=== PATIENT | female | born 1955 | race Caucasian/White ===

== ENCOUNTER → 2016-06-12 | Outpatient (CLI) | payer OTHER ==
[~2016-06-12] MED LIST: B-COTAB18 PO; BUSP-8 PO; DIVA125C PO; DIVA1TAB86 PO; DIVA250T PO; DIVA500T5 PO; DTR5 PO; EFF50; FOLI1TAB7 PO; LISI-725 PO; POTA10TA PO; THIA100T11 PO; TOLT2TAB9 PO; VENL150T33 PO; VENL75CA73 PO; [UNRECOGNIZED DRUG - CODE] PO
[2016-06-12 17:04] LABS: URINE APPEARANCE CLEAR (CLEAR); URINE BILIRUBIN NEG (NEG); URINE COLOR YELLOW; URINE EPITHELIAL CELL AUTO 20-30 /lpf (0-5); URINE NITRITE NEG (NEG); URINE PH 5.5 (4.5-7.5); URINE SPECIFIC GRAVITY 1.015 (1.000-1.030); UROBILINOGEN NEG (NEG)
[2016-06-12 17:12] LABS: MANUAL MICROSCOPIC REQUIRED? NO; REVIEW REQ? NO
--- NOTE | 2016-07-26 11:53 | CODING QUERY NO DIAGNOSIS ---
TREATMENT RENDERED WITHOUT A DIAGNOSIS To promote full compliance with coding requirements relating to patient care, physician participation is requested in all cases of dispensary clerk uncertainty. Please assist us with providing a diagnosis/symptom for the test(s) below: A diagnosis/symptom was not documented on your Order. A valid diagnosis/symptom is required to bill all insurances. Please remember that we are unable to code a diagnosis of rule out, probable, possible, questionable, or suspected. Tests that require a diagnosis: * UA CLEAN CATCH W/ MICROSCOPIC DIAGNOSIS: * URINE CULTURE CLEAN CATCH DIAGNOSIS: Provider Signature: Date: Thank you Lola Renner [employer] Information Management Once completed, please kindly fax back to [phone] For questions please call [phone]
== END | disposition home or self-care (01) ==
LOC: C.LABBC 14:11
PROVIDERS: ATTEND Family Medicine
DX: R35.0 Frequency of micturition (principal); N39.0 Urinary tract infection, site not specified

== ENCOUNTER → 2016-08-26 | Outpatient (CLI) | payer OTHER ==
[~2016-08-26] MED LIST changes: +EFF50 PO; +EFF75 PO; +Enteral Nutrition Formula PO; +MRLP17X PO; +NUTRMIS PO
--- NOTE | 2016-08-26 14:10 | DIAGNOSTIC IMAGING REPORT ---
HEAD CT NONCONTRAST CT DOSE: 720.95 mGycm HISTORY: Follow-up cerebral hemorrhage. TECHNIQUE: Multiaxial CT images of the head were performed without the use of intravenous contrast. Automated exposure control was utilized for this study. Comparison: Head CT 05/28/2016. Findings: The paranasal sinuses and mastoid air cells are clear. Continued decrease in size within the left external capsule fluid collection suggestive of a resolving hematoma. This currently measures 2.3 x 0.9 cm, previously measuring 3.6 x 1.7 cm. This demonstrates a hyperdense rim, unchanged. Old scattered infarcts seen within the cerebellum and left cerebral hemisphere. No acute infarcts identified. Atrophy and microvascular ischemic changes are again noted. No calvarial fractures. Impression: Continued decrease in size of the left external capsule fluid collection likely representing a resolving hematoma. No acute hemorrhage identified. Electronically signed by: Sudhir Menjivar M.D. 08/26/2016 2:09 PM Dictated Date/Time: 08/26/2016 2:04 PM
== END | disposition home or self-care (01) ==
LOC: C.CTS 13:34
PROVIDERS: ATTEND Psychiatry & Neurology Neurology
DX: I61.9 Nontraumatic intracerebral hemorrhage, unspecified (principal)

== ENCOUNTER → 2016-08-31 | Outpatient (CLI) | payer OTHER ==
[2016-08-31 11:24] LABS: URINE APPEARANCE CLEAR (CLEAR); URINE BILIRUBIN NEG (NEG); URINE COLOR YELLOW; URINE EPITHELIAL CELL AUTO >30 /lpf (0-5); URINE NITRITE NEG (NEG); URINE PH 5.5 (4.5-7.5); URINE SPECIFIC GRAVITY 1.024 (1.000-1.030); UROBILINOGEN NEG (NEG)
[2016-08-31 11:27] LABS: MANUAL MICROSCOPIC REQUIRED? NO; REVIEW REQ? YES
== END | disposition home or self-care (01) ==
LOC: C.LABBC 08:32
PROVIDERS: ATTEND Physician Assistant
DX: N39.0 Urinary tract infection, site not specified (principal)

== ENCOUNTER → 2016-09-16 | Outpatient (CLI) | payer OTHER ==
[2016-09-16 17:47] LABS: BLOOD UREA NITROGEN 32 mg/dl (7-18); CREATININE 0.82 mg/dl (0.60-1.20)
== END | disposition home or self-care (01) ==
LOC: C.LABBC 14:25
PROVIDERS: ATTEND Psychiatry & Neurology Neurology
DX: I61.9 Nontraumatic intracerebral hemorrhage, unspecified (principal); I69.319 Unspecified symptoms and signs involving cognitive functions following cerebral infarction

== ENCOUNTER → 2016-09-20 | Outpatient (CLI) | payer OTHER ==
[~2016-09-20] MED LIST changes: +GADAVIST IV PRN
--- NOTE | 2016-09-20 14:05 | DIAGNOSTIC IMAGING REPORT ---
MRI OF THE BRAIN WITHOUT AND WITH IV CONTRAST CLINICAL HISTORY: BRAIN COMBO COMPARISON STUDY: No previous studies for comparison. TECHNIQUE: Utilizing a 1.5 Rashmi magnet and dedicated coil, multiplanar, multiecho imaging of the brain was performed pre and postcontrast administration. IV administration of 8.5 mL of Gadavist contrast was uneventful. FINDINGS: Diffusion-weighted images show no acute ischemic process. There is a subtle increase in signal involving the linear collection of the left external capsule. This probably represents a resolving small hematoma. Signal characteristics indicate old infarcts of the left occipital as well as left superior parietal lobe. Diffusion-weighted images show no acute ischemic process. Mild compensatory prominence of the ventricular system. Findings of moderate cerebellar as well as cerebral atrophy are present pontine medullary region is unremarkable. Cerebellar several old cerebellar infarcts of the cerebellum. IMPRESSION: 1. Age-related atrophy. 2. Multifocal infarcts all which are considered old. 3. Resolving left external capsule hemorrhage which has been described previously. 4. Mild compensatory prominence of the ventricular system Electronically signed by: William Colmenares M.D. 09/20/2016 2:03 PM Dictated Date/Time: 09/20/2016 1:57 PM
== END | disposition home or self-care (01) ==
LOC: C.MRIBC 12:35
PROVIDERS: ATTEND Psychiatry & Neurology Neurology
DX: G81.91 Hemiplegia, unspecified affecting right dominant side (principal); I61.9 Nontraumatic intracerebral hemorrhage, unspecified; I69.319 Unspecified symptoms and signs involving cognitive functions following cerebral infarction; R26.9 Unspecified abnormalities of gait and mobility; R29.818 Other symptoms and signs involving the nervous system; R47.01 Aphasia; Z79.899 Other long term (current) drug therapy

== ENCOUNTER → 2016-09-20 | Outpatient (CLI) | payer OTHER ==
[~2016-09-20] MED LIST changes: -GADAVIST IV PRN
[2016-09-20 17:11] LABS: ALKALINE PHOSPHATASE 91 U/L (45-117); ALT/SGPT 22 U/L (12-78); AST/SGOT 15 U/L (15-37)
== END | disposition home or self-care (01) ==
LOC: C.LABBC 12:56
PROVIDERS: ATTEND Psychiatry & Neurology Psychiatry
DX: Z79.899 Other long term (current) drug therapy (principal)

== ENCOUNTER → 2016-10-14 | Outpatient (CLI) | payer OTHER ==
[2016-10-14 17:23] LABS: URINE APPEARANCE CLEAR (CLEAR); URINE BILIRUBIN NEG (NEG); URINE COLOR DK YELLOW; URINE NITRITE NEG (NEG); URINE SPECIFIC GRAVITY 1.027 (1.000-1.030); UROBILINOGEN NEG (NEG)
[2016-10-14 17:32] LABS: MANUAL MICROSCOPIC REQUIRED? NO; REVIEW REQ? NO
== END | disposition home or self-care (01) ==
LOC: C.LABBC 15:09
PROVIDERS: ATTEND Family Medicine
DX: N39.0 Urinary tract infection, site not specified (principal)

== ENCOUNTER 2016-10-15 12:34 | Inpatient (IN) | payer OTHER ==
[~2016-10-15] VITALS: Ht 157.5 cm; Wt 53.6 kg
[2016-10-15] VITALS (56 sets, daily range): BP systolic 51–141; BP diastolic 31–106; PULSE 86–106; TEMP 36.3–36.5; O2SAT 85–100; Ht 157.5 cm; Wt 53.6 kg
[~2016-10-15 12:34] MED LIST changes: -B-COTAB18 PO; -BUSP-8 PO; -DIVA125C PO; -DIVA1TAB86 PO; -DTR5 PO; -EFF50; -EFF50 PO; -EFF75 PO; -Enteral Nutrition Formula PO; -FOLI1TAB7 PO; -LISI-725 PO; -MRLP17X PO; -NUTRMIS PO; -POTA10TA PO; +SODIUM CHLORIDE 0.9% 500ML 500 ML IV STA; -THIA100T11 PO; -TOLT2TAB9 PO; -[UNRECOGNIZED DRUG - CODE] PO
[2016-10-15] MEDS ORDERED: B-COTAB18 PO (12:52)
[2016-10-15] MEDS ORDERED: LISI-725 PO (12:52)
[2016-10-15] MEDS ORDERED: FOLI1TAB7 PO (12:52)
[2016-10-15] MEDS ORDERED: POTA10TA PO (12:52)
[2016-10-15] MEDS ORDERED: TOLT2TAB9 PO (12:52)
--- NOTE | 2016-10-15 13:06 | DIAGNOSTIC IMAGING REPORT ---
CHEST ONE VIEW PORTABLE HISTORY: Altered mental status. COMPARISON: Chest 05/03/2016. FINDINGS: The lungs are clear. Cardiac silhouette is normal in size. No pleural effusions. No pneumothorax. IMPRESSION: No acute process. Electronically signed by: Sudhir Menjivar M.D. 10/15/2016 1:05 PM Dictated Date/Time: 10/15/2016 1:03 PM
[2016-10-15 13:22] LABS: BASO % 0.1 %; BASO ABS # 0.02 K/uL (0-0.2); COMPLETE YES; EOS % 0.2 %; HEMATOCRIT 30.5 % (37-47); IG% 0.4 %; LYMPH % 26.2 %; LYMPH ABS # 3.61 K/uL (1.2-3.4); MEAN CELL VOLUME 94.4 fL (80-100); MEAN CORPUSCULAR HEMOGLOBIN 32.5 pg (25-34); MEAN CORPUSCULAR HGB CONC 34.4 g/dl (32-36); MEAN PLATELET VOLUME 10.6 fL (7.4-10.4); MONO % 9.3 %; NEUT % 63.8 %; PLATELET COUNT 260 K/uL (130-400); RED BLOOD COUNT 3.23 M/uL (4.2-5.4); WHITE BLOOD COUNT 13.76 K/uL (4.8-10.8)
[2016-10-15 13:32] LABS: MANUAL MICROSCOPIC REQUIRED? NO; REVIEW REQ? NO; URINE APPEARANCE CLEAR (CLEAR); URINE BILIRUBIN NEG (NEG); URINE COLOR DK YELLOW; URINE EPITHELIAL CELL AUTO >30 /lpf (0-5); URINE NITRITE NEG (NEG); URINE PH 6.5 (4.5-7.5); URINE SPECIFIC GRAVITY 1.027 (1.000-1.030); UROBILINOGEN NEG (NEG); ZZURINE CULT IF INDIC CATH NO
[2016-10-15] MEDS ORDERED: SODIUM CHLORIDE 0.9% 1000ML 1,000 ML IV STA (13:36)
[2016-10-15 13:44] LABS: BUN/CREATININE RATIO 45.1 (10-20); CALCIUM 9.2 mg/dl (8.5-10.1); CREATININE 0.94 mg/dl (0.60-1.20); POTASSIUM 4.9 mmol/L (3.5-5.1)
--- NOTE | 2016-10-15 13:44 | EMERGENCY ROOM VISIT NOTE ---
History Report prepared by Zheng: Suraj Berry Under the Supervision of: Dr. Kobe Horvath M.D. First contact with patient: 12:34 Chief Complaint: ALTERED MENTAL STATUS Stated Complaint: ALTERED MENTAL STATUS Nursing Triage Summary: Patient arries via BLS from home. Per EMS report the patient had a previous stroke around September. The reports the patient being more lethargic and more confused than normal. believes it could be UTI, he had dropped off a urine specimen at the PCP office yesterday but results haven't been final yet. Patient A&O to person and sometimes place. History of Present Illness The patient is a 61 year old female who presents to the Emergency Room with complaints of constant weakness beginning five days ago. The patient's family notes that she has not been herself and she seems to be confused. They notes that she has a history of UTI's and confusion is an associated symptoms. The patient complains of a decreased appetite and diarrhea. She denies nausea, vomiting, couch, fever, or chills. The patient's family reports that the patient has a history of hypotension, noting that she is currently undergoing changes in her medications. Source of History: patient, family Onset: 5 days ago Position: other (global) Quality: other (weakness) Timing: constant Associated Symptoms: + diarrhea, No chills, No cough, No fevers, No nausea, No vomiting Note: Associated symptoms decreased appetite. Review of Systems See HPI for pertinent positives & negatives. A total of 10 systems reviewed and were otherwise negative. Past Medical & Surgical Medical Problems: (1) Bipolar disease, chronic (2) Head trauma (3) Hypotension Family History No pertinent family history Social History Smoking Status: Unknown if Ever Smoked Marital Status: Housing Status: lives with family Current/Historical Medications Scheduled B-Complex Vitamins (Vitamin B Complex), 1 TAB PO DAILY Folic Acid (Folvite), 1 MG PO DAILY Lisinopril (Zestril), 10 MG PO DAILY Potassium Chloride (K-Tabs), 20 MEQ PO BID Tolterodine Tartrate (Tolterodine Tartrate), 2 MG PO BID Allergies Coded Allergies: POLLEN (Verified Allergy, Intermediate, PAST HX SEASONAL ALLERGIES/ASTHMA , 10/15/16) Physical Exam Vital Signs Date Time Temp Pulse Resp B/P Pulse Ox O2 Delivery O2 Flow Rate FiO2 10/15/16 16:24 96 15 68/45 95 Room Air 69/53 10/15/16 15:44 97 19 70/47 10/15/16 14:53 94 18 69/51 10/15/16 13:50 102 20 71/55 100 Room Air 10/15/16 12:57 118 78/59 10/15/16 12:49 97 Room Air 10/15/16 12:49 97 Room Air 10/15/16 12:43 36.8 114 16 136/58 97 Room Air Physical Exam GENERAL: Patient is a ill, cachectic, pale-appearing female HEAD: Normocephalic atraumatic EYES: Ocular movements intact pupils equal and react to light OROPHARYNX mucous membranes are moist no exudates present no erythema or edema present NECK: Supple no nuchal rigidity CHEST: Good equal expansion LUNGS: Clear and equal to auscultation CARDIAC: 4/6 systolic murmur ABDOMEN: Soft nontender no guarding BACK: No CVA tenderness EXTREMITIES: No pain upon palpation normal muscle strength in all groups no clubbing cyanosis or edema NEURO: Patient is following commands is answering questions appropriately. Alert and oriented x3 Cranial Nerves 2-12 grossly intact Medical Decision & Procedures ER Provider Diagnostic Interpretation: Radiology results as stated below per my review and radiologist interpretation: HEAD CT NONCONTRAST CT DOSE: 537.48 mGy.cm HISTORY: Altered mental status. TECHNIQUE: Multiaxial CT images of the head were performed without the use of intravenous contrast. Automated exposure control was utilized for this study. Comparison: Head CT 08/26/2016. Findings: Old nasal bone and left zygomatic arch fractures. No fluid levels within the paranasal sinuses. The mastoid air cells are clear. No acute fractures within the calvarium. Continued decrease in size within the left external capsule fluid collection with surrounding thin rim of increased density. This currently measures 1.5 x 0.8 cm, previous measuring 2.3 x 0.9 cm. Multiple scattered infarcts are again noted. There is no mass, midline shift, acute infarct, or acute hemorrhage identified. Impression: Continued decrease in size in the small left external capsule fluid collection likely representing a resolving hematoma. No acute hemorrhage or acute infarct identified. Electronically signed by: Sudhir Menjivar M.D. 10/15/2016 2:24 PM Dictated Date/Time: 10/15/2016 2:19 PM CHEST ONE VIEW PORTABLE HISTORY: Altered mental status. COMPARISON: Chest 05/03/2016. FINDINGS: The lungs are clear. Cardiac silhouette is normal in size. No pleural effusions. No pneumothorax. IMPRESSION: No acute process. Electronically signed by: Sudhir Menjivar M.D. 10/15/2016 1:05 PM Dictated Date/Time: 10/15/2016 1:03 PM Laboratory Results 10/15/16 12:56 Red Blood Count 3.23, Mean Corpuscular Volume 94.4, Mean Corpuscular Hemoglobin 32.5, Mean Corpuscular Hemoglobin Concent 34.4, Mean Platelet Volume 10.6, Neutrophils (%) (Auto) 63.8, Lymphocytes (%) (Auto) 26.2, Monocytes (%) (Auto) 9.3, Eosinophils (%) (Auto) 0.2, Basophils (%) (Auto) 0.1, Neutrophils # (Auto) 8.76, Lymphocytes # (Auto) 3.61, Monocytes # (Auto) 1.28, Eosinophils # (Auto) 0.03, Basophils # (Auto) 0.02 10/15/16 12:56 Test 10/15/16 12:54 10/15/16 12:56 10/15/16 13:12 10/15/16 16:49 Bedside Glucose 135 mg/dl (70-90) White Blood Count 13.76 K/uL (4.8-10.8) Red Blood Count 3.23 M/uL (4.2-5.4) Hemoglobin 10.5 g/dL (12.0-16.0) Hematocrit 30.5 % (37-47) Mean Corpuscular Volume 94.4 fL (80-100) Mean Corpuscular Hemoglobin 32.5 pg (25-34) Mean Corpuscular Hemoglobin Concent 34.4 g/dl (32-36) Platelet Count 260 K/uL (130-400) Mean Platelet Volume 10.6 fL (7.4-10.4) Neutrophils (%) (Auto) 63.8 % Lymphocytes (%) (Auto) 26.2 % Monocytes (%) (Auto) 9.3 % Eosinophils (%) (Auto) 0.2 % Basophils (%) (Auto) 0.1 % Neutrophils # (Auto) 8.76 K/uL (1.4-6.5) Lymphocytes # (Auto) 3.61 K/uL (1.2-3.4) Monocytes # (Auto) 1.28 K/uL (0.11-0.59) Eosinophils # (Auto) 0.03 K/uL (0-0.5) Basophils # (Auto) 0.02 K/uL (0-0.2) RDW Standard Deviation 50.5 fL (36.4-46.3) RDW Coefficient of Variation 14.7 % (11.5-14.5) Immature Granulocyte % (Auto) 0.4 % Immature Granulocyte # (Auto) 0.06 K/uL (0.00-0.02) Anion Gap 7.0 mmol/L (3-11) Est Creatinine Clear Calc Drug Dose 52.9 ml/min Estimated GFR () 74.8 Estimated GFR (Non- 64.6 BUN/Creatinine Ratio 45.1 (10-20) Calcium Level 9.2 mg/dl (8.5-10.1) Phosphorus Level 3.6 mg/dl (2.5-4.9) Magnesium Level 2.1 mg/dl (1.8-2.4) Total Bilirubin 0.3 mg/dl (0.2-1) Direct Bilirubin 0.1 mg/dl (0-0.2) Aspartate Amino Transf (AST/SGOT) 22 U/L (15-37) Alanine Aminotransferase (ALT/SGPT) 19 U/L (12-78) Alkaline Phosphatase 57 U/L (45-117) Total Creatine Kinase 24 U/L (26-192) Creatine Kinase MB 1.6 ng/ml (0.5-3.6) Creatine Kinase MB Ratio 6.7 (0-3.0) Troponin I 0.136 ng/ml (0-0.045) Total Protein 6.4 gm/dl (6.4-8.2) Albumin 2.9 gm/dl (3.4-5.0) Thyroid Stimulating Hormone (TSH) 4.840 uIu/ml (0.300-4.500) Urine Color DK YELLOW Urine Appearance CLEAR (CLEAR) Urine pH 6.5 (4.5-7.5) Urine Specific [place] 1.027 (1.000-1.030) Urine Protein NEG (NEG) Urine Glucose (UA) NEG (NEG) Urine Ketones TRACE (NEG) Urine Occult Blood NEG (NEG) Urine Nitrite NEG (NEG) Urine Bilirubin NEG (NEG) Urine Urobilinogen NEG (NEG) Urine Leukocyte Esterase SMALL (NEG) Urine WBC (Auto) 1-5 /hpf (0-5) Urine RBC (Auto) 0-4 /hpf (0-4) Urine Hyaline Casts (Auto) 1-5 /lpf (0-5) Urine Epithelial Cells (Auto) >30 /lpf (0-5) Urine Bacteria (Auto) NEG (NEG) Labs reviewed by ED physician. Medications Administered Medications (Trade) Dose Ordered Sig/Froylan Route Start Time Stop Time Status Last Admin Dose Admin Sodium Chloride 500 ml @ 999 mls/hr Q31M STAT IV 10/15/16 12:34 10/15/16 13:04 DC 10/15/16 13:18 999 MLS/HR Sodium Chloride 1,000 ml @ 999 mls/hr Q1H1M STAT IV 10/15/16 13:36 10/15/16 14:36 DC 10/15/16 13:48 999 MLS/HR Daptomycin/Sodium Chloride (Cubicin IV/Nss 50ml) 57.2 ml @ 100 mls/hr NOW STAT IV 10/15/16 14:01 10/15/16 14:35 DC 10/15/16 14:34 100 MLS/HR Piperacillin Sod/ Tazobactam Sod (Zosyn Iv) 4.5 gm NOW STAT IV 10/15/16 14:01 10/15/16 14:03 DC 10/15/16 14:29 4.5 GM ECG Indication: altered mental status Rate (beats per minute): 115 Rhythm: sinus tachycardia Findings: no acute ischemic change, no ectopy ED Course 1234: Ordered Sodium Chloride 500 ml @ 999 mls/hr IV 1332: Past medical records reviewed. The patient was evaluated in room C02. A complete history and physical examination was performed. 1336: Ordered Sodium Chloride 1000 ml @ 999 mls/hr IV. 1401: Ordered Zosyn Iv 4.5 gm IV, Daptomycin 360 mg/Sodium Chloride 57.2 ml @ 100 mls/hr IV 1405: I reevaluated the patient and she is doing better. I updated the patient of her exam findings and test result. 1446: Upon reexamination the patient is resting easy. I discussed results and treatment plan with the family. They verbalized agreement and understanding. I spoke with Dr. Oh from the [facility]. The patient will be evaluated for further management. Medical Decision Differential diagnosis: Etiologies such as metabolic, infection, hypo/hyperglycemia, electrolyte abnormalities, cardiac sources, intracerebral event, toxicologic, neurologic, as well as others were entertained. This is a 61-year-old female who presents emergency department with altered mental status. The patient is extremely hypertensive upon arrival to the emergency department therefore she was given normal saline bolus. There was concern that the patient may have a urinary tract infection she does have an elevation in her white blood count cell count. She was pancultured up and started on antibiotics. I did discuss the case with the hospitalist service who agreed to admit the patient. Patient family were in agreement with the treatment plan. Consults Time Called: 1439 Consulting Physician: BARBARA Chowdary Returned Call: [phone] I discussed the patients case with BARBARA Hernandez. He is going to evaluate the patient for further treatment. Impression Primary Impression: Altered mental status Additional Impression: Hypotension Scribe Attestation The scribe's documentation has been prepared under my direction and personally reviewed by me in its entirety. I confirm that the note above accurately reflects all work, treatment, procedures, and medical decision making performed by me. Departure Information Dispostion Being Evaluated By Hospitalist Referrals Shad Lyons D.O.Int.Med. (PCP) Problem Qualifiers Primary Impression: Altered mental status Altered mental status type: disorientation Qualified Codes: R41.0 - Disorientation, unspecified Additional Impression: Hypotension Hypotension type: unspecified hypotension type Qualified Codes: I95.9 - Hypotension, unspecified
[2016-10-15 13:57] LABS: CKMB/CK RATIO 6.7 (0-3.0); THYROID STIMULATING HORMONE 4.84 uIu/ml (0.300-4.500)
[2016-10-15] MEDS ORDERED: DAPTOmycin IV 360 MG in SODIUM CHLORIDE 0.9% 50ML 50 ML IV STA (14:01)
[2016-10-15] MEDS ORDERED: PIPERACILLIN/TAZOBACTAM 4.5 GM/100ML D5W IV STA (14:01)
--- NOTE | 2016-10-15 14:26 | DIAGNOSTIC IMAGING REPORT ---
HEAD CT NONCONTRAST CT DOSE: 537.48 mGy.cm HISTORY: Altered mental status. TECHNIQUE: Multiaxial CT images of the head were performed without the use of intravenous contrast. Automated exposure control was utilized for this study. Comparison: Head CT 08/26/2016. Findings: Old nasal bone and left zygomatic arch fractures. No fluid levels within the paranasal sinuses. The mastoid air cells are clear. No acute fractures within the calvarium. Continued decrease in size within the left external capsule fluid collection with surrounding thin rim of increased density. This currently measures 1.5 x 0.8 cm, previous measuring 2.3 x 0.9 cm. Multiple scattered infarcts are again noted. There is no mass, midline shift, acute infarct, or acute hemorrhage identified. Impression: Continued decrease in size in the small left external capsule fluid collection likely representing a resolving hematoma. No acute hemorrhage or acute infarct identified. Electronically signed by: Sudhir Menjivar M.D. 10/15/2016 2:24 PM Dictated Date/Time: 10/15/2016 2:19 PM
--- NOTE | 2016-10-15 16:47 | History and Physical ---
History & Physical Date & Time of Service: October 15, 2016 at 16:32 Chief Complaint: Altered Mental Status Primary Care Physician: Shad Lyons D.O.Int.Med. History of Present Illness Source: patient, family Pt is 61 yr old woman with a PMH significant for CVA/Right hemiparesis, HTN admitted for eval of gen. weakness. 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 Not eating and drinking. Also ? loose stools. No abd pain. Pt denies dysuria, hematuria. UA sent as OP as per PCP to rule out UTI. In ER found to be hypotensive and started on IV fluids with some improvement in BP. 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 No ETOH or tobacco use Smoking Status: Unknown if Ever Smoked Marital Status: Immunizations History of Influenza Vaccine: No History of Tetanus Vaccine?: Yes History of Pneumococcal: No History of Hepatitis B Vaccine: No Multi-Drug Resistant Organisms History of MDRO: No Allergies Coded Allergies: POLLEN (Verified Allergy, Intermediate, PAST HX SEASONAL ALLERGIES/ASTHMA , 10/15/16) Home Medications Scheduled B-Complex Vitamins (Vitamin B Complex), 1 TAB PO DAILY Folic Acid (Folvite), 1 MG PO DAILY Lisinopril (Zestril), 10 MG PO DAILY Potassium Chloride (K-Tabs), 20 MEQ PO BID Tolterodine Tartrate (Tolterodine Tartrate), 2 MG PO BID Review of Systems Constitutional: + fatigue, + weakness Eyes: No diplopia, No discharge, No eye pain, No problem reported, No redness, No worsening of vision ENT: No dental problems, No hearing loss, No nasal symptoms, No problem reported, No sore throat, No tinnitus, No trouble swallowing, No unusual epistaxis Respiratory: No cough, No dyspnea at rest, No dyspnea on exertion, No hemoptysis, No problem reported, No shortness of breath, No sputum, No wheezing Cardiovascular: No PND, No chest pain, No claudication, No edema, No orthopnea , No palpitations, No problem reported Abdomen: + diarrhea Musculoskeletal: No calf pain, No joint pain, No muscle pain, No problem reported, No swelling Genitourinary - Female: No dysmenorrhea, No dysuria, No hematuria, No menorrhagia, No metrorrhagia, No , No problem reported, No rash, No urinary frequency, No urinary incontinence, No urinary retention, No urinary urgency, No vaginal bleeding, No vaginal discharge, No vaginal itching, No vulvodynia Neurologic: + weakness (right hemiparesis) Psychiatric: + depression symptoms Integumentary: No bleeding, No color change, No itch, No new/changing skin lesions, No problem reported, No rash Physical Exam Vital Signs Date Time Temp Pulse Resp B/P Pulse Ox O2 Delivery O2 Flow Rate FiO2 10/15/16 16:24 96 15 68/45 95 Room Air 69/53 10/15/16 15:44 97 19 70/47 10/15/16 14:53 94 18 69/51 10/15/16 13:50 102 20 71/55 100 Room Air 10/15/16 12:57 118 78/59 10/15/16 12:49 97 Room Air 10/15/16 12:49 97 Room Air 10/15/16 12:43 36.8 114 16 136/58 97 Room Air General Appearance: + mild distress Head: normocephalic, atraumatic Eyes: normal inspection, PERRL, EOMI ENT: normal ENT inspection Neck: supple Respiratory/Chest: chest non-tender, normal breath sounds Cardiovascular: regular rate, rhythm, no edema, + systolic murmur Abdomen/GI: normal bowel sounds, non tender, soft, no organomegaly Back: normal inspection Neurologic/Psych: supervisor sanding II-XII nml as tested, alert, oriented x 3, + motor weakness (right hemiparesis) Skin: + pallor Diagnostics Laboratory Results Results Past 24 Hours Test 10/15/16 12:54 10/15/16 12:56 10/15/16 13:12 Range/Units Bedside Glucose 135 70-90 mg/dl White Blood Count 13.76 4.8-10.8 K/uL Red Blood Count 3.23 4.2-5.4 M/uL Hemoglobin 10.5 12.0-16.0 g/dL Hematocrit 30.5 37-47 % Mean Corpuscular Volume 94.4 80-100 fL Mean Corpuscular Hemoglobin 32.5 25-34 pg Mean Corpuscular Hemoglobin Concent 34.4 32-36 g/dl Platelet Count 260 130-400 K/uL Mean Platelet Volume 10.6 7.4-10.4 fL Neutrophils (%) (Auto) 63.8 % Lymphocytes (%) (Auto) 26.2 % Monocytes (%) (Auto) 9.3 % Eosinophils (%) (Auto) 0.2 % Basophils (%) (Auto) 0.1 % Neutrophils # (Auto) 8.76 1.4-6.5 K/uL Lymphocytes # (Auto) 3.61 1.2-3.4 K/uL Monocytes # (Auto) 1.28 0.11-0.59 K/uL Eosinophils # (Auto) 0.03 0-0.5 K/uL Basophils # (Auto) 0.02 0-0.2 K/uL RDW Standard Deviation 50.5 36.4-46.3 fL RDW Coefficient of Variation 14.7 11.5-14.5 % Immature Granulocyte % (Auto) 0.4 % Immature Granulocyte # (Auto) 0.06 0.00-0.02 K/uL Sodium Level 139 136-145 mmol/L Potassium Level 4.9 3.5-5.1 mmol/L Chloride Level 105 98-107 mmol/L Carbon Dioxide Level 27 21-32 mmol/L Anion Gap 7.0 3-11 mmol/L Blood Urea Nitrogen 42 7-18 mg/dl Creatinine 0.94 0.60-1.20 mg/dl Est Creatinine Clear Calc Drug Dose 52.9 ml/min Estimated GFR () 74.8 Estimated GFR (Non- 64.6 BUN/Creatinine Ratio 45.1 10-20 Random Glucose 127 70-99 mg/dl Calcium Level 9.2 8.5-10.1 mg/dl Total Bilirubin 0.3 0.2-1 mg/dl Direct Bilirubin 0.1 0-0.2 mg/dl Aspartate Amino Transf (AST/SGOT) 22 15-37 U/L Alanine Aminotransferase (ALT/SGPT) 19 12-78 U/L Alkaline Phosphatase 57 45-117 U/L Total Creatine Kinase 24 26-192 U/L Creatine Kinase MB 1.6 0.5-3.6 ng/ml Creatine Kinase MB Ratio 6.7 0-3.0 Troponin I 0.136 0-0.045 ng/ml Total Protein 6.4 6.4-8.2 gm/dl Albumin 2.9 3.4-5.0 gm/dl Thyroid Stimulating Hormone (TSH) 4.840 0.300-4.500 uIu/ml Urine Color DK YELLOW Urine Appearance CLEAR CLEAR Urine pH 6.5 4.5-7.5 Urine Specific [place] 1.027 1.000-1.030 Urine Protein NEG NEG Urine Glucose (UA) NEG NEG Urine Ketones TRACE NEG Urine Occult Blood NEG NEG Urine Nitrite NEG NEG Urine Bilirubin NEG NEG Urine Urobilinogen NEG NEG Urine Leukocyte Esterase SMALL NEG Urine WBC (Auto) 1-5 0-5 /hpf Urine RBC (Auto) 0-4 0-4 /hpf Urine Hyaline Casts (Auto) 1-5 0-5 /lpf Urine Epithelial Cells (Auto) >30 0-5 /lpf Urine Bacteria (Auto) NEG NEG Microbiology Results 10/15/16 Blood Culture, Received Pending 10/15/16 Blood Culture, Received Pending CXR normal EKG Sinus tachycardia Non specific STT changes. Impression Assessment and Plan Hypotension Hx of HTN Hx of CVA with right hemparesis Hx of Swallowing dysfunction Admit to ICU Consult Tacker Off IVFs, IV NSS Add pressors to keep MAP greater than 60 mm Hg Gu cultures Broad spectrum IV antibiotics. Trend troponins Recheck EKG in am and if repeat troponin is high or if CP Check echo to assess systolic murmur. Hold BP meds. PT/OT eval. CM consult reg. disposition Level of Care Critical Care Resuscitation Status FULL RESUSCITATION VTE Prophylaxis VTE Risk Assessment Done? Y/N: Yes Risk Level: High Given or contraindicated: SCD's Note Total Time: Critical Care 30 - 74 minutes
[2016-10-15] MEDS ORDERED: ACETAMINOPHEN 325 MG TAB PO PRN (17:00)
[2016-10-15] MEDS ORDERED: ZOLPIDEM TARTRATE 5 MG TAB PO PRN (17:00)
[2016-10-15 17:44] LABS: MAGNESIUM 2.1 mg/dl (1.8-2.4); PHOSPHORUS 3.6 mg/dl (2.5-4.9)
[2016-10-15] MEDS: PHENYLEPHRINE HCL INJ 20 MG in DEXTROSE 5% 500ML 500 ML IV PRN ×2 (17:48→22:28)
[2016-10-15] MEDS ORDERED: PIPERACILL/TAZOBAC CONSULT ACTIVE PRN (18:30)
[2016-10-15] MEDS ORDERED: SODIUM CHLORIDE 0.9% 1000ML 1,000 ML IV ONE ×2 (18:30→20:45)
[2016-10-15] MEDS: SODIUM CHLORIDE 0.9% 1000ML 1,000 ML IV SCH (18:36)
[2016-10-15] MEDS ORDERED: SODIUM CHLORIDE 0.9% 500ML 500 ML IV SCH (20:00)
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
[2016-10-15] MEDS ORDERED: DIVA1TAB86 PO ×2 (21:00)
[2016-10-15] MEDS ORDERED: BUSP-8 PO (21:00)
[2016-10-15] MEDS ORDERED: EFF50 (21:01)
[2016-10-15] MEDS: HYDROCORTISONE IV 100 MG in SYRINGE 0 ML IV SCH (22:17)
[2016-10-15] MEDS: PIPERACILL/TAZOBAC IV 3.375 GM in DEXTROSE 5% 100ML 100 ML IV SCH (22:17)
[2016-10-15] MEDS: DIVALPROEX SODIUM 500 MG DELAY RELEASE TAB PO SCH (22:18)
[2016-10-15] MEDS: VENLAFAXINE HCL 50 MG TAB PO SCH (22:19)
[2016-10-15] MEDS: ALBUMIN HUMAN 25% 12.5 GM/50 ML VIAL IV SCH (22:24)
[2016-10-15 22:34] LABS: INR 1.3 (0.9-1.1); PARTIAL THROMBOPLASTIN RATIO 1.2; PROTHROMBIN TIME (PATIENT) 13.6 SECONDS (9.0-12.0)
[2016-10-16] VITALS (90 sets, daily range): BP systolic 67–152; BP diastolic 44–79; PULSE 67–131; TEMP 36.3–37.3; O2SAT 90–100
[2016-10-16] MEDS: PHENYLEPHRINE HCL INJ 80 MG in DEXTROSE 5% 500ML 500 ML IV PRN ×2 (00:21→23:13)
[2016-10-16] MEDS ORDERED: ALBUMIN HUMAN 25% 12.5 GM/50 ML VIAL IV ONE (00:30)
[2016-10-16] MEDS: ALBUMIN HUMAN 25% 12.5 GM/50 ML VIAL IV SCH (00:37)
[2016-10-16] MEDS: PIPERACILL/TAZOBAC IV 3.375 GM in DEXTROSE 5% 100ML 100 ML IV SCH (04:00)
[2016-10-16] MEDS: HYDROCORTISONE IV 100 MG in SYRINGE 0 ML IV SCH (05:56)
[2016-10-16 07:30] LABS: BUN/CREATININE RATIO 37.5 (10-20); CALCIUM 7.4 mg/dl (8.5-10.1); CREATININE 0.63 mg/dl (0.60-1.20); MAGNESIUM 1.4 mg/dl (1.8-2.4); POTASSIUM 3.7 mmol/L (3.5-5.1)
[2016-10-16 07:40] LABS: PHOSPHORUS 2.7 mg/dl (2.5-4.9)
[2016-10-16 07:45] LABS: MEAN CELL VOLUME 94.2 fL (80-100); MEAN CORPUSCULAR HEMOGLOBIN 32.5 pg (25-34); MEAN CORPUSCULAR HGB CONC 34.4 g/dl (32-36); MEAN PLATELET VOLUME 10.3 fL (7.4-10.4); PLATELET COUNT 177 K/uL (130-400); RED BLOOD COUNT 1.91 M/uL (4.2-5.4)
[2016-10-16 07:46] LABS: BASO % 0.2 %; BASO ABS # 0.02 K/uL (0-0.2); COMPLETE YES; IG% 0.4 %; LYMPH % 11.8 %; LYMPH ABS # 1.43 K/uL (1.2-3.4); MONO % 5.5 %; NEUT % 82.1 %
[2016-10-16] MEDS: VENLAFAXINE HCL 50 MG TAB PO SCH ×2 (07:47→20:15)
[2016-10-16] MEDS: DIVALPROEX SODIUM 250 MG DELAY REL TAB PO SCH (07:49)
[2016-10-16] MEDS: ENOXAPARIN 40 MG/0.4 ML SYR SQ SCH (07:51)
[2016-10-16] MEDS: SODIUM CHLORIDE 0.9% 1000ML 1,000 ML IV SCH (07:56)
[2016-10-16] MEDS ORDERED: MAGNESIUM SULFATE 1GM / D5W 1 GM BAG IV STA (08:05)
[2016-10-16 08:44] LABS: FIBRINOGEN* 245 mg/dl (184-400); INR 1.2 (0.9-1.1); PARTIAL THROMBOPLASTIN RATIO 1.2; PROTHROMBIN TIME (PATIENT) 13.1 SECONDS (9.0-12.0)
[2016-10-16] MEDS: MAGNESIUM SULFATE 1GM / D5W 1 GM in PREMIXED IN D5W 100 ML IV SCH ×2 (08:46→10:03)
--- NOTE | 2016-10-16 08:46 | DIAGNOSTIC IMAGING REPORT ---
KUB CLINICAL HISTORY: IVC filter COMPARISON STUDY: CT of the abdomen November 20, 2005. FINDINGS: The bowel gas pattern is normal. [address] The apex of the more superior filter is at the inferior L1 level while the apex of the inferior filter as at the mid L2 level. These are probably similar position to exam of November 20, 2005. IMPRESSION: 1. [address] No significant change in position since CT of November 20, 2005. 2. No evidence of bowel obstruction. Electronically signed by: Erick Castillo M.D. 10/16/2016 8:44 AM Dictated Date/Time: 10/16/2016 8:41 AM
[2016-10-16 08:57] LABS: FERRITIN 430.7 ng/ml (8.0-388.0)
[2016-10-16] MEDS ORDERED: PANTOprazole SOD 40 MG TAB PO SCH (09:00)
[2016-10-16] MEDS ORDERED: VANCOMYCIN INJ 1,000 MG in SODIUM CHLORIDE 0.9% 250ML 250 ML IV SCH (09:00)
[2016-10-16] MEDS ORDERED: CALCIUM GLUCONATE 10% 1,000 MG in SODIUM CHLORIDE 0.9% 50ML 50 ML IV ONE (09:45)
[2016-10-16] MEDS: SODIUM CHLOR 0.45% + 20MEQ KCL 1,000 ML IV SCH (10:04)
--- NOTE | 2016-10-16 10:46 | Critical Care Progress Note ---
Critical Care Progress Note Date of Service October 16, 2016. ICU Day ICU Day Number: [address] Flower Subjective No issues overnight Patient remained on phenylephrine infusion Today remains somewhat confused stable since admission Objective General Appearance: mild distress, thin Head: normocephalic, atraumatic Eyes: PERRLA, EOMI ENT: normal nasal exam, normal mouth exam, normal throat exam Neck: normal range of motion, no tenderness, no stridor Respiratory: breath sounds normal, clear to auscultation Cardiovasular: systolic murmur (4/6 early systolic murmur, loudest at the apex. . No radiation to the carotids.) Abdomen: non tender, normal bowel sounds Back: normal inspection, no CVA tenderness Lower Extremities: no edema Edema: RUE, LUE Neuro: alert, other (oriented to person only) Psychiatric: other (hyper alert) Current SOFA Score SOFA Score Response (Comments) Value PaO2/FiO2 (mmHg) < 400 1 SaO2 / FIO2 221 - 301 1 [place] Coma Score 15 0 Level of Hypotension MAP less than 70 1 Total 3 Assessment & Plan (1) Bipolar disease, chronic (2) Hemorrhagic cerebrovascular accident (CVA) (3) Altered mental status (4) Hypotension (5) Head trauma (6) Elevated troponin (7) Hypocalcemia (8) Hypomagnesemia 61-year-old female with undifferentiated hypotension. Have considered to most likely causes of sepsis versus cardiogenic shock. Etiology at this time is still unclear, still in the stages of fluid resuscitation. Patient remained stable on a phenylephrine infusion. We'll continue to monitor today and anticipate for obtaining central venous access. Our plan for her is as follows: NEUROLOGICAL - GCS: 15 - ICU positive; unchanged from admission Bipolar disorder - Continue Effexor, BuSpar, Depakote Serum Depakote level with a.m. labs CARDIAC Undifferentiated Hypotension - BP: 80/50s overnight - Varying map between 60-65 ; below goal of 65 or greater - Phenylephrine infusion - Total fluid intake 4.5 L since admission - Septic etiology unlikely; there is no clear source of infection; Pro calcitonin is negative - Echocardiogram reviewed at bedside; hyperdynamic myocardium, suggestive of intravascular depletion; final report pending Elevated troponin and non-specific EKG changes - EKG reviewed; non-specific ST and T wave changes; no obvious wall motion abnormality on echocardiogram; changes are likely rate related - Troponin peaked at 0.237; discontinue troponin monitoring - Given evaluation for shock, felt it was prudent to do a stat echocardiogram to determine if there was a regional wall motion abnormality - Echocardiogram does suggest marked volume depletion RESPIRATORY - Stable No evidence of respiratory distress , and patient is saturating 96% on room air - Stable, continue to monitor GASTROINTESTINAL - Diet: AHA diet View of continued vasopressor need, w will change diet orders at this time to nothing by mouth - GI Prophylaxis: Protonix 40 mg PO Protein calorie malnutrition - High risk for vitamin deficiencies - B12, folate, vitamin D levels with morning labs - Once patient is able to eat, will consult nutrition for ambulatory recommendations RENAL//ENDOCRINE - Fluid Balance Hemoglobin of balance + 4.1 L; total urine output 450 mL Likely retaining fluid intravascularly due to significant depletion on arrival; will need to continue monitoring for urine output to picker / packer - Hypmagnesemia: 1.4; replete with 2 g mag sulfate - Hypocalcemia: Replete with 1 g calcium gluconate, may adjunct adjunctively help with blood pressure - Cr: 0.63 Likely has protein calorie malnutrition, accounting for low baseline creatinine and possible masking for an JUANITO BUN/creatinine ratio greater than 20, suggesting intravascular depletion - IV Fluids: Change fluids to 1/2 NSS + mEq KCl - Blood sugar stable - Hydrocortisone 100 mg every 8 hours, for empiric coverage of adrenal insufficiency HEME/ID - Tmax: Afebrile WBC 12; lactate increased to 4.0 yesterday evening but came down to 1.7 this morning; Pro calcitonin has remained negative 2 normal No focal source of infection, though history suggests possible urinary source given correlation of symptoms to previous urinary tract infections; UA not grossly abnormal, but will send for culture - Blood and urine cultures pending - Evidence points overall against ongoing infection; at this time we will discontinue all antibiotics and await the culture results; Severe anemia - Hb/Hct 6.2/18; hemoglobin is down significantly from 10 on arrival Baseline hemoglobin 12, as of 05/2017 There is likely significant delusional effect secondary to aggressive fluid resuscitation yesterday - Type and cross for 2 units packed red blood cells; transfuse 2 units; consent obtained from - B12 and folate to be ordered with morning labs - Iron studies pending - DIC panel pending - DVT Prophylaxis: Lovenox 40 mg daily CODE STATUS - Full Code DISPOSITION - OT/PT: Ordered - ICU for continuous blood pressure monitoring, and possible need for central access Resident Physician Supervision Note: Dr. Garcia was resident physician during care of patient. I separately evaluated patient and did history and exam. I discussed the case with the resident and generally agree with the findings and plan. Patient hasn't 2 negative pro calcitonin's, I do not believe the etiology of the hypotension is secondary to sepsis. Patient has a fairly profound drop in her hemoglobin certainly think a large aspect of this is due to dilution. Given that the patient is still hypotensive despite vasoactive medications will proceed with a blood transfusion of 2 units. After the first unit patient had significant improvement in her blood pressure and decreasing vasoactive medication requirements. Labs are still pending regarding thrombolysis, DIC neither which I think are clinically likely, I am concerned for bone marrow suppression, however the peripheral smear is not community health program representative of a myelodysplastic process. I have personally spent 45 minutes of critical care time in the direct management of this patient. This is a life/limb threatening event. This includes time spent evaluating patient, direct bedside care, chart review, placing orders, interpretation of diagnostic studies, discussion with consultants, patient, and family members, as well as other required patient management activities. This time is exclusive of all separately billable procedures, and teaching time and separate from and in addition to any other critical care service time. Documented By: Williams Flower DO Consults & Procedures Consultants: - Procedures: Final echocardiogram report is pending Data Medications: Current Inpatient Medications Medications (Trade) Dose Ordered Sig/Froylan Route Start Time Stop Time Status Last Admin Dose Admin Acetaminophen (Tylenol Tab) 650 mg Q4H PRN PO 10/15/16 17:00 11/14/16 16:59 Zolpidem Tartrate (Ambien Tab) 5 mg HSZ PRN PO 10/15/16 17:00 11/14/16 16:59 Pantoprazole Sodium (Protonix Tab) 40 mg QAM PO 10/16/16 09:00 11/15/16 08:59 10/16/16 07:47 40 MG Buspirone HCl (Buspar Tab) 10 mg BID PO 10/15/16 21:00 11/14/16 20:59 10/16/16 07:50 10 MG Divalproex Sodium (Depakote Delay Rel Tab) 750 mg QAM PO 10/16/16 09:00 11/15/16 08:59 5/10/17 07:49 750 MG Divalproex Sodium (Depakote Delay Rel Tab) 1,000 mg HS PO 10/15/16 21:00 11/14/16 20:59 10/15/16 22:18 1,000 MG Venlafaxine HCl (effeXOR TAB) 75 mg BID PO 10/15/16 21:00 11/14/16 20:59 10/16/16 07:47 75 MG Enoxaparin Sodium 40 mg 40 mg QAM SQ 10/16/16 09:00 11/15/16 08:59 10/16/16 07:51 40 MG Hydrocortisone Sodium Succinate 100 mg/Syringe 2 ml @ 4 mls/min Q8H IV 10/15/16 22:00 11/14/16 21:59 10/16/16 05:56 4 MLS/MIN Phenylephrine HCl 80 mg/Dextrose 508 ml @ 0 mls/hr Q0M PRN IV 10/15/16 23:15 11/14/16 23:14 10/16/16 00:21 56.3 MLS/HR Magnesium Sulfate 1 gm/Prmx 100 ml @ 100 mls/hr 0830,0930 IV 10/16/16 08:30 10/16/16 12:00 10/16/16 10:03 100 MLS/HR Potassium Chloride/Sodium Chloride (1/2 Nss + 20meq KCl 1000ml) 1,000 ml @ 100 mls/hr Q10H IV 10/16/16 10:00 11/15/16 09:29 10/16/16 10:04 100 MLS/HR I & O: 24-Hour Column 10/16/16 08:00 Intake Total 4620 ml Output Total 450 ml Balance 4170 ml Vital Signs: Date Time Temp Pulse Resp B/P Pulse Ox O2 Delivery O2 Flow Rate FiO2 10/16/16 09:15 94 85/56 96 10/16/16 09:00 93 82/58 97 10/16/16 08:45 97 95 10/16/16 08:40 96 77/49 95 10/16/16 08:30 99 77/52 95 10/16/16 08:20 99 80/54 95 10/16/16 08:15 104 95 10/16/16 08:10 105 68/51 94 10/16/16 08:00 36.5 101 20 81/56 97 Room Air 10/16/16 07:51 105 72/52 98 10/16/16 07:50 101 77/52 94 10/16/16 07:45 101 96 10/16/16 07:40 97 91/61 95 10/16/16 07:35 95 Room Air 10/16/16 07:31 104 105/65 90 10/16/16 07:30 97 98 10/16/16 07:20 102 88/61 98 10/16/16 07:15 102 98 10/16/16 07:10 101 97/61 98 10/16/16 07:00 107 92/59 92 10/16/16 05:41 101 93/67 96 10/16/16 05:35 92 127/75 100 10/16/16 05:21 85 128/77 97 10/16/16 05:11 83 128/60 97 10/16/16 05:00 105 75/58 96 10/16/16 04:50 103 94/63 94 10/16/16 04:40 106 83/62 95 10/16/16 04:30 107 93/62 95 10/16/16 04:20 104 81/58 94 10/16/16 04:10 109 89/66 93 10/16/16 04:01 109 106/51 93 10/16/16 04:00 Room Air 10/16/16 03:50 37.3 108 18 98/64 93 Room Air 10/16/16 03:40 131 119/75 95 10/16/16 03:30 102 124/69 96 10/16/16 03:20 103 104/75 93 10/16/16 03:10 106 120/74 96 10/16/16 03:00 97 134/75 95 10/16/16 02:50 95 137/72 97 10/16/16 02:40 90 124/76 96 10/16/16 02:30 89 128/74 95 10/16/16 02:21 97 129/70 94 10/16/16 02:10 90 136/71 95 10/16/16 02:01 89 125/62 96 10/16/16 01:50 88 145/76 93 10/16/16 01:45 85 95 10/16/16 01:40 88 124/79 94 10/16/16 01:30 86 132/76 94 10/16/16 01:20 80 132/77 94 10/16/16 01:15 82 93 10/16/16 01:10 80 152/76 93 10/16/16 01:01 70 133/72 93 10/16/16 01:00 67 94 10/16/16 00:40 107 80/46 96 10/16/16 00:30 112 75/55 93 10/16/16 00:21 106 78/50 93 10/16/16 00:11 36.3 81 129/69 94 10/16/16 00:00 102 20 92/71 94 Room Air 10/15/16 23:59 94 Room Air 10/15/16 23:51 104 88/66 98 10/15/16 23:45 99 91 10/15/16 23:40 97 119/67 93 10/15/16 23:37 106 101/60 89 10/15/16 23:21 89 141/105 94 10/15/16 23:10 93 126/79 10/15/16 23:08 102 117/79 10/15/16 22:40 89 104/58 91 10/15/16 22:39 101 92/58 94 10/15/16 22:37 96 62/45 95 10/15/16 22:29 93 132/54 91 10/15/16 22:16 103 84/55 95 10/15/16 22:01 99 20 55/36 92 Room Air 10/15/16 21:56 98 97/82 98 10/15/16 21:50 100 110/88 94 10/15/16 21:45 95 91/63 93 10/15/16 21:45 95 91/63 93 10/15/16 21:41 94 64/49 90 10/15/16 21:41 94 64/49 90 10/15/16 21:39 95 98/57 93 10/15/16 21:39 95 98/57 93 10/15/16 21:36 96 56/33 98 10/15/16 21:36 96 56/33 98 10/15/16 21:30 98 88/58 100 10/15/16 21:30 98 88/58 100 10/15/16 21:26 96 63/ 97 10/15/16 21:24 99 119/93 96 10/15/16 21:11 94 82/59 97 10/15/16 21:06 93 51/31 98 10/15/16 21:01 91 75/58 97 10/15/16 21:00 94 98 10/15/16 20:56 92 75/60 97 10/15/16 20:52 92 68/51 97 10/15/16 20:45 96 91 10/15/16 20:41 86 87/51 96 10/15/16 20:35 93 75/56 94 10/15/16 20:32 90 83/55 95 10/15/16 20:30 95 92 10/15/16 20:15 93 97 10/15/16 20:11 90 73/56 90 10/15/16 20:07 92 71/51 98 10/15/16 20:00 36.3 89 18 70/53 96 Room Air 10/15/16 20:00 94 Room Air 10/15/16 19:56 91 61/41 99 10/15/16 19:50 97 77/56 92 10/15/16 19:49 92 72/48 87 10/15/16 19:43 97 125/106 98 10/15/16 19:37 97 74/61 10/15/16 19:30 96 77/59 100 10/15/16 19:26 91 75/56 92 10/15/16 19:21 94 71/51 98 10/15/16 19:16 94 69/49 94 10/15/16 19:15 90 85 10/15/16 19:11 94 75/58 98 10/15/16 19:01 90 111/52 97 10/15/16 19:00 94 94 10/15/16 18:35 79/65 10/15/16 18:30 81/51 100 Room Air 10/15/16 18:25 79/50 10/15/16 18:20 36.5 87 16 79/57 99 Room Air 10/15/16 18:15 36.5 97 16 68/51 99 Room Air 10/15/16 18:15 36.5 97 16 68/51 100 Room Air 10/15/16 18:03 93 19 79/58 100 10/15/16 17:49 98 20 72/50 96 Room Air 10/15/16 17:12 99 18 72/50 10/15/16 16:24 96 15 68/45 95 Room Air 69/53 10/15/16 15:44 97 19 70/47 10/15/16 14:53 94 18 69/51 10/15/16 13:50 102 20 71/55 100 Room Air 10/15/16 12:57 118 78/59 10/15/16 12:49 97 Room Air 10/15/16 12:49 97 Room Air 10/15/16 12:43 36.8 114 16 136/58 97 Room Air Laboratory Results: Last 24 Hours Test 10/15/16 12:54 10/15/16 12:56 10/15/16 13:12 10/15/16 19:17 Bedside Glucose 135 mg/dl White Blood Count 13.76 K/uL Red Blood Count 3.23 M/uL Hemoglobin 10.5 g/dL Hematocrit 30.5 % Mean Corpuscular Volume 94.4 fL Mean Corpuscular Hemoglobin 32.5 pg Mean Corpuscular Hemoglobin Concent 34.4 g/dl Platelet Count 260 K/uL Mean Platelet Volume 10.6 fL Neutrophils (%) (Auto) 63.8 % Lymphocytes (%) (Auto) 26.2 % Monocytes (%) (Auto) 9.3 % Eosinophils (%) (Auto) 0.2 % Basophils (%) (Auto) 0.1 % Neutrophils # (Auto) 8.76 K/uL Lymphocytes # (Auto) 3.61 K/uL Monocytes # (Auto) 1.28 K/uL Eosinophils # (Auto) 0.03 K/uL Basophils # (Auto) 0.02 K/uL RDW Standard Deviation 50.5 fL RDW Coefficient of Variation 14.7 % Immature Granulocyte % (Auto) 0.4 % Immature Granulocyte # (Auto) 0.06 K/uL Sodium Level 139 mmol/L Potassium Level 4.9 mmol/L Chloride Level 105 mmol/L Carbon Dioxide Level 27 mmol/L Anion Gap 7.0 mmol/L Blood Urea Nitrogen 42 mg/dl Creatinine 0.94 mg/dl Est Creatinine Clear Calc Drug Dose 52.9 ml/min Estimated GFR () 74.8 Estimated GFR (Non- 64.6 BUN/Creatinine Ratio 45.1 Random Glucose 127 mg/dl Calcium Level 9.2 mg/dl Phosphorus Level 3.6 mg/dl Magnesium Level 2.1 mg/dl Total Bilirubin 0.3 mg/dl Direct Bilirubin 0.1 mg/dl Aspartate Amino Transf (AST/SGOT) 22 U/L Alanine Aminotransferase (ALT/SGPT) 19 U/L Alkaline Phosphatase 57 U/L Total Creatine Kinase 24 U/L Creatine Kinase MB 1.6 ng/ml Creatine Kinase MB Ratio 6.7 Troponin I 0.136 ng/ml Total Protein 6.4 gm/dl Albumin 2.9 gm/dl Thyroid Stimulating Hormone (TSH) 4.840 uIu/ml Urine Color DK YELLOW Urine Appearance CLEAR Urine pH 6.5 Urine Specific [place] 1.027 Urine Protein NEG Urine Glucose (UA) NEG Urine Ketones TRACE Urine Occult Blood NEG Urine Nitrite NEG Urine Bilirubin NEG Urine Urobilinogen NEG Urine Leukocyte Esterase SMALL Urine WBC (Auto) 1-5 /hpf Urine RBC (Auto) 0-4 /hpf Urine Hyaline Casts (Auto) 1-5 /lpf Urine Epithelial Cells (Auto) >30 /lpf Urine Bacteria (Auto) NEG Lactic Acid Level 1.6 mmol/L Procalcitonin < 0.05 ng/ml Free Thyroxine 0.83 ng/dl Free Triiodothyronine 1.82 pg/ml Random Cortisol 10.35 mcg/dl Test 10/15/16 22:00 10/15/16 23:30 10/16/16 00:56 10/16/16 06:55 Prothrombin Time 13.6 SECONDS Prothromb Time International Ratio 1.3 Activated Partial Thromboplast Time 32.2 SECONDS Partial Thromboplastin Ratio 1.2 Lactic Acid Level 4.0 mmol/L 1.7 mmol/L Troponin I 0.237 ng/ml 0.231 ng/ml White Blood Count 12.10 K/uL Red Blood Count 1.91 M/uL Hemoglobin 6.2 g/dL Hematocrit 18.0 % Mean Corpuscular Volume 94.2 fL Mean Corpuscular Hemoglobin 32.5 pg Mean Corpuscular Hemoglobin Concent 34.4 g/dl Platelet Count 177 K/uL Mean Platelet Volume 10.3 fL Neutrophils (%) (Auto) 82.1 % Lymphocytes (%) (Auto) 11.8 % Monocytes (%) (Auto) 5.5 % Eosinophils (%) (Auto) 0.0 % Basophils (%) (Auto) 0.2 % Neutrophils # (Auto) 9.93 K/uL Lymphocytes # (Auto) 1.43 K/uL Monocytes # (Auto) 0.67 K/uL Eosinophils # (Auto) 0.00 K/uL Basophils # (Auto) 0.02 K/uL RDW Standard Deviation 50.0 fL RDW Coefficient of Variation 14.6 % Immature Granulocyte % (Auto) 0.4 % Immature Granulocyte # (Auto) 0.05 K/uL Nucleated RBC Absolute Count (auto) 0.02 K/uL Nucleated Red Blood Cells % 0.2 % Red Blood Cell Morphology Unremarkable Peripheral Blood Smear Path Consult Absolute Reticulocyte Count 0.07 10^6/uL Percent Reticulocyte Count 3.9 % Sodium Level 140 mmol/L Potassium Level 3.7 mmol/L Chloride Level 110 mmol/L Carbon Dioxide Level 22 mmol/L Anion Gap 8.0 mmol/L Blood Urea Nitrogen 24 mg/dl Creatinine 0.63 mg/dl Est Creatinine Clear Calc Drug Dose 72.3 ml/min Estimated GFR () 110.6 Estimated GFR (Non- 95.5 BUN/Creatinine Ratio 37.5 Random Glucose 153 mg/dl Calcium Level 7.4 mg/dl Phosphorus Level 2.7 mg/dl Magnesium Level 1.4 mg/dl Procalcitonin < 0.05 ng/ml Test 10/16/16 08:09 10/16/16 08:12 Prothrombin Time 13.1 SECONDS Prothromb Time International Ratio 1.2 Activated Partial Thromboplast Time 31.7 SECONDS Partial Thromboplastin Ratio 1.2 Fibrinogen 245 mg/dl Fibrin Degradation Products <10 mcg/ml D-Dimer < 190 ug/L FEU Iron Level 36 mcg/dl Total Iron Binding Capacity 212 mcg/dl Transferrin 169 mg/dl Transferrin % Saturation 15 % Ferritin 430.7 ng/ml Problem Qualifiers (1) Altered mental status: Altered mental status type: disorientation Qualified Codes: R41.0 - Disorientation, unspecified (2) Hypotension: Hypotension type: unspecified hypotension type Qualified Codes: I95.9 - Hypotension, unspecified
--- NOTE | 2016-10-16 11:50 | Clinical Documentation Query ---
CLINICAL DOCUMENTATION QUERY Dr. SALINAS, In your clinical opinion is this patient being managed for: ( ) Hypovolemic shock ( ) Septic shock ( ) Other explanation of clinical findings (Please Explain) ( ) Unable to determine (Please Define) ( ) Need to Discuss ( ) Not Agree The medical record reflects the following clinical findings, treatment, and risk factors. Clinical Indicators: 61 yo female presenting with hypotension, altered mental status and decreased appetite. HR 118, BP 78/59, WBC 13.76, BUN 42, lactic acid as high as 4 Treatment:blood and urine cx, ICU, IV Phenylephrine, ECHO, fluid boluses 5L then continuous fluids, IV zosyn, IV daptomycin, serial CBC's and PRP's Risk Factors: age, poor oral intake/reported diarrhea, Please clarify and document your clinical opinion in the progress notes and discharge summary. Terms such as "probable", "suspected", "likely", "questionable", "possible", or "still to be ruled out" are acceptable. IF IN AGREEMENT, YOU MUST DOCUMENT ABOVE DIAGNOSTIC STATEMENT IN DAILY PROGRESS NOTES AND DISCHARGE SUMMARY. This document is not part of the patient's record. Thank You, Suze Wall, DAVID [phone]
--- NOTE | 2016-10-16 14:57 | Hospitalist Progress Note ---
Hospitalist Progress Note Date of Service October 16, 2016. Subjective Pt evaluation today including: conversation w/ patient, physical exam, chart review Voiding: walters catheter in place BP still low although improved following pRBC transfusion. Medications Medications (Trade) Dose Ordered Sig/Froylan Route Start Time Stop Time Status Last Admin Dose Admin Sodium Chloride 1,000 ml @ 100 mls/hr Q10H IV 10/15/16 16:49 10/16/16 09:26 DC 10/16/16 07:56 100 MLS/HR Phenylephrine HCl 20 mg/Dextrose 502 ml @ 0 mls/hr Q0M PRN IV 10/15/16 17:10 10/15/16 23:06 DC 10/15/16 22:28 225 MLS/HR Piperacillin Sod/ Tazobactam Sod 3.375 gm/Dextrose 115 ml @ 28.75 mls/ hr Q8H IV 10/15/16 20:00 10/16/16 09:26 DC 10/16/16 04:00 28.75 MLS/HR Sodium Chloride 1,000 ml @ 999 mls/hr Q1H1M ONCE IV 10/15/16 18:30 10/15/16 19:30 DC 10/15/16 18:40 999 MLS/HR Sodium Chloride (Nss 500ml) 500 ml @ 999 mls/hr Q31M IV 10/15/16 20:00 10/15/16 20:30 DC 10/15/16 20:26 999 MLS/HR Albumin Human 12.5 gm 12.5 gm TODAY@2045,2115 IV 10/15/16 20:45 10/15/16 21:16 DC 10/16/16 00:37 12.5 GM Sodium Chloride (Nss 1000ml) 1,000 ml @ 999 mls/hr Q1H1M ONCE IV 10/15/16 20:45 10/15/16 21:45 DC 10/15/16 22:15 999 MLS/HR Pantoprazole Sodium (Protonix Tab) 40 mg QAM PO 10/16/16 09:00 11/15/16 08:59 10/16/16 07:47 40 MG Buspirone HCl (Buspar Tab) 10 mg BID PO 10/15/16 21:00 11/14/16 20:59 10/16/16 07:50 10 MG Divalproex Sodium (Depakote Delay Rel Tab) 750 mg QAM PO 10/16/16 09:00 11/15/16 08:59 10/16/16 07:49 750 MG Divalproex Sodium (Depakote Delay Rel Tab) 1,000 mg HS PO 10/15/16 21:00 11/14/16 20:59 10/15/16 22:18 1,000 MG Venlafaxine HCl (effeXOR TAB) 75 mg BID PO 10/15/16 21:00 11/14/16 20:59 10/16/16 07:47 75 MG Enoxaparin Sodium 40 mg 40 mg QAM SQ 10/16/16 09:00 11/15/16 08:59 10/16/16 07:51 40 MG Hydrocortisone Sodium Succinate 100 mg/Syringe 2 ml @ 4 mls/min Q8H IV 10/15/16 22:00 10/16/16 13:59 DC 10/16/16 05:56 4 MLS/MIN Phenylephrine HCl 80 mg/Dextrose 508 ml @ 0 mls/hr Q0M PRN IV 10/15/16 23:15 11/14/16 23:14 10/16/16 00:21 56.3 MLS/HR Magnesium Sulfate 1 gm/Prmx 100 ml @ 100 mls/hr 0830,0930 IV 10/16/16 08:30 10/16/16 12:00 DC 10/16/16 10:03 100 MLS/HR Calcium Gluconate 1000 mg/Sodium Chloride 60 ml @ 240 mls/hr NOW ONCE IV 10/16/16 09:45 10/16/16 09:59 DC 10/16/16 10:04 240 MLS/HR Potassium Chloride/Sodium Chloride (1/2 Nss + 20meq KCl 1000ml) 1,000 ml @ 100 mls/hr Q10H IV 10/16/16 10:00 11/15/16 09:29 10/16/16 10:04 100 MLS/HR Objective Vital Signs Date Time Temp Pulse Resp B/P Pulse Ox O2 Delivery O2 Flow Rate FiO2 10/16/16 14:00 37.0 90 20 99/66 98 Room Air 10/16/16 13:31 37.0 84 18 101/68 98 10/16/16 11:45 37.0 91 22 111/63 96 Room Air 10/16/16 11:30 96 Room Air 10/16/16 11:30 36.9 92 21 88/72 96 Room Air 10/16/16 11:15 37.0 98 22 92/63 95 Room Air 10/16/16 10:57 36.9 98 16 67/49 96 10/16/16 09:15 94 85/56 96 10/16/16 09:00 93 82/58 97 10/16/16 08:45 97 95 10/16/16 08:40 96 77/49 95 10/16/16 08:30 99 77/52 95 10/16/16 08:20 99 80/54 95 10/16/16 08:15 104 95 10/16/16 08:10 105 68/51 94 10/16/16 08:00 36.5 101 20 81/56 97 Room Air 10/16/16 07:51 105 72/52 98 10/16/16 07:50 101 77/52 94 10/16/16 07:45 101 96 10/16/16 07:40 97 91/61 95 10/16/16 07:35 95 Room Air 10/16/16 07:31 104 105/65 90 10/16/16 07:30 97 98 10/16/16 07:20 102 88/61 98 10/16/16 07:15 102 98 10/16/16 07:10 101 97/61 98 10/16/16 07:00 107 92/59 92 10/16/16 05:41 101 93/67 96 10/16/16 05:35 92 127/75 100 10/16/16 05:21 85 128/77 97 10/16/16 05:11 83 128/60 97 10/16/16 05:00 105 75/58 96 10/16/16 04:50 103 94/63 94 10/16/16 04:40 106 83/62 95 10/16/16 04:30 107 93/62 95 10/16/16 04:20 104 81/58 94 10/16/16 04:10 109 89/66 93 10/16/16 04:01 109 106/51 93 10/16/16 04:00 Room Air 10/16/16 03:50 37.3 108 18 98/64 93 Room Air 10/16/16 03:40 131 119/75 95 10/16/16 03:30 102 124/69 96 10/16/16 03:20 103 104/75 93 10/16/16 03:10 106 120/74 96 10/16/16 03:00 97 134/75 95 10/16/16 02:50 95 137/72 97 10/16/16 02:40 90 124/76 96 10/16/16 02:30 89 128/74 95 10/16/16 02:21 97 129/70 94 10/16/16 02:10 90 136/71 95 10/16/16 02:01 89 125/62 96 10/16/16 01:50 88 145/76 93 10/16/16 01:45 85 95 10/16/16 01:40 88 124/79 94 10/16/16 01:30 86 132/76 94 10/16/16 01:20 80 132/77 94 10/16/16 01:15 82 93 10/16/16 01:10 80 152/76 93 10/16/16 01:01 70 133/72 93 10/16/16 01:00 67 94 10/16/16 00:40 107 80/46 96 10/16/16 00:30 112 75/55 93 10/16/16 00:21 106 78/50 93 10/16/16 00:11 36.3 81 129/69 94 10/16/16 00:00 102 20 92/71 94 Room Air 10/15/16 23:59 94 Room Air 10/15/16 23:51 104 88/66 98 10/15/16 23:45 99 91 10/15/16 23:40 97 119/67 93 10/15/16 23:37 106 101/60 89 10/15/16 23:21 89 141/105 94 10/15/16 23:10 93 126/79 10/15/16 23:08 102 117/79 10/15/16 22:40 89 104/58 91 10/15/16 22:39 101 92/58 94 10/15/16 22:37 96 62/45 95 10/15/16 22:29 93 132/54 91 10/15/16 22:16 103 84/55 95 10/15/16 22:01 99 20 55/36 92 Room Air 10/15/16 21:56 98 97/82 98 10/15/16 21:50 100 110/88 94 10/15/16 21:45 95 91/63 93 10/15/16 21:45 95 91/63 93 10/15/16 21:41 94 64/49 90 10/15/16 21:41 94 64/49 90 10/15/16 21:39 95 98/57 93 10/15/16 21:39 95 98/57 93 10/15/16 21:36 96 56/33 98 10/15/16 21:36 96 56/33 98 10/15/16 21:30 98 88/58 100 10/15/16 21:30 98 88/58 100 10/15/16 21:26 96 63/ 97 10/15/16 21:24 99 119/93 96 10/15/16 21:11 94 82/59 97 10/15/16 21:06 93 51/31 98 10/15/16 21:01 91 75/58 97 10/15/16 21:00 94 98 10/15/16 20:56 92 75/60 97 10/15/16 20:52 92 68/51 97 10/15/16 20:45 96 91 10/15/16 20:41 86 87/51 96 10/15/16 20:35 93 75/56 94 10/15/16 20:32 90 83/55 95 10/15/16 20:30 95 92 10/15/16 20:15 93 97 10/15/16 20:11 90 73/56 90 10/15/16 20:07 92 71/51 98 10/15/16 20:00 36.3 89 18 70/53 96 Room Air 10/15/16 20:00 94 Room Air 10/15/16 19:56 91 61/41 99 10/15/16 19:50 97 77/56 92 10/15/16 19:49 92 72/48 87 10/15/16 19:43 97 125/106 98 10/15/16 19:37 97 74/61 10/15/16 19:30 96 77/59 100 10/15/16 19:26 91 75/56 92 10/15/16 19:21 94 71/51 98 10/15/16 19:16 94 69/49 94 10/15/16 19:15 90 85 10/15/16 19:11 94 75/58 98 10/15/16 19:01 90 111/52 97 10/15/16 19:00 94 94 10/15/16 18:35 79/65 10/15/16 18:30 81/51 100 Room Air 10/15/16 18:25 79/50 10/15/16 18:20 36.5 87 16 79/57 99 Room Air 10/15/16 18:15 36.5 97 16 68/51 99 Room Air 10/15/16 18:15 36.5 97 16 68/51 100 Room Air 10/15/16 18:03 93 19 79/58 100 10/15/16 17:49 98 20 72/50 96 Room Air 10/15/16 17:12 99 18 72/50 10/15/16 16:24 96 15 68/45 95 Room Air 69/53 10/15/16 15:44 97 19 70/47 10/15/16 14:53 94 18 69/51 Physical Exam General Appearance: + mild distress, + cachetic, + thin Eyes: PERRL ENT: normal ENT inspection Neck: supple, no adenopathy Respiratory/Chest: chest non-tender, lungs clear Cardiovascular: regular rate, rhythm, no edema, no JVD, + systolic murmur Abdomen: normal bowel sounds, non tender Extremities: no pedal edema, no calf tenderness 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, + motor weakness Skin: + pallor Laboratory Results Last 24 Hours Test 10/15/16 19:17 10/15/16 22:00 10/15/16 23:30 10/16/16 00:56 Lactic Acid Level 1.6 mmol/L 4.0 mmol/L Procalcitonin < 0.05 ng/ml Free Thyroxine 0.83 ng/dl Free Triiodothyronine 1.82 pg/ml Random Cortisol 10.35 mcg/dl Prothrombin Time 13.6 SECONDS Prothromb Time International Ratio 1.3 Activated Partial Thromboplast Time 32.2 SECONDS Partial Thromboplastin Ratio 1.2 Troponin I 0.237 ng/ml Test 10/16/16 06:55 10/16/16 08:12 White Blood Count 12.10 K/uL Red Blood Count 1.91 M/uL Hemoglobin 6.2 g/dL Hematocrit 18.0 % Mean Corpuscular Volume 94.2 fL Mean Corpuscular Hemoglobin 32.5 pg Mean Corpuscular Hemoglobin Concent 34.4 g/dl Platelet Count 177 K/uL Mean Platelet Volume 10.3 fL Neutrophils (%) (Auto) 82.1 % Lymphocytes (%) (Auto) 11.8 % Monocytes (%) (Auto) 5.5 % Eosinophils (%) (Auto) 0.0 % Basophils (%) (Auto) 0.2 % Neutrophils # (Auto) 9.93 K/uL Lymphocytes # (Auto) 1.43 K/uL Monocytes # (Auto) 0.67 K/uL Eosinophils # (Auto) 0.00 K/uL Basophils # (Auto) 0.02 K/uL RDW Standard Deviation 50.0 fL RDW Coefficient of Variation 14.6 % Immature Granulocyte % (Auto) 0.4 % Immature Granulocyte # (Auto) 0.05 K/uL Nucleated RBC Absolute Count (auto) 0.02 K/uL Nucleated Red Blood Cells % 0.2 % Red Blood Cell Morphology Unremarkable Peripheral Blood Smear Path Consult Absolute Reticulocyte Count 0.07 10^6/uL Percent Reticulocyte Count 3.9 % Sodium Level 140 mmol/L Potassium Level 3.7 mmol/L Chloride Level 110 mmol/L Carbon Dioxide Level 22 mmol/L Anion Gap 8.0 mmol/L Blood Urea Nitrogen 24 mg/dl Creatinine 0.63 mg/dl Est Creatinine Clear Calc Drug Dose 72.3 ml/min Estimated GFR () 110.6 Estimated GFR (Non- 95.5 BUN/Creatinine Ratio 37.5 Random Glucose 153 mg/dl Lactic Acid Level 1.7 mmol/L Calcium Level 7.4 mg/dl Phosphorus Level 2.7 mg/dl Magnesium Level 1.4 mg/dl Troponin I 0.231 ng/ml Procalcitonin < 0.05 ng/ml Prothrombin Time 13.1 SECONDS Prothromb Time International Ratio 1.2 Activated Partial Thromboplast Time 31.7 SECONDS Partial Thromboplastin Ratio 1.2 Fibrinogen 245 mg/dl Fibrin Degradation Products <10 mcg/ml D-Dimer < 190 ug/L FEU Iron Level 36 mcg/dl Total Iron Binding Capacity 212 mcg/dl Transferrin 169 mg/dl Transferrin % Saturation 15 % Ferritin 430.7 ng/ml Assessment and Plan Hypotension Hx of HTN Hx of CVA with right hemparesis Hx of Swallowing dysfunction Hypomagnesemia Hypokalemia. Hypocalcemia Anemia Continue with ICU care. Appreciate Vault Attendant input. Continue with pressor support to keep MAP greater than 60 mm Hg Continue with IVFs. Recheck H/H post 2 unit prbc transfusion. Correct electrolyte abnormalities. Check formal Echo report. Stress dose steroids. Rule out adrenal insufficiency. Abn. TFTs. Will benefit from thyroid replacement therapy and Endocrine input.
[2016-10-16] MEDS: DIVALPROEX SODIUM 500 MG DELAY RELEASE TAB PO SCH (20:17)
[2016-10-17] VITALS (50 sets, daily range): BP systolic 81–128; BP diastolic 53–79; PULSE 72–96; TEMP 36.3–37; O2SAT 92–100
[2016-10-17] MEDS: SODIUM CHLOR 0.45% + 20MEQ KCL 1,000 ML IV SCH (02:02)
[2016-10-17 06:47] LABS: BASO % 0.2 %; BASO ABS # 0.02 K/uL (0-0.2); COMPLETE YES; EOS % 0.1 %; IG% 0.5 %; LYMPH % 28.7 %; LYMPH ABS # 2.65 K/uL (1.2-3.4); MEAN CELL VOLUME 88.8 fL (80-100); MEAN CORPUSCULAR HEMOGLOBIN 30.8 pg (25-34); MEAN CORPUSCULAR HGB CONC 34.7 g/dl (32-36); MEAN PLATELET VOLUME 10.6 fL (7.4-10.4); NEUT % 61.5 %; PLATELET COUNT 127 K/uL (130-400); RED BLOOD COUNT 3.38 M/uL (4.2-5.4); WHITE BLOOD COUNT 9.24 K/uL (4.8-10.8)
[2016-10-17 06:57] LABS: ALKALINE PHOSPHATASE 39 U/L (45-117); ALT/SGPT 16 U/L (12-78); AST/SGOT 15 U/L (15-37); BLOOD UREA NITROGEN 15 mg/dl (7-18); BUN/CREATININE RATIO 21.1 (10-20); CARBON DIOXIDE 25 mmol/L (21-32); CHLORIDE 109 mmol/L (98-107); CREATININE 0.73 mg/dl (0.60-1.20); GLUCOSE 80 mg/dl (70-99); PHOSPHORUS 2.4 mg/dl (2.5-4.9); POTASSIUM 3.6 mmol/L (3.5-5.1); SODIUM 143 mmol/L (136-145)
[2016-10-17 07:02] LABS: CALCIUM 8.2 mg/dl (8.5-10.1)
--- NOTE | 2016-10-17 07:29 | Critical Care Progress Note ---
Critical Care Progress Note Date of Service October 17, 2016. ICU Day ICU Day Number: [address] Flower Subjective Mild headache requesting aspirin, and thirsty, otherwise feels good Objective General Appearance: mild distress, thin Head: normocephalic, atraumatic Eyes: PERRLA, EOMI ENT: normal nasal exam, normal mouth exam, normal throat exam Neck: normal range of motion, no tenderness, no stridor Respiratory: breath sounds normal, clear to auscultation Cardiovasular: systolic murmur (4/6 early systolic murmur, loudest at the apex. . No radiation to the carotids.) Abdomen: non tender, normal bowel sounds Back: normal inspection, no CVA tenderness Lower Extremities: no edema Edema: RUE, LUE Neuro: alert, other (oriented to person only) Psychiatric: normal affect Current SOFA Score SOFA Score Response (Comments) Value PaO2/FiO2 (mmHg) < 400 1 SaO2 / FIO2 221 - 301 1 [place] Coma Score 15 0 Level of Hypotension No Hypotension 0 Total 2 Previous SOFA Scores 3 Assessment & Plan NEUROLOGICAL - GCS: 15 Bipolar disorder - Continue Effexor, BuSpar, Depakote Serum Depakote level with a.m. labs CARDIAC Undifferentiated Hypotension - improved after blood administration. Will add midodrine. Last recorded visit at [facility] recorded BP ranging for 90-100 systolic. reports BP runs low. No lactic acidosis will keep map >60. Elevated troponin and non-specific EKG changes - EKG reviewed; non-specific ST and T wave changes; no obvious wall motion abnormality on echocardiogram; changes are likely rate related - Troponin peaked at 0.237; discontinue troponin monitoring - Given evaluation for shock, felt it was prudent to do a stat echocardiogram to determine if there was a regional wall motion abnormality - Echocardiogram does suggest marked volume depletion --formal report pending RESPIRATORY - Stable No evidence of respiratory distress , and patient is saturating 96% on room air - Stable, continue to monitor GASTROINTESTINAL - Diet: AHA diet - GI Prophylaxis: Protonix 40 mg PO d/c'ed not on home med list Protein calorie malnutrition - High risk for vitamin deficiencies - B12, folate, vitamin D levels with morning labs - Once patient is able to eat, will consult nutrition for ambulatory recommendations RENAL//ENDOCRINE - IV Fluids: Change fluids to 1/2 NSS + mEq KCl d/c'ed able to take PO - Blood sugar stable - Hydrocortisone 100 mg every 8 hours, for empiric coverage of adrenal insufficiency ---discontinued, added midodrine HEME/ID - Tmax: Afebrile WBC 12; lactate increased to 4.0 yesterday evening but came down to 1.7 this morning; Pro calcitonin has remained negative 2 normal No focal source of infection, though history suggests possible urinary source given correlation of symptoms to previous urinary tract infections; UA not grossly abnormal, but will send for culture - Blood and urine cultures pending - Evidence points overall against ongoing infection; at this time we will discontinue all antibiotics and await the culture results; ----remains afebrile Severe anemia - Hb/Hct 6.2/18; hemoglobin is down significantly from 10 on arrival Baseline hemoglobin 12, as of 05/2017 There is likely significant delusional effect secondary to aggressive fluid resuscitation yesterday - Type and cross for 2 units packed red blood cells; transfuse 2 units; consent obtained from - DVT Prophylaxis: Lovenox 40 mg daily - New thrombocytopenia - too early for HIT, continue current treatment and trend - HIT score 3 CODE STATUS - Full Code DISPOSITION - OT/PT: Ordered Stable for transfer down from ICU care. Consults & Procedures Consultants: - Procedures: Final echocardiogram report is pending Data Medications: Current Inpatient Medications Medications (Trade) Dose Ordered Sig/Froylan Route Start Time Stop Time Status Last Admin Dose Admin Acetaminophen (Tylenol Tab) 650 mg Q4H PRN PO 10/15/16 17:00 11/14/16 16:59 Zolpidem Tartrate (Ambien Tab) 5 mg HSZ PRN PO 10/15/16 17:00 11/14/16 16:59 Pantoprazole Sodium (Protonix Tab) 40 mg QAM PO 10/16/16 09:00 11/15/16 08:59 10/16/16 07:47 40 MG Buspirone HCl (Buspar Tab) 10 mg BID PO 10/15/16 21:00 11/14/16 20:59 10/16/16 20:18 10 MG Divalproex Sodium (Depakote Delay Rel Tab) 750 mg QAM PO 10/16/16 09:00 11/15/16 08:59 10/16/16 07:49 750 MG Divalproex Sodium (Depakote Delay Rel Tab) 1,000 mg HS PO 10/15/16 21:00 11/14/16 20:59 10/16/16 20:17 1,000 MG Venlafaxine HCl (effeXOR TAB) 75 mg BID PO 10/15/16 21:00 11/14/16 20:59 10/16/16 20:15 75 MG Enoxaparin Sodium 40 mg 40 mg QAM SQ 10/16/16 09:00 11/15/16 08:59 10/16/16 07:51 40 MG Phenylephrine HCl 80 mg/Dextrose 508 ml @ 0 mls/hr Q0M PRN IV 10/15/16 23:15 11/14/16 23:14 10/16/16 23:13 4.2 MLS/HR Potassium Chloride/Sodium Chloride (1/2 Nss + 20meq KCl 1000ml) 1,000 ml @ 100 mls/hr Q10H IV 10/16/16 10:00 11/15/16 09:29 10/17/16 02:02 100 MLS/HR Midodrine (Proamatine Tab) 5 mg TID@0800,1200,1600 PO 10/17/16 06:51 11/16/16 06:50 UNV I & O: 24-Hour Column 10/17/16 08:00 Intake Total 3510 ml Output Total 2050 ml Balance 1460 ml Vital Signs: Date Time Temp Pulse Resp B/P Pulse Ox O2 Delivery O2 Flow Rate FiO2 10/17/16 06:00 84 21 99/69 94 10/17/16 05:45 83 19 111/79 95 10/17/16 05:36 82 17 109/73 95 10/17/16 05:15 79 18 112/66 95 10/17/16 05:01 74 15 122/69 96 10/17/16 04:45 76 15 120/72 95 10/17/16 04:30 78 14 105/71 95 10/17/16 04:15 77 16 105/68 95 10/17/16 04:00 Room Air 10/17/16 04:00 76 14 115/68 96 10/17/16 03:45 36.4 77 15 112/66 96 10/17/16 03:30 77 14 101/63 95 10/17/16 03:15 72 15 106/63 94 10/17/16 03:00 78 16 98/61 95 10/17/16 02:45 78 14 88/59 95 10/17/16 02:30 77 14 112/66 95 10/17/16 02:15 78 17 107/69 95 10/17/16 02:00 78 16 102/62 95 10/17/16 01:45 83 19 108/65 93 10/17/16 01:30 84 15 128/72 95 10/17/16 01:15 77 16 105/62 95 10/17/16 01:00 80 13 101/58 96 10/17/16 00:45 77 13 109/66 94 10/17/16 00:30 36.3 75 15 117/63 94 10/17/16 00:25 78 16 94 10/17/16 00:15 78 16 87/58 95 10/17/16 00:00 78 17 81/56 95 10/16/16 23:59 Room Air 10/16/16 23:45 77 14 85/53 96 10/16/16 23:30 76 16 104/62 94 10/16/16 23:15 79 15 98/61 95 10/16/16 23:00 82 17 77/48 97 10/16/16 22:45 82 15 73/48 97 10/16/16 22:30 84 16 69/44 98 10/16/16 22:15 81 16 79/61 96 10/16/16 22:10 79 18 97 10/16/16 22:00 86 17 76/51 97 10/16/16 21:45 90 20 80/51 97 10/16/16 21:31 90 20 79/48 97 10/16/16 21:15 92 20 91/63 95 10/16/16 21:00 89 22 84/53 93 10/16/16 20:57 93 23 87/56 93 10/16/16 20:30 128 22 105/69 98 10/16/16 20:15 95 19 99/64 98 10/16/16 20:00 Room Air 10/16/16 20:00 36.3 85 20 92/56 98 Room Air 10/16/16 20:00 85 20 92/56 98 10/16/16 19:45 85 21 90/57 97 10/16/16 19:31 86 20 83/57 97 10/16/16 19:15 88 20 97/58 98 10/16/16 19:00 87 21 90/62 97 10/16/16 18:00 88 20 92/58 97 10/16/16 16:45 90 21 82/58 98 10/16/16 16:30 90 23 91/63 97 10/16/16 16:15 90 23 108/66 97 10/16/16 16:00 36.3 91 22 96/64 97 Room Air 10/16/16 16:00 98 Room Air 10/16/16 15:00 36.3 91 23 95/68 98 10/16/16 14:00 37.0 90 20 99/66 98 Room Air 10/16/16 13:31 37.0 84 18 101/68 98 10/16/16 11:45 37.0 91 22 111/63 96 Room Air 10/16/16 11:30 96 Room Air 10/16/16 11:30 36.9 92 21 88/72 96 Room Air 10/16/16 11:15 37.0 98 22 92/63 95 Room Air 10/16/16 10:57 36.9 98 16 67/49 96 10/16/16 09:15 94 85/56 96 10/16/16 09:00 93 82/58 97 10/16/16 08:45 97 95 10/16/16 08:40 96 77/49 95 10/16/16 08:30 99 77/52 95 10/16/16 08:20 99 80/54 95 10/16/16 08:15 104 95 10/16/16 08:10 105 68/51 94 10/16/16 08:00 36.5 101 20 81/56 97 Room Air 10/16/16 07:51 105 72/52 98 10/16/16 07:50 101 77/52 94 10/16/16 07:45 101 96 10/16/16 07:40 97 91/61 95 10/16/16 07:35 95 Room Air 10/16/16 07:31 104 105/65 90 10/16/16 07:30 97 98 10/16/16 07:20 102 88/61 98 Laboratory Results: Last 24 Hours Test 10/16/16 08:12 10/17/16 05:33 Prothrombin Time 13.1 SECONDS Prothromb Time International Ratio 1.2 Activated Partial Thromboplast Time 31.7 SECONDS Partial Thromboplastin Ratio 1.2 Fibrinogen 245 mg/dl Fibrin Degradation Products <10 mcg/ml D-Dimer < 190 ug/L FEU Iron Level 36 mcg/dl Total Iron Binding Capacity 212 mcg/dl Transferrin 169 mg/dl Transferrin % Saturation 15 % Ferritin 430.7 ng/ml White Blood Count 9.24 K/uL Red Blood Count 3.38 M/uL Hemoglobin 10.4 g/dL Hematocrit 30.0 % Mean Corpuscular Volume 88.8 fL Mean Corpuscular Hemoglobin 30.8 pg Mean Corpuscular Hemoglobin Concent 34.7 g/dl Platelet Count 127 K/uL Mean Platelet Volume 10.6 fL Neutrophils (%) (Auto) 61.5 % Lymphocytes (%) (Auto) 28.7 % Monocytes (%) (Auto) 9.0 % Eosinophils (%) (Auto) 0.1 % Basophils (%) (Auto) 0.2 % Neutrophils # (Auto) 5.68 K/uL Lymphocytes # (Auto) 2.65 K/uL Monocytes # (Auto) 0.83 K/uL Eosinophils # (Auto) 0.01 K/uL Basophils # (Auto) 0.02 K/uL RDW Standard Deviation 55.2 fL RDW Coefficient of Variation 17.0 % Immature Granulocyte % (Auto) 0.5 % Immature Granulocyte # (Auto) 0.05 K/uL Sodium Level 143 mmol/L Potassium Level 3.6 mmol/L Chloride Level 109 mmol/L Carbon Dioxide Level 25 mmol/L Anion Gap 9.0 mmol/L Blood Urea Nitrogen 15 mg/dl Creatinine 0.73 mg/dl Est Creatinine Clear Calc Drug Dose 62.4 ml/min Estimated GFR () 101.6 Estimated GFR (Non- 87.7 BUN/Creatinine Ratio 21.1 Random Glucose 80 mg/dl Calcium Level 8.2 mg/dl Ionized Calcium 1.23 mmol/l Phosphorus Level 2.4 mg/dl Magnesium Level 2.0 mg/dl Total Bilirubin 0.2 mg/dl Direct Bilirubin < 0.1 mg/dl Aspartate Amino Transf (AST/SGOT) 15 U/L Alanine Aminotransferase (ALT/SGPT) 16 U/L Alkaline Phosphatase 39 U/L Total Protein 5.2 gm/dl Albumin 2.5 gm/dl Valproic Acid (Depakene) Level 99 mcg/ml
[2016-10-17] MEDS: MIDODRINE 2.5 MG TAB PO SCH ×3 (07:54→16:00)
[2016-10-17] MEDS: DIVALPROEX SODIUM 250 MG DELAY REL TAB PO SCH (07:56)
[2016-10-17] MEDS: VENLAFAXINE HCL 50 MG TAB PO SCH ×2 (07:57→19:27)
[2016-10-17] MEDS ORDERED: MIDODRINE 2.5 MG TAB PO SCH (08:00)
[2016-10-17] MEDS: ENOXAPARIN 40 MG/0.4 ML SYR SQ SCH (08:10)
[2016-10-17] MEDS ORDERED: POT PHOSPHATE MONOBASIC W/ SOD TAB PO ONE (08:15)
--- NOTE | 2016-10-17 09:15 | ECHOCARDIOGRAM REPORT ---
*NOTICE TO RECEIVING [employer] AG[employer]Y This information is strictly Confidential and protected under [place] law. [place] law prohibits you from making any further disclosure of this information unless further disclosure is expressly permitted by the written consent of the person to whom it pertains or is authorized by law. A general authorization for the release of medical or other information is not sufficient for this purpose. Hospital accepts no responsibility if the information is made available to any other person, INCLUDING THE PATIENT. Interpretation Summary * Name: STARR RING Study Date: 10/15/2016 08:22 PM BP: 79/65 mmHg * Patient Location: [facility] HR: 94 * : 1955 (M/d/yyyy) Gender: Female Height: 62 in * Age: 61 yrs Ethnicity: [place] Weight: 110 lb * Ordering Physician: Ursula Kaye * Referring Physician: Shad Lyons D.O.Int.Med. * Performed By: Sharifa Oliver RCS * * Reason For Study: HYPOTENSION / ELEVATED TROPONIN * BSA: 1.5 m2 * -- Conclusions -- * 1. Normal LV size. Borderline concentric LVH. Asymmetric basal septal hypertrophy (1.4 cm). * 2. Hyperdynamic LV function. LVEF >70%. No regional wall motion abnormalities. * 3. Normal RV size and function. * 4. 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 * 5. Mild to moderate eccentric mitral regurgitation. * 6. Moderate pulmonary hypertension. Est PASP 50-55 mmHg. Est RA 8 mmHg. * 7. No prior studies for comparisono. Procedure Details * A complete two-dimensional transthoracic echocardiogram was performed (2D, M-mode, Doppler and color flow Doppler). Left Ventricle * The left ventricle is grossly normal size. * There is borderline concentric left ventricular hypertrophy. * Ejection Fraction = >70 %. * No regional wall motion abnormalities noted. Right Ventricle * The right ventricle is grossly normal size. * The right ventricular systolic function is normal as assessed by tricuspid annular plane systolic excursion (TAPSE) (normal >1.5 cm). Atria * The left atrial size is normal. * Right atrial size is normal. * No ASD detected; PFO is not assessed. Mitral Valve * The mitral valve is grossly normal. * There is systolic anterior motion of the mitral valve. * There is mild to moderate mitral regurgitation. * The mitral regurgitant jet is eccentrically directed. Tricuspid Valve * The tricuspid valve is not well visualized, but is grossly normal. * There is trace tricuspid regurgitation. * Right ventricular systolic pressure is elevated at 50-60mmHg. Aortic Valve * The aortic valve opens well. * The aortic valve is trileaflet. * No hemodynamically significant valvular aortic stenosis. * There is no significant aortic regurgitation. Pulmonic Valve * The pulmonary valve is inadequately visualized, but the Doppler data is adequate for interpretation. * There is no pulmonic valvular stenosis. * There is no significant pulmonary regurgitation. Great Vessels * The aortic root and proximal ascending aorta are normal sized. * No Doppler or imaging evidence of an aortic coarctation. Pericardium/Pleural * There is no pericardial effusion. Great Vessels * IVC < 2.1, <50% change with respiration. Estimated RA 8 mmHg. MMode 2D Measurements and Calculations IVSd 1.1 cm IVSs 1.5 cm LVIDd 3.1 cm LVIDs 1.6 cm LVPWd 0.98 cm LVPWs 1.4 cm IVS/LVPW 1.1 FS 50.0 % EDV(Teich) 38.5 ml ESV(Teich) 6.7 ml EF(Teich) 82.6 % EDV(cubed) 30.3 ml ESV(cubed) 3.8 ml EF(cubed) 87.5 % % IVS thick 34.8 % % LVPW thick 42.8 % LV mass(C)d 91.9 grams LV mass(C)dI 62.0 grams/m\S\2 LV mass(C)s 70.0 grams LV mass(C)sI 47.2 grams/m\S\2 SV(Teich) 31.7 ml SI(Teich) 21.4 ml/m\S\2 SV(cubed) 26.5 ml SI(cubed) 17.9 ml/m\S\2 Ao root diam 3.4 cm Ao root area 9.0 cm\S\2 ACS 1.7 cm LA dimension 3.4 cm LA/Ao 1.0 LVOT diam 1.6 cm LVOT area 2.0 cm\S\2 Doppler Measurements and Calculations MV E max bill 107.3 cm/sec MV A max bill 65.7 cm/sec MV E/A 1.6 MV P1/2t max bill 184.9 cm/sec MV P1/2t 43.7 msec MVA(P1/2t) 5.0 cm\S\2 MV dec slope 1239.4 cm/sec\S\2 MV dec time 0.13 sec Ao V2 max 406.4 cm/sec Ao max PG 66.1 mmHg Ao V2 mean 299.2 cm/sec Ao mean PG 39.6 mmHg Ao V2 VTI 83.1 cm MR max bill 609.6 cm/sec MR max PG 148.8 mmHg SV(Ao) 745.0 ml SI(Ao) 502.5 ml/m\S\2 PA V2 max 95.0 cm/sec PA max PG 3.6 mmHg TR max bill 335.7 cm/sec
[2016-10-17] MEDS: THIAMINE HCL 100 MG TAB PO SCH (12:11)
[2016-10-17] MEDS: CEROVITE ADV FORMULA TAB PO SCH (12:15)
--- NOTE | 2016-10-17 14:38 | Hospitalist Progress Note ---
Hospitalist Progress Note Date of Service October 17, 2016. Subjective Pt evaluation today including: conversation w/ patient, physical exam, chart review Weaned off pressors and BP stable. No CP or SOB. Tolerating oral diet. Medications Medications (Trade) Dose Ordered Sig/Froylan Route Start Time Stop Time Status Last Admin Dose Admin Pantoprazole Sodium (Protonix Tab) 40 mg QAM PO 10/16/16 09:00 11/15/16 08:59 10/16/16 07:47 40 MG Divalproex Sodium (Depakote Delay Rel Tab) 750 mg QAM PO 10/16/16 09:00 11/15/16 08:59 10/16/16 07:49 750 MG Enoxaparin Sodium 40 mg 40 mg QAM SQ 10/16/16 09:00 11/15/16 08:59 10/16/16 07:51 40 MG Magnesium Sulfate 1 gm/Prmx 100 ml @ 100 mls/hr 0830,0930 IV 10/16/16 08:30 10/16/16 12:00 DC 10/16/16 10:03 100 MLS/HR Calcium Gluconate 1000 mg/Sodium Chloride 60 ml @ 240 mls/hr NOW ONCE IV 10/16/16 09:45 10/16/16 09:59 DC 10/16/16 10:04 240 MLS/HR Potassium Chloride/Sodium Chloride (1/2 Nss + 20meq KCl 1000ml) 1,000 ml @ 100 mls/hr Q10H IV 10/16/16 10:00 11/15/16 09:29 10/17/16 02:02 100 MLS/HR Objective Vital Signs Date Time Temp Pulse Resp B/P Pulse Ox O2 Delivery O2 Flow Rate FiO2 10/17/16 06:00 84 21 99/69 94 10/17/16 05:45 83 19 111/79 95 10/17/16 05:36 82 17 109/73 95 10/17/16 05:15 79 18 112/66 95 10/17/16 05:01 74 15 122/69 96 10/17/16 04:45 76 15 120/72 95 10/17/16 04:30 78 14 105/71 95 10/17/16 04:15 77 16 105/68 95 10/17/16 04:00 Room Air 10/17/16 04:00 76 14 115/68 96 10/17/16 03:45 36.4 77 15 112/66 96 10/17/16 03:30 77 14 101/63 95 10/17/16 03:15 72 15 106/63 94 10/17/16 03:00 78 16 98/61 95 10/17/16 02:45 78 14 88/59 95 10/17/16 02:30 77 14 112/66 95 10/17/16 02:15 78 17 107/69 95 10/17/16 02:00 78 16 102/62 95 10/17/16 01:45 83 19 108/65 93 10/17/16 01:30 84 15 128/72 95 10/17/16 01:15 77 16 105/62 95 10/17/16 01:00 80 13 101/58 96 10/17/16 00:45 77 13 109/66 94 10/17/16 00:30 36.3 75 15 117/63 94 10/17/16 00:25 78 16 94 10/17/16 00:15 78 16 87/58 95 10/17/16 00:00 78 17 81/56 95 10/16/16 23:59 Room Air 10/16/16 23:45 77 14 85/53 96 10/16/16 23:30 76 16 104/62 94 10/16/16 23:15 79 15 98/61 95 10/16/16 23:00 82 17 77/48 97 10/16/16 22:45 82 15 73/48 97 10/16/16 22:30 84 16 69/44 98 10/16/16 22:15 81 16 79/61 96 10/16/16 22:10 79 18 97 10/16/16 22:00 86 17 76/51 97 10/16/16 21:45 90 20 80/51 97 10/16/16 21:31 90 20 79/48 97 10/16/16 21:15 92 20 91/63 95 10/16/16 21:00 89 22 84/53 93 10/16/16 20:57 93 23 87/56 93 10/16/16 20:30 128 22 105/69 98 10/16/16 20:15 95 19 99/64 98 10/16/16 20:00 Room Air 10/16/16 20:00 36.3 85 20 92/56 98 Room Air 10/16/16 20:00 85 20 92/56 98 10/16/16 19:45 85 21 90/57 97 10/16/16 19:31 86 20 83/57 97 10/16/16 19:15 88 20 97/58 98 10/16/16 19:00 87 21 90/62 97 10/16/16 18:00 88 20 92/58 97 10/16/16 16:45 90 21 82/58 98 10/16/16 16:30 90 23 91/63 97 10/16/16 16:15 90 23 108/66 97 10/16/16 16:00 36.3 91 22 96/64 97 Room Air 10/16/16 16:00 98 Room Air 10/16/16 15:00 36.3 91 23 95/68 98 10/16/16 14:00 37.0 90 20 99/66 98 Room Air 10/16/16 13:31 37.0 84 18 101/68 98 10/16/16 11:45 37.0 91 22 111/63 96 Room Air 10/16/16 11:30 96 Room Air 10/16/16 11:30 36.9 92 21 88/72 96 Room Air 10/16/16 11:15 37.0 98 22 92/63 95 Room Air 10/16/16 10:57 36.9 98 16 67/49 96 10/16/16 09:15 94 85/56 96 10/16/16 09:00 93 82/58 97 10/16/16 08:45 97 95 10/16/16 08:40 96 77/49 95 10/16/16 08:30 99 77/52 95 10/16/16 08:20 99 80/54 95 10/16/16 08:15 104 95 10/16/16 08:10 105 68/51 94 10/16/16 08:00 36.5 101 20 81/56 97 Room Air 10/16/16 07:51 105 72/52 98 10/16/16 07:50 101 77/52 94 10/16/16 07:45 101 96 10/16/16 07:40 97 91/61 95 10/16/16 07:35 95 Room Air 10/16/16 07:31 104 105/65 90 10/16/16 07:30 97 98 10/16/16 07:20 102 88/61 98 10/16/16 07:15 102 98 Physical Exam General Appearance: + cachetic, + thin Eyes: normal inspection ENT: normal ENT inspection Neck: supple, no adenopathy Respiratory/Chest: chest non-tender, normal breath sounds Cardiovascular: regular rate, rhythm, no gallop, + systolic murmur Abdomen: normal bowel sounds, non tender, no organomegaly 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, alert, oriented x 3 Laboratory Results Last 24 Hours Test 10/16/16 08:12 10/17/16 05:33 Prothrombin Time 13.1 SECONDS Prothromb Time International Ratio 1.2 Activated Partial Thromboplast Time 31.7 SECONDS Partial Thromboplastin Ratio 1.2 Fibrinogen 245 mg/dl Fibrin Degradation Products <10 mcg/ml D-Dimer < 190 ug/L FEU Iron Level 36 mcg/dl Total Iron Binding Capacity 212 mcg/dl Transferrin 169 mg/dl Transferrin % Saturation 15 % Ferritin 430.7 ng/ml White Blood Count 9.24 K/uL Red Blood Count 3.38 M/uL Hemoglobin 10.4 g/dL Hematocrit 30.0 % Mean Corpuscular Volume 88.8 fL Mean Corpuscular Hemoglobin 30.8 pg Mean Corpuscular Hemoglobin Concent 34.7 g/dl Platelet Count 127 K/uL Mean Platelet Volume 10.6 fL Neutrophils (%) (Auto) 61.5 % Lymphocytes (%) (Auto) 28.7 % Monocytes (%) (Auto) 9.0 % Eosinophils (%) (Auto) 0.1 % Basophils (%) (Auto) 0.2 % Neutrophils # (Auto) 5.68 K/uL Lymphocytes # (Auto) 2.65 K/uL Monocytes # (Auto) 0.83 K/uL Eosinophils # (Auto) 0.01 K/uL Basophils # (Auto) 0.02 K/uL RDW Standard Deviation 55.2 fL RDW Coefficient of Variation 17.0 % Immature Granulocyte % (Auto) 0.5 % Immature Granulocyte # (Auto) 0.05 K/uL Sodium Level 143 mmol/L Potassium Level 3.6 mmol/L Chloride Level 109 mmol/L Carbon Dioxide Level 25 mmol/L Anion Gap 9.0 mmol/L Blood Urea Nitrogen 15 mg/dl Creatinine 0.73 mg/dl Est Creatinine Clear Calc Drug Dose 62.4 ml/min Estimated GFR () 101.6 Estimated GFR (Non- 87.7 BUN/Creatinine Ratio 21.1 Random Glucose 80 mg/dl Calcium Level 8.2 mg/dl Ionized Calcium 1.23 mmol/l Phosphorus Level 2.4 mg/dl Magnesium Level 2.0 mg/dl Total Bilirubin 0.2 mg/dl Direct Bilirubin < 0.1 mg/dl Aspartate Amino Transf (AST/SGOT) 15 U/L Alanine Aminotransferase (ALT/SGPT) 16 U/L Alkaline Phosphatase 39 U/L Total Protein 5.2 gm/dl Albumin 2.5 gm/dl Valproic Acid (Depakene) Level 99 mcg/ml Diagnostic Results Interpretation Summary * Name: STARR RING Study Date: 10/15/2016 08:22 PM BP: 79/65 mmHg * Patient Location: [facility] HR: 94 * : 1955 (M/d/yyyy) Gender: Female Height: 62 in * Age: 61 yrs Ethnicity: [place] Weight: 110 lb * Ordering Physician: Ursula Kaye * Referring Physician: Shad Lyons D.O.Int.Med. * Performed By: Sharifa Oliver RCS * * Reason For Study: HYPOTENSION / ELEVATED TROPONIN * BSA: 1.5 m2 * -- Conclusions -- * 1. Normal LV size. Borderline concentric LVH. Asymmetric basal septal hypertrophy (1.4 cm). * 2. Hyperdynamic LV function. LVEF >70%. No regional wall motion abnormalities. * 3. Normal RV size and function. * 4. 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 * 5. Mild to moderate eccentric mitral regurgitation. * 6. Moderate pulmonary hypertension. Est PASP 50-55 mmHg. Est RA 8 mmHg. * 7. No prior studies for comparisono. Procedure Details Assessment and Plan Hypotension Hx of HTN Hx of CVA with right hemparesis Hx of Swallowing dysfunction Hypomagnesemia Hypokalemia. Hypocalcemia Anemia improved hemodynamics. OK to tx to tele. Stop IVFs. Improved renal indices Improved H/H post 2 unit prbc transfusion. Correct electrolyte abnormalities. Has low phosphorus. Echo suggestive of HOCM. Consult Cardiology reg. abn echo. Stress dose steroids dced and pt started on midodrine.
[2016-10-17] MEDS: BOOST VANILLA PUDDING CUP PO SCH (17:30)
[2016-10-17] MEDS: DIVALPROEX SODIUM 500 MG DELAY RELEASE TAB PO SCH (19:27)
[2016-10-18] VITALS: BP 105/54; PULSE 77; TEMP 36.8; O2SAT 95
[2016-10-18 05:00] VITALS: BP 95/56; PULSE 80; TEMP 36.9; O2SAT 91
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
[2016-10-18 06:48] LABS: BASO % 0.3 %; BASO ABS # 0.02 K/uL (0-0.2); COMPLETE YES; EOS % 0.8 %; HEMATOCRIT 30.2 % (37-47); IG% 0.2 %; LYMPH % 32.4 %; LYMPH ABS # 2.01 K/uL (1.2-3.4); MEAN CELL VOLUME 89.3 fL (80-100); MEAN CORPUSCULAR HEMOGLOBIN 29.3 pg (25-34); MEAN CORPUSCULAR HGB CONC 32.8 g/dl (32-36); MONO % 9.8 %; NEUT % 56.5 %; PLATELET COUNT 123 K/uL (130-400); RED BLOOD COUNT 3.38 M/uL (4.2-5.4); WHITE BLOOD COUNT 6.21 K/uL (4.8-10.8)
[2016-10-18 07:31] LABS: ALT/SGPT 14 U/L (12-78); AST/SGOT 11 U/L (15-37); BLOOD UREA NITROGEN 14 mg/dl (7-18); BUN/CREATININE RATIO 22.2 (10-20); CALCIUM 8.3 mg/dl (8.5-10.1); CARBON DIOXIDE 30 mmol/L (21-32); CHLORIDE 107 mmol/L (98-107); CREATININE 0.63 mg/dl (0.60-1.20); GLUCOSE 72 mg/dl (70-99); MAGNESIUM 1.8 mg/dl (1.8-2.4); POTASSIUM 3.3 mmol/L (3.5-5.1); SODIUM 142 mmol/L (136-145)
[2016-10-18 07:33] LABS: ALKALINE PHOSPHATASE 43 U/L (45-117)
[2016-10-18 07:39] VITALS: BP 143/76; PULSE 72; TEMP 36.8; O2SAT 95
[2016-10-18] MEDS: BOOST VANILLA PUDDING CUP PO SCH ×3 (08:28→17:04)
[2016-10-18] MEDS: MIDODRINE 2.5 MG TAB PO SCH ×3 (08:29→17:04)
[2016-10-18] MEDS: VENLAFAXINE HCL 50 MG TAB PO SCH ×2 (08:30→21:12)
[2016-10-18] MEDS: THIAMINE HCL 100 MG TAB PO SCH (08:30)
[2016-10-18] MEDS: DIVALPROEX SODIUM 250 MG DELAY REL TAB PO SCH (08:30)
[2016-10-18] MEDS: CEROVITE ADV FORMULA TAB PO SCH (08:30)
[2016-10-18] MEDS: ENOXAPARIN 40 MG/0.4 ML SYR SQ SCH (08:31)
--- NOTE | 2016-10-18 08:40 | Hospitalist Progress Note ---
Hospitalist Progress Note Date of Service October 18, 2016. Subjective Pt evaluation today including: conversation w/ patient, chart review, lab review Medications Medications (Trade) Dose Ordered Sig/Froylan Route Start Time Stop Time Status Last Admin Dose Admin Folic Acid (Folvite Tab) 1 mg QAM PO 10/17/16 09:00 11/16/16 08:59 10/18/16 08:29 1 MG Thiamine HCl (Vitamin B-1 Tab) 100 mg QAM PO 10/17/16 09:00 11/16/16 08:59 10/18/16 08:30 100 MG Multivitamins/ Minerals (Multivitamin W/ Minerals Tab) 1 tab QAM PO 10/17/16 09:00 11/16/16 08:59 10/18/16 08:30 1 TAB Enteral Nutritional Formula (Boost Pudding) 1 cup TIDM PO 10/17/16 16:30 11/16/16 16:29 10/18/16 08:28 1 CUP Objective Vital Signs Date Time Temp Pulse Resp B/P Pulse Ox O2 Delivery O2 Flow Rate FiO2 10/18/16 07:39 36.8 72 16 143/76 95 10/18/16 05:00 36.9 80 18 95/56 91 Room Air 10/18/16 04:00 Room Air 10/18/16 00:00 Room Air 10/18/16 00:00 36.8 77 16 105/54 95 Room Air 10/17/16 20:44 36.3 81 16 98 10/17/16 20:30 37.0 78 16 110/66 99 10/17/16 20:00 Room Air 10/17/16 19:37 36.3 81 16 99/66 98 Room Air 10/17/16 16:04 36.5 80 16 119/78 100 Room Air 10/17/16 16:00 Room Air 10/17/16 12:30 36.9 93 24 93/64 92 Room Air 10/17/16 12:10 93 Room Air 10/17/16 12:00 90 21 110/69 96 10/17/16 11:30 95 15 102/70 98 10/17/16 11:00 87 24 103/67 98 10/17/16 10:52 88 29 89/64 98 10/17/16 10:43 90 23 97/66 98 10/17/16 10:32 90 22 96/62 98 5/11/17 10:31 93 23 86/71 96 10/17/16 10:30 96 22 96 10/17/16 10:00 92 21 97/62 96 10/17/16 09:30 85 24 115/60 97 Room Air 10/17/16 09:00 90 19 110/64 97 Physical Exam General Appearance: WD/WN, + thin Eyes: normal inspection ENT: normal ENT inspection Neck: supple, no adenopathy Respiratory/Chest: chest non-tender, lungs clear Cardiovascular: regular rate, rhythm, no edema, + systolic murmur Abdomen: normal bowel sounds, non tender, soft Extremities: normal inspection, no pedal edema 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, no motor/sensory deficits, oriented x 3 Skin: normal color Laboratory Results Last 24 Hours Test 10/17/16 21:00 10/18/16 06:40 Stool Occult Blood POSITIVE White Blood Count 6.21 K/uL Red Blood Count 3.38 M/uL Hemoglobin 9.9 g/dL Hematocrit 30.2 % Mean Corpuscular Volume 89.3 fL Mean Corpuscular Hemoglobin 29.3 pg Mean Corpuscular Hemoglobin Concent 32.8 g/dl Platelet Count 123 K/uL Mean Platelet Volume 10.0 fL Neutrophils (%) (Auto) 56.5 % Lymphocytes (%) (Auto) 32.4 % Monocytes (%) (Auto) 9.8 % Eosinophils (%) (Auto) 0.8 % Basophils (%) (Auto) 0.3 % Neutrophils # (Auto) 3.51 K/uL Lymphocytes # (Auto) 2.01 K/uL Monocytes # (Auto) 0.61 K/uL Eosinophils # (Auto) 0.05 K/uL Basophils # (Auto) 0.02 K/uL RDW Standard Deviation 54.3 fL RDW Coefficient of Variation 16.6 % Immature Granulocyte % (Auto) 0.2 % Immature Granulocyte # (Auto) 0.01 K/uL Sodium Level 142 mmol/L Potassium Level 3.3 mmol/L Chloride Level 107 mmol/L Carbon Dioxide Level 30 mmol/L Anion Gap 5.0 mmol/L Blood Urea Nitrogen 14 mg/dl Creatinine 0.63 mg/dl Est Creatinine Clear Calc Drug Dose 72.3 ml/min Estimated GFR () 110.6 Estimated GFR (Non- 95.5 BUN/Creatinine Ratio 22.2 Random Glucose 72 mg/dl Calcium Level 8.3 mg/dl Magnesium Level 1.8 mg/dl Total Bilirubin 0.3 mg/dl Direct Bilirubin < 0.1 mg/dl Aspartate Amino Transf (AST/SGOT) 11 U/L Alanine Aminotransferase (ALT/SGPT) 14 U/L Alkaline Phosphatase 43 U/L Total Protein 4.9 gm/dl Albumin 2.3 gm/dl Assessment and Plan Hypotension Hx of HTN Hx of CVA with right hemparesis Hx of Swallowing dysfunction Hypomagnesemia Hypokalemia. Hypocalcemia Anemia Encourage POs. Occupational Safety Specialist consult Stop IVFs. Improved renal indices Improved H/H post 2 unit prbc transfusion. Correct electrolyte abnormalities.Replete potassium Echo suggestive of HOCM.Appreciate Cards input. Consult Cardiology reg. abn echo. Stress dose steroids dced and pt started on midodrine.
[2016-10-18 15:11] VITALS: BP 100/69; PULSE 58; TEMP 36.4; O2SAT 97
[2016-10-18] MEDS ORDERED: POTASSIUM CHLORIDE 10 MEQ TABCR PO STA (16:28)
[2016-10-18 19:29] VITALS: BP 104/69; PULSE 92; TEMP 36.6; O2SAT 96
[2016-10-18] MEDS: DIVALPROEX SODIUM 500 MG DELAY RELEASE TAB PO SCH (19:38)
[2016-10-18] MEDS: PANTOprazole SOD 40 MG TAB PO SCH (19:43)
[2016-10-18 23:31] VITALS: BP 120/80; PULSE 79; TEMP 36.4; O2SAT 98
[2016-10-19 04:32] VITALS: BP 123/84; PULSE 78; TEMP 36.6; O2SAT 97
[2016-10-19 06:12] LABS: BASO % 0.5 %; BASO ABS # 0.03 K/uL (0-0.2); COMPLETE YES; EOS % 0.8 %; HEMATOCRIT 31.1 % (37-47); IG% 0.2 %; LYMPH % 37.3 %; MEAN CELL VOLUME 88.6 fL (80-100); MEAN CORPUSCULAR HEMOGLOBIN 29.3 pg (25-34); MEAN CORPUSCULAR HGB CONC 33.1 g/dl (32-36); MEAN PLATELET VOLUME 9.8 fL (7.4-10.4); MONO % 8.3 %; NEUT % 52.9 %; PLATELET COUNT 134 K/uL (130-400); RED BLOOD COUNT 3.51 M/uL (4.2-5.4); WHITE BLOOD COUNT 6.17 K/uL (4.8-10.8)
[2016-10-19 06:52] LABS: ALKALINE PHOSPHATASE 48 U/L (45-117); ALT/SGPT 16 U/L (12-78); AST/SGOT 13 U/L (15-37); BLOOD UREA NITROGEN 18 mg/dl (7-18); BUN/CREATININE RATIO 29.9 (10-20); CALCIUM 8.4 mg/dl (8.5-10.1); CARBON DIOXIDE 31 mmol/L (21-32); CHLORIDE 105 mmol/L (98-107); CREATININE 0.61 mg/dl (0.60-1.20); GLUCOSE 71 mg/dl (70-99); POTASSIUM 3.9 mmol/L (3.5-5.1); SODIUM 140 mmol/L (136-145)
[2016-10-19 07:38] VITALS: BP 118/78; PULSE 62; TEMP 36.4; O2SAT 93
[2016-10-19] MEDS: BOOST VANILLA PUDDING CUP PO SCH ×3 (08:00→16:20)
[2016-10-19] MEDS: VENLAFAXINE HCL 50 MG TAB PO SCH ×2 (08:51→20:45)
[2016-10-19] MEDS: DIVALPROEX SODIUM 250 MG DELAY REL TAB PO SCH (08:52)
[2016-10-19] MEDS: MIDODRINE 2.5 MG TAB PO SCH ×3 (08:53→16:19)
[2016-10-19] MEDS: CEROVITE ADV FORMULA TAB PO SCH (08:54)
[2016-10-19] MEDS: THIAMINE HCL 100 MG TAB PO SCH (08:54)
[2016-10-19] MEDS: PANTOprazole SOD 40 MG TAB PO SCH (08:55)
[2016-10-19] MEDS: ENOXAPARIN 40 MG/0.4 ML SYR SQ SCH (08:56)
[2016-10-19 11:34] VITALS: BP 129/85; PULSE 79; TEMP 36.5; O2SAT 97
[2016-10-19] MEDS: LANSOPRAZOLE SOLUTAB 15 MG PO SCH ×2 (13:54→20:43)
--- NOTE | 2016-10-19 15:12 | Progress Note ---
Progress Note Date of Service October 19, 2016. Progress Note Full Consult Dictated -presenting with hypotension-1 week of weakness. Now responded with IVF and blood. Hb Stable No signs of acute GI bleed Recs -EGD/Colonoscopy Friday -Patient is ? if will be willing to undergo prep, Will Decide by tomorrow -EGD +/- Colon on Friday
[2016-10-19 15:16] VITALS: BP 114/82; PULSE 81; TEMP 36.5; O2SAT 96
--- NOTE | 2016-10-19 15:40 | Hospitalist Progress Note ---
Hospitalist Progress Note Date of Service October 19, 2016. Subjective Pt evaluation today including: conversation w/ patient, conversation w/ family , physical exam, chart review Tolerating oral diet. Medications Medications (Trade) Dose Ordered Sig/Froylan Route Start Time Stop Time Status Last Admin Dose Admin Potassium Chloride (Klor-Con M10) 20 meq NOW STAT PO 10/18/16 16:28 10/18/16 16:48 DC 10/18/16 17:08 20 MEQ Pantoprazole Sodium (Protonix Tab) 40 mg BID PO 10/18/16 21:00 10/19/16 13:16 DC 10/18/16 19:43 40 MG Lansoprazole (Prevacid Solutab) 15 mg BID PO 10/19/16 14:00 11/18/16 13:59 10/19/16 13:54 15 MG Objective Vital Signs Date Time Temp Pulse Resp B/P Pulse Ox O2 Delivery O2 Flow Rate FiO2 10/19/16 15:16 36.5 81 20 114/82 96 10/19/16 11:34 36.5 79 20 129/85 97 10/19/16 08:00 Room Air 10/19/16 07:38 36.4 62 20 118/78 93 10/19/16 04:32 36.6 78 18 123/84 97 Room Air 10/19/16 04:00 Room Air 10/19/16 00:00 Room Air 10/18/16 23:31 36.4 79 20 120/80 98 Room Air 10/18/16 20:00 Room Air 10/18/16 19:29 36.6 92 20 104/69 96 Room Air 10/18/16 16:00 Room Air Physical Exam General Appearance: WD/WN Eyes: normal inspection ENT: normal ENT inspection Neck: supple Respiratory/Chest: chest non-tender, lungs clear Cardiovascular: regular rate, rhythm, no edema, + systolic murmur Abdomen: normal bowel sounds, non tender, soft Extremities: normal range of motion, normal inspection 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, 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 x 3, + pertinent finding (right hemiparesis) Laboratory Results Last 24 Hours Test 10/18/16 16:10 10/19/16 06:02 10/19/16 07:28 Bedside Glucose 91 mg/dl 76 mg/dl White Blood Count 6.17 K/uL Red Blood Count 3.51 M/uL Hemoglobin 10.3 g/dL Hematocrit 31.1 % Mean Corpuscular Volume 88.6 fL Mean Corpuscular Hemoglobin 29.3 pg Mean Corpuscular Hemoglobin Concent 33.1 g/dl Platelet Count 134 K/uL Mean Platelet Volume 9.8 fL Neutrophils (%) (Auto) 52.9 % Lymphocytes (%) (Auto) 37.3 % Monocytes (%) (Auto) 8.3 % Eosinophils (%) (Auto) 0.8 % Basophils (%) (Auto) 0.5 % Neutrophils # (Auto) 3.27 K/uL Lymphocytes # (Auto) 2.30 K/uL Monocytes # (Auto) 0.51 K/uL Eosinophils # (Auto) 0.05 K/uL Basophils # (Auto) 0.03 K/uL RDW Standard Deviation 51.6 fL RDW Coefficient of Variation 16.1 % Immature Granulocyte % (Auto) 0.2 % Immature Granulocyte # (Auto) 0.01 K/uL Sodium Level 140 mmol/L Potassium Level 3.9 mmol/L Chloride Level 105 mmol/L Carbon Dioxide Level 31 mmol/L Anion Gap 4.0 mmol/L Blood Urea Nitrogen 18 mg/dl Creatinine 0.61 mg/dl Est Creatinine Clear Calc Drug Dose 74.7 ml/min Estimated GFR () 111.8 Estimated GFR (Non- 96.5 BUN/Creatinine Ratio 29.9 Random Glucose 71 mg/dl Calcium Level 8.4 mg/dl Magnesium Level 2.0 mg/dl Total Bilirubin 0.2 mg/dl Direct Bilirubin < 0.1 mg/dl Aspartate Amino Transf (AST/SGOT) 13 U/L Alanine Aminotransferase (ALT/SGPT) 16 U/L Alkaline Phosphatase 48 U/L Total Protein 5.0 gm/dl Albumin 2.3 gm/dl Assessment and Plan Hypotension Hx of HTN Hx of CVA with right hemparesis Hx of Swallowing dysfunction Hypomagnesemia Hypokalemia. Hypocalcemia Anemia Encourage POs. 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 Improved renal indices Improved H/H post 2 unit prbc transfusion. Correct electrolyte abnormalities.Replete potassium Echo suggestive of HOCM.Appreciate Cards input. Stress dose steroids dced and pt started on midodrine. DC to rehab when bed available.
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
[2016-10-19 19:49] VITALS: BP 117/74; PULSE 75; TEMP 36.3; O2SAT 94
[2016-10-19] MEDS: DIVALPROEX SODIUM SPRINKLE 125 MG CAP PO SCH (20:43)
[2016-10-20] VITALS (8 sets, daily range): BP systolic 78–161; BP diastolic 34–89; PULSE 58–82; TEMP 36.3–37; O2SAT 91–98
[2016-10-20 06:29] LABS: BASO % 0.4 %; BASO ABS # 0.02 K/uL (0-0.2); COMPLETE YES; EOS % 1.3 %; HEMATOCRIT 28.3 % (37-47); IG% 0.4 %; LYMPH % 37.6 %; LYMPH ABS # 2.02 K/uL (1.2-3.4); MEAN CELL VOLUME 90.1 fL (80-100); MEAN CORPUSCULAR HEMOGLOBIN 31.2 pg (25-34); MEAN CORPUSCULAR HGB CONC 34.6 g/dl (32-36); MEAN PLATELET VOLUME 10.2 fL (7.4-10.4); MONO % 9.1 %; NEUT % 51.2 %; PLATELET COUNT 143 K/uL (130-400); RED BLOOD COUNT 3.14 M/uL (4.2-5.4); WHITE BLOOD COUNT 5.37 K/uL (4.8-10.8)
[2016-10-20 07:03] LABS: BUN/CREATININE RATIO 27.6 (10-20); CALCIUM 8.5 mg/dl (8.5-10.1); CREATININE 0.77 mg/dl (0.60-1.20); MAGNESIUM 1.9 mg/dl (1.8-2.4); POTASSIUM 3.9 mmol/L (3.5-5.1)
[2016-10-20] MEDS: THIAMINE HCL 100 MG TAB PO SCH (08:04)
[2016-10-20] MEDS: CEROVITE ADV FORMULA TAB PO SCH (08:04)
[2016-10-20] MEDS: LANSOPRAZOLE SOLUTAB 15 MG PO SCH ×2 (08:05→21:31)
[2016-10-20] MEDS: BOOST VANILLA PUDDING CUP PO SCH ×3 (08:07→16:28)
[2016-10-20] MEDS: MIDODRINE 2.5 MG TAB PO SCH ×3 (08:07→16:29)
[2016-10-20] MEDS: DIVALPROEX SODIUM SPRINKLE 125 MG CAP PO SCH ×2 (08:07→21:35)
[2016-10-20] MEDS: VENLAFAXINE HCL 50 MG TAB PO SCH ×2 (08:08→21:33)
[2016-10-20] MEDS: ENOXAPARIN 40 MG/0.4 ML SYR SQ SCH (08:10)
--- NOTE | 2016-10-20 11:28 | Gastroenterology Progress Note ---
Progress Note Date of Service: October 20, 2016 Subjective Pt evaluation today including: conversation w/ patient, conversation w/ family No signs of bleeding, patient feels improved Willing to undergo EGD not Colonoscopy at this time Medications Current Inpatient Medications Medications (Trade) Dose Ordered Sig/Froylan Route Start Time Stop Time Status Last Admin Dose Admin Acetaminophen (Tylenol Tab) 650 mg Q4H PRN PO 10/15/16 17:00 11/14/16 16:59 Zolpidem Tartrate (Ambien Tab) 5 mg HSZ PRN PO 10/15/16 17:00 11/14/16 16:59 Buspirone HCl (Buspar Tab) 10 mg BID PO 10/15/16 21:00 11/14/16 20:59 10/20/16 08:04 10 MG Venlafaxine HCl (effeXOR TAB) 75 mg BID PO 10/15/16 21:00 11/14/16 20:59 10/20/16 08:08 75 MG Enoxaparin Sodium (Lovenox Inj) 40 mg QAM SQ 10/16/16 09:00 11/15/16 08:59 10/20/16 08:10 40 MG Midodrine (Proamatine Tab) 5 mg TID@0800,1200,1600 PO 10/17/16 06:51 11/16/16 06:50 10/20/16 08:07 5 MG Folic Acid (Folvite Tab) 1 mg QAM PO 10/17/16 09:00 11/16/16 08:59 10/20/16 08:05 1 MG Thiamine HCl (Vitamin B-1 Tab) 100 mg QAM PO 10/17/16 09:00 11/16/16 08:59 10/20/16 08:04 100 MG Multivitamins/ Minerals (Multivitamin W/ Minerals Tab) 1 tab QAM PO 10/17/16 09:00 11/16/16 08:59 10/20/16 08:04 1 TAB Enteral Nutritional Formula (Boost Pudding) 1 cup TIDM PO 10/17/16 16:30 11/16/16 16:29 10/20/16 08:07 1 CUP Divalproex Sodium (Depakote Sprinkle Cap) 750 mg QAM PO 10/20/16 09:00 11/19/16 08:59 10/20/16 08:07 750 MG Divalproex Sodium (Depakote Sprinkle Cap) 1,000 mg HS PO 10/19/16 21:00 11/18/16 20:59 10/19/16 20:43 1,000 MG Lansoprazole (Prevacid Solutab) 15 mg BID PO 10/19/16 14:00 11/18/16 13:59 10/20/16 08:05 15 MG Objective Vital Signs Date Time Temp Pulse Resp B/P Pulse Ox O2 Delivery O2 Flow Rate FiO2 10/20/16 08:58 Room Air 10/20/16 08:00 Room Air 10/20/16 07:42 36.3 58 16 161/89 91 10/20/16 04:00 36.7 74 18 114/76 98 Room Air 10/20/16 04:00 Room Air 10/20/16 00:03 36.7 66 16 118/77 95 Room Air 10/20/16 00:00 Room Air 10/19/16 20:00 Room Air 10/19/16 19:49 36.3 75 18 117/74 94 Room Air 10/19/16 16:00 Room Air 10/19/16 15:16 36.5 81 20 114/82 96 10/19/16 12:00 Room Air 10/19/16 11:34 36.5 79 20 129/85 97 Physical Exam General Appearance: WD/WN Neck: supple Respiratory/Chest: chest non-tender Cardiovascular: regular rate, rhythm Abdomen: normal bowel sounds Extremities: normal range of motion Laboratory Results Last 24 Hours Test 10/20/16 06:12 White Blood Count 5.37 K/uL Red Blood Count 3.14 M/uL Hemoglobin 9.8 g/dL Hematocrit 28.3 % Mean Corpuscular Volume 90.1 fL Mean Corpuscular Hemoglobin 31.2 pg Mean Corpuscular Hemoglobin Concent 34.6 g/dl Platelet Count 143 K/uL Mean Platelet Volume 10.2 fL Neutrophils (%) (Auto) 51.2 % Lymphocytes (%) (Auto) 37.6 % Monocytes (%) (Auto) 9.1 % Eosinophils (%) (Auto) 1.3 % Basophils (%) (Auto) 0.4 % Neutrophils # (Auto) 2.75 K/uL Lymphocytes # (Auto) 2.02 K/uL Monocytes # (Auto) 0.49 K/uL Eosinophils # (Auto) 0.07 K/uL Basophils # (Auto) 0.02 K/uL RDW Standard Deviation 52.7 fL RDW Coefficient of Variation 16.3 % Immature Granulocyte % (Auto) 0.4 % Immature Granulocyte # (Auto) 0.02 K/uL Sodium Level 139 mmol/L Potassium Level 3.9 mmol/L Chloride Level 103 mmol/L Carbon Dioxide Level 31 mmol/L Anion Gap 5.0 mmol/L Blood Urea Nitrogen 21 mg/dl Creatinine 0.77 mg/dl Est Creatinine Clear Calc Drug Dose 59.1 ml/min Estimated GFR () 95.2 Estimated GFR (Non- 82.2 BUN/Creatinine Ratio 27.6 Random Glucose 79 mg/dl Calcium Level 8.5 mg/dl Magnesium Level 1.9 mg/dl Assessment and Plan This is a 61-year-old female who is chronically ill, who had 1 week of poor p.o. intake, in general gradual decline who presented to the ER with hypotension and weakness who has not responded to a course of antibiotics and fluid resuscitation in the setting of an anemia and possible black stools. -no signs of bleeding now -Rec for EGD and colonoscopy, but patient does not want to prep -NPO after MN EGD on Friday
--- NOTE | 2016-10-20 12:14 | Hospitalist Progress Note ---
Hospitalist Progress Note Date of Service October 20, 2016. Subjective Pt evaluation today including: conversation w/ patient, chart review Doing well. No complaints Medications Medications (Trade) Dose Ordered Sig/Froylan Route Start Time Stop Time Status Last Admin Dose Admin Divalproex Sodium (Depakote Sprinkle Cap) 1,000 mg HS PO 10/19/16 21:00 11/18/16 20:59 10/19/16 20:43 1,000 MG Lansoprazole (Prevacid Solutab) 15 mg BID PO 10/19/16 14:00 11/18/16 13:59 10/19/16 20:43 15 MG Objective Vital Signs Date Time Temp Pulse Resp B/P Pulse Ox O2 Delivery O2 Flow Rate FiO2 10/20/16 07:42 36.3 58 16 161/89 91 10/20/16 04:00 36.7 74 18 114/76 98 Room Air 10/20/16 04:00 Room Air 10/20/16 00:03 36.7 66 16 118/77 95 Room Air 10/20/16 00:00 Room Air 10/19/16 20:00 Room Air 10/19/16 19:49 36.3 75 18 117/74 94 Room Air 10/19/16 16:00 Room Air 10/19/16 15:16 36.5 81 20 114/82 96 10/19/16 12:00 Room Air 10/19/16 11:34 36.5 79 20 129/85 97 10/19/16 08:00 Room Air Physical Exam General Appearance: WD/WN Eyes: normal inspection ENT: normal ENT inspection Neck: supple, no adenopathy Respiratory/Chest: chest non-tender, lungs clear Cardiovascular: regular rate, rhythm, no edema, no murmur Abdomen: normal bowel sounds, non tender, soft 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: alert, oriented x 3, + pertinent finding (left hemparesis) Skin: + pallor Laboratory Results Last 24 Hours Test 10/20/16 06:12 White Blood Count 5.37 K/uL Red Blood Count 3.14 M/uL Hemoglobin 9.8 g/dL Hematocrit 28.3 % Mean Corpuscular Volume 90.1 fL Mean Corpuscular Hemoglobin 31.2 pg Mean Corpuscular Hemoglobin Concent 34.6 g/dl Platelet Count 143 K/uL Mean Platelet Volume 10.2 fL Neutrophils (%) (Auto) 51.2 % Lymphocytes (%) (Auto) 37.6 % Monocytes (%) (Auto) 9.1 % Eosinophils (%) (Auto) 1.3 % Basophils (%) (Auto) 0.4 % Neutrophils # (Auto) 2.75 K/uL Lymphocytes # (Auto) 2.02 K/uL Monocytes # (Auto) 0.49 K/uL Eosinophils # (Auto) 0.07 K/uL Basophils # (Auto) 0.02 K/uL RDW Standard Deviation 52.7 fL RDW Coefficient of Variation 16.3 % Immature Granulocyte % (Auto) 0.4 % Immature Granulocyte # (Auto) 0.02 K/uL Sodium Level 139 mmol/L Potassium Level 3.9 mmol/L Chloride Level 103 mmol/L Carbon Dioxide Level 31 mmol/L Anion Gap 5.0 mmol/L Blood Urea Nitrogen 21 mg/dl Creatinine 0.77 mg/dl Est Creatinine Clear Calc Drug Dose 59.1 ml/min Estimated GFR () 95.2 Estimated GFR (Non- 82.2 BUN/Creatinine Ratio 27.6 Random Glucose 79 mg/dl Calcium Level 8.5 mg/dl Magnesium Level 1.9 mg/dl Assessment and Plan Hypotension Hx of HTN Hx of CVA with right hemparesis Hx of Swallowing dysfunction Hypomagnesemia Hypokalemia. Hypocalcemia Anemia with heme + stools Encourage POs. Veterinary Anatomist consult Stop IVFs. Improved renal indices Improved H/H post 2 unit prbc transfusion. Correct electrolyte abnormalities.Replete potassium Echo suggestive of HOCM.Appreciate Cards input. Stress dose steroids dced and pt started on midodrine. Hgb stable. Will start on PPI. Appreciate GI input. EGD plus or minus colonoscopy tomorrow PT/OT DC to rehab when bed available.Called [facility] and left message for call back.
[2016-10-21] VITALS (7 sets, daily range): BP systolic 116–157; BP diastolic 65–88; PULSE 70–86; TEMP 36.7–36.9; O2SAT 95–97
[2016-10-21 07:21] LABS: CREATININE 0.76 mg/dl (0.60-1.20)
[2016-10-21] MEDS: BOOST VANILLA PUDDING CUP PO SCH ×3 (08:00→17:33)
[2016-10-21] MEDS: MIDODRINE 2.5 MG TAB PO SCH ×3 (08:37→16:20)
[2016-10-21] MEDS: VENLAFAXINE HCL 50 MG TAB PO SCH ×2 (08:38→20:00)
[2016-10-21] MEDS: CEROVITE ADV FORMULA TAB PO SCH (08:38)
[2016-10-21] MEDS: THIAMINE HCL 100 MG TAB PO SCH (08:39)
[2016-10-21] MEDS: ENOXAPARIN 40 MG/0.4 ML SYR SQ SCH ×2 (08:44→10:08)
[2016-10-21] MEDS: LANSOPRAZOLE SOLUTAB 15 MG PO SCH ×2 (08:48→19:59)
[2016-10-21] MEDS: DIVALPROEX SODIUM SPRINKLE 125 MG CAP PO SCH ×2 (08:48→19:59)
--- NOTE | 2016-10-21 10:48 | Progress Note ---
Subjective Date of Service: October 21, 2016. Subjective Pt evaluation today including: conversation w/ patient, conversation w/ family (), physical exam, lab review, review of inpatient medication list Pain: admits to mild stomach pain PO Intake: adequate Voiding: no voiding problems scheduled for EGD today, cancelled because she required a bite of pudding for morning medications, will perform tomorrow vitals and labs stable, specifically Hb spoke with , he really wants [facility] reviewed CM notes, was denied rehab but approved for SNF Dr. Kaye reports that he called [facility] for peer to peer, awaiting call back per , after hemorrhagic stroke in March 2016 she went to [facility] and did remarkably well unfortunately she then went to [facility] and functional status declined with less therapy discharged home and functional status has declined even further, she is more depressed now Problem List Medical Problems: (1) Altered mental status Status: Acute (2) Orthostatic hypotension Status: Acute (3) UTI (urinary tract infection) Status: Acute (4) Weakness Status: Acute Review of Systems Constitutional: + fatigue, + weakness Abdomen: + pain (upper abdomen, had a BM yesterday and this AM) Neurologic: + problem reported (difficulty swallowing from prior stroke), + weakness (right sided from prior stroke) Psychiatric: + depression symptoms All Other Systems: Reviewed and Negative Medications Current Inpatient Medications Medications (Trade) Dose Ordered Sig/Froylan Route Start Time Stop Time Status Last Admin Dose Admin Acetaminophen (Tylenol Tab) 650 mg Q4H PRN PO 10/15/16 17:00 11/14/16 16:59 Zolpidem Tartrate (Ambien Tab) 5 mg HSZ PRN PO 10/15/16 17:00 11/14/16 16:59 Buspirone HCl (Buspar Tab) 10 mg BID PO 10/15/16 21:00 11/14/16 20:59 10/21/16 08:37 10 MG Venlafaxine HCl (effeXOR TAB) 75 mg BID PO 10/15/16 21:00 11/14/16 20:59 10/21/16 08:38 75 MG Enoxaparin Sodium (Lovenox Inj) 40 mg QAM SQ 10/16/16 09:00 11/15/16 08:59 10/21/16 10:08 40 MG Midodrine (Proamatine Tab) 5 mg TID@0800,1200,1600 PO 10/17/16 06:51 11/16/16 06:50 10/21/16 08:37 5 MG Folic Acid (Folvite Tab) 1 mg QAM PO 10/17/16 09:00 11/16/16 08:59 10/21/16 08:39 1 MG Thiamine HCl (Vitamin B-1 Tab) 100 mg QAM PO 10/17/16 09:00 11/16/16 08:59 10/21/16 08:39 100 MG Multivitamins/ Minerals (Multivitamin W/ Minerals Tab) 1 tab QAM PO 10/17/16 09:00 11/16/16 08:59 10/21/16 08:38 1 TAB Enteral Nutritional Formula (Boost Pudding) 1 cup TIDM PO 10/17/16 16:30 11/16/16 16:29 10/20/16 16:28 1 CUP Divalproex Sodium (Depakote Sprinkle Cap) 750 mg QAM PO 10/20/16 09:00 11/19/16 08:59 10/21/16 08:48 750 MG Divalproex Sodium (Depakote Sprinkle Cap) 1,000 mg HS PO 10/19/16 21:00 11/18/16 20:59 10/20/16 21:35 1,000 MG Lansoprazole (Prevacid Solutab) 15 mg BID PO 10/19/16 14:00 11/18/16 13:59 10/21/16 08:48 15 MG Objective Vital Signs Date Time Temp Pulse Resp B/P Pulse Ox O2 Delivery O2 Flow Rate FiO2 10/21/16 07:50 36.7 70 16 129/83 97 Room Air 10/21/16 07:49 Room Air 10/21/16 05:21 Room Air 10/21/16 04:08 36.7 76 18 138/88 96 Room Air 10/21/16 04:00 Room Air 10/21/16 00:00 Room Air 10/20/16 23:52 36.7 77 18 127/88 96 Room Air 10/20/16 20:00 Room Air 10/20/16 19:12 37.0 77 20 147/81 94 Room Air 10/20/16 16:00 Room Air 10/20/16 15:29 37.0 79 18 114/61 94 10/20/16 12:39 36.4 82 16 126/85 95 10/20/16 12:00 Room Air Physical Exam General Appearance: WD/WN, no apparent distress Eyes: normal inspection, EOMI ENT: normal ENT inspection, hearing grossly normal, pharynx normal Neck: supple, no adenopathy, no JVD, trachea midline Respiratory/Chest: chest non-tender, lungs clear, normal breath sounds, no respiratory distress, no accessory muscle use Cardiovascular: regular rate, rhythm, no edema, no gallop, no JVD, no murmur Abdomen: normal bowel sounds, non tender, soft, no organomegaly Extremities: non-tender, normal inspection, no pedal edema, no calf tenderness , normal capillary refill, pelvis stable 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: forensics team director II-XII nml as tested, alert, oriented x 3, + motor weakness (right sided), + depressed affect Skin: normal color, warm/dry, no rash Laboratory Results Last 24 Hours Test 10/21/16 05:59 10/21/16 07:43 Creatinine 0.76 mg/dl Est Creatinine Clear Calc Drug Dose 59.9 ml/min Estimated GFR () 96.8 Estimated GFR (Non- 83.5 Bedside Glucose 73 mg/dl Assessment and Plan 61 yo female with h/o hemorrhagic stroke in March 2016, residual right sided weakness, swallowing dysfunction and ambulatory dysfunction presented with weakness and hypotension and new finding of profound anemia with Hb of 6.2, transfused two units on admission and BP, weakness improved - Anemia, likely from slow GI bleed: Hb has been stable for days, BP stable since transfused 2 units at time of admission plan for EGD tomorrow, cancelled today due to eating some pudding with morning meds GI bleed suggested by heme positive stools no history of jens bleeding or melena - Hypotension: due to anemia, resolved with transfusion - Hypokalemia and hypocalcemia: resolved, continue to monitor - H/o hemorrhagic stroke 03/2016 with weakness, ambulatory and swallowing dysfunction awaiting call back from [employer] for peer to peer for rehab approval patient would greatly benefit from rehab - h/o seizures: no seizure activity, continue Depakote - h/o HTN: continue to hold Lisinopril, BP stable - DVT prophylaxis: SCD only, stop Lovenox with possible GI bleed
--- NOTE | 2016-10-21 13:22 | Progress Note ---
Progress Note Date of Service October 21, 2016. (Cheli Noble ., JAVAN) Progress Note Pt was seen and evaluated this AM. EGD was postponed because of pudding w/ pills. She denies any new symptoms - no fever, chills, chest pain, SOB, abdominal pain, black/bloody stools. Exam benign - no acute distress, lung sounds CTA without accessory muscle use, S1&S2 normal with normal rate, abdomen was soft, nondistended and nontender. Ms. Perez is 61-year-old chronically ill female with 1-2weeks of poor p.o. intake who presented in the ED w/ hypotension and weakness who has not responded to a course of antibiotics and fluid resuscitation in the setting of an anemia and possible black stools. Advised EGD/Colon for evaluation of anemia but pt is not willing to take a colonoscopy prep. This was again discussed and offered with the patient today. Possible PEG tube was discussed as PO intake has gradually declined since stroke and there has been a gradual weight loss due to limited intake - not currently interested in PEG placement. Strict NPO for EGD on 10/22/16 Hold all morning meds as she is unable to take them without pudding No signs of bleeding now Rec for EGD and colonoscopy, but patient does not want to prep (Cheli Noble ., JAVAN) Attg addendum: I interviewed and examined pt. Pt with dysphagia, weight loss, scheduled for EGD today - cancelled because pt ate pudding this am. Will plan for EGD tomrrow. Briefly d.w ot and possibiliyt of PEG -- pt does not want this at this time. (Noble Thompson M.D.)
--- NOTE | 2016-10-21 15:14 | Progress Note ---
Post ICU Progress Note Date & Time October 21, 2016 at 15:10 Vital Signs Vital Signs Past 12 Hours Date Time Temp Pulse Resp B/P Pulse Ox O2 Delivery O2 Flow Rate FiO2 10/21/16 11:32 36.9 86 18 116/79 95 Room Air 10/21/16 11:23 36.7 70 16 97 10/21/16 07:50 36.7 70 16 129/83 97 Room Air 10/21/16 07:49 Room Air 10/21/16 05:21 Room Air 10/21/16 04:08 36.7 76 18 138/88 96 Room Air 10/21/16 04:00 Room Air Notes Mental Status: alert / awake, participated in evaluation Nausea / Vomiting: adequately controlled Pain: adequately controlled Airway Patency, RR, SpO2: stable & adequate BP & HR: stable & adequate This is a 61 yo female that was admitted to the ICU for hypotension. She had a hx of hemorrhagic CVA in March of 2016. CT shows slowly improving hematoma with no acute changes. Patient was managed with peripheral IVs and was quickly transitioned off of pressors after receiving 2 units of PRBCs. Today she is seen at bedside in room 403. She is slow to answer questions but answers appropriately. A family friend at bedside corroborates her history and her RN supports her ROS. She has no acute complaints. No chest pain or tightness. no headache, no n/v/d. Reviewed progress notes, labs, and inpatient medication list Continue current management Critical care medicine will sign off at this time. Please refer to Dr. Flower' s addendum for further recommendations. Please feel free to reconsult as needed. Thank you for including us in the care of this patient Consults & Procedures Consultants: Gastroenterology - Dr. Vanegas Cardiology - Dr. Wall
[2016-10-22] VITALS: BP 149/88; PULSE 79; TEMP 36.6; O2SAT 96
[2016-10-22 07:32] VITALS: BP 144/88; PULSE 66; TEMP 36.5; O2SAT 96
[2016-10-22] MEDS: MIDODRINE 2.5 MG TAB PO SCH ×3 (08:00→17:08)
[2016-10-22] MEDS: BOOST VANILLA PUDDING CUP PO SCH ×3 (08:00→17:09)
--- NOTE | 2016-10-22 09:30 | History & Physical Bridge Note ---
H&P Re-Evaluation Bridge Note: I have examined the patient, reviewed the History & Physical and in the interval since the performance of the History & Physical I have noted the following changes of clinical significance: No changes noted
[2016-10-22] MEDS ORDERED: LIDOCAINE HCL 2% 2 ML VIAL (20MG/ML) ONE (09:43)
[2016-10-22] MEDS ORDERED: PROPOFOL IV EMULSION 10 MG/ML 20 ML VIAL IV ONE (09:43)
--- NOTE | 2016-10-22 10:04 | GI REPORT ---
Procedure Date: 10/22/2016 9:34 AM Procedure: Upper GI endoscopy Indications: Iron deficiency anemia, Nausea, Weight loss Medicines: Monitored Anesthesia Care Complications: No immediate complications. Estimated blood loss: None. Estimated Blood Loss: Estimated blood loss: none. Procedure: Pre-Anesthesia Assessment: - Prior to the procedure, a History and Physical was performed, and patient medications, allergies and sensitivities were reviewed. The patient's tolerance of previous anesthesia was reviewed. - ASA Grade Assessment: III - A patient with severe systemic disease. After obtaining informed consent, the endoscope was passed under direct vision. Throughout the procedure, the patient's blood pressure, pulse, and oxygen saturations were monitored continuously. The scope was introduced through the mouth, and advanced to the third part of the duodenum. Small bowel enteroscopy was deemed necessary. The upper GI endoscopy was accomplished with ease. The patient tolerated the procedure well. Findings: The upper third of the esophagus, middle third of the esophagus and lower third of the esophagus were normal. The Z-line was regular and was found 35 cm from the incisors. A small hiatus hernia was present. The entire examined stomach was normal. Biopsies were taken with a cold forceps for Helicobacter pylori testing. Patchy moderately erythematous mucosa without active bleeding and with no stigmata of bleeding was found in the duodenal bulb. The 2nd part of the duodenum and 3rd part of the duodenum were normal. Biopsies for histology were taken with a cold forceps (including bulb) for evaluation of celiac disease. Verification of patient identification for the specimens was done by the physician and nurse using the patient's name, date and medical record number. Impression: - Normal upper third of esophagus, middle third of esophagus and lower third of esophagus. - Z-line regular, 35 cm from the incisors. - Small hiatus hernia. - Normal stomach. Biopsied. - Erythematous duodenopathy. - Normal 2nd part of the duodenum and 3rd part of the duodenum. Biopsied. Recommendation: - [facility] care. Paulo Kumar M.D. Paulo Kumar MD 10/22/2016 10:03:54 AM This report has been signed electronically. Note Initiated On: 10/22/2016 9:34 AM I attest to the content of the Intraoperative Record and orders documented therein, exceptions below
--- NOTE | 2016-10-22 10:32 | Anesthesiology Progress Note ---
Anesthesia Post Op Note Date & Time October 22, 2016 at 10:32 Vital Signs Pain Intensity: 0 Vital Signs Past 12 Hours Date Time Temp Pulse Resp B/P Pulse Ox O2 Delivery O2 Flow Rate FiO2 10/22/16 10:21 73 20 121/73 97 Room Air 10/22/16 10:05 72 20 113/63 100 Room Air 10/22/16 09:23 36.7 82 20 138/87 97 Room Air 10/22/16 07:32 36.5 66 16 144/88 96 Room Air 10/22/16 00:00 Room Air 10/22/16 00:00 36.6 79 16 149/88 96 Notes Mental Status: alert / awake / arousable, participated in evaluation Pt Amnestic to Procedure: Yes Nausea / Vomiting: adequately controlled Pain: adequately controlled Airway Patency, RR, SpO2: stable & adequate BP & HR: stable & adequate Hydration State: stable & adequate Anesthetic Complications: no major complications apparent
[2016-10-22] MEDS: LANSOPRAZOLE SOLUTAB 15 MG PO SCH ×2 (10:52→20:56)
[2016-10-22] MEDS: DIVALPROEX SODIUM SPRINKLE 125 MG CAP PO SCH ×2 (10:53→20:58)
[2016-10-22] MEDS: VENLAFAXINE HCL 50 MG TAB PO SCH ×2 (10:53→20:57)
[2016-10-22] MEDS: CEROVITE ADV FORMULA TAB PO SCH (10:57)
[2016-10-22] MEDS: THIAMINE HCL 100 MG TAB PO SCH (11:13)
[2016-10-22 11:38] LABS: HEMATOCRIT 34.9 % (37-47)
--- NOTE | 2016-10-22 11:49 | Progress Note ---
Subjective Date of Service: October 22, 2016. Subjective Pt evaluation today including: conversation w/ patient ( and son), conversation w/ family, physical exam, lab review, review of studies, conversation w/ trial consultant, review of inpatient medication list Pain: denies pain PO Intake: adequate Voiding: no voiding problems patient feeling well today, had EGD this AM EGD - small hiatal hernia, normal esophagus, stomach and duodenum, biopsies taken to check for H pylori and celiac disease long discussion with patient and regarding d/c planning denied [facility] on peer to peer considering going home with outpatient PT or going to SNF for rehab updated CM, they will d/w patient and Problem List Medical Problems: (1) Altered mental status Status: Acute (2) Orthostatic hypotension Status: Acute (3) UTI (urinary tract infection) Status: Acute (4) Weakness Status: Acute Review of Systems Constitutional: + fatigue, + weakness Abdomen: + problem reported (RN reported a dark stool yesterday) All Other Systems: Reviewed and Negative Medications Current Inpatient Medications Medications (Trade) Dose Ordered Sig/Froylan Route Start Time Stop Time Status Last Admin Dose Admin Acetaminophen (Tylenol Tab) 650 mg Q4H PRN PO 10/15/16 17:00 11/14/16 16:59 Zolpidem Tartrate (Ambien Tab) 5 mg HSZ PRN PO 10/15/16 17:00 11/14/16 16:59 Buspirone HCl (Buspar Tab) 10 mg BID PO 10/15/16 21:00 11/14/16 20:59 10/22/16 10:56 10 MG Venlafaxine HCl (effeXOR TAB) 75 mg BID PO 10/15/16 21:00 11/14/16 20:59 10/22/16 10:53 75 MG Midodrine (Proamatine Tab) 5 mg TID@0800,1200,1600 PO 10/17/16 06:51 11/16/16 06:50 10/22/16 11:12 5 MG Folic Acid (Folvite Tab) 1 mg QAM PO 10/17/16 09:00 11/16/16 08:59 10/22/16 11:13 1 MG Thiamine HCl (Vitamin B-1 Tab) 100 mg QAM PO 10/17/16 09:00 11/16/16 08:59 10/22/16 11:13 100 MG Multivitamins/ Minerals (Multivitamin W/ Minerals Tab) 1 tab QAM PO 10/17/16 09:00 11/16/16 08:59 10/22/16 10:57 1 TAB Enteral Nutritional Formula (Boost Pudding) 1 cup TIDM PO 10/17/16 16:30 11/16/16 16:29 10/22/16 11:14 1 CUP Divalproex Sodium (Depakote Sprinkle Cap) 750 mg QAM PO 10/20/16 09:00 11/19/16 08:59 10/22/16 10:53 750 MG Divalproex Sodium (Depakote Sprinkle Cap) 1,000 mg HS PO 10/19/16 21:00 11/18/16 20:59 10/21/16 19:59 1,000 MG Lansoprazole (Prevacid Solutab) 15 mg BID PO 10/19/16 14:00 11/18/16 13:59 10/22/16 10:52 15 MG Objective Vital Signs Date Time Temp Pulse Resp B/P Pulse Ox O2 Delivery O2 Flow Rate FiO2 10/22/16 10:35 73 20 116/80 97 Room Air 10/22/16 10:21 73 20 121/73 97 Room Air 10/22/16 10:05 72 20 113/63 100 Room Air 10/22/16 09:23 36.7 82 20 138/87 97 Room Air 10/22/16 07:32 36.5 66 16 144/88 96 Room Air 10/22/16 00:00 Room Air 10/22/16 00:00 36.6 79 16 149/88 96 10/21/16 16:16 129/84 10/21/16 16:00 96 Room Air 10/21/16 15:56 36.8 76 16 157/65 96 Room Air Physical Exam General Appearance: WD/WN, no apparent distress Eyes: normal inspection, EOMI, sclerae normal Neck: supple, no adenopathy, no JVD, trachea midline Respiratory/Chest: chest non-tender, lungs clear, normal breath sounds, no respiratory distress, no accessory muscle use Cardiovascular: regular rate, rhythm, no edema, no gallop, no JVD, no murmur Abdomen: normal bowel sounds, non tender, soft, no organomegaly Extremities: non-tender, normal inspection, no pedal edema, no calf tenderness , pelvis stable 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: alert, normal mood/affect, oriented x 3, + abnormal gait, + facial droop (left sided, chronic), + motor weakness (right upper and lower extremity) Skin: normal color, warm/dry, no rash Laboratory Results Last 24 Hours Test 10/22/16 07:39 10/22/16 11:31 Bedside Glucose 77 mg/dl Hemoglobin 11.6 g/dL Hematocrit 34.9 % Assessment and Plan 61 yo female with h/o hemorrhagic stroke in March 2016, residual right sided weakness, swallowing dysfunction and ambulatory dysfunction presented with weakness and hypotension and new finding of profound anemia with Hb of 6.2, transfused two units on admission and BP, weakness improved - Anemia, likely from slow GI bleed: Hb has been stable for days, BP stable since transfused 2 units at time of admission EGD on 10/22 - normal findings, small hiatal hernia, biopsies taken of stomach and duodenum GI bleed suggested by heme positive stools no history of jens bleeding or melena Hb up to 11.6 today, no signs of bleeding GI recommends colonoscopy but patient unwilling to complete prep, should reconsider as outpatient - Hypotension: due to anemia, resolved with transfusion - Hypokalemia and hypocalcemia: resolved, continue to monitor - H/o hemorrhagic stroke 03/2016 with weakness, ambulatory and swallowing dysfunction planning on either SNF with rehab or home with outpatient PT - h/o seizures: no seizure activity, continue Depakote - h/o HTN: continue to hold Lisinopril, BP stable, can resume on D/c - DVT prophylaxis: SCD only, stop Lovenox with possible GI bleed plan: d/c tomorrow either to SNF with rehab or home with outpatient PT
[2016-10-22 15:02] VITALS: BP 92/61; PULSE 93; TEMP 36.5; O2SAT 92
[2016-10-22 23:48] VITALS: BP 121/81; PULSE 77; TEMP 36.6; O2SAT 94
[2016-10-23 07:07] VITALS: BP 123/79; PULSE 76; TEMP 36.9; O2SAT 96
[2016-10-23] MEDS: BOOST VANILLA PUDDING CUP PO SCH ×3 (08:00→16:36)
[2016-10-23] MEDS: VENLAFAXINE HCL 50 MG TAB PO SCH ×2 (08:29→20:06)
[2016-10-23] MEDS: CEROVITE ADV FORMULA TAB PO SCH (08:29)
[2016-10-23] MEDS: LANSOPRAZOLE SOLUTAB 15 MG PO SCH ×2 (08:29→20:07)
[2016-10-23] MEDS: THIAMINE HCL 100 MG TAB PO SCH (08:29)
[2016-10-23] MEDS: MIDODRINE 2.5 MG TAB PO SCH ×3 (08:30→16:36)
[2016-10-23] MEDS: DIVALPROEX SODIUM SPRINKLE 125 MG CAP PO SCH ×2 (08:30→20:07)
--- NOTE | 2016-10-23 12:52 | Progress Note ---
Subjective Date of Service: October 23, 2016. Subjective Pt evaluation today including: conversation w/ patient, conversation w/ family (), physical exam, lab review, review of inpatient medication list Pain: denies pain PO Intake: adequate Voiding: no voiding problems talked with , he is appealing rehab denial, should have answered tomorrow afternoon patient doing well, eating normally, had a BM yesterday ambulating with rolling walker and assistance in hallway with therapy no melena, no further weakness she has a hard time staying well hydrated with her nectar thick liquids Problem List Medical Problems: (1) Altered mental status Status: Acute (2) Orthostatic hypotension Status: Acute (3) UTI (urinary tract infection) Status: Acute (4) Weakness Status: Acute Review of Systems Constitutional: + fatigue, + weakness Neurologic: + balance problems, + weakness (right side) All Other Systems: Reviewed and Negative Medications Current Inpatient Medications Medications (Trade) Dose Ordered Sig/Froylan Route Start Time Stop Time Status Last Admin Dose Admin Acetaminophen (Tylenol Tab) 650 mg Q4H PRN PO 10/15/16 17:00 11/14/16 16:59 Zolpidem Tartrate (Ambien Tab) 5 mg HSZ PRN PO 10/15/16 17:00 11/14/16 16:59 Buspirone HCl (Buspar Tab) 10 mg BID PO 10/15/16 21:00 11/14/16 20:59 10/23/16 08:29 10 MG Venlafaxine HCl (effeXOR TAB) 75 mg BID PO 10/15/16 21:00 11/14/16 20:59 10/23/16 08:29 75 MG Midodrine (Proamatine Tab) 5 mg TID@0800,1200,1600 PO 10/17/16 06:51 11/16/16 06:50 10/23/16 12:12 5 MG Folic Acid (Folvite Tab) 1 mg QAM PO 10/17/16 09:00 11/16/16 08:59 10/23/16 08:30 1 MG Thiamine HCl (Vitamin B-1 Tab) 100 mg QAM PO 10/17/16 09:00 11/16/16 08:59 10/23/16 08:29 100 MG Multivitamins/ Minerals (Multivitamin W/ Minerals Tab) 1 tab QAM PO 10/17/16 09:00 11/16/16 08:59 10/23/16 08:29 1 TAB Enteral Nutritional Formula (Boost Pudding) 1 cup TIDM PO 10/17/16 16:30 11/16/16 16:29 10/23/16 12:12 1 CUP Divalproex Sodium (Depakote Sprinkle Cap) 750 mg QAM PO 10/20/16 09:00 11/19/16 08:59 10/23/16 08:30 750 MG Divalproex Sodium (Depakote Sprinkle Cap) 1,000 mg HS PO 10/19/16 21:00 11/18/16 20:59 10/22/16 20:58 1,000 MG Lansoprazole (Prevacid Solutab) 15 mg BID PO 10/19/16 14:00 11/18/16 13:59 10/23/16 08:29 15 MG Objective Vital Signs Date Time Temp Pulse Resp B/P Pulse Ox O2 Delivery O2 Flow Rate FiO2 10/23/16 09:00 Room Air 10/23/16 07:07 36.9 76 20 123/79 96 Room Air 10/23/16 00:00 Room Air 10/22/16 23:48 36.6 77 20 121/81 94 Room Air 10/22/16 20:00 Room Air 10/22/16 16:10 Room Air 10/22/16 15:02 36.5 93 18 92/61 92 Room Air Physical Exam General Appearance: WD/WN, no apparent distress Neck: supple, no adenopathy, no JVD, trachea midline Respiratory/Chest: chest non-tender, lungs clear, normal breath sounds, no respiratory distress, no accessory muscle use Cardiovascular: regular rate, rhythm, no edema, no gallop, no JVD, no murmur Abdomen: normal bowel sounds, non tender, soft, no organomegaly Extremities: normal range of motion, non-tender, normal inspection, no pedal edema, pelvis stable 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: alert, normal mood/affect, oriented x 3, + abnormal gait (needs walker, right sided weakness), + facial droop (left), + motor weakness (generalized) Skin: normal color, warm/dry, no rash Lymphatic: no adenopathy Assessment and Plan 61 yo female with h/o hemorrhagic stroke in March 2016, residual right sided weakness, swallowing dysfunction and ambulatory dysfunction presented with weakness and hypotension and new finding of profound anemia with Hb of 6.2, transfused two units on admission and BP, weakness improved - Anemia, likely from slow GI bleed: Hb has been stable for days, BP stable since transfused 2 units at time of admission EGD on 10/22 - normal findings, small hiatal hernia, biopsies taken of stomach and duodenum GI bleed suggested by heme positive stools no history of jens bleeding or melena Hb up to 11.6 yesterday, no signs of bleeding GI recommends colonoscopy but patient unwilling and likely unable to complete prep given swallowing dysfunction, should reconsider as outpatient if possible discussed this with in detail - Hypotension: due to anemia, resolved with transfusion - Hypokalemia and hypocalcemia: resolved - H/o hemorrhagic stroke 03/2016 with weakness, ambulatory and swallowing dysfunction denied acute rehab as well as peer to peer appealing the decision, should have answer tomorrow on rehab which is what would be best for patient - h/o seizures: no seizure activity, continue Depakote - h/o HTN: continue to hold Lisinopril, BP stable, could really consider discontinuing since she was only on 10mg - DVT prophylaxis: SCD only, stop Lovenox with possible GI bleed plan: here today, await decision on appeal for rehab tomorrow
[2016-10-23 16:00] VITALS: BP 138/87; PULSE 66; TEMP 36.2; O2SAT 96
[2016-10-24 06:56] LABS: CREATININE 0.67 mg/dl (0.60-1.20)
[2016-10-24 07:43] VITALS: BP 143/83; PULSE 72; TEMP 36.5; O2SAT 96
[2016-10-24] MEDS: MIDODRINE 2.5 MG TAB PO SCH ×3 (07:59→15:56)
[2016-10-24] MEDS: VENLAFAXINE HCL 50 MG TAB PO SCH ×2 (07:59→20:15)
[2016-10-24] MEDS: THIAMINE HCL 100 MG TAB PO SCH (07:59)
[2016-10-24] MEDS: DIVALPROEX SODIUM SPRINKLE 125 MG CAP PO SCH ×2 (08:00→20:15)
[2016-10-24] MEDS: BOOST VANILLA PUDDING CUP PO SCH ×3 (08:00→15:56)
[2016-10-24] MEDS: LANSOPRAZOLE SOLUTAB 15 MG PO SCH ×2 (08:00→20:15)
[2016-10-24] MEDS: CEROVITE ADV FORMULA TAB PO SCH (08:00)
--- NOTE | 2016-10-24 08:24 | Discharge Instructions ---
Discharge Instructions Date of Service October 24, 2016. Admission Reason for Admission: Hypotension, acute on chronic anemia Discharge Discharge Diagnosis / Problem: Acute on chronic anemia, heme positive stools, hypotension, prior CVA Discharge Goals Goal(s): Improve function, Increase independence, Diagnostic testing (consider colonoscopy outpatient) Activity Recommendations Activity Limitations: resume your previous activity Exercise/Sports Limitations: as tolerated Shower/Bathe: no limitations . Instructions / Follow-Up Instructions / Follow-Up Medications: no new medications added LISINOPRIL: stopped during admission, you were only taking small dose at 10mg daily, your blood pressure has been stable off this medication Acute anemia: your iron, Vitamin B12 and folate levels were all normal, thus no deficiencies. EGD (scope) was normal, no ulcers or active bleeding. Biopsies for H pylori and celiac disease were negative. Transfused 2 units and Hb up to 11.6, stable per GI, you should consider a colonoscopy in the near future if you can tolerate prep prior hemorrhagic stroke: you continue to have deficits with balance, walking, swallowing. Would benefit from rehab. Please continue outpatient therapy until you can get into facility for rehab services. FOLLOW UP - Dr. Lyons, call for appointment in the next 5-7 days - [facility] gastroenterology, please call to set up colonoscopy in the next several weeks if you can tolerate prep, highly recommended to completely work up the anemia, need to rule out a source of bleeding in the colon [phone] Current Hospital Diet Patient's current hospital diet: AHA Diet (Heart Healthy) Discharge Diet Recommended Diet: AHA Diet (Heart Healthy) Liquid Consistency: Aldine Thick Procedures Procedures Performed: EGD with BX - normal findings, biopsies normal Pending Studies Studies pending at discharge: no Medical Emergencies . Who to Call and When: Medical Emergencies: If at any time you feel your situation is an emergency, please call 911 immediately. . Non-Emergent Contact Non-Emergency issues call your: Primary Care Provider Call Non-Emergent contact if: you have any medication questions . . "Provider Documentation" section prepared by Chandan Glass. . VTE Core Measure Inpt VTE Proph given/why not?: SCD's [place] Drug Monitoring Program Search Results: no issues identified
--- NOTE | 2016-10-24 08:29 | Progress Note ---
Subjective Date of Service: October 24, 2016. Subjective Pt evaluation today including: conversation w/ patient, conversation w/ family (), physical exam, review of inpatient medication list Pain: no pain PO Intake: adequate Voiding: no voiding problems plan for appeal for rehab this afternoon discussed that if approved, does not mean she will leave if [facility] cannot take today back up is [facility], referral placed but again would not likely be ready today may take home with 24 hour care while waiting for placement discharge plans made in case she goes overall she is feeling well, back to baseline strength and balance prior to drop in hemoglobin appreciate PT note, ambulated 45 feet twice, needs continue therapy to improve strength and balance, less than one year out from stroke Problem List Medical Problems: (1) Altered mental status Status: Acute (2) Orthostatic hypotension Status: Acute (3) UTI (urinary tract infection) Status: Acute (4) Weakness Status: Acute Review of Systems Neurologic: + balance problems, + problem reported (swallowing difficulty), + weakness All Other Systems: Reviewed and Negative Medications Current Inpatient Medications Medications (Trade) Dose Ordered Sig/Froylan Route Start Time Stop Time Status Last Admin Dose Admin Acetaminophen (Tylenol Tab) 650 mg Q4H PRN PO 10/15/16 17:00 11/14/16 16:59 Zolpidem Tartrate (Ambien Tab) 5 mg HSZ PRN PO 10/15/16 17:00 11/14/16 16:59 Buspirone HCl (Buspar Tab) 10 mg BID PO 10/15/16 21:00 11/14/16 20:59 10/24/16 08:00 10 MG Venlafaxine HCl (effeXOR TAB) 75 mg BID PO 10/15/16 21:00 11/14/16 20:59 10/24/16 07:59 75 MG Midodrine (Proamatine Tab) 5 mg TID@0800,1200,1600 PO 10/17/16 06:51 11/16/16 06:50 10/24/16 07:59 5 MG Folic Acid (Folvite Tab) 1 mg QAM PO 10/17/16 09:00 11/16/16 08:59 10/24/16 08:01 1 MG Thiamine HCl (Vitamin B-1 Tab) 100 mg QAM PO 10/17/16 09:00 11/16/16 08:59 10/24/16 07:59 100 MG Multivitamins/ Minerals (Multivitamin W/ Minerals Tab) 1 tab QAM PO 10/17/16 09:00 11/16/16 08:59 10/24/16 08:00 1 TAB Enteral Nutritional Formula (Boost Pudding) 1 cup TIDM PO 10/17/16 16:30 11/16/16 16:29 10/23/16 16:36 1 CUP Divalproex Sodium (Depakote Sprinkle Cap) 750 mg QAM PO 10/20/16 09:00 11/19/16 08:59 10/24/16 08:00 750 MG Divalproex Sodium (Depakote Sprinkle Cap) 1,000 mg HS PO 10/19/16 21:00 11/18/16 20:59 10/23/16 20:07 1,000 MG Lansoprazole (Prevacid Solutab) 15 mg BID PO 10/19/16 14:00 11/18/16 13:59 10/24/16 08:00 15 MG Objective Vital Signs Date Time Temp Pulse Resp B/P Pulse Ox O2 Delivery O2 Flow Rate FiO2 10/24/16 07:43 36.5 72 16 143/83 96 Room Air 10/24/16 01:00 Room Air 10/23/16 16:00 Room Air 10/23/16 16:00 36.2 66 16 138/87 96 Room Air 10/23/16 09:00 Room Air Physical Exam General Appearance: WD/WN, no apparent distress Respiratory/Chest: chest non-tender, lungs clear, normal breath sounds, no respiratory distress, no accessory muscle use Cardiovascular: regular rate, rhythm, no edema, no gallop, no JVD, no murmur Abdomen: normal bowel sounds, non tender, soft, no organomegaly Extremities: normal range of motion, non-tender, normal inspection, no pedal edema, no calf tenderness, pelvis stable 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: alert, normal mood/affect, oriented x 3, + abnormal gait, + facial droop (mild left sided, improves with talking), + motor weakness (generalized, more pronounced on right side) Skin: normal color, warm/dry, no rash Laboratory Results Last 24 Hours Test 10/23/16 16:41 10/23/16 19:57 10/24/16 05:18 10/24/16 07:32 Bedside Glucose 106 mg/dl 120 mg/dl 74 mg/dl Creatinine 0.67 mg/dl Est Creatinine Clear Calc Drug Dose 68.0 ml/min Estimated GFR () 108.4 Estimated GFR (Non- 93.5 Assessment and Plan 61 yo female with h/o hemorrhagic stroke in March 2016, residual right sided weakness, swallowing dysfunction and ambulatory dysfunction presented with weakness and hypotension and new finding of profound anemia with Hb of 6.2, transfused two units on admission and BP, weakness improved - Anemia, likely from slow GI bleed: Hb has been stable for days, BP stable since transfused 2 units at time of admission EGD on 10/22 - normal findings, small hiatal hernia, biopsies taken of stomach and duodenum, negative H pylori and celiac disease GI bleed suggested by heme positive stools no history of jens bleeding or melena Hb up to 11.6 on 10/22, no signs of bleeding GI recommends colonoscopy but patient unwilling and likely unable to complete prep given swallowing dysfunction, should reconsider as outpatient if possible discussed this with in detail ferritin, b12 and folate all normal levels - Hypotension: due to anemia, resolved with transfusion - Hypokalemia and hypocalcemia: resolved - H/o hemorrhagic stroke 03/2016 with weakness, ambulatory and swallowing dysfunction denied acute rehab as well as peer to peer appealing the decision, should have answer today on rehab which is what would be best for patient - h/o seizures: no seizure activity, continue Depakote - h/o HTN: continue to hold Lisinopril, BP stable, could really consider discontinuing since she was only on 10mg - DVT prophylaxis: SCD only, stop Lovenox with possible GI bleed plan: possible d/c later today if accepted to rehab, may go home while patient waits for SNF with rehab
[2016-10-24 15:24] VITALS: BP 130/84; PULSE 79; TEMP 36.5; O2SAT 99
[2016-10-24 23:42] VITALS: BP 122/78; PULSE 66; TEMP 36.3; O2SAT 98
[2016-10-25 08:02] VITALS: BP 127/81; PULSE 72; TEMP 36.6; O2SAT 100
[2016-10-25 08:30] VITALS: O2SAT 100
[2016-10-25] MEDS: VENLAFAXINE HCL 50 MG TAB PO SCH (08:32)
[2016-10-25] MEDS: CEROVITE ADV FORMULA TAB PO SCH (08:32)
[2016-10-25] MEDS: MIDODRINE 2.5 MG TAB PO SCH ×2 (08:33→13:02)
[2016-10-25] MEDS: LANSOPRAZOLE SOLUTAB 15 MG PO SCH (08:33)
[2016-10-25] MEDS: THIAMINE HCL 100 MG TAB PO SCH (08:33)
[2016-10-25] MEDS: DIVALPROEX SODIUM SPRINKLE 125 MG CAP PO SCH (08:34)
[2016-10-25] MEDS: BOOST VANILLA PUDDING CUP PO SCH ×2 (08:53→13:02)
[2016-10-25 11:08] VITALS: BP 127/81; PULSE 72; TEMP 36.6; O2SAT 100
--- NOTE | 2016-10-25 15:30 | Discharge Summary ---
Discharge Summary Date of Service October 25, 2016. Discharge Summary Admission Date: October 15, 2016 at 16:56 Discharge Date: October 25, 2016 Discharge Disposition: Rehab Principal Diagnosis: Blood loss anemia Problems/Secondary Diagnoses: Hypotension h/o hemorrhagic stroke Hypokalemia Hypocalcemia Immunizations: Have You Had Influenza Vaccine: No History of Tetanus Vaccine?: Yes History of Pneumococcal: No History of Hepatitis B Vaccine: No Procedures: EGD - normal Consultations: Gastroenterology ICU Medication Reconciliation Continued Medications: B-Complex Vitamins (Vitamin B Complex) 1 Tab Tab 1 TAB PO DAILY Buspirone Hcl (Buspirone Hcl) 10 Mg Tab 1 TAB PO BID for 30 Days, #60 TAB 1 Refill Divalproex Sodium (Depakote Delay Rel) 125 Mg Tab 750 MG PO QAM, TAB Divalproex Sodium (Depakote Delay Rel) 125 Mg Tab 1000 MG PO HS, TAB Folic Acid (Folvite) 1 Mg Tab 1 MG PO DAILY, TAB Potassium Chloride (K-Tabs) 10 Meq Tab 20 MEQ PO BID Tolterodine Tartrate (Tolterodine Tartrate) 2 Mg Tab 2 MG PO BID Venlafaxine HCl (Venlafaxine HCl) 50 Mg Tab 75 MG BID Discontinued Medications: Lisinopril (Zestril) 20 Mg Tab 10 MG PO DAILY, TAB Discharge Exam Patient doing well, no issues, ready for discharge to rehab today. Review of Systems: Constitutional: + fatigue, + weakness, No chills, No fever, No problem reported, No sweats, No weight loss Eyes: No diplopia, No discharge, No eye pain, No problem reported, No redness, No worsening of vision ENT: No dental problems, No hearing loss, No nasal symptoms, No problem reported, No sore throat, No tinnitus, No trouble swallowing, No unusual epistaxis Respiratory: No cough, No dyspnea at rest, No dyspnea on exertion, No hemoptysis, No problem reported, No shortness of breath, No sputum, No wheezing Cardiovascular: No PND, No chest pain, No claudication, No edema, No orthopnea, No palpitations, No problem reported Abdomen: No GI bleeding, No constipation, No diarrhea, No nausea, No pain, No problem reported, No vomiting Musculoskeletal: No calf pain, No joint pain, No muscle pain, No problem reported, No swelling Genitourinary - Female: No dysuria, No urinary frequency, No urinary incontinence, No urinary urgency Neurologic: + balance problems, + weakness (right sided, chronic), No memory loss, No numbness/tingling, No paralysis, No problem reported, No vertigo Psychiatric: No anhedonism, No anxiety, No depression symptoms, No insomnia , No problem reported, No substance abuse Endocrine: No excessive thirst, No excessive urination, No fatigue, No problem reported Hematologic / Lymphatic: No abnormal bleeding/bruising, No clotting problems , No night sweats, No problem reported, No swollen lymph nodes Integumentary: No bleeding, No color change, No itch, No new/changing skin lesions, No problem reported, No rash Physical Exam: General Appearance: no apparent distress, + thin Eyes: normal inspection, EOMI, sclerae normal ENT: normal ENT inspection, hearing grossly normal, pharynx normal Neck: supple, no adenopathy, no JVD Respiratory/Chest: chest non-tender, lungs clear, normal breath sounds, no respiratory distress, no accessory muscle use Cardiovascular: regular rate, rhythm, no edema, no gallop, no JVD, no murmur , normal peripheral pulses Abdomen / GI: normal bowel sounds, non tender, soft, no organomegaly Extremities: normal inspection, no calf tenderness, normal capillary refill , no pedal edema, normal range of motion 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: patient carrier II-XII nml as tested, alert, normal mood/affect , normal reflexes, oriented x 3, + abnormal gait, + facial droop (left side, resolves with talking, smilling), + motor weakness (right sided more pronounced , chronic) Skin: normal color, warm/dry, no rash Hospital Course 61 yo female with h/o hemorrhagic stroke in March 2016, residual right sided weakness, swallowing dysfunction and ambulatory dysfunction presented with weakness and hypotension and new finding of profound anemia with Hb of 6.2, transfused two units on admission and BP, weakness improved - Anemia, likely from slow GI bleed: Hb has been stable for days, BP stable since transfused 2 units at time of admission EGD on 10/22 - normal findings, small hiatal hernia, biopsies taken of stomach and duodenum, negative H pylori and celiac disease GI bleed suggested by heme positive stools no history of jens bleeding or melena Hb up to 11.6 on 10/22, no signs of bleeding GI recommends colonoscopy but patient unwilling and likely unable to complete prep given swallowing dysfunction, should reconsider as outpatient if possible discussed this with in detail ferritin, b12 and folate all normal levels - Hypotension: due to anemia, resolved with transfusion - Hypokalemia and hypocalcemia: resolved - H/o hemorrhagic stroke 03/2016 with weakness, ambulatory and swallowing dysfunction denied acute rehab as well as peer to peer, able to reverse decision on appeal, approved for rehab d/c to [facility] today - h/o seizures: no seizure activity, continue Depakote - h/o HTN: continue to hold Lisinopril, BP stable, will discontinue on discharge , was only taking 10mg daily - DVT prophylaxis: SCD only, stop Lovenox with possible GI bleed plan: d/c to rehab Total Time Spent: Less than 30 minutes This includes examination of the patient, discharge planning, medication reconciliation, and communication with other providers. Discharge Instructions Please refer to the electronic Patient Visit Report (Discharge Instructions) for additional information. Follow-Up [facility] physician Additional Copies To Shad Lyons D.O.Int.Med.; [facility]
== END 2016-10-25 13:15 | DRG 378 ==
LOC: ENRESERVDT → ENRESERVTM → EDBD 12:34 → C.EDC 12:35 → C.MSICU 16:56 → C.2T 10-17 15:57 → C.MED 10-17 20:53 → C.4E 10-21 11:35
PROVIDERS: ADMIT Internal Medicine; ATTEND Internal Medicine
PROC: 0DB98ZX Excision of Duodenum, Via Natural or Artificial Opening Endoscopic, Diagnostic (ICD-10-PCS; principal; 2016-10-22 09:18)
PROC: 0DB68ZX Excision of Stomach, Via Natural or Artificial Opening Endoscopic, Diagnostic (ICD-10-PCS; principal; 2016-10-22 09:18)
DX: K92.2 Gastrointestinal hemorrhage, unspecified (principal); D62 Acute posthemorrhagic anemia; I69.951 Hemiplegia and hemiparesis following unspecified cerebrovascular disease affecting right dominant side; E46 Unspecified protein-calorie malnutrition; N39.0 Urinary tract infection, site not specified; I10 Essential (primary) hypertension; F31.9 Bipolar disorder, unspecified; E83.42 Hypomagnesemia; E87.6 Hypokalemia; E83.51 Hypocalcemia; Z79.899 Other long term (current) drug therapy; Z87.891 Personal history of nicotine dependence

== ENCOUNTER 2017-01-12 11:33 | Inpatient (IN) | payer OTHER ==
[~2017-01-12] VITALS: Ht 157.5 cm; Wt 46.1 kg
[~2017-01-12 11:33] MED LIST changes: +B-COTAB18 PO; +BUSP-8 PO; +DIVA1TAB86 PO; -DIVA250T PO; -DIVA500T5 PO; +EFF50; +FOLI1TAB7 PO; +POTA10TA PO; -SODIUM CHLORIDE 0.9% 500ML 500 ML IV STA; +TOLT2TAB9 PO; -VENL150T33 PO; -VENL75CA73 PO
[2017-01-12] MEDS ORDERED: DTR5 PO (12:05)
[2017-01-12] MEDS ORDERED: THIA100T11 PO (12:05)
[2017-01-12] MEDS ORDERED: SODIUM CHLORIDE 0.9% 1000ML 1,000 ML IV STA ×2 (12:24→14:40)
--- NOTE | 2017-01-12 12:30 | EMERGENCY ROOM VISIT NOTE ---
History Report prepared by Zheng: Natalia Do Under the Supervision of: Dr. Charli Gottlieb M.D. First contact with patient: 12:03 Chief Complaint: WEAKNESS Stated Complaint: WEAKNESS Nursing Triage Summary: Increasing weakness over the past several months. Patient has a hx of stroke with several hospital admissions. Patient has had two stays at [facility]. Over the past several months the patient has had increasing weakness. History of Present Illness The patient is a 61 year old female who presents to the Emergency Room with complaints of progressively worsening weakness over the past two weeks. Per the patient's , the patient has a history of a previous stroke. He states that over the past several weeks the patient has been increasingly confused, noting that the patient cannot remember her birthday. The patient's states that in November the patient was hospitalized for weakness and anemia. He states that the patient was given two units of blood, but denies ever finding the source of where she was losing blood. The patient's notes that the patient's stools are black, but notes that she is on iron. He reports that after the patient's 1 week hospital stay, she was transferred to [facility]. The patient's states that the patient stayed at [facility] for 15 days. He states that the patient came home and one week later she was supposed to be set up for outpatient physical therapy. The patient's states that after she had a reevaluation five weeks into the therapy, she was found to be doing worse. He states that the patient has continually declined for the past two weeks. The patient's denies the patient having any nursing care at home. He additionally reports that the patient does not ambulate, noting that he moves her around. The patient's denies the patient being on any anticoagulants. The patient's states that the patient has had a decrease in food and fluid intake. He denies the patient having any fever, chills, congestion, cough, nausea or vomiting. Source of History: patient, spouse/significant other () Onset: two weeks Position: other (global) Quality: other (weakness) Timing: worsening Associated Symptoms: No fevers, No chills, No cough, No nausea, No vomiting Note: Associated Symptoms: increased confusion, decrease in fluid and food intake Review of Systems See HPI for pertinent positives and negatives. A total of ten systems were reviewed and were otherwise negative. Past Medical & Surgical Medical Problems: (1) Bipolar disease, chronic (2) Elevated troponin (3) Head trauma (4) Hemorrhagic cerebrovascular accident (CVA) Family History No pertinent family history Social History Smoking Status: Former Smoker Marital Status: Housing Status: lives with family Occupation Status: disabled Current/Historical Medications Scheduled Buspirone Hcl (Buspirone Hcl), 1 TAB PO BID Divalproex Sodium (Depakote Sprinkle), 750 MG PO QAM Divalproex Sodium (Depakote Sprinkles), 1,000 MG PO HS Folic Acid (Folvite), 1 MG PO DAILY Oxybutynin Chloride (Oxybutynin Chloride), 5 MG PO TID Potassium Chloride (K-Tabs), 20 MEQ PO BID Thiamine Hcl (Vitamin B-1), 100 MG PO QAM Venlafaxine HCl (Venlafaxine HCl), 75 MG BID Allergies Coded Allergies: POLLEN (Verified Allergy, Intermediate, PAST HX SEASONAL ALLERGIES/ASTHMA , 01/12/17) Physical Exam Vital Signs Date Time Temp Pulse Resp B/P (MAP) Pulse Ox O2 Delivery O2 Flow Rate FiO2 01/12/17 15:49 174/102 01/12/17 14:14 84 15 148/110 97 Room Air 01/12/17 13:28 164/105 94 Room Air 01/12/17 11:48 89 01/12/17 11:36 36.4 98 20 158/92 97 Room Air Physical Exam GENERAL: Cachectic appearing, chronically ill appearing, fatigued, but in no acute distress. HENT: Normocephalic, atraumatic. Mucous membranes are dry. EYES: Normal conjunctiva. Sclera non-icteric. NECK: Supple. No nuchal rigidity. FROM. No JVD. RESPIRATORY: Breath sounds are diminished at both bases and right anteriorly as well, otherwise clear. CARDIAC: Regular rate, normal rhythm. Extremities warm and well perfused. Pulses equal. ABDOMEN: Soft, non-distended. No tenderness to palpation. No rebound or guarding. No masses. RECTAL: Deferred. MUSCULOSKELETAL: Chest examination reveals no tenderness. The back is symmetrical on inspection without obvious abnormality. There is no CVA tenderness to palpation. No joint edema. LOWER EXTREMITIES: Calves are equal size bilaterally and non-tender. No edema. No discoloration. NEURO: Normal sensorium. Motor exam at recent baseline over last 2 weeks with 4/ 5 BUE and 3/5 BLE SKIN: Dry, cracked, tenting. No rash or jaundice noted. Medical Decision & Procedures ER Provider Diagnostic Interpretation: Radiology results as stated below per my review and radiologist interpretation: CHEST ONE VIEW PORTABLE HISTORY: Short of breath. COMPARISON: Chest 10/15/2016. FINDINGS: The lungs are clear. Cardiac silhouette is normal in size. No pleural effusions. No pneumothorax. IMPRESSION: No acute process. Electronically signed by: Sudhir Menjivar M.D. 01/12/2017 12:49 PM Dictated Date/Time: 01/12/2017 12:[address] NON[address]AST CT DOSE: 537.48 mGy.cm HISTORY: weakness TECHNIQUE: Multiaxial CT images of the head were performed without the use of intravenous contrast. Automated exposure control was utilized for this study. A dose lowering technique was utilized adhering to the principles of ALARA. Comparison: Head CT 10/15/2016. Findings: The paranasal sinuses and mastoid air cells are clear. The calvarium and skull base are intact. There is no mass, acute hematoma, midline shift, acute infarct. White matter hypodensity is nonspecific but suggestive of microvascular ischemic change. The ventricles and sulci demonstrate mild age-related involutional changes. Multiple old bilateral cerebellar infarcts, unchanged. Multiple old left-sided cerebral infarction are also unchanged. Decrease in size in the small extra-axial fluid collection which has essentially resolved. Linear hyperdensity within the left external capsule remains unchanged for this may represent calcification given the long-term stability. Impression: 1. No acute intracranial hemorrhage or acute infarct identified. 2. Decrease in size with likely resolution of the small fluid collection/hematoma within left external capsule. Stable hyperdensity at this location which favors calcification. Electronically signed by: Sudhir Menjivar M.D. 01/12/2017 1:26 PM Dictated Date/Time: 01/12/2017 1:21 PM Laboratory Results Test 01/12/17 12:40 01/12/17 15:35 Immature Granulocyte % (Auto) 0.4 % White Blood Count 7.64 K/uL (4.8-10.8) Red Blood Count 4.49 M/uL (4.2-5.4) Hemoglobin 14.0 g/dL (12.0-16.0) Hematocrit 41.6 % (37-47) Mean Corpuscular Volume 92.7 fL (80-100) Mean Corpuscular Hemoglobin 31.2 pg (25-34) Mean Corpuscular Hemoglobin Concent 33.7 g/dl (32-36) Platelet Count 191 K/uL (130-400) Mean Platelet Volume 10.8 fL (7.4-10.4) Neutrophils (%) (Auto) 65.1 % Lymphocytes (%) (Auto) 25.5 % Monocytes (%) (Auto) 8.1 % Eosinophils (%) (Auto) 0.5 % Basophils (%) (Auto) 0.4 % Neutrophils # (Auto) 4.97 K/uL (1.4-6.5) Lymphocytes # (Auto) 1.95 K/uL (1.2-3.4) Monocytes # (Auto) 0.62 K/uL (0.11-0.59) Eosinophils # (Auto) 0.04 K/uL (0-0.5) Basophils # (Auto) 0.03 K/uL (0-0.2) Immature Granulocyte # (Auto) 0.03 K/uL (0.00-0.02) Phosphorus Level 3.2 mg/dl (2.5-4.9) Magnesium Level 1.9 mg/dl (1.8-2.4) Total Bilirubin 0.2 mg/dl (0.2-1) Direct Bilirubin < 0.1 mg/dl (0-0.2) Aspartate Amino Transf (AST/SGOT) 26 U/L (15-37) Alanine Aminotransferase (ALT/SGPT) 28 U/L (12-78) Alkaline Phosphatase 69 U/L (45-117) Troponin I < 0.015 ng/ml (0-0.045) Total Protein 7.8 gm/dl (6.4-8.2) Albumin 3.3 gm/dl (3.4-5.0) Lipase 82 U/L (73-393) Urine Renal Epithelial Cells 0-5 /lpf (0-5) Laboratory results reviewed by me Medications Administered Medications (Trade) Dose Ordered Sig/Froylan Route Start Time Stop Time Status Last Admin Dose Admin Sodium Chloride 1,000 ml @ 999 mls/hr Q1H1M STAT IV 01/12/17 12:24 01/12/17 13:24 DC 01/12/17 12:24 999 MLS/HR Sodium Chloride 1,000 ml @ 999 mls/hr Q1H1M STAT IV 01/12/17 14:40 01/12/17 15:40 DC 01/12/17 14:40 999 MLS/HR ECG Indication: weakness Rate (beats per minute): 90 Rhythm: normal sinus Findings: no acute ischemic change, other (normal axis) Comparison ECG Date: 10/16/16 Change: no significant change ED Course 1205: The patient was evaluated in room A10. A complete history and physical exam was performed. 1224: Ordered Sodium Chloride 1000 ml @ 999 mls/hr IV. 1400: I spoke to Case Management and they are going to evaluate the patient about further placement. 1440: Ordered Sodium Chloride 1000 ml @ 999 mls/hr IV. 1503: Case Management states that they evaluated the patient and they will not be able to place the patient today. They discussed with the patient about staying for further treatment and evaluation. The patient is in agreement with the treatment plan. 1533: I discussed the patients case with Dr. Arriaga [facility] [place]. He is going to evaluate the patient for further treatment. Medical Decision I reviewed the patient's past medical history, medications, and the nursing notes as described above. Differential Diagnosis include: Failure to thrive, dehydration, electoly imbalance, infection, , pulmonary, stroke. Patient is a 61-year-old woman with a complete past medical history of stroke with multiple hospital and rehabilitation admissions presents emergency Department with worsening generalized weakness over the past couple of weeks in the setting of completing outpatient rehabilitation per history of present illness. The patient arrives appearing chronically ill and fatigued however no acute distress. Afebrile with stable vital signs. Exam the patient appears significantly dry. BUN/creatinine in the 30s consistent with dehydration. Otherwise her WBC was normal limits. CXR and EKG unremarkable. Troponin negative setting of weeks of symptoms. UA dirty sample, will await cx. Considering this patient's clinical picture is concerning for failure to thrive and she has apparently exhausting her insurance resources for rehabilitation, this patient likely would benefit from long-term care and so would need admission for medical optimization and likely placement and possible. Admitted to medicine. Medication Reconcilliation Current Medication List: was personally reviewed by ok Blood Pressure Screening Patient's blood pressure: Elevated blood pressure Blood pressure disposition: Elevated BP felt to be situational, Did not require urgent referral Consults Time Called: 1503 Consulting Physician: BARBARA Brown Returned Call: [phone] I discussed the patients case with BARBARA Brown. He is going to evaluate the patient for further treatment. Impression Primary Impression: Dehydration Additional Impression: Failure to thrive Scribe Attestation The scribe's documentation has been prepared under my direction and personally reviewed by me in its entirety. I confirm that the note above accurately reflects all work, treatment, procedures, and medical decision making performed by me. Departure Information Dispostion Being Evaluated By Hospitalist Referrals Shad Lyons D.O.Int.Med. (PCP) Problem Qualifiers
--- NOTE | 2017-01-12 12:51 | DIAGNOSTIC IMAGING REPORT ---
CHEST ONE VIEW PORTABLE HISTORY: Short of breath. COMPARISON: Chest 10/15/2016. FINDINGS: The lungs are clear. Cardiac silhouette is normal in size. No pleural effusions. No pneumothorax. IMPRESSION: No acute process. Electronically signed by: Sudhir Menjivar M.D. 01/12/2017 12:49 PM Dictated Date/Time: 01/12/2017 12:49 PM
[2017-01-12 12:52] LABS: BASO % 0.4 %; BASO ABS # 0.03 K/uL (0-0.2); COMPLETE YES; EOS % 0.5 %; HEMATOCRIT 41.6 % (37-47); IG% 0.4 %; LYMPH % 25.5 %; LYMPH ABS # 1.95 K/uL (1.2-3.4); MEAN CELL VOLUME 92.7 fL (80-100); MEAN CORPUSCULAR HEMOGLOBIN 31.2 pg (25-34); MEAN CORPUSCULAR HGB CONC 33.7 g/dl (32-36); MEAN PLATELET VOLUME 10.8 fL (7.4-10.4); MONO % 8.1 %; NEUT % 65.1 %; PLATELET COUNT 191 K/uL (130-400); RED BLOOD COUNT 4.49 M/uL (4.2-5.4); WHITE BLOOD COUNT 7.64 K/uL (4.8-10.8)
[2017-01-12 13:06] LABS: ALT/SGPT 28 U/L (12-78); BLOOD UREA NITROGEN 30 mg/dl (7-18); BUN/CREATININE RATIO 35.1 (10-20); CALCIUM 9.9 mg/dl (8.5-10.1); CARBON DIOXIDE 33 mmol/L (21-32); CHLORIDE 103 mmol/L (98-107); CREATININE 0.85 mg/dl (0.60-1.20); GLUCOSE 110 mg/dl (70-99); MAGNESIUM 1.9 mg/dl (1.8-2.4); POTASSIUM 4.6 mmol/L (3.5-5.1); SODIUM 142 mmol/L (136-145)
[2017-01-12 13:10] LABS: ALKALINE PHOSPHATASE 69 U/L (45-117); AST/SGOT 26 U/L (15-37); PHOSPHORUS 3.2 mg/dl (2.5-4.9)
--- NOTE | 2017-01-12 13:27 | DIAGNOSTIC IMAGING REPORT ---
HEAD CT NONCONTRAST CT DOSE: 537.48 mGy.cm HISTORY: weakness TECHNIQUE: Multiaxial CT images of the head were performed without the use of intravenous contrast. Automated exposure control was utilized for this study. A dose lowering technique was utilized adhering to the principles of ALARA. Comparison: Head CT 10/15/2016. Findings: The paranasal sinuses and mastoid air cells are clear. The calvarium and skull base are intact. There is no mass, acute hematoma, midline shift, acute infarct. White matter hypodensity is nonspecific but suggestive of microvascular ischemic change. The ventricles and sulci demonstrate mild age-related involutional changes. Multiple old bilateral cerebellar infarcts, unchanged. Multiple old left-sided cerebral infarction are also unchanged. Decrease in size in the small extra-axial fluid collection which has essentially resolved. Linear hyperdensity within the left external capsule remains unchanged for this may represent calcification given the long-term stability. Impression: 1. No acute intracranial hemorrhage or acute infarct identified. 2. Decrease in size with likely resolution of the small fluid collection/hematoma within left external capsule. Stable hyperdensity at this location which favors calcification. Electronically signed by: Sudhir Menjivar M.D. 01/12/2017 1:26 PM Dictated Date/Time: 01/12/2017 1:21 PM
[2017-01-12 16:12] LABS: URINE APPEARANCE CLEAR (CLEAR); URINE BILIRUBIN NEG (NEG); URINE COLOR DK YELLOW; URINE EPITHELIAL CELL AUTO >30 /lpf (0-5); URINE NITRITE NEG (NEG); URINE SPECIFIC GRAVITY 1.021 (1.000-1.030); UROBILINOGEN NEG (NEG); ZZURINE CULT IF INDIC CATH NO
[2017-01-12 16:13] LABS: MANUAL MICROSCOPIC REQUIRED? NO; REVIEW REQ? YES
--- NOTE | 2017-01-12 16:39 | History and Physical ---
History & Physical Date & Time of Service: Jan 12, 2017 at 16:38 Chief Complaint: Weakness Primary Care Physician: No Doctor, Assigned History of Present Illness Source: patient, family, spouse The patient is a 61-year-old female brought to emergency department due to progressively worsening weakness over the past 2 weeks. She has had a history of a hemorrhagic left external capsule stroke, which on today's CT appears to be resolved. Her reports that the patient became increasingly confused , has had progressively worsening oral intake, although she does periodically eat ensure pudding and boost drink. After her most recent CVA that required admission from October 15 through October 25, she went to [facility] for 15 days, and was discharged to home. She then underwent outpatient physical therapy for 5 weeks, which was ultimately discontinued due to lack of improvement. The patient does not walk anymore, and her picks her up and moves around to where she needs to get to. Past Medical/Surgical History Medical Problems: (1) Bipolar disease, chronic Status: Chronic (2) Head trauma Status: Resolved (3) Hemorrhagic cerebrovascular accident (CVA) Status: Resolved Family History No pertinent family history Social History Smoking Status: Former Smoker Smokeless Tobacco Use: No Alcohol Use: heavy alcohol use in the past, as noted when I admitted her in 2006. Drug Use: none Marital Status: Housing status: lives with family Occupational Status: disabled Immunizations History of Influenza Vaccine: No History of Tetanus Vaccine?: Yes History of Pneumococcal: No History of Hepatitis B Vaccine: No Multi-Drug Resistant Organisms History of MDRO: No Allergies Coded Allergies: POLLEN (Verified Allergy, Intermediate, PAST HX SEASONAL ALLERGIES/ASTHMA , 01/12/17) Home Medications Scheduled Buspirone Hcl (Buspirone Hcl), 1 TAB PO BID Divalproex Sodium (Depakote Delay Rel), 750 MG PO QAM Divalproex Sodium (Depakote Delay Rel), 1,000 MG PO HS Folic Acid (Folvite), 1 MG PO DAILY Oxybutynin Chloride (Oxybutynin Chloride), 5 MG PO TID Potassium Chloride (K-Tabs), 20 MEQ PO BID Thiamine Hcl (Vitamin B-1), 100 MG PO QAM Venlafaxine HCl (Venlafaxine HCl), 75 MG BID Review of Systems The patient denies chest pain, palpitations, shortness of breath, cough, lower extremity swelling, vision change, hearing change, sore throat, fevers, chills, sweats, nausea, vomiting, abdominal pain, pelvic pain, blood in urine or stool, dysuria, urinary frequency or urgency, lightheadedness, dizziness, headache, rash, abnormal bruising or bleeding, focal weakness, numbness or tingling in arms, arthralgias or myalgias, back or neck pain, night sweats, or allergy symptoms. The review of systems is otherwise negative other than for that already noted above, and at least 10 systems have been reviewed. Physical Exam Vital Signs Date Time Temp Pulse Resp B/P (MAP) Pulse Ox O2 Delivery O2 Flow Rate FiO2 01/12/17 15:49 174/102 01/12/17 14:14 84 15 148/110 97 Room Air 01/12/17 13:28 164/105 94 Room Air 01/12/17 11:48 89 01/12/17 11:36 36.4 98 20 158/92 97 Room Air The patient is awake, alert and oriented 3, normocephalic and atraumatic, appears cachectic and malnourished, lying in bed and in no acute distress. HEENT--PERRL, EOMI, mucous membranes and oropharynx dry. Neck--supple, no JVD or bruits, thyroid normal, trachea midline, no adenopathy. Heart--normal S1 and S2, no extra beats, no murmurs, rubs or gallops. Lungs--clear bilaterally but diminished throughout, no respiratory distress, no accessory muscle use. Abdomen--normal bowel sounds and soft, nontender and nondistended, no hernias or masses, no organomegaly. Extremities--no cyanosis, clubbing or edema. There are good distal pulses b/l. Dermatologic--normal skin turgor, normal color, warm and dry, no abnormal lymph nodes, no rash. Neurologic--cranial nerves II through XII grossly intact. Rheumatologic--normal range of motion, nontender, muscles and joints. Psychiatric--normal affect. Diagnostics Laboratory Results Results Past 24 Hours Test 01/12/17 12:40 01/12/17 15:35 Range/Units White Blood Count 7.64 4.8-10.8 K/uL Red Blood Count 4.49 4.2-5.4 M/uL Hemoglobin 14.0 12.0-16.0 g/dL Hematocrit 41.6 37-47 % Mean Corpuscular Volume 92.7 80-100 fL Mean Corpuscular Hemoglobin 31.2 25-34 pg Mean Corpuscular Hemoglobin Concent 33.7 32-36 g/dl Platelet Count 191 130-400 K/uL Mean Platelet Volume 10.8 7.4-10.4 fL Neutrophils (%) (Auto) 65.1 % Lymphocytes (%) (Auto) 25.5 % Monocytes (%) (Auto) 8.1 % Eosinophils (%) (Auto) 0.5 % Basophils (%) (Auto) 0.4 % Neutrophils # (Auto) 4.97 1.4-6.5 K/uL Lymphocytes # (Auto) 1.95 1.2-3.4 K/uL Monocytes # (Auto) 0.62 0.11-0.59 K/uL Eosinophils # (Auto) 0.04 0-0.5 K/uL Basophils # (Auto) 0.03 0-0.2 K/uL RDW Standard Deviation 49.6 36.4-46.3 fL RDW Coefficient of Variation 14.7 11.5-14.5 % Immature Granulocyte % (Auto) 0.4 % Immature Granulocyte # (Auto) 0.03 0.00-0.02 K/uL Sodium Level 142 136-145 mmol/L Potassium Level 4.6 3.5-5.1 mmol/L Chloride Level 103 98-107 mmol/L Carbon Dioxide Level 33 21-32 mmol/L Anion Gap 6.0 3-11 mmol/L Blood Urea Nitrogen 30 7-18 mg/dl Creatinine 0.85 0.60-1.20 mg/dl Est Creatinine Clear Calc Drug Dose 49.3 ml/min Estimated GFR () 84.5 Estimated GFR (Non- 72.9 BUN/Creatinine Ratio 35.1 10-20 Random Glucose 110 70-99 mg/dl Calcium Level 9.9 8.5-10.1 mg/dl Phosphorus Level 3.2 2.5-4.9 mg/dl Magnesium Level 1.9 1.8-2.4 mg/dl Total Bilirubin 0.2 0.2-1 mg/dl Direct Bilirubin < 0.1 0-0.2 mg/dl Aspartate Amino Transf (AST/SGOT) 26 15-37 U/L Alanine Aminotransferase (ALT/SGPT) 28 12-78 U/L Alkaline Phosphatase 69 45-117 U/L Troponin I < 0.015 0-0.045 ng/ml Total Protein 7.8 6.4-8.2 gm/dl Albumin 3.3 3.4-5.0 gm/dl Lipase 82 73-393 U/L Urine Color DK YELLOW Urine Appearance CLEAR CLEAR Urine pH 7.0 4.5-7.5 Urine Specific [place] 1.021 1.000-1.030 Urine Protein NEG NEG Urine Glucose (UA) NEG NEG Urine Ketones TRACE NEG Urine Occult Blood 3+ NEG Urine Nitrite NEG NEG Urine Bilirubin NEG NEG Urine Urobilinogen NEG NEG Urine Leukocyte Esterase SMALL NEG Urine WBC (Auto) 1-5 0-5 /hpf Urine RBC (Auto) >30 0-4 /hpf Urine Hyaline Casts (Auto) 5-10 0-5 /lpf Urine Epithelial Cells (Auto) >30 0-5 /lpf Urine Bacteria (Auto) NEG NEG Urine Renal Epithelial Cells 0-5 0-5 /lpf Diagnostic Radiology Patient Name: STARR RING Unit Number: [id number] Dictated: 01/12/171248 Transcribed: 01/12/171248 Vanu Coverage Printed Date/Time: [~ rep prt dt]/[~ rep prt tm] [~ rep ct labl] - [~ rep ct ivnm] [facility] [place] [address] Dictated: 01/12/171248 Transcribed: 01/12/171248 Vanu Coverage Printed Date/Time: [~ rep prt dt]/[~ rep prt tm] [~ rep ct labl] - [~ rep ct ivnm] [~ rep ct add3]] CHEST ONE VIEW PORTABLE HISTORY: Short of breath. COMPARISON: Chest 10/15/2016. FINDINGS: The lungs are clear. Cardiac silhouette is normal in size. No pleural effusions. No pneumothorax. IMPRESSION: No acute process. Electronically signed by: Sudhir Menjivar M.D. 01/12/2017 12:49 PM Dictated Date/Time: 01/12/2017 12:49 PM The status of this report is Signed. Draft = Not yet reviewed or approved by Radiologist. Signed = Reviewed and approved by Radiologist. <AttendingPhy></AttendingPhy> <FamilyPhy>No Doctor, Assigned</FamilyPhy> < PrimaryPhy>No Doctor, Assigned</PrimaryPhy> <UnitNumber>[id number]</UnitNumber> <VisitNumber>[id number]</VisitNumber> <PatientName>STARR RING</ PatientName> <DateOfBirth>1955</DateOfBirth> <Location>[facility]</Location> < ServiceDate>01/12/17</ServiceDate> <MNE>ESINDI</MNE> <OrderingPhy>Charli Gottlieb M.D.</OrderingPhy> <OrderingPhyMNE>f rep ord dr rutherford</OrderingPhyMNE> <DictatingPhyMNE>f rep dict dr rutherford</DictatingPhyMNE> <CCListMNE>f rep ct mne</ CCListMNE> <AdmittingPhyMNE>f pt admit dr rutherford</AdmittingPhyMNE> <AttendingPhyMNE >f pt attend dr rutherford</AttendingPhyMNE> <ConsultingPhyMNE>f pt consult dr rutherford</ConsultingPhyMNE> <FamilyPhyMNE>f pt fam dr rutherford</FamilyPhyMNE> <OtherPhyMNE>f pt other dr rutherford</OtherPhyMNE> < PrimaryPhyMNE>f pt prim care dr rutherford</PrimaryPhyMNE> <ReferringPhyMNE>f pt referring dr rutherford</ReferringPhyMNE> Patient Name: STARR RING Unit Number: [id number] Dictated: 01/12/171320 Transcribed: 01/12/171320 PA Printed Date/Time: [~ rep prt dt]/[~ rep prt tm] [~ rep ct labl] - [~ rep ct ivnm] [facility] [place] [address] Dictated: 01/12/171320 Transcribed: 01/12/171320 PAJ Printed Date/Time: [~ rep prt dt]/[~ rep prt tm] [~ rep ct labl] - [~ rep ct ivnm] HEAD CT NONCONTRAST CT DOSE: 537.48 mGy.cm HISTORY: weakness TECHNIQUE: Multiaxial CT images of the head were performed without the use of intravenous contrast. Automated exposure control was utilized for this study. A dose lowering technique was utilized adhering to the principles of ALARA. Comparison: Head CT 10/15/2016. Findings: The paranasal sinuses and mastoid air cells are clear. The calvarium and skull base are intact. There is no mass, acute hematoma, midline shift, acute infarct. White matter hypodensity is nonspecific but suggestive of microvascular ischemic change. The ventricles and sulci demonstrate mild age-related involutional changes. Multiple old bilateral cerebellar infarcts, unchanged. Multiple old left-sided cerebral infarction are also unchanged. Decrease in size in the small extra-axial fluid collection which has essentially resolved. Linear hyperdensity within the left external capsule remains unchanged for this may represent calcification given the long-term stability. Impression: 1. No acute intracranial hemorrhage or acute infarct identified. 2. Decrease in size with likely resolution of the small fluid collection/hematoma within left external capsule. Stable hyperdensity at this location which favors calcification. Electronically signed by: Sudhir Menjivar M.D. 01/12/2017 1:26 PM Dictated Date/Time: 01/12/2017 1:21 PM The status of this report is Signed. Draft = Not yet reviewed or approved by Radiologist. Signed = Reviewed and approved by Radiologist. <AttendingPhy></AttendingPhy> <FamilyPhy>No Doctor, Assigned</FamilyPhy> < PrimaryPhy>No Doctor, Assigned</PrimaryPhy> <UnitNumber>[id number]</UnitNumber> <VisitNumber>[id number]</VisitNumber> <PatientName>STARR RING</ PatientName> <DateOfBirth>1955</DateOfBirth> <Location>[facility]</Location> < ServiceDate>01/12/17</ServiceDate> <MNE>ESINDI</MNE> <OrderingPhy>Charli Gottlieb M.D.</OrderingPhy> <OrderingPhyMNE>f rep ord dr rutherford</OrderingPhyMNE> <DictatingPhyMNE>f rep dict dr rutherford</DictatingPhyMNE> <CCListMNE>f rep ct esee</ CCListMNE> <AdmittingPhyMNE>f pt admit dr rutherford</AdmittingPhyMNE> <AttendingPhyMNE >f pt attend dr rutherford</AttendingPhyMNE> <ConsultingPhyMNE>f pt consult dr rutherford</ConsultingPhyMNE> <FamilyPhyMNE>f pt fam dr rutherford</FamilyPhyMNE> <OtherPhyMNE>f pt other dr rutherford</OtherPhyMNE> < PrimaryPhyMNE>f pt prim care dr rutherford</PrimaryPhyMNE> <ReferringPhyMNE>f pt referring dr rutherford</ReferringPhyMNE> EKG EKG shows normal sinus rhythm at 90 bpm, no acute ST-T changes. Impression Assessment and Plan Progressively worsening weakness/memory loss/failure to thrive/dehydration/ history of several CVAs-- The patient has a heavy alcohol use history. Review of her records shows that I admitted her in 2006 with an alcohol withdrawal seizure and noted to have alcohol use at that time. Suspect that she may have an element of Warnicke Korsakoff syndrome. Normal saline with KCl 20 mEq at 125 ML's per hour. Continue folic acid 1 mg by mouth daily, and thiamine 100 mg by mouth every morning. Vitamin B complex will be started today. Continue potassium chloride 20 mg by mouth twice a day. Seizure disorder/depression-- Continue buspirone 10mg by mouth twice a day, and venlafaxine 75 mg by mouth twice a day. Continue Depakote delayed release 750 mg by mouth every morning and 1000 mg by mouth at bedtime. Bladder spasm/incontinence--continue oxybutynin chloride 5 mg by mouth 3 times a day. Consult social work supervisor/PT/OT and neurologist Dr. Quiros whom she follows with an outpatient setting. Level of Care Med/Surg Advanced Directives Existing Advance Directive: No Existing Living Will: No Existing Power of Cnc Mechanic: No Resuscitation Status FULL RESUSCITATION VTE Prophylaxis VTE Risk Assessment Done? Y/N: Yes Risk Level: Moderate Given or contraindicated: SCD's
[2017-01-12] MEDS ORDERED: ONDANSETRON INJ 2 MG/ML 2 ML VIAL IV PRN (16:45)
[2017-01-12] MEDS ORDERED: ACETAMINOPHEN 325 MG TAB PO PRN (16:45)
[2017-01-12] MEDS ORDERED: IV FLUIDS COMPLETED PRN (16:45)
[2017-01-12] MEDS ORDERED: VITAMIN B COMPLEX TAB PO ONE (17:09)
[2017-01-12 17:45] VITALS: O2SAT 100; Ht 157.5 cm; Wt 46.1 kg
[2017-01-12 18:00] VITALS: BP 146/85; PULSE 84; TEMP 36.9; O2SAT 100
[2017-01-12] MEDS: NSS + 20MEQ KCL 1000ML 1,000 ML IV SCH (19:09)
[2017-01-12] MEDS ORDERED: DIVA125C PO (19:33)
[2017-01-12] MEDS ORDERED: [UNRECOGNIZED DRUG - CODE] PO (19:35)
[2017-01-12] MEDS: POTASSIUM CHLORIDE 20 MEQ TABCR PO SCH (20:34)
[2017-01-12] MEDS: OXYBUTYNIN CHLORIDE 5 MG TAB PO SCH (20:35)
[2017-01-12] MEDS: VENLAFAXINE HCL 50 MG TAB PO SCH (20:36)
[2017-01-12] MEDS: DIVALPROEX SODIUM SPRINKLE 125 MG CAP PO SCH (20:36)
[2017-01-12] MEDS: BOOST VANILLA PO SCH ×2 (20:40)
[2017-01-12] MEDS ORDERED: DIVALPROEX SODIUM 500 MG DELAY RELEASE TAB PO SCH (21:00)
[2017-01-12 23:48] VITALS: BP 131/84; PULSE 87; TEMP 36.4; O2SAT 100
[2017-01-13] MEDS: NSS + 20MEQ KCL 1000ML 1,000 ML IV SCH ×3 (04:26→23:55)
[2017-01-13 07:13] VITALS: BP 141/90; PULSE 77; TEMP 36.5; O2SAT 99
--- NOTE | 2017-01-13 08:45 | Hospitalist Progress Note ---
Hospitalist Progress Note Date of Service Jan 13, 2017. (Arely Billings PA-C) Subjective Pt evaluation today including: conversation w/ patient, conversation w/ family , physical exam, chart review, lab review, review of studies Pain: None PO Intake: Fair Voiding: no voiding problems The patient was seen and examined this morning. Pt reports feeling " Like I'm done." She is not able to explain this to me any more than this. She reports her mood feels depressed and that its been like this for a long time. is at bedside and notes that she has been like this for as long as he can remember, and is unable to tell me when her last good day was. Her mood this morning was much more "bubbly" and then she flipped. She denies any pain. Pt was able to eat 40-50% of breakfast, and is working on drinking her boost. Constitutional: + fatigue, No fever, No chills Eyes: + redness, + discharge, + problem reported (Right eye itchiness x 3 days) ENT: No nasal symptoms, No sore throat Respiratory: No cough, No sputum, No shortness of breath Abdomen: No pain, No nausea, No vomiting, No diarrhea Musculoskeletal: No joint pain, No muscle pain, No swelling Psychiatric: + depression symptoms, + anhedonism, + anxiety, No substance abuse Skin: No rash, No itch (Arely Billings, HEATHER) Objective Vital Signs Date Time Temp Pulse Resp B/P (MAP) Pulse Ox O2 Delivery O2 Flow Rate FiO2 01/13/17 07:13 36.5 77 18 141/90 (107) 99 Room Air 01/13/17 00:00 Room Air 01/12/17 23:48 36.4 87 20 131/84 (100) 100 Room Air 01/12/17 20:00 Room Air 01/12/17 18:00 36.9 84 16 146/85 (105) 100 Room Air 01/12/17 17:45 100 Room Air 01/12/17 17:18 84 18 162/104 100 01/12/17 16:47 86 16 150/93 100 Room Air 01/12/17 15:49 174/102 01/12/17 14:14 84 15 148/110 97 Room Air 01/12/17 13:28 164/105 94 Room Air 01/12/17 11:48 89 01/12/17 11:36 36.4 98 20 158/92 97 Room Air (Arely Billings PA-C) Physical Exam General Appearance: WD/WN, no apparent distress, + thin, + pertinent finding ( flat affect, + smells of urine) Eyes: PERRL, EOMI ENT: hearing grossly normal, pharynx normal, + pertinent finding (+ Right scleral injection, + purulent discharge from lateral border of eye) Neck: supple, no JVD Respiratory/Chest: lungs clear, no respiratory distress, no accessory muscle use, + pertinent finding (Diminished breath sounds throughout but no adventitious breath sounds) Cardiovascular: regular rate, rhythm, no JVD, no murmur Abdomen: non tender, soft Extremities: non-tender, no pedal edema, no calf tenderness 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: no motor/sensory deficits, alert, oriented x 3 Skin: normal color, warm/dry (Arely Billings PA-C) Laboratory Results Last 24 Hours Test 01/12/17 12:40 01/12/17 15:35 01/12/17 18:21 White Blood Count 7.64 K/uL Red Blood Count 4.49 M/uL Hemoglobin 14.0 g/dL Hematocrit 41.6 % Mean Corpuscular Volume 92.7 fL Mean Corpuscular Hemoglobin 31.2 pg Mean Corpuscular Hemoglobin Concent 33.7 g/dl Platelet Count 191 K/uL Mean Platelet Volume 10.8 fL Neutrophils (%) (Auto) 65.1 % Lymphocytes (%) (Auto) 25.5 % Monocytes (%) (Auto) 8.1 % Eosinophils (%) (Auto) 0.5 % Basophils (%) (Auto) 0.4 % Neutrophils # (Auto) 4.97 K/uL Lymphocytes # (Auto) 1.95 K/uL Monocytes # (Auto) 0.62 K/uL Eosinophils # (Auto) 0.04 K/uL Basophils # (Auto) 0.03 K/uL RDW Standard Deviation 49.6 fL RDW Coefficient of Variation 14.7 % Immature Granulocyte % (Auto) 0.4 % Immature Granulocyte # (Auto) 0.03 K/uL Sodium Level 142 mmol/L Potassium Level 4.6 mmol/L Chloride Level 103 mmol/L Carbon Dioxide Level 33 mmol/L Anion Gap 6.0 mmol/L Blood Urea Nitrogen 30 mg/dl Creatinine 0.85 mg/dl Est Creatinine Clear Calc Drug Dose 49.3 ml/min Estimated GFR () 84.5 Estimated GFR (Non- 72.9 BUN/Creatinine Ratio 35.1 Random Glucose 110 mg/dl Calcium Level 9.9 mg/dl Phosphorus Level 3.2 mg/dl Magnesium Level 1.9 mg/dl Total Bilirubin 0.2 mg/dl Direct Bilirubin < 0.1 mg/dl Aspartate Amino Transf (AST/SGOT) 26 U/L Alanine Aminotransferase (ALT/SGPT) 28 U/L Alkaline Phosphatase 69 U/L Troponin I < 0.015 ng/ml Total Protein 7.8 gm/dl Albumin 3.3 gm/dl Lipase 82 U/L Urine Color DK YELLOW Urine Appearance CLEAR Urine pH 7.0 Urine Specific [place] 1.021 Urine Protein NEG Urine Glucose (UA) NEG Urine Ketones TRACE Urine Occult Blood 3+ Urine Nitrite NEG Urine Bilirubin NEG Urine Urobilinogen NEG Urine Leukocyte Esterase SMALL Urine WBC (Auto) 1-5 /hpf Urine RBC (Auto) >30 /hpf Urine Hyaline Casts (Auto) 5-10 /lpf Urine Epithelial Cells (Auto) >30 /lpf Urine Bacteria (Auto) NEG Urine Renal Epithelial Cells 0-5 /lpf Valproic Acid (Depakene) Level 90 mcg/ml (Arely Billings, HEATHER) Assessment and Plan 61 yo F with progressively worsening weakness/memory loss/failure to thrive/ dehydration/history of several CVAs Hx of heavy alcohol use - Cont multivitamin, Vit B complex, thiamine 100 mg daily and folic acid 1 mg daily - The patient has a heavy alcohol use history. On admission it was suspected that she may have an element of Wernicke Korsakoff syndrome. - cont Normal saline with KCl 20 mEq at 125 ML's per hour. - Continue potassium chloride 20 mg by mouth twice a day. Seizure disorder/depression-- - Continue buspirone 10mg by mouth twice a day, and venlafaxine 75 mg by mouth twice a day. - Continue Depakote delayed release 750 mg by mouth every morning and 1000 mg by mouth at bedtime. - Checked depakote level which was therapeutic at 90. - Consult neurology as she follows with Dr. Tate as an outpatient. Incontinence/ Bladder spasm - Checking a UA with strong smell of urine this morning. - UA from yesterday was + for blood but neg bacteria. - continue oxybutynin chloride 5 mg by mouth 3 times a day. CODE STATUS: FULL CODE Disposition: From home, does not walk anymore due to CVA hx, will ask PT/OT to eval. Pt had a 2 week stay at [facility] at the end of october but was discharged due to lack of improvement per H&P. 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 (Arely Billings, PA-C) I agree with PA assessment and plan and have seen and examined pt myself Resting comfortably in bed Labs and vitals reviewed Pt still confused ?infectious vs metabolic Await urine cx Appreciate neuro recs Imaging reviewed (Subhash Jackson, D.O.)
[2017-01-13] MEDS: VITAMIN B COMPLEX TAB PO SCH (08:56)
[2017-01-13] MEDS: THIAMINE HCL 100 MG TAB PO SCH (08:59)
[2017-01-13] MEDS: POTASSIUM CHLORIDE 20 MEQ TABCR PO SCH ×2 (09:00→21:20)
[2017-01-13] MEDS ORDERED: DIVALPROEX SODIUM 250 MG DELAY REL TAB PO SCH (09:00)
[2017-01-13] MEDS: OXYBUTYNIN CHLORIDE 5 MG TAB PO SCH ×3 (09:00→21:17)
[2017-01-13] MEDS: VENLAFAXINE HCL 50 MG TAB PO SCH ×2 (09:01→21:18)
[2017-01-13] MEDS: DIVALPROEX SODIUM SPRINKLE 125 MG CAP PO SCH ×2 (09:02→21:17)
[2017-01-13] MEDS: BOOST VANILLA PO SCH ×6 (09:23→19:16)
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
[2017-01-13 10:09] LABS: BUN/CREATININE RATIO 24.5 (10-20); CALCIUM 9.2 mg/dl (8.5-10.1); CREATININE 0.5 mg/dl (0.60-1.20); POTASSIUM 4.1 mmol/L (3.5-5.1)
--- NOTE | 2017-01-13 10:50 | Medical Student: [facility] ---
Med Student History & Physical Date & Time of Service: Jan 13, 2017 at 10:44 Chief Complaint: Dehydration, Failure To Thrive Primary Care Physician: No Doctor, Assigned History of Present Illness Source: spouse Anabella Perez is a 61 year old woman who was admitted from the ED yesterday 01/12 due to progressively worsening weakness and confusion for the past 2-3 weeks. She has a history of a left external capsule hemorrhagic stroke, alcohol abuse, and was admitted in October for anemia likely secondary to a GI bleed. Following her discharge from her last admission on October 25, Mrs. Ng spent 15 days at [facility], and received outpatient physical therapy for another 5 weeks. It was discontinued because she showed no signs of improvement over that time period. Her reports that over the last 2- 3 weeks, Anabella would become confused more often, forgetting her birthday and mistakenly using her maiden name. Her also reports in the same time frame, she has become more lethargic and is experiencing increased difficulty with eating and drinking. Mrs. Perez can no longer ambulate independently, as her will carry her when she needs to move from one place to another. She can still use her arms, but is very weak and capabilities are limited per her , and he'll have to assist her during eating "some days more than others." He was feeding her when I spoke to them this morning, and he was only capable of giving very small amounts food/liquid at a time due to problems swallowing resulting from the CVA. Past Medical/Surgical History Medical Problems: (1) Altered mental status Status: Acute (2) Dehydration Status: Acute (3) Failure to thrive Status: Acute (4) Orthostatic hypotension Status: Acute (5) UTI (urinary tract infection) Status: Acute (6) Weakness Status: Acute Social History Smoking Status: Former Smoker Smokeless Tobacco Use: No Alcohol Use: heavy (past heavy alcohol use) Drug Use: none Marital Status: Housing status: lives with family Occupational Status: disabled Immunizations History of Influenza Vaccine: No History of Tetanus Vaccine?: Yes History of Pneumococcal: No History of Hepatitis B Vaccine: No Allergies Coded Allergies: POLLEN (Verified Allergy, Intermediate, PAST HX SEASONAL ALLERGIES/ASTHMA , 01/12/17) Medications Buspirone Hcl (Buspirone Hcl), 1 TAB PO BID Divalproex Sodium (Depakote Sprinkle), 750 MG PO QAM Divalproex Sodium (Depakote Sprinkles), 1,000 MG PO HS Folic Acid (Folvite), 1 MG PO DAILY Oxybutynin Chloride (Oxybutynin Chloride), 5 MG PO TID Potassium Chloride (K-Tabs), 20 MEQ PO BID Thiamine Hcl (Vitamin B-1), 100 MG PO QAM Venlafaxine HCl (Venlafaxine HCl), 75 MG BID Review of Systems Constitutional: + weakness, + fatigue, No fever, No chills, No sweats Eyes: No problem reported ENT: + trouble swallowing Respiratory: No cough, No shortness of breath Cardiovascular: No chest pain, No palpitations Abdomen: No pain, No nausea, No vomiting, No diarrhea, No constipation Genitourinary - Female: No dysuria, No hematuria Neurologic: + weakness, + balance problems Psychiatric: + depression symptoms Endocrine: + fatigue Physical Exam Vital Signs (24 Hours) Date Time Temp Pulse Resp B/P (MAP) Pulse Ox O2 Delivery O2 Flow Rate FiO2 01/13/17 07:13 36.5 77 18 141/90 (107) 99 Room Air 01/13/17 00:00 Room Air 01/12/17 23:48 36.4 87 20 131/84 (100) 100 Room Air 01/12/17 20:00 Room Air 01/12/17 18:00 36.9 84 16 146/85 (105) 100 Room Air 01/12/17 17:45 100 Room Air 01/12/17 17:18 84 18 162/104 100 01/12/17 16:47 86 16 150/93 100 Room Air 01/12/17 15:49 174/102 01/12/17 14:14 84 15 148/110 97 Room Air 01/12/17 13:28 164/105 94 Room Air 01/12/17 11:48 89 01/12/17 11:36 36.4 98 20 158/92 97 Room Air General Appearance: no apparent distress, + cachetic, + pertinent finding ( able to respond with 1 or 2 words, however it would take asking a question 2-3 times to elicit a response) Head: normocephalic, atraumatic Eyes: PERRL, EOMI ENT: hearing grossly normal, TMs normal, + pertinent finding Neck: supple, no adenopathy, thyroid normal, no JVD, no carotid bruits, trachea midline Respiratory/Chest: chest non-tender, lungs clear, no respiratory distress Cardiovascular: regular rate, rhythm, no edema, no gallop, no JVD, no murmur, normal peripheral pulses Abdomen/GI: normal bowel sounds, non tender, soft, no organomegaly Extremities/Musculoskelatal: no calf tenderness, normal range of motion ( passive) Neurologic/Psych: heel lift gouger II-XII nml as tested, alert, oriented x 3, + depressed affect Skin: normal color, warm/dry, no rash Passive range of motion in arms and legs normal. Diagnostics Laboratory Results Results Past 24 Hours Test 01/12/17 12:40 01/12/17 15:35 01/12/17 18:21 01/13/17 08:39 Range/Units White Blood Count 7.64 4.8-10.8 K/uL Red Blood Count 4.49 4.2-5.4 M/uL Hemoglobin 14.0 12.0-16.0 g/dL Hematocrit 41.6 37-47 % Mean Corpuscular Volume 92.7 80-100 fL Mean Corpuscular Hemoglobin 31.2 25-34 pg Mean Corpuscular Hemoglobin Concent 33.7 32-36 g/dl Platelet Count 191 130-400 K/uL Mean Platelet Volume 10.8 7.4-10.4 fL Neutrophils (%) (Auto) 65.1 % Lymphocytes (%) (Auto) 25.5 % Monocytes (%) (Auto) 8.1 % Eosinophils (%) (Auto) 0.5 % Basophils (%) (Auto) 0.4 % Neutrophils # (Auto) 4.97 1.4-6.5 K/uL Lymphocytes # (Auto) 1.95 1.2-3.4 K/uL Monocytes # (Auto) 0.62 0.11-0.59 K/uL Eosinophils # (Auto) 0.04 0-0.5 K/uL Basophils # (Auto) 0.03 0-0.2 K/uL RDW Standard Deviation 49.6 36.4-46.3 fL RDW Coefficient of Variation 14.7 11.5-14.5 % Immature Granulocyte % (Auto) 0.4 % Immature Granulocyte # (Auto) 0.03 0.00-0.02 K/uL Sodium Level 142 136-145 mmol/L Potassium Level 4.6 3.5-5.1 mmol/L Chloride Level 103 98-107 mmol/L Carbon Dioxide Level 33 21-32 mmol/L Anion Gap 6.0 3-11 mmol/L Blood Urea Nitrogen 30 7-18 mg/dl Creatinine 0.85 0.60-1.20 mg/dl Est Creatinine Clear Calc Drug Dose 49.3 ml/min Estimated GFR () 84.5 Estimated GFR (Non- 72.9 BUN/Creatinine Ratio 35.1 10-20 Random Glucose 110 70-99 mg/dl Calcium Level 9.9 8.5-10.1 mg/dl Phosphorus Level 3.2 2.5-4.9 mg/dl Magnesium Level 1.9 1.8-2.4 mg/dl Total Bilirubin 0.2 0.2-1 mg/dl Direct Bilirubin < 0.1 0-0.2 mg/dl Aspartate Amino Transf (AST/SGOT) 26 15-37 U/L Alanine Aminotransferase (ALT/SGPT) 28 12-78 U/L Alkaline Phosphatase 69 45-117 U/L Troponin I < 0.015 0-0.045 ng/ml Total Protein 7.8 6.4-8.2 gm/dl Albumin 3.3 3.4-5.0 gm/dl Lipase 82 73-393 U/L Urine Color DK YELLOW Urine Appearance CLEAR CLEAR Urine pH 7.0 4.5-7.5 Urine Specific [place] 1.021 1.000-1.030 Urine Protein NEG NEG Urine Glucose (UA) NEG NEG Urine Ketones TRACE NEG Urine Occult Blood 3+ NEG Urine Nitrite NEG NEG Urine Bilirubin NEG NEG Urine Urobilinogen NEG NEG Urine Leukocyte Esterase SMALL NEG Urine WBC (Auto) 1-5 0-5 /hpf Urine RBC (Auto) >30 0-4 /hpf Urine Hyaline Casts (Auto) 5-10 0-5 /lpf Urine Epithelial Cells (Auto) >30 0-5 /lpf Urine Bacteria (Auto) NEG NEG Urine Renal Epithelial Cells 0-5 0-5 /lpf Valproic Acid (Depakene) Level 90 50-100 mcg/ml Test 01/13/17 08:59 01/13/17 10:30 Range/Units Sodium Level 136 136-145 mmol/L Potassium Level 4.1 3.5-5.1 mmol/L Chloride Level 103 98-107 mmol/L Carbon Dioxide Level 28 21-32 mmol/L Anion Gap 5.0 3-11 mmol/L Blood Urea Nitrogen 12 7-18 mg/dl Creatinine 0.50 0.60-1.20 mg/dl Est Creatinine Clear Calc Drug Dose 83.8 ml/min Estimated GFR () 119.4 Estimated GFR (Non- 103.0 BUN/Creatinine Ratio 24.5 10-20 Random Glucose 80 70-99 mg/dl Calcium Level 9.2 8.5-10.1 mg/dl Thyroid Stimulating Hormone (TSH) 2.580 0.300-4.500 uIu/ml Diagnostic Radiology HEAD CT NONCONTRAST CT DOSE: 537.48 mGy.cm HISTORY: weakness TECHNIQUE: Multiaxial CT images of the head were performed without the use of intravenous contrast. Automated exposure control was utilized for this study. A dose lowering technique was utilized adhering to the principles of ALARA. Comparison: Head CT 10/15/2016. Findings: The paranasal sinuses and mastoid air cells are clear. The calvarium and skull base are intact. There is no mass, acute hematoma, midline shift, acute infarct. White matter hypodensity is nonspecific but suggestive of microvascular ischemic change. The ventricles and sulci demonstrate mild age-related involutional changes. Multiple old bilateral cerebellar infarcts, unchanged. Multiple old left-sided cerebral infarction are also unchanged. Decrease in size in the small extra-axial fluid collection which has essentially resolved. Linear hyperdensity within the left external capsule remains unchanged for this may represent calcification given the long-term stability. Impression: 1. No acute intracranial hemorrhage or acute infarct identified. 2. Decrease in size with likely resolution of the small fluid collection/hematoma within left external capsule. Stable hyperdensity at this location which favors calcification. CXR CXR normal Normal EKG Impression Assessment and Plan Anabella Perez is a 61 year old woman with a history of stroke and heavy alcohol use who was admitted on 01/12/2017 for progressively worsening weakness, dysarthria, dysphagia, and failure to thrive. 1. Encephalopathy: History of heavy alcohol use vs acute CVA vs Poor oral intake - Imaging did not show any acute abnormalities, making an acute CVA unlikely - Continue multivitamin, Vitamin B complex, thiamine 100 mg daily and folic acid 1 mg daily and check levels -Last B12 and Thiamine levels normal - Possible element of Wernicke-Korsakoff syndrome - Continue Normal saline with KCl 20 mEq at 125 ML's per hour. - Continue potassium chloride 20 mg by mouth twice a day. I believe her worsening condition is a combination of poor oral intake from complications of previous CVAs, as well as irreversible cognitive changes from history of heavy alcohol abuse. Seizure disorder/depression-- - Continue buspirone 10mg by mouth twice a day, and venlafaxine 75 mg by mouth twice a day. - Continue Depakote delayed release 750 mg by mouth every morning and 1000 mg by mouth at bedtime. - Checked depakote level which was therapeutic at 90. - Consult neurology as she follows with Dr. Tate as an outpatient. Incontinence/ Bladder spasm - continue oxybutynin chloride 5 mg by mouth 3 times a day. -Urinalysis revealed elevated WBC, 4+ bacteria and elevated Leukocyte Esterase suggest UTI -She is receiving ceftriaxone IV for UTI, and that could be contributing to her worsening condition Advanced Directives Existing Advance Directive: No Existing Living Will: No Existing Power of Stone Dresser: No DVT Prophylaxis SCDs (No anticoagulation due to history of GI bleed)
[2017-01-13 10:51] LABS: URINE APPEARANCE CLEAR (CLEAR); URINE BILIRUBIN NEG (NEG); URINE COLOR YELLOW; URINE NITRITE POS (NEG); URINE SPECIFIC GRAVITY 1.017 (1.000-1.030); UROBILINOGEN NEG (NEG); ZZURINE CULT IF INDIC CATH YES
[2017-01-13 10:57] LABS: MANUAL MICROSCOPIC REQUIRED? NO; REVIEW REQ? NO
[2017-01-13] MEDS: CEFTRIAXONE SOD INJ 500 MG in DEXTROSE 5% 50ML 50 ML IV SCH (12:56)
[2017-01-13 15:20] VITALS: BP 136/84; PULSE 79; TEMP 36.7; O2SAT 95
[2017-01-13 16:00] VITALS: O2SAT 95
[2017-01-13] MEDS: CIPROFLOXACIN HCL 0.3% OP SOLN 2.5 ML BTL OPR SCH ×2 (19:16→21:15)
[2017-01-14] VITALS: O2SAT 95
[2017-01-14 00:32] VITALS: BP 136/84; PULSE 73; TEMP 37.1; O2SAT 95
[2017-01-14 07:09] VITALS: BP 150/76; PULSE 86; TEMP 36.5; O2SAT 96
[2017-01-14 07:21] LABS: HEMATOCRIT 37.7 % (37-47); MEAN CELL VOLUME 88.5 fL (80-100); MEAN CORPUSCULAR HEMOGLOBIN 29.6 pg (25-34); MEAN CORPUSCULAR HGB CONC 33.4 g/dl (32-36); MEAN PLATELET VOLUME 10.2 fL (7.4-10.4); PLATELET COUNT 178 K/uL (130-400); RED BLOOD COUNT 4.26 M/uL (4.2-5.4); WHITE BLOOD COUNT 9.99 K/uL (4.8-10.8)
[2017-01-14 07:56] LABS: CALCIUM 9.1 mg/dl (8.5-10.1); CREATININE 0.61 mg/dl (0.60-1.20); POTASSIUM 4.1 mmol/L (3.5-5.1)
[2017-01-14 08:00] VITALS: O2SAT 96
[2017-01-14] MEDS: BOOST VANILLA PUDDING CUP PO SCH (09:00)
[2017-01-14] MEDS: BOOST VANILLA PO SCH ×6 (09:00→21:13)
--- NOTE | 2017-01-14 09:03 | Hospitalist Progress Note ---
Hospitalist Progress Note Date of Service Jan 14, 2017. (Arely Billings PA-C) Subjective Pt evaluation today including: conversation w/ patient, conversation w/ family , physical exam, chart review, lab review, review of studies Pain: None PO Intake: Fair Voiding: no voiding problems The patient was seen and examined this morning. Pt is less verbal today, but does smile back when I smile at her. Her and other male family member is present. They report she ate well last night, and that she ate breakfast. She seems worse today to them, but the notes this is not as bad as when she was brought here. Discussion was held regarding initiation of antibiotics for UTI, and getting an MRI per neurology recommendations to rule out any new or evolving strokes with her hx. All their questions and concerns were answered. Constitutional: No fever, No chills Respiratory: No cough, No shortness of breath, No dyspnea on exertion Cardiovascular: No chest pain, No palpitations Abdomen: No pain, No nausea, No vomiting Musculoskeletal: No joint pain, No swelling Skin: No rash, No itch (Arely Billings PA-C) Objective Vital Signs Date Time Temp Pulse Resp B/P (MAP) Pulse Ox O2 Delivery O2 Flow Rate FiO2 01/14/17 07:09 36.5 86 16 150/76 (100) 96 Room Air 01/14/17 00:32 37.1 73 20 136/84 (101) 95 Room Air 01/14/17 00:00 95 Room Air 01/13/17 16:00 95 Room Air 01/13/17 15:20 36.7 79 16 136/84 (101) 95 Room Air (Arely Billings PA-C) Physical Exam Notes: General Appearance: WD/WN, no apparent distress, + thin, + pertinent finding ( flat affect but smiles occasionally when appropriate, less verbal) Eyes: PERRL, EOMI ENT: hearing grossly normal, pharynx normal, + pertinent finding (+ Right scleral injection appears improved, no purulent discharge from lateral border of R eye) Neck: supple, no JVD Respiratory/Chest: lungs clear, no respiratory distress, no accessory muscle use, + pertinent finding (Diminished breath sounds throughout but no adventitious breath sounds) Cardiovascular: regular rate, rhythm, no JVD, no murmur Abdomen: non tender, soft Extremities: non-tender, no pedal edema, no calf tenderness 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: no motor/sensory deficits, alert, orientation unable to be assessed due to not being as verbal today Skin: normal color, warm/dry (Arely Billings PA-C) Laboratory Results Last 24 Hours Test 01/13/17 08:59 01/13/17 10:30 01/13/17 11:29 01/14/17 06:56 Sodium Level 136 mmol/L 136 mmol/L Potassium Level 4.1 mmol/L 4.1 mmol/L Chloride Level 103 mmol/L 100 mmol/L Carbon Dioxide Level 28 mmol/L 30 mmol/L Anion Gap 5.0 mmol/L 6.0 mmol/L Blood Urea Nitrogen 12 mg/dl 13 mg/dl Creatinine 0.50 mg/dl 0.61 mg/dl Est Creatinine Clear Calc Drug Dose 83.8 ml/min 68.7 ml/min Estimated GFR () 119.4 111.8 Estimated GFR (Non- 103.0 96.5 BUN/Creatinine Ratio 24.5 22.0 Random Glucose 80 mg/dl 76 mg/dl Calcium Level 9.2 mg/dl 9.1 mg/dl Vitamin B12 Level 1428 pg/mL Folate > 24.00 ng/mL Thyroid Stimulating Hormone (TSH) 2.580 uIu/ml Urine Color YELLOW Urine Appearance CLEAR Urine pH 7.0 Urine Specific [place] 1.017 Urine Protein NEG Urine Glucose (UA) NEG Urine Ketones NEG Urine Occult Blood NEG Urine Nitrite POS Urine Bilirubin NEG Urine Urobilinogen NEG Urine Leukocyte Esterase MODERATE Urine WBC (Auto) >30 /hpf Urine RBC (Auto) 0-4 /hpf Urine Hyaline Casts (Auto) 1-5 /lpf Urine Epithelial Cells (Auto) 5-10 /lpf Urine Bacteria (Auto) 4+ White Blood Count 9.99 K/uL Red Blood Count 4.26 M/uL Hemoglobin 12.6 g/dL Hematocrit 37.7 % Mean Corpuscular Volume 88.5 fL Mean Corpuscular Hemoglobin 29.6 pg Mean Corpuscular Hemoglobin Concent 33.4 g/dl RDW Standard Deviation 46.1 fL RDW Coefficient of Variation 14.2 % Platelet Count 178 K/uL Mean Platelet Volume 10.2 fL (Arely Billings PA-C) Assessment and Plan 61 yo F with progressively worsening weakness/memory loss/failure to thrive/ dehydration/history of several CVAs Hx of heavy alcohol use - Cont multivitamin, Vit B complex, thiamine 100 mg daily and folic acid 1 mg daily - The patient has a heavy alcohol use history. On admission it was suspected that she may have an element of Wernicke Korsakoff syndrome. - cont Normal saline with KCl 20 mEq at 80 ml/hr - Continue potassium chloride 20 mg by mouth twice a day. Seizure disorder/depression-- - Continue buspirone 10mg by mouth twice a day, and venlafaxine 75 mg by mouth twice a day. - Continue Depakote delayed release 750 mg by mouth every morning and 1000 mg by mouth at bedtime. - Checked depakote level which was therapeutic at 90. - Neurology on board- follows with Dr. Tate as an outpatient - Checking an MRI brain to assess for new onset stroke, but possible that her altered mental status could be secondary to UTI. - Will ask speech therapy to see the pt - she has been tolerating thin liquids prior to this admit but pt had difficulty swallowing oral medications this morning. - PT/OT evals UTI - UA + and UCx growing gram neg bacilli, continue IV ceftriaxone for now, await sensitivities and when possible will transition to oral antibiotic. Incontinence/ Bladder spasm - continue oxybutynin chloride 5 mg by mouth 3 times a day. CODE STATUS: FULL CODE Disposition: From home,PT/OT to eval, speech therapy, awaiting SNF placement, possible [facility]. (Arely iBllings PA-C) I agree with LOUISE assessment and plan and have seen and examined pt myself Resting comfortably in bed Unable to obtain hx Lethargic and confused VSS Labs reviewed Leukocytosis resolved Will likely need placement on [facility] (Subhash Jackson D.O.)
[2017-01-14] MEDS: POTASSIUM CHLORIDE 20 MEQ TABCR PO SCH ×2 (09:42→21:15)
[2017-01-14] MEDS: VENLAFAXINE HCL 50 MG TAB PO SCH ×2 (09:43→21:16)
[2017-01-14] MEDS: NSS + 20MEQ KCL 1000ML 1,000 ML IV SCH ×2 (09:44→22:46)
[2017-01-14] MEDS: CIPROFLOXACIN HCL 0.3% OP SOLN 2.5 ML BTL OPR SCH ×2 (09:44→21:16)
[2017-01-14] MEDS: THIAMINE HCL 100 MG TAB PO SCH (09:45)
[2017-01-14] MEDS: OXYBUTYNIN CHLORIDE 5 MG TAB PO SCH ×3 (09:45→21:15)
[2017-01-14] MEDS: DIVALPROEX SODIUM SPRINKLE 125 MG CAP PO SCH ×2 (09:46→21:15)
[2017-01-14] MEDS: VITAMIN B COMPLEX TAB PO SCH (09:46)
--- NOTE | 2017-01-14 11:09 | Medical Student: [facility] ---
Med Student Progress Note Date of Service Jan 14, 2017. Subjective Pt evaluation today including: conversation w/ family Anabella was difficult to arouse and keep awake, was not able to keep her alert enough to perform ROS. Spoke with who feels that she is doing worse than when he brought her in, and that she has never acted this drowsy and lethargic at home. She ate well last night, but her could not keep her awake to eat breakfast at the time I was in there. He planned to try again soon after our conversation. Review of Systems Notes: unable to perform full ROS due to patient's mental status Objective Vital Signs Date Time Temp Pulse Resp B/P (MAP) Pulse Ox O2 Delivery O2 Flow Rate FiO2 01/14/17 08:00 96 Room Air 01/14/17 07:09 36.5 86 16 150/76 (100) 96 Room Air 01/14/17 00:32 37.1 73 20 136/84 (101) 95 Room Air 01/14/17 00:00 95 Room Air 01/13/17 16:00 95 Room Air 01/13/17 15:20 36.7 79 16 136/84 (101) 95 Room Air Physical Exam General Appearance: + moderate distress, + cachetic, + thin Cardiovascular: regular rate, rhythm, no gallop, no murmur Comments: unable to perform full physical exam due to patient's mental status Laboratory Results Last 24 Hours Test 01/13/17 11:29 01/14/17 06:56 White Blood Count 9.99 K/uL Red Blood Count 4.26 M/uL Hemoglobin 12.6 g/dL Hematocrit 37.7 % Mean Corpuscular Volume 88.5 fL Mean Corpuscular Hemoglobin 29.6 pg Mean Corpuscular Hemoglobin Concent 33.4 g/dl RDW Standard Deviation 46.1 fL RDW Coefficient of Variation 14.2 % Platelet Count 178 K/uL Mean Platelet Volume 10.2 fL Sodium Level 136 mmol/L Potassium Level 4.1 mmol/L Chloride Level 100 mmol/L Carbon Dioxide Level 30 mmol/L Anion Gap 6.0 mmol/L Blood Urea Nitrogen 13 mg/dl Creatinine 0.61 mg/dl Est Creatinine Clear Calc Drug Dose 68.7 ml/min Estimated GFR () 111.8 Estimated GFR (Non- 96.5 BUN/Creatinine Ratio 22.0 Random Glucose 76 mg/dl Calcium Level 9.1 mg/dl Medications Current Inpatient Medications Medications (Trade) Dose Ordered Sig/Froylan Route Start Time Stop Time Status Last Admin Dose Admin Acetaminophen (Tylenol Tab) 650 mg Q4H PRN PO 01/12/17 16:45 02/11/17 16:44 Folic Acid (Folvite Tab) 1 mg DAILY PO 01/13/17 09:00 02/12/17 08:59 01/14/17 09:44 1 MG Oxybutynin Chloride (Ditropan Tab) 5 mg TID PO 01/12/17 21:00 02/11/17 20:59 01/14/17 21:15 5 MG Thiamine HCl (Vitamin B-1 Tab) 100 mg QAM PO 01/13/17 09:00 02/12/17 08:59 01/14/17 09:45 100 MG Venlafaxine HCl (effeXOR TAB) 75 mg BID PO 01/12/17 21:00 02/11/17 20:59 01/14/17 21:16 75 MG Buspirone HCl (Buspar Tab) 10 mg BID PO 01/12/17 21:00 02/11/17 20:59 01/14/17 21:14 10 MG Potassium Chloride (Klor-Con Tab) 20 meq BID PO 01/12/17 21:00 02/11/17 20:59 01/14/17 21:15 20 MEQ Ondansetron HCl (Zofran Inj) 4 mg Q6H PRN IV 01/12/17 16:45 02/11/17 16:44 Potassium Chloride/Sodium Chloride 1,000 ml @ 80 mls/hr [id number] IV 01/12/17 18:30 02/11/17 16:37 01/14/17 09:44 100 MLS/HR Miscellaneous (Iv Fluids Completed) 1 ea PRN PRN N/A 01/12/17 16:45 01/12/18 16:44 Vitamin B Complex (Vitamin B Complex) 1 tab QAM PO 01/13/17 09:00 02/12/17 08:59 01/14/17 09:46 1 TAB Divalproex Sodium (Depakote Sprinkle Cap) 1,000 mg HS PO 01/12/17 21:00 02/11/17 20:59 01/14/17 21:15 1,000 MG Divalproex Sodium (Depakote Sprinkle Cap) 750 mg QAM PO 01/13/17 09:00 02/12/17 08:59 01/14/17 09:46 750 MG Ceftriaxone Sodium 500 mg/ Dextrose 55 ml @ 100 mls/hr DAILY@1200 IV 01/13/17 12:45 01/23/17 12:44 01/14/17 11:20 100 MLS/HR Enteral Nutritional Formula (Boost Pudding) 1 cup DAILY PO 01/14/17 09:00 02/13/17 08:59 Enteral Nutritional Formula (Boost) 1 can TID PO 01/13/17 14:00 02/12/17 13:59 01/14/17 21:13 1 CAN Ciprofloxacin HCl (Ciprofloxacin 0.3% Op Soln) 2 drops BID OPR 01/13/17 15:30 01/23/17 15:29 01/14/17 21:16 2 DROPS Gadobutrol (Gadavist) 4.5 mmol UD PRN IV 01/14/17 13:00 01/18/17 12:59 Assessment and Plan Assessment and Plan: Anabella Perez is a 61 year old woman with a history of stroke and heavy alcohol use who was admitted on 01/12/2017 for progressively worsening weakness, dysarthria, dysphagia, and failure to thrive. 1. Encephalopathy: History of heavy alcohol use vs acute CVA vs Poor oral intake - Imaging did not show any acute abnormalities, making an acute CVA unlikely - Continue multivitamin, Vitamin B complex, thiamine 100 mg daily and folic acid 1 mg daily and check levels -Last B12 and Thiamine levels normal - Possible element of Wernicke-Korsakoff syndrome - Continue Normal saline with KCl 20 mEq at 125 ML's per hour. - Continue potassium chloride 20 mg by mouth twice a day. I believe her worsening condition is a combination of poor oral intake from complications of previous CVAs, as well as irreversible cognitive changes from history of heavy alcohol abuse. Seizure disorder/depression-- - Continue buspirone 10mg by mouth twice a day, and venlafaxine 75 mg by mouth twice a day. - Continue Depakote delayed release 750 mg by mouth every morning and 1000 mg by mouth at bedtime. - Checked depakote level which was therapeutic at 90. - Consult neurology as she follows with Dr. Tate as an outpatient. Incontinence/ Bladder spasm - continue oxybutynin chloride 5 mg by mouth 3 times a day. -Urinalysis revealed elevated WBC, 4+ bacteria and elevated Leukocyte Esterase suggest UTI -She is receiving ceftriaxone IV for UTI, and that could be contributing to her worsening condition Full Code Looking to find a prison facility in which to place Mrs. Perez
[2017-01-14] MEDS: CEFTRIAXONE SOD INJ 500 MG in DEXTROSE 5% 50ML 50 ML IV SCH (11:20)
[2017-01-14] MEDS ORDERED: GADAVIST IV PRN (13:00)
--- NOTE | 2017-01-14 13:07 | DIAGNOSTIC IMAGING REPORT ---
MRI OF THE BRAIN WITHOUT AND WITH IV CONTRAST CLINICAL HISTORY: Confusion. Prior stroke. Failure to thrive. COMPARISON STUDY: 09/20/2016 TECHNIQUE: MRI of the brain was performed from the vertex to the skull base utilizing various T1 and T2 weighted sequences. Following the IV administration of 4.5 mL of Gadavist contrast, additional enhanced images were obtained. FINDINGS: Sagittal T1, axial diffusion, proton density and T2 weighted axial, coronal FLAIR, and pre and post axial T1-weighted images were acquired. These were supplemented with post gadolinium coronal T1 weighted images. No intra or extra-axial mass lesions are visualized. Axial diffusion-weighted images reveal no evidence of acute or subacute infarction. There is mild ventricular dilatation, likely secondary to volume loss Proton density T2-weighted and FLAIR images reveal there is an old infarct in the left MCA distribution. There are foci of increased T1 signal and diminished T2 signal, in the region of the left external capsule likely representing an old resolving hematoma there are multiple scattered lacunar infarcts. There is an old left occipital lobe infarct. There are no abnormal flow voids. There is no evidence of pathologic enhancement. IMPRESSION: 1. No acute findings 2. 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 No evidence of acute or subacute infarction 4. Old left external capsule hematoma with secondary mineralization Electronically signed by: William Hui M.D. 01/14/2017 1:05 PM Dictated Date/Time: 01/14/2017 1:00 PM
--- NOTE | 2017-01-14 14:16 | Psychiatric Consultation ---
Psychiatric Consultation Date of Service: Jan 14, 2017. Psych consult placed as the patient will be a T[facility], as she is being placed at [facility]. She is currently in treatment with Dr. Jamaal Ellington at [facility]. Our liaison nurse will have her sign a release to obtain his records that can be used for purposes of the TARGET process.
[2017-01-14 15:18] VITALS: BP 125/77; PULSE 88; TEMP 37; O2SAT 99
[2017-01-14 23:19] VITALS: BP 148/91; PULSE 82; TEMP 36.6; O2SAT 94
[2017-01-15 07:17] VITALS: BP 149/95; PULSE 76; TEMP 36.2; O2SAT 97
[2017-01-15 08:03] LABS: HEMATOCRIT 34.8 % (37-47); MEAN CELL VOLUME 89.7 fL (80-100); MEAN CORPUSCULAR HEMOGLOBIN 31.4 pg (25-34); MEAN CORPUSCULAR HGB CONC 35.1 g/dl (32-36); MEAN PLATELET VOLUME 10.4 fL (7.4-10.4); PLATELET COUNT 160 K/uL (130-400); RED BLOOD COUNT 3.88 M/uL (4.2-5.4)
[2017-01-15 08:34] LABS: BUN/CREATININE RATIO 18.6 (10-20); CALCIUM 9.1 mg/dl (8.5-10.1); CREATININE 0.58 mg/dl (0.60-1.20)
[2017-01-15] MEDS: BOOST VANILLA PUDDING CUP PO SCH (08:43)
[2017-01-15] MEDS: CIPROFLOXACIN HCL 0.3% OP SOLN 2.5 ML BTL OPR SCH ×2 (08:53→20:41)
[2017-01-15] MEDS: BOOST VANILLA PO SCH ×6 (08:53→20:41)
[2017-01-15] MEDS: VENLAFAXINE HCL 50 MG TAB PO SCH ×2 (08:54→20:39)
[2017-01-15] MEDS: VITAMIN B COMPLEX TAB PO SCH (08:54)
[2017-01-15] MEDS: DIVALPROEX SODIUM SPRINKLE 125 MG CAP PO SCH ×2 (08:54→20:40)
[2017-01-15] MEDS: POTASSIUM CHLORIDE 20 MEQ TABCR PO SCH ×2 (08:54→20:41)
[2017-01-15] MEDS: THIAMINE HCL 100 MG TAB PO SCH (08:54)
[2017-01-15] MEDS: OXYBUTYNIN CHLORIDE 5 MG TAB PO SCH ×3 (08:54→20:39)
[2017-01-15] MEDS: NSS + 20MEQ KCL 1000ML 1,000 ML IV SCH ×2 (11:30→23:59)
[2017-01-15] MEDS: CEFTRIAXONE SOD INJ 500 MG in DEXTROSE 5% 50ML 50 ML IV SCH (11:30)
--- NOTE | 2017-01-15 13:18 | DIAGNOSTIC IMAGING REPORT ---
MODIFIED BARIUM SWALLOW CLINICAL HISTORY: Dehydration. Failure to thrive. Evaluate for aspiration. COMPARISON STUDY: Modified barium swallow April 02, 2016. FINDINGS: Multiple episodes of tracheal aspiration were noted with thin liquids, nectar thick liquids and honey thickened liquids. There is delayed initiation of swallowing mechanism and diminished laryngeal elevation. There was no aspiration with pudding consistencies. IMPRESSION: 1. Multiple episodes of tracheal aspiration with thin liquids, nectar thick liquids and honey thick liquids. No aspiration with pudding consistencies. 2. Diminished laryngeal elevation and delayed initiation of the swallowing mechanism. 3. Full recommendations by speech pathology to follow. Electronically signed by: Erick Castillo M.D. 01/15/2017 1:17 PM Dictated Date/Time: 01/15/2017 1:15 PM
--- NOTE | 2017-01-15 14:44 | Hospitalist Progress Note ---
Hospitalist Progress Note Date of Service Jan 15, 2017. (Arely Billings PA-C) Subjective Pt evaluation today including: conversation w/ patient, conversation w/ family , physical exam, chart review, lab review, review of studies Pain: None PO Intake: Good Voiding: no voiding problems The patient was seen and examined this morning. Pt reports doing well today. She is much more talkative. Her is at bedside helping to feed her lunch. Speech therapy completed a video swallow test today which she did poorly with. Pt has been downgraded to pudding thick liquids and pureed foods due to silently aspirating. The is not pleased with these results, but understands if she improves a re-evaluation can be done and her diet may be advanced. \The patient is reporting some bowel incontinence, and has needed cleaned up several times today. She admits to some abdominal cramping. Constitutional: No fever, No chills, No sweats Eyes: No redness, No discharge ENT: No sore throat, No trouble swallowing Respiratory: No cough, No shortness of breath, No dyspnea on exertion Cardiovascular: No chest pain, No palpitations Abdomen: + diarrhea, No pain, No nausea, No vomiting, No constipation Musculoskeletal: No joint pain, No muscle pain, No swelling Female : No dysuria, No hematuria Psychiatric: + depression symptoms, + problem reported (bipolar) Endo: No fatigue Skin: No rash, No itch (Arely Billings PA-C) Objective Vital Signs Date Time Temp Pulse Resp B/P (MAP) Pulse Ox O2 Delivery O2 Flow Rate FiO2 01/15/17 08:00 Room Air 01/15/17 07:17 36.2 76 18 149/95 (113) 97 Room Air 01/15/17 00:00 Room Air 01/14/17 23:19 36.6 82 16 148/91 (110) 94 Room Air 01/14/17 16:00 Room Air 01/14/17 15:18 37.0 88 20 125/77 (93) 99 (Arely Billings PA-C) Physical Exam Notes: General Appearance: WD/WN, no apparent distress, + thin, + pertinent finding ( more talkative, smiles and makes eye contact) Eyes: PERRL, EOMI ENT: hearing grossly normal, pharynx normal, + pertinent finding (+ Right scleral injection appears improved, no purulent discharge from lateral border of R eye) Neck: supple, no JVD Respiratory/Chest: lungs clear, no respiratory distress, no accessory muscle use, + pertinent finding (+ faint crackles in RLL, otherwise clear, on room air) Cardiovascular: regular rate, rhythm, no JVD, no murmur Abdomen: non tender, soft Extremities: non-tender, no pedal edema, no calf tenderness 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: no motor/sensory deficits, alert, oriented to being in hospital and to self, not to date/time Skin: normal color, warm/dry (Arely Billings PA-C) Laboratory Results Last 24 Hours Test 01/15/17 07:36 White Blood Count 6.80 K/uL Red Blood Count 3.88 M/uL Hemoglobin 12.2 g/dL Hematocrit 34.8 % Mean Corpuscular Volume 89.7 fL Mean Corpuscular Hemoglobin 31.4 pg Mean Corpuscular Hemoglobin Concent 35.1 g/dl RDW Standard Deviation 48.3 fL RDW Coefficient of Variation 14.8 % Platelet Count 160 K/uL Mean Platelet Volume 10.4 fL Sodium Level 140 mmol/L Potassium Level 4.0 mmol/L Chloride Level 104 mmol/L Carbon Dioxide Level 30 mmol/L Anion Gap 6.0 mmol/L Blood Urea Nitrogen 11 mg/dl Creatinine 0.58 mg/dl Est Creatinine Clear Calc Drug Dose 72.3 ml/min Estimated GFR () 113.7 Estimated GFR (Non- 98.1 BUN/Creatinine Ratio 18.6 Random Glucose 75 mg/dl Calcium Level 9.1 mg/dl (Arely Billings PA-C) Assessment and Plan 61 yo F with progressively worsening weakness/memory loss/failure to thrive/ dehydration/history of several CVAs Hx of heavy alcohol use - Cont multivitamin, Vit B complex, thiamine 100 mg daily and folic acid 1 mg daily - The patient has a heavy alcohol use history. On admission it was suspected that she may have an element of Wernicke Korsakoff syndrome? - cont Normal saline with KCl 20 mEq at 80 ml/hr - Continue potassium chloride 20 mg by mouth twice a day. Seizure disorder/depression-- - Continue buspirone 10mg by mouth twice a day, and venlafaxine 75 mg by mouth twice a day. - Continue Depakote delayed release 750 mg by mouth every morning and 1000 mg by mouth at bedtime. - Checked depakote level which was therapeutic at 90. - Neurology on board- follows with Dr. Tate as an outpatient - MRI completed 1. No acute findings 2. 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 No evidence of acute or subacute infarction 4. Old left external capsule hematoma with secondary mineralization -Speech therapy on board- pt did poorly with speech swallow eval- so was downgraded to pudding thick consistency liquids and a pureed diet. 1. Multiple episodes of tracheal aspiration with thin liquids, nectar thick liquids and honey thick liquids. No aspiration with pudding consistencies. 2. Diminished laryngeal elevation and delayed initiation of the swallowing mechanism. - PT/OT on board UTI - UA + and UCx growing gram neg bacilli, continue IV ceftriaxone for now, await sensitivities and when possible will transition to oral antibiotic. Incontinence/ Bladder spasm - continue oxybutynin chloride 5 mg by mouth 3 times a day. CODE STATUS: FULL CODE Disposition: From home,PT/OT to eval, speech therapy, awaiting SNF placement, possible [facility]. (Arely Billings, [id number]) I agree with LOUISE assessment and plan and have seen and examined pt myself Resting comfortably in bed Mentation improved VSS Labs improved at bedside Incapacitated to make decisions Currently a [facility] Will be dced to [facility] [place] (Subhash Jackson D.Damian)
[2017-01-15 15:00] VITALS: BP 137/87; PULSE 72; TEMP 36.2; O2SAT 95
[2017-01-15 22:37] VITALS: BP 138/83; PULSE 84; TEMP 36.1; O2SAT 97
[2017-01-16 07:09] VITALS: BP 148/85; PULSE 81; TEMP 36.6; O2SAT 96
[2017-01-16 08:23] LABS: BUN/CREATININE RATIO 25.4 (10-20); CALCIUM 9.1 mg/dl (8.5-10.1); CREATININE 0.65 mg/dl (0.60-1.20); POTASSIUM 4.4 mmol/L (3.5-5.1)
[2017-01-16 08:35] LABS: HEMATOCRIT 34.2 % (37-47); MEAN CELL VOLUME 90.2 fL (80-100); MEAN CORPUSCULAR HEMOGLOBIN 30.6 pg (25-34); MEAN CORPUSCULAR HGB CONC 33.9 g/dl (32-36); MEAN PLATELET VOLUME 10.9 fL (7.4-10.4); PLATELET COUNT 177 K/uL (130-400); RED BLOOD COUNT 3.79 M/uL (4.2-5.4); WHITE BLOOD COUNT 6.76 K/uL (4.8-10.8)
[2017-01-16] MEDS: THIAMINE HCL 100 MG TAB PO SCH (08:51)
[2017-01-16] MEDS: OXYBUTYNIN CHLORIDE 5 MG TAB PO SCH ×3 (08:51→20:14)
[2017-01-16] MEDS: POTASSIUM CHLORIDE 20 MEQ TABCR PO SCH ×2 (08:51→20:13)
[2017-01-16] MEDS: VITAMIN B COMPLEX TAB PO SCH (08:51)
[2017-01-16] MEDS: BOOST VANILLA PUDDING CUP PO SCH (08:55)
[2017-01-16] MEDS: VENLAFAXINE HCL 50 MG TAB PO SCH ×2 (08:55→20:18)
[2017-01-16] MEDS: DIVALPROEX SODIUM SPRINKLE 125 MG CAP PO SCH ×2 (08:56→20:19)
[2017-01-16] MEDS: CIPROFLOXACIN HCL 0.3% OP SOLN 2.5 ML BTL OPR SCH ×2 (08:56→20:15)
[2017-01-16] MEDS: BOOST VANILLA PO SCH ×6 (08:56→20:12)
[2017-01-16] MEDS: NSS + 20MEQ KCL 1000ML 1,000 ML IV SCH (12:52)
[2017-01-16] MEDS: CEFTRIAXONE SOD INJ 500 MG in DEXTROSE 5% 50ML 50 ML IV SCH (12:55)
--- NOTE | 2017-01-16 12:57 | Hospitalist Progress Note ---
Hospitalist Progress Note Date of Service Jan 16, 2017. (Arely Billings PA-C) Subjective Pt evaluation today including: conversation w/ patient, conversation w/ family , physical exam, chart review, lab review, review of studies Additional Comments: Constitutional: No fever, No chills Respiratory: No cough, No shortness of breath, No dyspnea on exertion Cardiovascular: No chest pain, No palpitations Abdomen: No pain, No nausea, No vomiting Musculoskeletal: No joint pain, No swelling Skin: No rash, No itch (Arely Billings PA-C) Objective Vital Signs Date Time Temp Pulse Resp B/P (MAP) Pulse Ox O2 Delivery O2 Flow Rate FiO2 01/16/17 08:00 Room Air 01/16/17 07:09 36.6 81 18 148/85 (106) 96 Room Air 01/16/17 04:00 Room Air 01/16/17 00:00 Room Air 01/15/17 22:37 36.1 84 16 138/83 (101) 97 Room Air 01/15/17 20:00 Room Air 01/15/17 16:00 Room Air 01/15/17 15:00 36.2 72 18 137/87 (104) 95 Room Air (Arely Billings PA-C) Physical Exam Notes: General Appearance: WD/WN, no apparent distress, + thin, + pertinent finding ( flat affect but smiles occasionally when appropriate, less verbal) Eyes: PERRL, EOMI ENT: hearing grossly normal, pharynx normal, + pertinent finding (+ Right scleral injection appears improved, no purulent discharge from lateral border of R eye) Neck: supple, no JVD Respiratory/Chest: lungs clear, no respiratory distress, no accessory muscle use, + pertinent finding (+ rhonchorous breath sounds in the RLL, breath sounds are improved in other mccormick ) Cardiovascular: regular rate, rhythm, no JVD, no murmur Abdomen: non tender, soft Extremities: non-tender, no pedal edema, no calf tenderness 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: no motor/sensory deficits, alert, orientation unable to be assessed due to not being as verbal today Skin: normal color, warm/dry (Arely Billings PA-C) Laboratory Results Last 24 Hours Test 01/16/17 07:49 White Blood Count 6.76 K/uL Red Blood Count 3.79 M/uL Hemoglobin 11.6 g/dL Hematocrit 34.2 % Mean Corpuscular Volume 90.2 fL Mean Corpuscular Hemoglobin 30.6 pg Mean Corpuscular Hemoglobin Concent 33.9 g/dl RDW Standard Deviation 48.9 fL RDW Coefficient of Variation 14.9 % Platelet Count 177 K/uL Mean Platelet Volume 10.9 fL Sodium Level 139 mmol/L Potassium Level 4.4 mmol/L Chloride Level 104 mmol/L Carbon Dioxide Level 31 mmol/L Anion Gap 4.0 mmol/L Blood Urea Nitrogen 17 mg/dl Creatinine 0.65 mg/dl Est Creatinine Clear Calc Drug Dose 64.5 ml/min Estimated GFR () 109.5 Estimated GFR (Non- 94.5 BUN/Creatinine Ratio 25.4 Random Glucose 75 mg/dl Calcium Level 9.1 mg/dl (Arely Billings, HEATHER) Assessment and Plan 61 yo F with progressively worsening weakness/memory loss/failure to thrive/ dehydration/history of several CVAs Hx of heavy alcohol use - Cont multivitamin, Vit B complex, thiamine 100 mg daily and folic acid 1 mg daily - The patient has a heavy alcohol use history. On admission it was suspected that she may have an element of Wernicke Korsakoff syndrome? - cont Normal saline with KCl 20 mEq at 80 ml/hr - Continue potassium chloride 20 mg by mouth twice a day. Seizure disorder/depression-- - Continue buspirone 10mg by mouth twice a day, and venlafaxine 75 mg by mouth twice a day. - Continue Depakote delayed release 750 mg by mouth every morning and 1000 mg by mouth at bedtime. - Checked depakote level which was therapeutic at 90. - Neurology on board- follows with Dr. Tate as an outpatient - MRI completed 1. No acute findings 2. 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 No evidence of acute or subacute infarction 4. Old left external capsule hematoma with secondary mineralization Silent aspiration, likely chronic -Speech therapy on board- pt did poorly with speech swallow eval- so was downgraded to pudding thick consistency liquids and a pureed diet. 1. Multiple episodes of tracheal aspiration with thin liquids, nectar thick liquids and honey thick liquids. No aspiration with pudding consistencies. 2. Diminished laryngeal elevation and delayed initiation of the swallowing mechanism. - PT/OT on board - Will order incentive spirometry - Low threshold for checking an Xray of the chest with rhonchorus breath sounds in the RLL. Pt is maintaining sats on room air. She has a minimal cough which is nonproductive. Afebrile, no leukocytosis. - This will be the most difficult part of keeping the patient out of the hospital. Even with her diet being changed yesterday, her thinks she can handle thinner liquids on her "good days". Discussion was held with the family regarding this and they are in agreement with the current diet recs. They understand re-eval can be done at a later time. UTI - UA + and UCx growing gram neg bacilli, continue IV ceftriaxone for now, await sensitivities and when possible will transition to oral antibiotic. Incontinence/ Bladder spasm - continue oxybutynin chloride 5 mg by mouth 3 times a day. CODE STATUS: FULL CODE Disposition: From home, PT/OT to eval, speech therapy, awaiting SNF placement, possible [facility]. (Arely Billings, [id number]) I agree with LOUISE assessment and plan and have seen and examined pt myself Resting comfortably in bed Labs and vitals reviewed Mentation improved at bedside Pt currently [facility] Awaiting dispo, likely to [facility] No further recs (Subhash Jackson D.O.)
[2017-01-16 15:28] VITALS: BP 135/84; PULSE 89; TEMP 36.8; O2SAT 93
[2017-01-16 22:25] VITALS: BP 135/79; PULSE 86; TEMP 36.6; O2SAT 94
[2017-01-17] MEDS: NSS + 20MEQ KCL 1000ML 1,000 ML IV SCH ×2 (00:48→14:41)
[2017-01-17 07:25] VITALS: BP 127/75; PULSE 70; TEMP 36.7; O2SAT 98
--- NOTE | 2017-01-17 08:38 | Hospitalist Progress Note ---
Hospitalist Progress Note Date of Service Jan 17, 2017. (Arely Billings PA-C) Subjective Pt evaluation today including: conversation w/ patient, conversation w/ family , physical exam, chart review, lab review Pain: None PO Intake: Good Voiding: no voiding problems The patient was seen and examined this morning. Pt reports doing well today. This is the best she has been since being in the hospital. The patients and family friend Shad are here this morning. Discussion was held regarding antibiotic and need to change as her urine culture was not sensitive to ceftriaxone. Constitutional: No fever, No chills, No sweats Eyes: No redness, No diplopia ENT: No nasal symptoms, No trouble swallowing Respiratory: No cough, No wheezing, No shortness of breath Cardiovascular: No chest pain, No palpitations Abdomen: No pain, No nausea, No vomiting, No diarrhea, No constipation Musculoskeletal: No joint pain, No muscle pain Neurologic: No weakness, No numbness/tingling Endo: No fatigue Skin: No rash, No itch (Arely Billings PA-C) Objective Vital Signs Date Time Temp Pulse Resp B/P (MAP) Pulse Ox O2 Delivery O2 Flow Rate FiO2 01/17/17 07:25 36.7 70 18 127/75 (92) 98 Room Air 01/17/17 00:00 Room Air 01/16/17 22:25 36.6 86 20 135/79 (97) 94 Room Air 01/16/17 16:00 Room Air 01/16/17 15:28 36.8 89 16 135/84 (101) 93 Room Air (Arely Billings PA-C) Physical Exam Notes: General Appearance: WD/WN, no apparent distress, + thin, + pertinent finding ( improved affect today, talks more, still needs asked several times to take deep breaths but mostly follows commands.) Eyes: PERRL, EOMI ENT: hearing grossly normal, pharynx normal, + pertinent finding (+ Right scleral injection resolved) Neck: supple, no JVD Respiratory/Chest: lungs clear, no respiratory distress, no accessory muscle use, + pertinent finding (+ rhonchorous breath sounds in the RLL the same, breath sounds are improved in other mccormick ) Cardiovascular: regular rate, rhythm, no JVD, no murmur Abdomen: non tender, soft Extremities: non-tender, no pedal edema, no calf tenderness 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: no motor/sensory deficits, alert, orientation unable to be assessed due to not being as verbal today Skin: normal color, warm/dry (Arely Billings, HEATHER) Assessment and Plan 61 yo F with progressively worsening weakness/memory loss/failure to thrive/ dehydration/history of several CVAs Silent aspiration, likely chronic - Speech therapy on board- pt did poorly with speech swallow eval on 01/15- so was downgraded to pudding thick consistency liquids and a pureed diet. 1. Multiple episodes of tracheal aspiration with thin liquids, nectar thick liquids and honey thick liquids. No aspiration with pudding consistencies. 2. Diminished laryngeal elevation and delayed initiation of the swallowing mechanism. - PT/OT on board - Continue incentive spirometry - Low threshold for checking an Xray of the chest with rhonchorus breath sounds in the RLL. Pt is maintaining sats on room air. She has a minimal cough which is nonproductive. Afebrile, no leukocytosis. - This will be the most difficult part of keeping the patient out of the hospital. Even with her diet being changed yesterday, her thinks she can handle thinner liquids on her "good days". Discussion was held with the family regarding this and they are in agreement with the current diet recs. They understand re-eval can be done at a later time. UTI - UCx finalized on 01/17 - growing E coli with multiple abx resistance. Received 3 days of ceftriaxone however it is resistant to this. - Start bactrim Hx of heavy alcohol use - Cont multivitamin, Vit B complex, thiamine 100 mg daily and folic acid 1 mg daily, B1 still pending - The patient has a heavy alcohol use history. On admission it was suspected that she may have an element of Wernicke Korsakoff syndrome? - cont Normal saline with KCl 20 mEq at 80 ml/hr - Continue potassium chloride 20 mg by mouth twice a day. Seizure disorder/depression-- - Continue buspirone 10mg by mouth twice a day, and venlafaxine 75 mg by mouth twice a day. - Continue Depakote delayed release 750 mg by mouth every morning and 1000 mg by mouth at bedtime. - Checked depakote level which was therapeutic at 90. - Neurology on board- follows with Dr. Tate as an outpatient - MRI completed 1. No acute findings 2. 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 No evidence of acute or subacute infarction 4. Old left external capsule hematoma with secondary mineralization Incontinence/ Bladder spasm - continue oxybutynin chloride 5 mg by mouth 3 times a day. CODE STATUS: FULL CODE Disposition: From home, [facility] in process for placement at [facility]. (Arely Billings, HEATHER) Reviewed: Pt Seen/Exam by Me (Lola Dasilva, DO) History Pt has no concerns. No chest pain or SOB. Has been eating well. Agree with HPI/ROS as noted (Lola Dasilva, DO) General Appearance: no apparent distress, thin Respiratory: normal breath sounds, no respiratory distress Cardiovascular: normal peripheral pulses, regular rate, rhythm Gastrointestinal: non tender, soft Extremities: non-tender, no pedal edema 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: alert, other (pleasant, answers all questions, follows simple commands) (Lola Dasilva, DO) Assessment/Plan Agree with plan as outlined above UTI noted with MDR, start Bactrim and monitor CM called this afternoon, pt has been cleared of [facility] status and accepted to [facility], however they cannot take her until tomorrow. I did advise pt and family friend of this information and planning for d/c tomorrow (Lola Dasilva, DO)
[2017-01-17] MEDS: BOOST VANILLA PUDDING CUP PO SCH (08:57)
[2017-01-17] MEDS: THIAMINE HCL 100 MG TAB PO SCH (08:57)
[2017-01-17] MEDS: CIPROFLOXACIN HCL 0.3% OP SOLN 2.5 ML BTL OPR SCH ×2 (08:57→21:13)
[2017-01-17] MEDS: DIVALPROEX SODIUM SPRINKLE 125 MG CAP PO SCH ×2 (08:58→21:16)
[2017-01-17] MEDS: OXYBUTYNIN CHLORIDE 5 MG TAB PO SCH ×3 (08:58→21:14)
[2017-01-17] MEDS: VITAMIN B COMPLEX TAB PO SCH (08:58)
[2017-01-17] MEDS: VENLAFAXINE HCL 50 MG TAB PO SCH ×2 (08:59→21:18)
[2017-01-17] MEDS: POTASSIUM CHLORIDE 20 MEQ TABCR PO SCH ×2 (08:59→21:15)
[2017-01-17] MEDS: BOOST VANILLA PO SCH ×6 (09:00→21:00)
[2017-01-17] MEDS ORDERED: ERTAPENEM IV 1 GM in SODIUM CHLOR 0.9% AD-VAN 50ML 50 ML IV SCH (09:30)
[2017-01-17 15:23] VITALS: BP 149/90; PULSE 87; TEMP 36.3; O2SAT 96
[2017-01-17] MEDS: SULFAMETHOXAZOLE/TRIMETHOPRIM DS 800/160MG TAB PO SCH (21:16)
[2017-01-18] VITALS: O2SAT 96
[2017-01-18 00:33] VITALS: BP 145/85; PULSE 76; TEMP 36.4; O2SAT 96
[2017-01-18] MEDS: NSS + 20MEQ KCL 1000ML 1,000 ML IV SCH ×2 (02:24→14:13)
[2017-01-18 08:00] VITALS: O2SAT 96
[2017-01-18 08:11] VITALS: BP 154/89; PULSE 83; TEMP 36.4; O2SAT 98
[2017-01-18] MEDS: BOOST VANILLA PO SCH ×4 (08:55→14:13)
[2017-01-18] MEDS: BOOST VANILLA PUDDING CUP PO SCH (08:55)
[2017-01-18] MEDS: CIPROFLOXACIN HCL 0.3% OP SOLN 2.5 ML BTL OPR SCH (08:55)
[2017-01-18] MEDS: VITAMIN B COMPLEX TAB PO SCH (08:56)
[2017-01-18] MEDS: POTASSIUM CHLORIDE 20 MEQ TABCR PO SCH (08:56)
[2017-01-18] MEDS: THIAMINE HCL 100 MG TAB PO SCH (08:56)
[2017-01-18] MEDS: VENLAFAXINE HCL 50 MG TAB PO SCH (08:56)
[2017-01-18] MEDS: DIVALPROEX SODIUM SPRINKLE 125 MG CAP PO SCH (08:56)
[2017-01-18] MEDS: OXYBUTYNIN CHLORIDE 5 MG TAB PO SCH ×2 (08:56→14:13)
[2017-01-18] MEDS: SULFAMETHOXAZOLE/TRIMETHOPRIM DS 800/160MG TAB PO SCH (09:45)
--- NOTE | 2017-01-18 11:34 | Progress Note ---
Subjective Date of Service: Jan 18, 2017. Subjective Pt evaluation today including: conversation w/ patient, conversation w/ family , physical exam, chart review, lab review, review of studies Pain: no pain reported Voiding: no voiding problems Pt is seen and examined this morning. Pt reports doing well today. This is the best she has been since being in the hospital. The patients is at bedside. Pt denies nausea, vomiting and diarrhea. Problem List Medical Problems: (1) Altered mental status Status: Acute (2) Dehydration Status: Acute (3) Failure to thrive Status: Acute (4) Orthostatic hypotension Status: Acute (5) UTI (urinary tract infection) Status: Acute (6) Weakness Status: Acute Review of Systems All Other Systems: Reviewed and Negative Medications Medications (Trade) Dose Ordered Sig/Froylan Route Start Time Stop Time Status Last Admin Dose Admin Trimethoprim/ Sulfamethoxazole (Septra Ds 800/ 160MG Tab) 1 tab Q12 PO 01/17/17 21:00 01/22/17 20:59 01/18/17 09:45 1 TAB Objective Vital Signs Date Time Temp Pulse Resp B/P (MAP) Pulse Ox O2 Delivery O2 Flow Rate FiO2 01/18/17 08:11 36.4 83 18 154/89 (110) 98 Room Air 01/18/17 08:00 96 Room Air 01/18/17 00:33 36.4 76 20 145/85 (105) 96 Room Air 01/18/17 00:00 96 Room Air 01/17/17 16:00 Room Air 01/17/17 15:23 36.3 87 16 149/90 (109) 96 Room Air Physical Exam General Appearance: WD/WN, no apparent distress Neck: supple Respiratory/Chest: lungs clear, normal breath sounds Cardiovascular: regular rate, rhythm, no murmur Abdomen: normal bowel sounds, soft Extremities: no pedal edema 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: alert, normal mood/affect Assessment and Plan 61 yo F with progressively worsening weakness/memory loss/failure to thrive/ dehydration/history of several CVAs Silent aspiration, likely chronic - Speech therapy on board- pt did poorly with speech swallow eval on 01/15- so was downgraded to pudding thick consistency liquids and a pureed diet. 1. Multiple episodes of tracheal aspiration with thin liquids, nectar thick liquids and honey thick liquids. No aspiration with pudding consistencies. 2. Diminished laryngeal elevation and delayed initiation of the swallowing mechanism. - PT/OT on board - Continue incentive spirometry - Low threshold for checking an Xray of the chest with rhonchorus breath sounds in the RLL. Pt is maintaining sats on room air. She has a minimal cough which is nonproductive. Afebrile, no leukocytosis. - This will be the most difficult part of keeping the patient out of the hospital. Even with her diet being changed yesterday, her thinks she can handle thinner liquids on her "good days". Discussion was held with the family regarding this and they are in agreement with the current diet recs. They understand re-eval can be done at a later time. UTI - UCx finalized on 01/17 - growing E coli with multiple abx resistance. Received 3 days of ceftriaxone however it is resistant to this. - Continue bactrim for now - no complains Hx of heavy alcohol use - Cont multivitamin, Vit B complex, thiamine 100 mg daily and folic acid 1 mg daily, B1 still pending - The patient has a heavy alcohol use history. On admission it was suspected that she may have an element of Wernicke Korsakoff syndrome? - cont Normal saline with KCl 20 mEq at 80 ml/hr - Continue potassium chloride 20 mg by mouth twice a day. Seizure disorder/depression-- - Continue buspirone 10mg by mouth twice a day, and venlafaxine 75 mg by mouth twice a day. - Continue Depakote delayed release 750 mg by mouth every morning and 1000 mg by mouth at bedtime. - Checked depakote level which was therapeutic at 90. - Neurology on board- follows with Dr. Tate as an outpatient - MRI completed 1. No acute findings 2. 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 No evidence of acute or subacute infarction 4. Old left external capsule hematoma with secondary mineralization Incontinence/ Bladder spasm - continue oxybutynin chloride 5 mg by mouth 3 times a day. CODE STATUS: FULL CODE Disposition: From home, [facility] in process for placement at [facility]. Continued [facility] stay due to: ambulation difficulties Discharge planning: rehab hospital
--- NOTE | 2017-01-18 14:10 | Discharge Instructions ---
Discharge Instructions Date of Service Jan 18, 2017. Admission Reason for Admission: Dehydration, Failure To Thrive Discharge Discharge Diagnosis / Problem: Failure to thrive, dehdration and UTI Discharge Goals Goal(s): Improve nutritional status Activity Recommendations Activity Limitations: as noted below Lifting Limitations: gradually increase as tolerated Exercise/Sports Limitations: until after follow-up appointment May Resume Sexual Activity: when tolerated Shower/Bathe: no limitations Driving or Machine Use: . Current Hospital Diet Patient's current hospital diet: Regular Diet Discharge Diet Recommended Diet: Regular Diet Procedures Procedures Performed: none Pending Studies Studies pending at discharge: no Medical Emergencies . Who to Call and When: Medical Emergencies: If at any time you feel your situation is an emergency, please call 911 immediately. . Non-Emergent Contact Non-Emergency issues call your: Primary Care Provider Call Non-Emergent contact if: temperature is above 101.5, your pain is not controlled . . "Provider Documentation" section prepared by Laureen Adams . VTE Core Measure Inpt VTE Proph given/why not?: SCD's
--- NOTE | 2017-01-18 14:20 | Discharge Summary ---
Discharge Summary Date of Service Jan 18, 2017. Discharge Summary Admission Date: Jan 16, 2017 at 10:47 Discharge Date: Jan 18, 2017 Discharge Disposition: Rehab Principal Diagnosis: failure to thrive, dehydration Problems/Secondary Diagnoses: UTI Immunizations: Have You Had Influenza Vaccine: No History of Tetanus Vaccine?: Yes History of Pneumococcal: No History of Hepatitis B Vaccine: No Procedures: none Consultations: Psych consult Medication Reconciliation Continued Medications: Buspirone Hcl (Buspirone Hcl) 10 Mg Tab 1 TAB PO BID for 30 Days, #60 TAB 1 Refill Divalproex Sodium (Depakote Sprinkle) 125 Mg Cap 750 MG PO QAM, CAP Divalproex Sodium (Depakote Sprinkles) 125 Mg Cap 1000 MG PO HS Folic Acid (Folvite) 1 Mg Tab 1 MG PO DAILY, TAB Oxybutynin Chloride (Oxybutynin Chloride) 5 Mg Tab 5 MG PO TID Potassium Chloride (K-Tabs) 10 Meq Tab 20 MEQ PO BID Thiamine Hcl (Vitamin B-1) 100 Mg Tab 100 MG PO QAM, TAB Venlafaxine HCl (Venlafaxine HCl) 50 Mg Tab 75 MG BID Hospital Course 61 yo F with progressively worsening weakness/memory loss/failure to thrive/ dehydration/history of several CVAs Silent aspiration, likely chronic - Speech therapy on board- pt did poorly with speech swallow eval on 01/15- so was downgraded to pudding thick consistency liquids and a pureed diet. 1. Multiple episodes of tracheal aspiration with thin liquids, nectar thick liquids and honey thick liquids. No aspiration with pudding consistencies. 2. Diminished laryngeal elevation and delayed initiation of the swallowing mechanism. - PT/OT on board - Continue incentive spirometry - Low threshold for checking an Xray of the chest with rhonchorus breath sounds in the RLL. Pt is maintaining sats on room air. She has a minimal cough which is nonproductive. Afebrile, no leukocytosis. - This will be the most difficult part of keeping the patient out of the hospital. Even with her diet being changed yesterday, her thinks she can handle thinner liquids on her "good days". Discussion was held with the family regarding this and they are in agreement with the current diet recs. They understand re-eval can be done at a later time. UTI - UCx finalized on 01/17 - growing E coli with multiple abx resistance. Received 3 days of ceftriaxone however it is resistant to this. - Continue bactrim for now - no complains Hx of heavy alcohol use - Cont multivitamin, Vit B complex, thiamine 100 mg daily and folic acid 1 mg daily, B1 still pending - The patient has a heavy alcohol use history. On admission it was suspected that she may have an element of Wernicke Korsakoff syndrome? - cont Normal saline with KCl 20 mEq at 80 ml/hr - Continue potassium chloride 20 mg by mouth twice a day. Seizure disorder/depression-- - Continue buspirone 10mg by mouth twice a day, and venlafaxine 75 mg by mouth twice a day. - Continue Depakote delayed release 750 mg by mouth every morning and 1000 mg by mouth at bedtime. - Checked depakote level which was therapeutic at 90. - Neurology on board- follows with Dr. Tate as an outpatient - MRI completed 1. No acute findings 2. 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 No evidence of acute or subacute infarction 4. Old left external capsule hematoma with secondary mineralization Incontinence/ Bladder spasm - continue oxybutynin chloride 5 mg by mouth 3 times a day. CODE STATUS: FULL CODE Disposition: From home, [facility] in process for placement at [facility]. Medically clear to discharge. Total Time Spent: Greater than 30 minutes This includes examination of the patient, discharge planning, medication reconciliation, and communication with other providers. Discharge Instructions Please refer to the electronic Patient Visit Report (Discharge Instructions) for additional information.
[2017-01-18 14:25] VITALS: BP 154/89; PULSE 83; TEMP 36.4; O2SAT 98
== END 2017-01-18 15:30 | DRG 641 ==
LOC: C.EDB 11:35 → C.MED 16:37 → ENRESERV 17:03 → C.MS2W 01-14 11:06 → OBSVTOIN 01-16 10:47
PROVIDERS: ADMIT Hospitalist; ATTEND Hospitalist
DX: R62.7 Adult failure to thrive (principal); N39.0 Urinary tract infection, site not specified; E86.0 Dehydration; N32.89 Other specified disorders of bladder; T17.920A Food in respiratory tract, part unspecified causing asphyxiation, initial encounter; B96.20 Unspecified Escherichia coli [E. coli] as the cause of diseases classified elsewhere; G40.909 Epilepsy, unspecified, not intractable, without status epilepticus; F31.9 Bipolar disorder, unspecified; K70.0 Alcoholic fatty liver; I69.320 Aphasia following cerebral infarction; F10.96 Alcohol use, unspecified with alcohol-induced persisting amnestic disorder; R32 Unspecified urinary incontinence; Z79.899 Other long term (current) drug therapy; Z87.891 Personal history of nicotine dependence; X58.XXXA Exposure to other specified factors, initial encounter

== ENCOUNTER → 2017-01-31 | Outpatient (CLI) | payer OTHER ==
[~2017-01-31] MED LIST changes: -B-COTAB18 PO; +DIVA125C PO; -DIVA1TAB86 PO; +DTR5 PO; +EFF50 PO; +EFF75 PO; +Enteral Nutrition Formula PO; +MRLP17X PO; +NUTRMIS PO; +THIA100T11 PO; -TOLT2TAB9 PO; +[UNRECOGNIZED DRUG - CODE] PO
== END ==
LOC: C.LABCC 08:09
PROVIDERS: ATTEND Internal Medicine
DX: F10.20 Alcohol dependence, uncomplicated (principal)

== ENCOUNTER 2017-03-10 11:13 | Inpatient (IN) | payer OTHER ==
[~2017-03-10] VITALS: Ht 157.5 cm; Wt 48.0 kg
[~2017-03-10 11:13] MED LIST changes: -EFF50 PO; -EFF75 PO; -Enteral Nutrition Formula PO; -MRLP17X PO; -NUTRMIS PO
[2017-03-10] MEDS ORDERED: SODIUM CHLORIDE 0.9% 1000ML 1,000 ML IV STA ×2 (11:47→14:17)
--- NOTE | 2017-03-10 12:06 | EMERGENCY ROOM VISIT NOTE ---
History Report prepared by Zheng: Natalia Do Under the Supervision of: Dr. Charli Gottlieb M.D. First contact with patient: 11:26 Chief Complaint: URINARY SYMPTOMS Stated Complaint: UTI History of Present Illness The patient is a 61 year old female who presents to the Emergency Room with worsening weakness that began over one month ago. The patient's states that the patient has a history of a previous stroke. He states that the patient was recently evaluated in the hospital and then discharged to [facility] for further treatment. The patient's states that the patient was discharged home on February 02 and has progressively worsened since then. He states that the patient has a known UTI and her symptoms have persisted even with antibiotic usage. The patient's states that the patient has been increasingly confused, weak, and fatigued. He denies the patient having any fever, chills, cough, congestion, nausea, or vomiting. Source of History: patient, spouse/significant other () Onset: one month ago Position: other (global) Quality: other (weakness) Timing: worsening Associated Symptoms: + urinary symptoms, + fatigue, + weakness, No fevers, No chills, No cough, No nausea, No vomiting Note: Associated Symptoms: confusion Review of Systems See HPI for pertinent positives and negatives. A total of ten systems were reviewed and were otherwise negative. Past Medical & Surgical Medical Problems: (1) Bipolar disease, chronic (2) Elevated troponin (3) Head trauma (4) Hemorrhagic cerebrovascular accident (CVA) (5) Weakness Family History No pertinent family history Social History Smoking Status: Former Smoker Drug Use: none Marital Status: Housing Status: lives with family Occupation Status: disabled Current/Historical Medications Scheduled Buspirone Hcl (Buspirone Hcl), 10 MG PO BID Divalproex Sodium (Depakote Sprinkle), 500 MG PO QAM Divalproex Sodium (Depakote Sprinkles), 750 MG PO HS Folic Acid (Folvite), 1 MG PO DAILY Oxybutynin Chloride (Oxybutynin Chloride), 5 MG PO TID Potassium Chloride (K-Tabs), 20 MEQ PO BID Thiamine Hcl (Vitamin B-1), 100 MG PO QAM Venlafaxine HCl (Venlafaxine HCl), 75 MG BID Allergies Coded Allergies: POLLEN (Verified Allergy, Intermediate, PAST HX SEASONAL ALLERGIES/ASTHMA , 03/10/17) Physical Exam Vital Signs Date Time Temp Pulse Resp B/P (MAP) Pulse Ox O2 Delivery O2 Flow Rate FiO2 03/10/17 16:52 90 03/10/17 16:28 87 18 97 Room Air 03/10/17 14:13 92 20 141/79 96 Room Air 03/10/17 12:52 83 18 152/93 96 Room Air 03/10/17 12:21 86 03/10/17 11:16 36.5 94 16 139/92 96 Room Air Physical Exam GENERAL: Awake, alert, chronically ill/cachectic appearing, in no acute distress , HENT: Normocephalic, atraumatic. Dry mucous membranes. EYES: Normal conjunctiva. Sclera non-icteric. NECK: Supple. No nuchal rigidity. FROM. No JVD. RESPIRATORY: Diminished breath sounds at the bases. CARDIAC: Regular rate, normal rhythm. Extremities warm and well perfused. Pulses equal. ABDOMEN: Soft, non-distended. Suprapubic tenderness to palpation. No rebound or guarding. No masses. RECTAL: Deferred. MUSCULOSKELETAL: Chest examination reveals no tenderness. The back is symmetrical on inspection without obvious abnormality. There is no CVA tenderness to palpation. No joint edema. LOWER EXTREMITIES: Calves are equal size bilaterally and non-tender. No edema. No discoloration. NEURO: Limited motor in right upper extremity 2/5, otherwise exhibits 3/5 in other three extremities at baseline. SKIN: No rash or jaundice noted. Medical Decision & Procedures ER Provider Diagnostic Interpretation: X-ray: Per my interpretation, radiologist review. CHEST ONE VIEW PORTABLE CLINICAL HISTORY: 61 years-old Female presenting with weakness. TECHNIQUE: Portable upright AP view of the chest was obtained. COMPARISON: 01/12/2017. FINDINGS: Atherosclerosis of aortic arch. Normal cardiac silhouette. Lungs and pleural spaces clear. Osseous structures normal. Upper abdomen normal. IMPRESSION: 1. No acute cardiopulmonary disease. Electronically signed by: Kye Tidwell M.D. 03/10/2017 12:16 PM Dictated Date/Time: 03/10/2017 12:16 PM Laboratory Results 03/10/17 12:05 Red Blood Count 3.91, Mean Corpuscular Volume 93.6, Mean Corpuscular Hemoglobin 30.2, Mean Corpuscular Hemoglobin Concent 32.2, Mean Platelet Volume 11.1, Neutrophils (%) (Auto) 68.9, Lymphocytes (%) (Auto) 8.5, Monocytes (%) (Auto) 15.5, Eosinophils (%) (Auto) 6.3, Basophils (%) (Auto) 0.6, Neutrophils # (Auto ) 5.60, Lymphocytes # (Auto) 0.69, Monocytes # (Auto) 1.26, Eosinophils # (Auto ) 0.51, Basophils # (Auto) 0.05 03/10/17 12:05 Test 03/10/17 12:05 03/10/17 12:50 White Blood Count 8.13 K/uL (4.8-10.8) Red Blood Count 3.91 M/uL (4.2-5.4) Hemoglobin 11.8 g/dL (12.0-16.0) Hematocrit 36.6 % (37-47) Mean Corpuscular Volume 93.6 fL (80-100) Mean Corpuscular Hemoglobin 30.2 pg (25-34) Mean Corpuscular Hemoglobin Concent 32.2 g/dl (32-36) Platelet Count 172 K/uL (130-400) Mean Platelet Volume 11.1 fL (7.4-10.4) Neutrophils (%) (Auto) 68.9 % Lymphocytes (%) (Auto) 8.5 % Monocytes (%) (Auto) 15.5 % Eosinophils (%) (Auto) 6.3 % Basophils (%) (Auto) 0.6 % Neutrophils # (Auto) 5.60 K/uL (1.4-6.5) Lymphocytes # (Auto) 0.69 K/uL (1.2-3.4) Monocytes # (Auto) 1.26 K/uL (0.11-0.59) Eosinophils # (Auto) 0.51 K/uL (0-0.5) Basophils # (Auto) 0.05 K/uL (0-0.2) RDW Standard Deviation 48.8 fL (36.4-46.3) RDW Coefficient of Variation 14.2 % (11.5-14.5) Immature Granulocyte % (Auto) 0.2 % Immature Granulocyte # (Auto) 0.02 K/uL (0.00-0.02) Anion Gap 8.0 mmol/L (3-11) Est Creatinine Clear Calc Drug Dose 68.2 ml/min Estimated GFR () 110.1 Estimated GFR (Non- 95.0 BUN/Creatinine Ratio 33.8 (10-20) Lactic Acid Level 1.8 mmol/L (0.4-2.0) Calcium Level 9.8 mg/dl (8.5-10.1) Magnesium Level 1.9 mg/dl (1.8-2.4) Total Bilirubin 0.3 mg/dl (0.2-1) Direct Bilirubin < 0.1 mg/dl (0-0.2) Aspartate Amino Transf (AST/SGOT) 14 U/L (15-37) Alanine Aminotransferase (ALT/SGPT) 20 U/L (12-78) Alkaline Phosphatase 73 U/L (45-117) Troponin I < 0.015 ng/ml (0-0.045) Total Protein 7.3 gm/dl (6.4-8.2) Albumin 2.9 gm/dl (3.4-5.0) Lipase 74 U/L (73-393) Urine Color DK YELLOW Urine Appearance CLOUDY (CLEAR) Urine pH 6.0 (4.5-7.5) Urine Specific [place] 1.022 (1.000-1.030) Urine Protein NEG (NEG) Urine Glucose (UA) NEG (NEG) Urine Ketones TRACE (NEG) Urine Occult Blood 2+ (NEG) Urine Nitrite NEG (NEG) Urine Bilirubin NEG (NEG) Urine Urobilinogen NEG (NEG) Urine Leukocyte Esterase MODERATE (NEG) Urine WBC (Auto) 5-10 /hpf (0-5) Urine RBC (Auto) >30 /hpf (0-4) Urine Hyaline Casts (Auto) 5-10 /lpf (0-5) Urine Epithelial Cells (Auto) >30 /lpf (0-5) Urine Bacteria (Auto) NEG (NEG) Urine Renal Epithelial Cells 5-10 /lpf (0-5) Laboratory results reviewed by me Medications Administered Medications (Trade) Dose Ordered Sig/Froylan Route Start Time Stop Time Status Last Admin Dose Admin Sodium Chloride 1,000 ml @ 999 mls/hr Q1H1M STAT IV 03/10/17 11:47 03/10/17 12:47 DC 03/10/17 12:52 999 MLS/HR Cefepime HCl 1000 mg/Dextrose 111.3 ml @ 200 mls/hr NOW STAT IV 03/10/17 14:15 03/10/17 14:48 DC 03/10/17 14:46 200 MLS/HR Sodium Chloride 1,000 ml @ 999 mls/hr Q1H1M STAT IV 03/10/17 14:17 03/10/17 15:17 DC 03/10/17 14:47 999 MLS/HR Vancomycin HCl 900 mg/Sodium Chloride 268 ml @ 125 mls/hr ONE STAT IV 03/10/17 14:27 03/10/17 16:35 DC 03/10/17 14:46 125 MLS/HR Sodium Chloride 1,000 ml @ 80 mls/hr [id number] IV 03/10/17 17:15 04/09/17 17:14 03/10/17 20:14 80 MLS/HR ECG Indication: weakness Rate (beats per minute): 90 Rhythm: normal sinus Findings: no acute ischemic change, other (normal axis) ED Course 1135: The patient was evaluated in room C6. A complete history and physical exam was performed. 1147: Ordered Sodium Chloride 1000 ml @ 999 mls/hr IV. 1415: Ordered Cefepime HCl 1000 mg/Dextrose 111.3 ml @ 200 mls/hr IV. 1417: Ordered Sodium Chloride 1000 ml @ 999 mls/hr IV. 1424: I reevaluated the patient and she is doing better, but is still fatigued and chronically ill. I discussed the exam findings with the patient's and I discussed the treatment plan. He verbalized complete understanding and agreement. The patient will be evaluated for further treatment. 1427: Ordered Vancomycin HCl 900 mg/Sodium Chloride 268 ml @ 125 mls/hr IV. 1526: I discussed the patients case with Dr. Diane [facility]. He is going to evaluate the patient for further treatment. Medical Decision The patient's presentation and history were concerning for Pneumonia, bronchitis , UTI, pyelonephritis, ureteral stone, diverticulitis, dehydration, electrolyte abnormality. I reviewed the patient's past medical history, medications, and the nursing notes as described above. Patient is a 61-year-old woman with a past medical history of stroke and recent hospitalization discharged from rehabilitation last month presents emergency Department with worsening fatigue and malaise over the weekend per history of present illness. Arrival the patient is chronically ill-appearing no acute distress. She is afebrile with stable vital signs. The patient appears cachectic, clinically dry, with mild suprapubic tenderness to palpation. Labs with WBC within normal limits. However BUNs/creatinine > 30 c/w with the patient's clinically dry status. Albumin 2.9 c/w patient's FTT. UA dirty however with 5-10 WBCs, positive LE, +RBCs. Patient has a history of antibiotic resistant organisms and thus will cover with broad-spectrum antibiotics given recent hospitalization in January. Will admit for dehydration and UTI in the setting of FTT. Case d/w BARBARA Flores hospitalist who will admit the patient for further management. Medication Reconcilliation Current Medication List: was personally reviewed by me Blood Pressure Screening Patient's blood pressure: Elevated blood pressure Blood pressure disposition: Elevated BP felt to be situational Consults Time Called: 1435 Consulting Physician: BARBARA Flores Returned Call: 1526 I discussed the patients case with BARBARA Flores. He is going to evaluate the patient for further treatment. Impression Primary Impression: UTI (urinary tract infection) Additional Impression: Failure to thrive Scribe Attestation The scribe's documentation has been prepared under my direction and personally reviewed by me in its entirety. I confirm that the note above accurately reflects all work, treatment, procedures, and medical decision making performed by me. Departure Information Dispostion Being Evaluated By Hospitalist Referrals No Doctor, Assigned (PCP) Problem Qualifiers
--- NOTE | 2017-03-10 12:17 | DIAGNOSTIC IMAGING REPORT ---
CHEST ONE VIEW PORTABLE CLINICAL HISTORY: 61 years-old Female presenting with weakness. TECHNIQUE: Portable upright AP view of the chest was obtained. COMPARISON: 01/12/2017. FINDINGS: Atherosclerosis of aortic arch. Normal cardiac silhouette. Lungs and pleural spaces clear. Osseous structures normal. Upper abdomen normal. IMPRESSION: 1. No acute cardiopulmonary disease. Electronically signed by: Kye Tidwell M.D. 03/10/2017 12:16 PM Dictated Date/Time: 03/10/2017 12:16 PM
[2017-03-10 12:25] LABS: BASO % 0.6 %; BASO ABS # 0.05 K/uL (0-0.2); COMPLETE YES; EOS % 6.3 %; HEMATOCRIT 36.6 % (37-47); IG% 0.2 %; LYMPH % 8.5 %; LYMPH ABS # 0.69 K/uL (1.2-3.4); MEAN CELL VOLUME 93.6 fL (80-100); MEAN CORPUSCULAR HEMOGLOBIN 30.2 pg (25-34); MEAN CORPUSCULAR HGB CONC 32.2 g/dl (32-36); MEAN PLATELET VOLUME 11.1 fL (7.4-10.4); MONO % 15.5 %; NEUT % 68.9 %; PLATELET COUNT 172 K/uL (130-400); RED BLOOD COUNT 3.91 M/uL (4.2-5.4); WHITE BLOOD COUNT 8.13 K/uL (4.8-10.8)
[2017-03-10 12:47] LABS: ALT/SGPT 20 U/L (12-78); BLOOD UREA NITROGEN 22 mg/dl (7-18); BUN/CREATININE RATIO 33.8 (10-20); CALCIUM 9.8 mg/dl (8.5-10.1); CARBON DIOXIDE 28 mmol/L (21-32); CHLORIDE 104 mmol/L (98-107); CREATININE 0.64 mg/dl (0.60-1.20); GLUCOSE 101 mg/dl (70-99); POTASSIUM 4.2 mmol/L (3.5-5.1); SODIUM 140 mmol/L (136-145)
[2017-03-10 12:52] LABS: ALKALINE PHOSPHATASE 73 U/L (45-117); AST/SGOT 14 U/L (15-37)
[2017-03-10 13:03] LABS: URINE APPEARANCE CLOUDY (CLEAR); URINE BILIRUBIN NEG (NEG); URINE COLOR DK YELLOW; URINE EPITHELIAL CELL AUTO >30 /lpf (0-5); URINE NITRITE NEG (NEG); URINE SPECIFIC GRAVITY 1.022 (1.000-1.030); UROBILINOGEN NEG (NEG); ZZURINE CULT IF INDIC CATH NO
[2017-03-10 13:04] LABS: MANUAL MICROSCOPIC REQUIRED? NO; REVIEW REQ? YES
[2017-03-10] MEDS ORDERED: SODIUM CHLORIDE 0.9% IV STA (14:15)
[2017-03-10] MEDS ORDERED: VANCOMYCIN IV STA (14:15)
[2017-03-10] MEDS ORDERED: CEFEPIME IV 1,000 MG in DEXTROSE 5% 100ML 100 ML IV STA (14:15)
[2017-03-10] MEDS ORDERED: VANCOMYCIN INJ 900 MG in SODIUM CHLORIDE 0.9% 250ML 250 ML IV STA (14:27)
[2017-03-10] MEDS ORDERED: MAGNESIUM HYDROXIDE SUSP 30 ML UDC PO PRN (17:15)
[2017-03-10] MEDS ORDERED: ACETAMINOPHEN 325 MG TAB PO PRN (17:15)
[2017-03-10] MEDS ORDERED: ALUMINUM/MAGNESIUM/SIMETH (MAALOX MAX) 30 ML UDC PO PRN (17:15)
[2017-03-10] MEDS ORDERED: POLYETHYLENE (MIRALAX) 17 GM PACK PO PRN (17:15)
[2017-03-10] MEDS ORDERED: ONDANSETRON INJ 2 MG/ML 2 ML VIAL IV PRN (17:15)
--- NOTE | 2017-03-10 17:47 | History and Physical ---
History & Physical Date & Time of Service: Mar 10, 2017 at 17:25 Chief Complaint: UTI Primary Care Physician: No Doctor, Assigned History of Present Illness Source: patient, spouse, clinic records, hospital records This is a 61 y/o female with a history of CVA, HTN, anemia, bipolar disorder, anxiety and GERD who presented to the ED on 03/10 with worsening weakness and confusion. Unable to obtain much meaningful/reliable ROS from patient due to mental status. History obtained largely from who is at bedside. The patient had been hospitalized in January and then discharged to [facility] for rehab. She was discharged from rehab in late January and since returning home has had progressive weakness. Over the last week the has noticed a more rapid decline in her strength and increased confusion. The notes that she has presented this way in the past when she had UTIs. He denies any fevers, chills, or sweats at home or any urinary symptoms. He does note malodorous urine recently but states that is not uncommon for her. The patient was seen by her PCP on 03/05 where a UA and urine culture were drawn. The urine culture was negative. Past Medical/Surgical History Medical Problems: (1) Bipolar disease, chronic Status: Chronic (2) Head trauma Status: Resolved (3) Hemorrhagic cerebrovascular accident (CVA) Status: Resolved Anemia Anxiety GERD Family History Diabetes mellitus Hypertension Lung cancer Social History Smoking Status: Former Smoker (quit March 2016) Alcohol Use: none Drug Use: none Marital Status: Housing status: lives with significant other Occupational Status: disabled Immunizations History of Influenza Vaccine: No History of Tetanus Vaccine?: Yes History of Pneumococcal: No History of Hepatitis B Vaccine: No Multi-Drug Resistant Organisms History of MDRO: No Allergies Coded Allergies: POLLEN (Verified Allergy, Intermediate, PAST HX SEASONAL ALLERGIES/ASTHMA , 03/10/17) Home Medications Scheduled Buspirone Hcl (Buspirone Hcl), 10 MG PO BID Divalproex Sodium (Depakote Sprinkle), 500 MG PO QAM Divalproex Sodium (Depakote Sprinkles), 750 MG PO HS Folic Acid (Folvite), 1 MG PO DAILY Oxybutynin Chloride (Oxybutynin Chloride), 5 MG PO TID Potassium Chloride (K-Tabs), 20 MEQ PO BID Thiamine Hcl (Vitamin B-1), 100 MG PO QAM Venlafaxine HCl (Venlafaxine HCl), 75 MG BID Review of Systems Unable to obtain reliable ROS from patient due to mental status. Physical Exam Vital Signs Date Time Temp Pulse Resp B/P (MAP) Pulse Ox O2 Delivery O2 Flow Rate FiO2 03/10/17 16:52 90 03/10/17 16:28 87 18 97 Room Air 03/10/17 14:13 92 20 141/79 96 Room Air 03/10/17 12:52 83 18 152/93 96 Room Air 03/10/17 12:21 86 03/10/17 11:16 36.5 94 16 139/92 96 Room Air General appearance: +Thin, appears chronically ill. No apparent distress Head: Normocephalic, atraumatic Eyes: +Exam limited by pt condition. Normal inspection, PERRL ENT: +Dry oral mucosa. Normal ENT inspection, hearing grossly normal, pharynx normal Neck: Supple, no JVD, trachea midline Respiratory/Chest: +Decreased breath sounds throughout, poor respiratory effort. Lungs clear to auscultation, no respiratory distress Cardiovascular: Regular rate & rhythm, no gallop, no murmur Abdomen/GI: Normal bowel sounds, non-tender, soft Extremities/Musculoskeletal: Normal inspection, no calf tenderness, no pedal edema Neurological/Psych: +Exam limited by pt condition. She does not easily follow commands and does not answer orientation questions. Pt was only able to tell me her first name. Disoriented. Flat affect. Alert Skin: Normal color, warm/dry, no rash Diagnostics Laboratory Results Results Past 24 Hours Test 03/10/17 12:05 03/10/17 12:50 Range/Units White Blood Count 8.13 4.8-10.8 K/uL Red Blood Count 3.91 4.2-5.4 M/uL Hemoglobin 11.8 12.0-16.0 g/dL Hematocrit 36.6 37-47 % Mean Corpuscular Volume 93.6 80-100 fL Mean Corpuscular Hemoglobin 30.2 25-34 pg Mean Corpuscular Hemoglobin Concent 32.2 32-36 g/dl Platelet Count 172 130-400 K/uL Mean Platelet Volume 11.1 7.4-10.4 fL Neutrophils (%) (Auto) 68.9 % Lymphocytes (%) (Auto) 8.5 % Monocytes (%) (Auto) 15.5 % Eosinophils (%) (Auto) 6.3 % Basophils (%) (Auto) 0.6 % Neutrophils # (Auto) 5.60 1.4-6.5 K/uL Lymphocytes # (Auto) 0.69 1.2-3.4 K/uL Monocytes # (Auto) 1.26 0.11-0.59 K/uL Eosinophils # (Auto) 0.51 0-0.5 K/uL Basophils # (Auto) 0.05 0-0.2 K/uL RDW Standard Deviation 48.8 36.4-46.3 fL RDW Coefficient of Variation 14.2 11.5-14.5 % Immature Granulocyte % (Auto) 0.2 % Immature Granulocyte # (Auto) 0.02 0.00-0.02 K/uL Sodium Level 140 136-145 mmol/L Potassium Level 4.2 3.5-5.1 mmol/L Chloride Level 104 98-107 mmol/L Carbon Dioxide Level 28 21-32 mmol/L Anion Gap 8.0 3-11 mmol/L Blood Urea Nitrogen 22 7-18 mg/dl Creatinine 0.64 0.60-1.20 mg/dl Est Creatinine Clear Calc Drug Dose 68.2 ml/min Estimated GFR () 110.1 Estimated GFR (Non- 95.0 BUN/Creatinine Ratio 33.8 10-20 Random Glucose 101 70-99 mg/dl Lactic Acid Level 1.8 0.4-2.0 mmol/L Calcium Level 9.8 8.5-10.1 mg/dl Total Bilirubin 0.3 0.2-1 mg/dl Direct Bilirubin < 0.1 0-0.2 mg/dl Aspartate Amino Transf (AST/SGOT) 14 15-37 U/L Alanine Aminotransferase (ALT/SGPT) 20 12-78 U/L Alkaline Phosphatase 73 45-117 U/L Troponin I < 0.015 0-0.045 ng/ml Total Protein 7.3 6.4-8.2 gm/dl Albumin 2.9 3.4-5.0 gm/dl Lipase 74 73-393 U/L Urine Color DK YELLOW Urine Appearance CLOUDY CLEAR Urine pH 6.0 4.5-7.5 Urine Specific [place] 1.022 1.000-1.030 Urine Protein NEG NEG Urine Glucose (UA) NEG NEG Urine Ketones TRACE NEG Urine Occult Blood 2+ NEG Urine Nitrite NEG NEG Urine Bilirubin NEG NEG Urine Urobilinogen NEG NEG Urine Leukocyte Esterase MODERATE NEG Urine WBC (Auto) 5-10 0-5 /hpf Urine RBC (Auto) >30 0-4 /hpf Urine Hyaline Casts (Auto) 5-10 0-5 /lpf Urine Epithelial Cells (Auto) >30 0-5 /lpf Urine Bacteria (Auto) NEG NEG Urine Renal Epithelial Cells 5-10 0-5 /lpf Microbiology Results 03/10/17 Blood Culture, Received Pending 03/10/17 Blood Culture, Received Pending Diagnostic Radiology Reviewed the following studies and agree with interpretation as follows: Patient Name: STARR RING Unit Number: [id number] Dictated: 03/10/171215 Transcribed: 03/10/171215 PBS Printed Date/Time: [~ rep prt dt]/[~ rep prt tm] [~ rep ct labl] - [~ rep ct ivnm] [facility] [place] [address] Dictated: 03/10/171215 Transcribed: 03/10/171215 PBS Printed Date/Time: [~ rep prt dt]/[~ rep prt tm] [~ rep ct labl] - [~ rep ct ivnm] Patient: STARR RING Address1: [address] Rec: [id number] Address2: Acct ID: [id number] [facility] Zip: [place] [address] Date: 1955 Sex: F Room/Bed: Ref Phy: No Doctor, Assigned SC: DEXTER Att Phy: Report #: [id number] Jennifer Phy: No Doctor, Assigned Test: CXR1P Admit Phy: Copywriter: DEEDEE Interpreting Phy: Kye Tidwell MD Diagnosis: UTI Ordering Phy: Charli Gottlieb M.D. Service Date: 03/10/17 Admit Date: 03/10/17 MNE: [id number] CONF: DICTATED BY: Kye Tidwell MD]] CC: Charli Gottlieb M.D. No Doctor, Assigned Endcc: [~ rep ct add3]] CHEST ONE VIEW PORTABLE CLINICAL HISTORY: 61 years-old Female presenting with weakness. TECHNIQUE: Portable upright AP view of the chest was obtained. COMPARISON: 01/12/2017. FINDINGS: Atherosclerosis of aortic arch. Normal cardiac silhouette. Lungs and pleural spaces clear. Osseous structures normal. Upper abdomen normal. IMPRESSION: 1. No acute cardiopulmonary disease. Electronically signed by: Kye Tidwell M.D. 03/10/2017 12:16 PM Dictated Date/Time: 03/10/2017 12:16 PM The status of this report is Signed. Draft = Not yet reviewed or approved by Radiologist. Signed = Reviewed and approved by Radiologist. <AttendingPhy></AttendingPhy> <FamilyPhy>No Doctor, Assigned</FamilyPhy> < PrimaryPhy>No Doctor, Assigned</PrimaryPhy> <UnitNumber>[id number]</UnitNumber> <VisitNumber>[id number]</VisitNumber> <PatientName>STARR RING</ PatientName> <DateOfBirth>1955</DateOfBirth> <Location>[facility]</Location> < ServiceDate>03/10/17</ServiceDate> <MNE>ESINDI</MNE> <OrderingPhy>Charli Gottlieb M.D.</OrderingPhy> <OrderingPhyMNE>f rep ord dr rutherford</OrderingPhyMNE> <DictatingPhyMNE>f rep dict dr rutherford</DictatingPhyMNE> <CCListMNE>f rep ct sangeeta</ CCListMNE> <AdmittingPhyMNE>f pt admit dr rutherford</AdmittingPhyMNE> <AttendingPhyMNE >f pt attend dr rutherford</AttendingPhyMNE> <ConsultingPhyMNE>f pt consult dr rutherford</ConsultingPhyMNE> <FamilyPhyMNE>f pt fam dr rutherford</FamilyPhyMNE> <OtherPhyMNE>f pt other dr rutherford</OtherPhyMNE> < PrimaryPhyMNE>f pt prim care dr rutherford</PrimaryPhyMNE> <ReferringPhyMNE>f pt referring dr rutherford</ReferringPhyMNE> EKG Reviewed EKG and agree with interpretation as follows: 90 bpm, NSR Impression Assessment and Plan 61 y/o female with a history of CVA, HTN, anemia, bipolar disorder, anxiety and GERD who presented to the ED on 03/10 with worsening weakness and confusion. Pt afebrile on arrival, VSS. CXR no acute disease. EKG no ischemic changes. BUN mildly elevated at 22, labs otherwise grossly unremarkable. UA negative for bacteria. Blood cultures pending. Pt received cefepime, vancomycin and 2L NSS boluses in ED. Worsening weakness, confusion-- states he can no longer handle taking care of her at home, will need placement -Admit to med/surg for observation -Recheck urine culture -Blood cultures pending. No s/s of infection but pt was given vancomycin and cefepime in the ER -Check ammonia, B12, folate, and Depakote level -Continue thiamine, folic acid supplements -PT/OT evaluate and treat -Elevated BUN, hydrate with NSS at 80 cc/hr H/o CVA, HTN--stable. Not currently on medications Bipolar disorder, anxiety -Continue Depakote 500 mg PO qam and 750 mg PO qpm and buspirone 10 mg PO BID Overactive bladder -Continue oxybutynin 5 mg PO TID DVT prophylaxis -Enoxaparin 40 mg SC q24h -FERNANDO Miguel Code Status -Level V, DO NOT RESUSCITATE Dispo -Pt will need placement as can no longer take care of her at home, worsening weakness PA Physician Supervision Note: I interviewed and examined the patient. Discussed with Xiomara Pelayo PAC and agree with findings and plan as documented in the note. Any exceptions or clarifications are listed here: None Patient is here with encephalopathy with recent urinary symptoms. In the ER she was treated with vancomycin and cefepime and an abnormal urinalysis. Her previous urine culture had shown 3 organisms without defined infection. Her primary care doctor has also recently reduce some of her mood stabilizing medications in hopes that this may be part of the process. In the ER she is arousable speaks in small sentences this is not very alert her vital signs stable her heart is regular lungs are clear abdomen is benign no CVA angle tenderness Encephalopathy undetermined significance because the patient has an abnormal UA will continue Vanco and cefepime at this time hopefully de-escalate medications as we can we have a pending valproic acid level and look for other causes of encephalopathy Documented By: Quan Diane Level of Care Med/Surg Resuscitation Status DO NOT RESUSCITATE VTE Prophylaxis VTE Risk Assessment Done? Y/N: Yes Risk Level: Moderate Given or contraindicated: Enoxaparin (Lovenox)SQ, T.E.D. Stockings, SCD's
[2017-03-10] MEDS ORDERED: IV FLUIDS COMPLETED PRN (18:15)
[2017-03-10 18:17] VITALS: BP 148/91; PULSE 92; TEMP 36.5; O2SAT 98; Ht 157.5 cm; Wt 48.0 kg
[2017-03-10 19:46] LABS: INR 1.1 (0.9-1.1); PARTIAL THROMBOPLASTIN RATIO 1.2; PROTHROMBIN TIME (PATIENT) 11.5 SECONDS (9.0-12.0)
[2017-03-10] MEDS: SODIUM CHLORIDE 0.9% 1000ML 1,000 ML IV SCH (20:14)
[2017-03-10] MEDS: POTASSIUM CHLORIDE 20 MEQ TABCR PO SCH (20:29)
[2017-03-10] MEDS: OXYBUTYNIN CHLORIDE 5 MG TAB PO SCH (20:29)
[2017-03-10] MEDS: VENLAFAXINE HCL 50 MG TAB PO SCH (20:30)
[2017-03-10] MEDS: DIVALPROEX SODIUM SPRINKLE 125 MG CAP PO SCH (20:31)
[2017-03-10] MEDS: ENOXAPARIN 40 MG/0.4 ML SYR SQ SCH (21:24)
[2017-03-10] MEDS ORDERED: CEFEPIME IV 1,000 MG in DEXTROSE 5% 100ML 100 ML IV SCH (22:00)
[2017-03-11] VITALS: BP 120/79; PULSE 105; TEMP 36.8; O2SAT 94
[2017-03-11 06:51] LABS: HEMATOCRIT 35.3 % (37-47); MEAN CELL VOLUME 93.1 fL (80-100); MEAN CORPUSCULAR HEMOGLOBIN 29.6 pg (25-34); MEAN CORPUSCULAR HGB CONC 31.7 g/dl (32-36); MEAN PLATELET VOLUME 11.4 fL (7.4-10.4); PLATELET COUNT 156 K/uL (130-400); RED BLOOD COUNT 3.79 M/uL (4.2-5.4); WHITE BLOOD COUNT 6.96 K/uL (4.8-10.8)
[2017-03-11 07:14] VITALS: BP 135/82; PULSE 79; TEMP 36.8; O2SAT 96
[2017-03-11 07:29] LABS: BUN/CREATININE RATIO 34.7 (10-20); CALCIUM 8.6 mg/dl (8.5-10.1); CREATININE 0.48 mg/dl (0.60-1.20); POTASSIUM 3.8 mmol/L (3.5-5.1)
[2017-03-11] MEDS: SODIUM CHLORIDE 0.9% 1000ML 1,000 ML IV SCH ×2 (07:46→17:26)
[2017-03-11] MEDS: DIVALPROEX SODIUM SPRINKLE 125 MG CAP PO SCH ×2 (07:47→21:33)
[2017-03-11] MEDS: VENLAFAXINE HCL 50 MG TAB PO SCH ×2 (07:47→21:35)
[2017-03-11] MEDS: POTASSIUM CHLORIDE 20 MEQ TABCR PO SCH ×2 (07:48→21:34)
[2017-03-11] MEDS: THIAMINE HCL 100 MG TAB PO SCH (07:48)
[2017-03-11] MEDS: OXYBUTYNIN CHLORIDE 5 MG TAB PO SCH ×3 (07:48→21:34)
--- NOTE | 2017-03-11 14:37 | Hospitalist Progress Note ---
Hospitalist Progress Note Date of Service Mar 11, 2017. (Arely Billings PA-C) Subjective Pt evaluation today including: conversation w/ patient, physical exam, chart review, lab review, review of studies Pain: None PO Intake: Fair The patient was seen and examined this morning. Family friendRuslan is present at bedside. Pts is not present at this time. He reports she was dehydrated and weak since recently being treated for a urinary tract infection. She was on an antibiotic which he cannot recall last week, but finished the course. Over the weekend she became more weak, and then appears to be more confused. Anabella is well known to me from recent hospitalization in January. She is lying in bed and unable to provide much history, and only minimal ROS. She denies any pain. She is tired and hungry. Up until this admission had been doing ok with eating and drinking (previously known to silently aspirate), without any cough, sob, chest pain or discomfort. Shad denies aspiration at home, but does report she gets easily dehydrated because of not liking thickened liquids. Constitutional: + fatigue, No fever, No chills Eyes: No redness, No diplopia ENT: + see HPI Respiratory: No cough, No sputum, No shortness of breath Cardiovascular: No chest pain, No palpitations Abdomen: No pain, No nausea, No vomiting, No diarrhea, No constipation Musculoskeletal: No joint pain, No swelling Female : No dysuria, No urinary frequency, No hematuria Neurologic: + weakness, + problem reported (speaking less, confused), No numbness/tingling Skin: No rash, No itch (Arely Billings PA-C) Objective Vital Signs Date Time Temp Pulse Resp B/P (MAP) Pulse Ox O2 Delivery O2 Flow Rate FiO2 03/11/17 07:14 36.8 79 16 135/82 (99) 96 Room Air 03/11/17 00:00 Room Air 03/11/17 00:00 36.8 105 20 120/79 (93) 94 Room Air 03/10/17 20:13 92 20 148/91 98 03/10/17 18:17 36.5 92 20 148/91 98 Room Air 03/10/17 17:42 93 18 157/92 96 Room Air 03/10/17 16:52 90 03/10/17 16:28 87 18 97 Room Air 03/10/17 14:13 92 20 141/79 96 Room Air (Arely Billings PA-C) Physical Exam General Appearance: WD/WN, no apparent distress, + thin, + pertinent finding ( smiles occasionally, affect mostly flat, speaks minimally but clear) Eyes: PERRL, EOMI ENT: hearing grossly normal, pharynx normal, + pertinent finding (mucous membranes moist) Neck: supple, no JVD Respiratory/Chest: lungs clear, no respiratory distress, no accessory muscle use Cardiovascular: regular rate, rhythm, no JVD, no murmur Abdomen: normal bowel sounds, non tender, soft Extremities: non-tender, no pedal edema, no calf tenderness 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: alert, + disoriented, + pertinent finding (flat affect , follows commands, strength is 5/5 BUE, and 3/5 in LLE and 4/5 in RLE. ) Skin: normal color, warm/dry (Arely Billings PA-C) Laboratory Results Last 24 Hours Test 03/10/17 18:04 03/10/17 19:12 03/10/17 21:40 03/11/17 06:17 Ammonia 13.0 umol/L Vitamin B12 Level 1135 pg/mL Folate > 24.00 ng/mL Prothrombin Time 11.5 SECONDS Prothromb Time International Ratio 1.1 Activated Partial Thromboplast Time 30.8 SECONDS Partial Thromboplastin Ratio 1.2 Valproic Acid (Depakene) Level 78 mcg/ml White Blood Count 6.96 K/uL Red Blood Count 3.79 M/uL Hemoglobin 11.2 g/dL Hematocrit 35.3 % Mean Corpuscular Volume 93.1 fL Mean Corpuscular Hemoglobin 29.6 pg Mean Corpuscular Hemoglobin Concent 31.7 g/dl RDW Standard Deviation 48.7 fL RDW Coefficient of Variation 14.4 % Platelet Count 156 K/uL Mean Platelet Volume 11.4 fL Sodium Level 142 mmol/L Potassium Level 3.8 mmol/L Chloride Level 107 mmol/L Carbon Dioxide Level 28 mmol/L Anion Gap 7.0 mmol/L Blood Urea Nitrogen 17 mg/dl Creatinine 0.48 mg/dl Est Creatinine Clear Calc Drug Dose 90.9 ml/min Estimated GFR () 121.0 Estimated GFR (Non- 104.4 BUN/Creatinine Ratio 34.7 Random Glucose 73 mg/dl Calcium Level 8.6 mg/dl (Arely Billings PA-C) Assessment and Plan This is a 61 yo F with PMHx of 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 Weakness / dehydration / Increased confusion - Admitted to med/surg for observation/ placement - Continue IVFs - UA appears ok, UCx NGTD prelim, BCx still in process. - Pt was given vancomycin and cefepime in the ER - Ammonia wnl - B12 elevated due to supplementation, folate ok. - Depakote level adequate at 78 - PT/OT evaluate and treat Hx of Seizure disorder Bipolar disorder ? Type I vs Type II - Continue buspirone 10mg by mouth twice a day, and venlafaxine 75 mg by mouth twice a day. - Continue Depakote delayed 500 mg QAM and 750 mg QPM - This is reduced from her previous admission. - Checked depakote level which was therapeutic at 78. - Follows with Dr. Tate as an outpatient Hx of heavy alcohol use - Cont multivitamin, Vit B complex, thiamine 100 mg daily and folic acid 1 mg daily Silent aspiration, chronic - Speech therapy to evaluate - PT/OT on board - Add incentive spirometry and flutter to keep airways open. Recurrent UTI - Recently was placed on macrobid 100 mg BID x 5 days on 03/05 by Lola Reyna , finished course per family friend. Incontinence/ Bladder spasm - continue oxybutynin chloride 5 mg by mouth 3 times a day. CODE STATUS: DNR Disposition: From home, will likely need [employer] process started, CM assisting with dc planning. (Arely Billings PA-C) Attending Attestation: Pt seen/examined, chart reviewed, care plan d/w LOUISE Billings. I agree w/ the graham components of her documentation. Pt reported it was 1973, couldn't tell me where she was, didn't know the date. Voiced no concerns but she did not speak much. Family friend at bedside. VSS no fever gen - chronically ill appearing, looks older than stated age, facial droop on right mouth - MMM heart - RRR lungs - CTA b/l abd - soft, NT ext - no edema neuro - unable to recognize numbers being drawn on hand with a pen; right sided hemiparesis urine/blood cx's neg all blood work normal except had minimally elevated Cr yesterday, now normal A/P: Patient with h/o multiple strokes including large left-sided hemorrhagic basal ganglia stroke in 2016. H/o bipolar disorder as well. Records from 01/2017 reviewed -- during that admission was incontinent of bowel/ bladder. Spoke very little according to documentation. Speech was broken and limited when she did speak. I suspect she has underlying vascular dementia. I believe her recent decline is likely due to such. Previous MRI 01/2017 with multiple old strokes including left frontal region, cerebellar, the previous left basal ganglia, etc. Will obtain repeat MRI to exclude new stroke(s). Nothing metabolic or infectious at this time is obvious that would be contributing to current state. Dispo - SNF placement. In my clinical judgment this beneficiary meets acute admission criteria, established by [facility], that includes being hospitalized through two midnights. Lizzy OVALLE MD (Jani Ovalle MD)
[2017-03-11 14:48] VITALS: BP 120/78; PULSE 92; TEMP 36.8; O2SAT 100
[2017-03-11 16:00] VITALS: O2SAT 100
--- NOTE | 2017-03-11 17:27 | DIAGNOSTIC IMAGING REPORT ---
MRI OF THE BRAIN WITHOUT CONTRAST CLINICAL HISTORY: Weakness. History of stroke. Evaluate for acute stroke. COMPARISON STUDY: Head CT January 12, 2017 and MRI of the brain January 14, 2017. TECHNIQUE: Utilizing a 1.5 Rashmi magnet and dedicated coil, multiplanar, multiecho imaging of the brain was performed without IV contrast. FINDINGS: There are no foci of restricted diffusion to suggest acute infarct. No acute intracranial hemorrhage, midline shift or mass effect is present. Moderate ventricular dilatation is unchanged and likely due to atrophy. The basilar cisterns are patent. There are no extra-axial collections. The appearance of the brain is unchanged since MRI of January 14, 2017, including old infarcts within the left frontal and occipital lobes as well as the bilateral cerebellar hemispheres. There is an old hematoma within the left external capsule with calcifications which are better depicted on head CT of January 12, 2017. No intracranial masses identified on this unenhanced exam. Calvarial signal is normal. Orbits are unremarkable. There is trace fluid within the left mastoid air cells. This is unchanged. IMPRESSION: 1. No acute intracranial findings. 2. No change in appearance of the brain since MRI of January 14, 2017 with old infarcts within the left frontal and occipital lobes and the bilateral cerebellar hemispheres. Electronically signed by: Erick Castillo M.D. 03/11/2017 5:26 PM Dictated Date/Time: 03/11/2017 5:19 PM
[2017-03-11] MEDS: ENOXAPARIN 40 MG/0.4 ML SYR SQ SCH (21:35)
[2017-03-11 23:07] VITALS: BP 126/83; PULSE 85; TEMP 36.7; O2SAT 97
[2017-03-12 06:07] LABS: HEMATOCRIT 30.4 % (37-47); MEAN CORPUSCULAR HEMOGLOBIN 30.5 pg (25-34); MEAN CORPUSCULAR HGB CONC 33.6 g/dl (32-36); MEAN PLATELET VOLUME 11.2 fL (7.4-10.4); PLATELET COUNT 165 K/uL (130-400); RED BLOOD COUNT 3.34 M/uL (4.2-5.4); WHITE BLOOD COUNT 6.45 K/uL (4.8-10.8)
[2017-03-12 06:43] LABS: BUN/CREATININE RATIO 38.7 (10-20); CALCIUM 8.5 mg/dl (8.5-10.1); CREATININE 0.46 mg/dl (0.60-1.20); POTASSIUM 3.8 mmol/L (3.5-5.1)
[2017-03-12 07:08] VITALS: BP 139/83; PULSE 74; TEMP 36.6; O2SAT 97
[2017-03-12] MEDS: THIAMINE HCL 100 MG TAB PO SCH (09:19)
[2017-03-12] MEDS: OXYBUTYNIN CHLORIDE 5 MG TAB PO SCH ×3 (09:19→19:55)
[2017-03-12] MEDS: POTASSIUM CHLORIDE 20 MEQ TABCR PO SCH ×2 (09:20→19:56)
[2017-03-12] MEDS: VENLAFAXINE HCL 50 MG TAB PO SCH ×2 (09:20→19:54)
[2017-03-12] MEDS: DIVALPROEX SODIUM SPRINKLE 125 MG CAP PO SCH ×2 (09:20→19:56)
--- NOTE | 2017-03-12 12:43 | Hospitalist Progress Note ---
Hospitalist Progress Note Date of Service Mar 12, 2017. (Arely Billings PA-C) Subjective Pt evaluation today including: conversation w/ patient, physical exam, chart review, lab review, review of studies Pain: None PO Intake: Good Voiding: incontinence The patient was seen and examined this morning. Pts family friend Shad is present at bedside again today upon my visit with the patient. Anabella is holding the phone up to her face for a long portion of the interview but is not speaking. Her friend reports someone is on the phone with her, however there is not. She responds minimally to my questions with yes, no, good. She is unable to answer what year it is, and thinks shes in "[facility]". Per nursing, fed her breakfast and she ate nearly all of it. Constitutional: No fever, No fatigue Respiratory: No cough, No sputum, No shortness of breath Cardiovascular: No chest pain, No palpitations Abdomen: No pain, No nausea, No vomiting, No diarrhea, No constipation Musculoskeletal: No joint pain, No swelling Neurologic: + weakness (Arely Billings PA-C) Objective Vital Signs Date Time Temp Pulse Resp B/P (MAP) Pulse Ox O2 Delivery O2 Flow Rate FiO2 03/12/17 09:00 Room Air 03/12/17 07:08 36.6 74 20 139/83 (101) 97 03/12/17 00:43 Room Air 03/11/17 23:07 36.7 85 18 126/83 (97) 97 Room Air 03/11/17 16:00 100 Room Air 03/11/17 14:48 36.8 92 16 120/78 (92) 100 Room Air (Arely Billings PA-C) Physical Exam Notes: General Appearance: WD/WN, no apparent distress, + thin, + pertinent finding ( smiles occasionally, affect mostly flat, speaks minimally but clear) Eyes: PERRL, EOMI ENT: hearing grossly normal, pharynx normal, + pertinent finding (mucous membranes moist) Neck: supple, no JVD Respiratory/Chest: lungs clear, no respiratory distress, no accessory muscle use Cardiovascular: regular rate, rhythm, no JVD, no murmur Abdomen: normal bowel sounds, non tender, soft Extremities: non-tender, no pedal edema, no calf tenderness 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: alert, + disoriented, + pertinent finding (flat affect , follows commands, strength is 5/5 BUE, and 3/5 in LLE and 4/5 in RLE. ) Skin: normal color, warm/dry (Arely Billings PA-C) Laboratory Results Last 24 Hours Test 03/12/17 05:24 03/12/17 10:46 White Blood Count 6.45 K/uL Red Blood Count 3.34 M/uL Hemoglobin 10.2 g/dL Hematocrit 30.4 % Mean Corpuscular Volume 91.0 fL Mean Corpuscular Hemoglobin 30.5 pg Mean Corpuscular Hemoglobin Concent 33.6 g/dl RDW Standard Deviation 46.6 fL RDW Coefficient of Variation 13.9 % Platelet Count 165 K/uL Mean Platelet Volume 11.2 fL Sodium Level 141 mmol/L Potassium Level 3.8 mmol/L Chloride Level 106 mmol/L Carbon Dioxide Level 28 mmol/L Anion Gap 7.0 mmol/L Blood Urea Nitrogen 18 mg/dl Creatinine 0.46 mg/dl Est Creatinine Clear Calc Drug Dose 94.9 ml/min Estimated GFR () 122.7 Estimated GFR (Non- 105.9 BUN/Creatinine Ratio 38.7 Random Glucose 66 mg/dl Calcium Level 8.5 mg/dl Random Cortisol 17.12 mcg/dl (Arely Billings PA-C) Assessment and Plan This is a 61 yo F with PMHx of 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 Weakness / dehydration / Increased confusion - Admitted to med/surg for observation/ placement - Continue IVFs - tolerating good oral intake per EMR and nursing report. - UA appears ok, UCx NGTD, BCx NGTD prelim - Pt was given vancomycin and cefepime in the ER - Ammonia wnl - B12 elevated due to supplementation, folate ok. - Depakote level adequate at 78 - PT/OT evaluate and treat Hx of Seizure disorder Bipolar disorder ? Type I vs Type II - Continue buspirone 10mg by mouth BID and venlafaxine 75 mg by mouth BID - Continue Depakote delayed 500 mg QAM and 750 mg QPM - This is reduced from her previous admission. - Checked depakote level which was therapeutic at 78. - Follows with Dr. Tate as an outpatient - Will ask neuro to make recs regarding if Namenda would benefit Hx of heavy alcohol use - Cont multivitamin, Vit B complex, thiamine 100 mg daily and folic acid 1 mg daily Silent aspiration, chronic - Speech therapy to evaluate - PT/OT on board - Add incentive spirometry and flutter to keep airways open. Recurrent UTI - Recently was placed on macrobid 100 mg BID x 5 days on 03/05 by Lola Reyna , finished course per family friend. Incontinence/ Bladder spasm - continue oxybutynin chloride 5 mg by mouth TID CODE STATUS: DNR Disposition: From home, spoke with Mari from [facility] office of aging at bedside, paperwork being submitted, planned to have [employer] approval possibly by this evening/tomorrow, CM assisting with dc planning, possible tomorrow. (Arely Billings, HEATHER) Attending Attestation: Pt seen/examined, chart reviewed, care plan d/w LOUISE Billings. I agree w/ the graham components of her documentation. Pt again thought it was 1970. She was largely silent the entire visit. at bedside. Apparently ate well this am Following breakfast her fingerstick was 89 states his main concern from home is that of her being "tired all the time" and "staring" she can stare "for hours" at times VSS no fever gen - chronically ill appearing, looks older than stated age, facial droop on right, no change from prior exam mouth - MMM heart - RRR lungs - CTA b/l abd - soft, NT ext - no edema A/P: Patient with h/o multiple strokes including large left-sided hemorrhagic basal ganglia stroke in 2016. H/o bipolar disorder as well. Records from 01/2017 reviewed -- during that admission was incontinent of bowel/ bladder. Spoke very little according to documentation. Speech was broken and limited when she did speak. I suspect she has underlying vascular dementia. I believe her recent decline is likely due to such. I am uncertain if namenda would be helpful in this situation. Previous MRI 01/2017 with multiple old strokes including left frontal region, cerebellar, the previous left basal ganglia, etc. MRI this admission unchanged from prior MRI in January. . Checked cortisol level due to low or low-normal glucose levels -- cortisol was normal. likely due to poor intake [employer] process ongoing hopefully to SNF this week Jani Ovalle MD (Jani Ovalle MD)
[2017-03-12] MEDS: ENOXAPARIN 30 MG/0.3 ML SYR SQ SCH (13:57)
[2017-03-12 15:14] VITALS: BP 104/69; PULSE 80; TEMP 36.7; O2SAT 96
[2017-03-12] MEDS ORDERED: INFLUENZA ADMINISTRATION CHARGE ONE (17:00)
[2017-03-12] MEDS ORDERED: INFLUENZA VIRUS QUAD VACCINE 0.5 ML SYR IM. ONE (17:00)
[2017-03-12 20:00] VITALS: O2SAT 96
[2017-03-13] VITALS: O2SAT 96
[2017-03-13 00:07] VITALS: BP 124/76; PULSE 81; TEMP 36.9; O2SAT 95
[2017-03-13 06:28] LABS: HEMATOCRIT 30.7 % (37-47); MEAN CELL VOLUME 91.4 fL (80-100); MEAN CORPUSCULAR HEMOGLOBIN 30.7 pg (25-34); MEAN CORPUSCULAR HGB CONC 33.6 g/dl (32-36); PLATELET COUNT 164 K/uL (130-400); RED BLOOD COUNT 3.36 M/uL (4.2-5.4); WHITE BLOOD COUNT 7.37 K/uL (4.8-10.8)
[2017-03-13 06:51] LABS: BUN/CREATININE RATIO 33.3 (10-20); CREATININE 0.52 mg/dl (0.60-1.20); POTASSIUM 3.7 mmol/L (3.5-5.1)
[2017-03-13 07:31] VITALS: BP 132/81; PULSE 70; TEMP 36.7; O2SAT 98
[2017-03-13] MEDS: DIVALPROEX SODIUM SPRINKLE 125 MG CAP PO SCH (08:13)
[2017-03-13] MEDS: THIAMINE HCL 100 MG TAB PO SCH (08:14)
[2017-03-13] MEDS: OXYBUTYNIN CHLORIDE 5 MG TAB PO SCH ×2 (08:14→14:14)
[2017-03-13] MEDS: POTASSIUM CHLORIDE 20 MEQ TABCR PO SCH (08:14)
[2017-03-13] MEDS: VENLAFAXINE HCL 50 MG TAB PO SCH (08:16)
[2017-03-13] MEDS: ENOXAPARIN 30 MG/0.3 ML SYR SQ SCH (08:16)
--- NOTE | 2017-03-13 12:24 | EEG Procedure Note ---
EEG Procedure Note Date of Service Mar 13, 2017. Start / End Times Start Time: 840 End Time: [address] Ovalle History A 61-year-old with history of acute encephalopathy. Home Medication List Scheduled Buspirone Hcl (Buspirone Hcl), 10 MG PO BID Divalproex Sodium (Depakote Sprinkle), 500 MG PO QAM Divalproex Sodium (Depakote Sprinkles), 750 MG PO HS Folic Acid (Folvite), 1 MG PO DAILY Oxybutynin Chloride (Oxybutynin Chloride), 5 MG PO TID Potassium Chloride (K-Tabs), 20 MEQ PO BID Thiamine Hcl (Vitamin B-1), 100 MG PO QAM Venlafaxine HCl (Venlafaxine HCl), 75 MG BID Inpatient Medication List Current Inpatient Medications Medications (Trade) Dose Ordered Sig/Froylan Route Start Time Stop Time Status Last Admin Dose Admin Acetaminophen (Tylenol Tab) 650 mg Q4H PRN PO 03/10/17 17:15 04/09/17 17:14 Al Hydrox/Mg Hydrox/Simethicone (Maalox Max Susp) 15 ml Q4H PRN PO 03/10/17 17:15 04/09/17 17:14 Magnesium Hydroxide (Milk Of Magnesia Susp) 30 ml Q6H PRN PO 03/10/17 17:15 04/09/17 17:14 Polyethylene (Miralax Powder Packet) 17 gm DAILY PRN PO 03/10/17 17:15 04/09/17 17:14 Ondansetron HCl (Zofran Inj) 4 mg Q6H PRN IV 03/10/17 17:15 04/09/17 17:14 Divalproex Sodium (Depakote Sprinkle Cap) 500 mg QAM PO 03/11/17 08:00 04/10/17 08:59 03/13/17 08:13 500 MG Divalproex Sodium (Depakote Sprinkle Cap) 750 mg HS PO 03/10/17 21:00 04/09/17 20:59 03/12/17 19:56 750 MG Folic Acid (Folvite Tab) 1 mg DAILY PO 03/11/17 08:00 04/10/17 08:59 03/13/17 08:15 1 MG Oxybutynin Chloride (Ditropan Tab) 5 mg TID PO 03/10/17 20:00 04/09/17 20:59 03/13/17 08:14 5 MG Thiamine HCl (Vitamin B-1 Tab) 100 mg QAM PO 03/11/17 08:00 04/10/17 08:59 03/13/17 08:14 100 MG Venlafaxine HCl (effeXOR TAB) 75 mg BID PO 03/10/17 20:00 04/09/17 20:59 03/13/17 08:16 75 MG Buspirone HCl (Buspar Tab) 10 mg BID PO 03/10/17 20:00 04/09/17 20:59 03/13/17 08:15 10 MG Potassium Chloride (Klor-Con Tab) 20 meq BID PO 03/10/17 20:00 04/09/17 20:59 03/13/17 08:14 20 MEQ Miscellaneous (Iv Fluids Completed) 1 ea PRN PRN N/A 03/10/17 18:15 03/10/18 18:14 Enoxaparin Sodium (Lovenox Inj) 30 mg Q24H SQ 03/12/17 10:45 04/09/17 17:14 03/13/17 08:16 30 MG Enteral Nutritional Formula (Boost Pudding) 1 cup DAILY PO 03/14/17 08:00 04/13/17 07:59 Enteral Nutritional Formula (Boost) 1 can BID PO 03/13/17 20:00 04/12/17 19:59 Description This is a 21 electrode EEG with a single channel dedicated to limited EKG. The electrodes were placed in accordance with the International 10-20 system. Interpretation The predominant background activity consists of a somewhat irregular 8 hertz rhythm seen over the posterior head regions bilaterally spreading somewhat anteriorly bilaterally. This activity had some attenuation with eye opening and other alerting procedures. We moderate amount of muscle and movement artifact activity contaminant according in her interpretation from time to time, but not to any significant degree overall. Photic stimulation produced no change in the background activity and no driving response was noted. Hyperventilation was not performed on this bedside EEG. Throughout the recording was the presence of some irregular slower activity superimposed over the background activity in the frontal central head regions without any more specific focal abnormalities. No potentially epileptogenic discharges were seen. Patient in the drowsy state from time to time with no further activation. Overall, the study is mildly abnormal, showing some evidence of mild slowing bilaterally in the anterior 2/3 of the head, of a nonspecific nature. No potentially epileptogenic discharges were seen Clinical Correlation Abnormalities of this type generally correlate with a very mild to mild encephalopathy which could be due to wide variety of causes. Clinical correlation is required.
--- NOTE | 2017-03-13 12:35 | Psychiatric Consultation ---
Consultation Date of Consultation Mar 13, 2017. Identifying Data 61 yo female with medical history significant for HTN, hx of CVA in Mar 2016, is admitted medically with progressive weakness and confusion. Consult placed to evaluate depression. Information is gathered from the electronic medical record, the patient and her friend Lawrence who is at the bedside. Chief Complaint None stated History of Present Illness 61 yo with CVA in 2016 and bipolar disorder, currently in treatment with Dr. Jamaal Ellington. The patient was admitted medically in January and sent to [facility] for rehab. She was discharged the end of January, to home, and per her friend at the bedside, She has been progressively more confused and weak. Today she is seated in her bed, drinks coffee periodically during the interview. She is able to answer some questions with short sentences, but others only with yes or no. Today she knows that she is in the hospital, but thinks that its 2002, and cannot even guess at the month. Her friend says that he sees her as increasingly depressed at home, to which the patient says yes. She denies SI and denies aud/vis hallucinations. Her friend says that her appetite here in the hospital has been good. He says that he has tried to liken her condition to an athlete who has broken a bone. Its a temporary set back, with with therapy, will be able to get back to his sport. When asked if she believes this describes her she says yes. She last saw Dr. Ellington 03/03, medications confirmed with his OP notes. There are notes from her January admission that indicate she has been depressed for a long time, with not able to identify when she last had a good day. Past Psychiatric History Current OP Treatment: psychiatrist Prior OP Treatment: psychiatrist Prior Psych Hospitalizations: [facility] (decades ago) Access to a Gun: No Past Medical/Surgical History (1) Hypertension (2) Chronic GERD (3) Dysphagia (4) Hemorrhagic cerebrovascular accident (CVA) Allergies Allergies: Coded Allergies: POLLEN (Verified Allergy, Intermediate, PAST HX SEASONAL ALLERGIES/ASTHMA , 03/10/17) Home Medications Scheduled Buspirone Hcl (Buspirone Hcl), 10 MG PO BID Divalproex Sodium (Depakote Sprinkle), 500 MG PO QAM Divalproex Sodium (Depakote Sprinkles), 750 MG PO HS Folic Acid (Folvite), 1 MG PO DAILY Oxybutynin Chloride (Oxybutynin Chloride), 5 MG PO TID Potassium Chloride (K-Tabs), 20 MEQ PO BID Thiamine Hcl (Vitamin B-1), 100 MG PO QAM Venlafaxine HCl (Venlafaxine HCl), 75 MG BID Family History Diabetes mellitus Hypertension Lung cancer Alcohol Use Alcohol Use In Past 12 Months: No History of alcohol dependence, with previous mention of early vascular dementia. No current alcohol use. Smoking Use Smoking Status: Former Smoker Personal History Lives in: [place] with her Relationship History: (X 32 years) Children: one step son Legal History: none Review of Systems Unable to participate due to mental status, CVA Examination Physical Examination As per Echo Billings PA-C Vital Signs Vital Signs Past 12 Hours Date Time Temp Pulse Resp B/P (MAP) Pulse Ox O2 Delivery O2 Flow Rate FiO2 03/13/17 07:31 36.7 70 18 132/81 (98) 98 Room Air 03/13/17 00:07 36.9 81 20 124/76 (92) 95 Room Air 03/13/17 00:00 96 Room Air Laboratory Results Last 24 Hours Test 03/13/17 05:53 White Blood Count 7.37 K/uL Red Blood Count 3.36 M/uL Hemoglobin 10.3 g/dL Hematocrit 30.7 % Mean Corpuscular Volume 91.4 fL Mean Corpuscular Hemoglobin 30.7 pg Mean Corpuscular Hemoglobin Concent 33.6 g/dl RDW Standard Deviation 46.0 fL RDW Coefficient of Variation 13.7 % Platelet Count 164 K/uL Mean Platelet Volume 11.0 fL Sodium Level 140 mmol/L Potassium Level 3.7 mmol/L Chloride Level 102 mmol/L Carbon Dioxide Level 33 mmol/L Anion Gap 5.0 mmol/L Blood Urea Nitrogen 17 mg/dl Creatinine 0.52 mg/dl Est Creatinine Clear Calc Drug Dose 83.9 ml/min Estimated GFR () 117.9 Estimated GFR (Non- 101.7 BUN/Creatinine Ratio 33.3 Random Glucose 73 mg/dl Calcium Level 9.0 mg/dl Mental Examination During interview pt is: cooperative Appearance: appropriately dressed Eye contact is: fair Motor behavior is: other (rt side weakness) Speech: other (garbled and minimal) Affect: flat, other (with right facial droop) Mood is: depressed Thought process: goal directed Thought content: other (disorientation) Suicidal thought are: denied Homicidal thoughts are: denied Hallucinations: denies auditory, denies visual Cognition: other (all spheres impaired s/p CVA) Intelligence estimated to be: average Insight: limited Judgement: limited Impression / Recommendations Impression 61 yo woman s/p CVA in 2015, admitted with progressive weakness and confusion. Was in [facility] in January, discharged to home where she has not thrived. She admits to being depressed through yes no questions and is willing for medication adjustment. She is on Effexor IR because her meds need to be crushed and so will increase to 150 mg. AM and 75 mg. at 1700. She has a long history of alcohol dependence with mention of vascular dementia in the notes. Its difficult to tease how how much of her cognitive slowing and disorientation is related to depression versus effects of the stroke, versus chcf effects of alcohol. Her friend Lawrence says that she has regained some of the use of her right side, and given that she has not thrived at home, I wonder if referral back to SNF is appropriate. Recommendations (1) Bipolar disorder, now depressed 03/13 - Increase Effexor to 150 mg. AM and 75 mg. 1700 - Continue depakote. Level WNL, and ammonia WNL - Continue Buspar Reviewed with Dr. Bekah Couch
--- NOTE | 2017-03-13 13:00 | Discharge Instructions ---
Discharge Instructions Date of Service Mar 13, 2017. Admission Reason for Admission: Weakness Discharge Discharge Diagnosis / Problem: Weakness, dehydration Discharge Goals Goal(s): Decrease discomfort, Improve function, Increase independence, Improve disease control Activity Recommendations Activity Level: Assistance Required Therapies: Physical Therapy, Occupational Therapy, Speech Therapy Lifting Limitations: no more than 10 pounds, gradually increase as tolerated Exercise/Sports Limitations: gradually increase as tolerated Shower/Bathe: no limitations . Additional Information Patient informed of condition: Yes Advance Directives: Yes DNR: Yes Level of Care: Skilled Communicable Disease: No Prognosis: Stable Instructions / Follow-Up Instructions / Follow-Up You were admitted to [facility] with weakness and confusion and diagnosed with progressive weakness secondary to dehydration. During your stay here you were treated with intravenous fluids, supportive care and evaluated by neurology and psychiatry. There was no found infection causing encephalopathy. Changes in mental status are likely to wax and wane, and may be due to vascular dementia with history of strokes. Imaging studies which were completed include: CT of the head, and were abnormal showing multiple old strokes, but no new acute findings. An EEG was completed and showed mild to moderate nonspecific encephalopathy. Medications: - Increase Effexor to 150 mg QAM and 75 mg QPM - Continue taking other medications as directed - Drink one can of Boost twice daily, and eat one boost pudding daily Follow up: Follow up with your Primary Care Provider at [facility] within 24-48 hours of arrival there. Follow up with your psychiatrist, Dr. Ellington within 2 weeks to assess mood on increased dosage of Effexor. Follow up with neurology on an as needed basis. Current Hospital Diet Patient's current hospital diet: AHA Diet (Heart Healthy) Discharge Diet Recommended Diet: AHA Diet (Heart Healthy) Diet Texture: Pureed (blended smooth) Liquid Consistency: Pudding Thick Pending Studies Studies pending at discharge: no Physician Orders On Transfer Special Precautions: Silent aspiration, chronic- Use aspiration precautions. POLST Discussion: Not Applicable Laboratory Results Hemoglobin A1c Test 03/05/17 14:39 Range/Units Estimated Average Glucose 100 mg/dl Hemoglobin A1c 5.1 4.5-5.6 % Medical Emergencies . Who to Call and When: Medical Emergencies: If at any time you feel your situation is an emergency, please call 911 immediately. . Non-Emergent Contact Non-Emergency issues call your: Primary Care Provider Call Non-Emergent contact if: you have a fever, temperature is above 100.5, your pain is not controlled, your pain is worsening, your pain is unusual for you, your pain is concerning you, you have any medication questions other concerns with your health. Call 911 or go directly to the Emergency Department if you experience any of the following: Chest pain, chest tightness, shortness of breath, abdominal pain , lightheadedness, dizziness, gastrointestinal bleeding, or have any other concerns regarding your health. . Past History Medical & Surgical History: (1) Weakness (2) Failure to thrive (3) Encephalopathy (4) Dysphagia (5) Hypertension (6) Hemorrhagic cerebrovascular accident (CVA) (7) Chronic GERD (8) Bipolar disease, chronic . "Provider Documentation" section prepared by Echo Billings. --- Attending Attestation: Pt seen/examined, chart reviewed, and discharge care plan d/w LOUISE Billings. I agree with her discharge instructions as outlined. Jani Ovalle MD . Core Measure Problem Core Measures: None
[2017-03-13] MEDS ORDERED: EFF75 PO (13:35)
[2017-03-13] MEDS ORDERED: EFF50 PO (13:35)
[2017-03-13] MEDS ORDERED: NUTRMIS PO (13:35)
[2017-03-13] MEDS ORDERED: MRLP17X PO (13:35)
[2017-03-13] MEDS ORDERED: Enteral Nutrition Formula PO (13:35)
--- NOTE | 2017-03-13 13:52 | Discharge Summary ---
Discharge Summary Date of Service Mar 13, 2017. (Arely Billings PA-C) Discharge Summary Admission Date: Mar 11, 2017 at 19:10 Discharge Date: Mar 13, 2017 Discharge Disposition: jail facility ([facility]) Principal Diagnosis: Weakness, dehydration Immunizations: Have You Had Influenza Vaccine: No History of Tetanus Vaccine?: Yes History of Pneumococcal: No History of Hepatitis B Vaccine: No Procedures: CHEST 2 VIEWS ROUTINE CLINICAL HISTORY: Shortness of breath. Rales. COMPARISON STUDY: Chest radiograph March 10, 2017. FINDINGS: Lung volumes are normal. IVC filter is incidentally noted. No pneumothorax or pleural effusion is present. There is no evidence of pulmonary edema. Minimal left basilar opacity has developed since prior exam. IMPRESSION: Interval development of mild left basilar opacity. A small focus of pneumonia is favored although atelectasis could appear similar. Electronically signed by: Erick Castillo M.D. 03/13/2017 3:39 PM Dictated Date/Time: 03/13/2017 3:37 PM The status of this report is Signed. CHEST ONE VIEW PORTABLE CLINICAL HISTORY: 61 years-old Female presenting with weakness. TECHNIQUE: Portable upright AP view of the chest was obtained. COMPARISON: 01/12/2017. FINDINGS: Atherosclerosis of aortic arch. Normal cardiac silhouette. Lungs and pleural spaces clear. Osseous structures normal. Upper abdomen normal. IMPRESSION: 1. No acute cardiopulmonary disease. Electronically signed by: Kye Tidwell M.D. 03/10/2017 12:16 PM Dictated Date/Time: 03/10/2017 12:16 PM The status of this report is Signed. MRI OF THE BRAIN WITHOUT CONTRAST CLINICAL HISTORY: Weakness. History of stroke. Evaluate for acute stroke. COMPARISON STUDY: Head CT January 12, 2017 and MRI of the brain January 14, 2017. TECHNIQUE: Utilizing a 1.5 Rashmi magnet and dedicated coil, multiplanar, multiecho imaging of the brain was performed without IV contrast. FINDINGS: There are no foci of restricted diffusion to suggest acute infarct. No acute intracranial hemorrhage, midline shift or mass effect is present. Moderate ventricular dilatation is unchanged and likely due to atrophy. The basilar cisterns are patent. There are no extra-axial collections. The appearance of the brain is unchanged since MRI of January 14, 2017, including old infarcts within the left frontal and occipital lobes as well as the bilateral cerebellar hemispheres. There is an old hematoma within the left external capsule with calcifications which are better depicted on head CT of January 12, 2017. No intracranial masses identified on this unenhanced exam. Calvarial signal is normal. Orbits are unremarkable. There is trace fluid within the left mastoid air cells. This is unchanged. IMPRESSION: 1. No acute intracranial findings. 2. No change in appearance of the brain since MRI of January 14, 2017 with old infarcts within the left frontal and occipital lobes and the bilateral cerebellar hemispheres. Electronically signed by: Erick Castillo M.D. 03/11/2017 5:26 PM Dictated Date/Time: 03/11/2017 5:19 PM The status of this report is Signed. EEG 03/13/17 Description This is a 21 electrode EEG with a single channel dedicated to limited EKG. The electrodes were placed in accordance with the International 10-20 system. Interpretation The predominant background activity consists of a somewhat irregular 8 hertz rhythm seen over the posterior head regions bilaterally spreading somewhat anteriorly bilaterally. This activity had some attenuation with eye opening and other alerting procedures. We moderate amount of muscle and movement artifact activity contaminant according in her interpretation from time to time, but not to any significant degree overall. Photic stimulation produced no change in the background activity and no driving response was noted. Hyperventilation was not performed on this bedside EEG. Throughout the recording was the presence of some irregular slower activity superimposed over the background activity in the frontal central head regions without any more specific focal abnormalities. No potentially epileptogenic discharges were seen. Patient in the drowsy state from time to time with no further activation. Overall, the study is mildly abnormal, showing some evidence of mild slowing bilaterally in the anterior 2/3 of the head, of a nonspecific nature. No potentially epileptogenic discharges were seen Clinical Correlation Abnormalities of this type generally correlate with a very mild to mild encephalopathy which could be due to wide variety of causes. Clinical correlation is required. Consultations: Neurology Psychiatry (Arely Billings PA-C) Problems/Secondary Diagnoses: 1. suspicion of underlying vascular dementia 2. h/o hemorrhagic stroke 3. h/o other previous strokes 4. seizure disorder 5. h/o bipolar disorder 6. h/o previous heavy etoh use 7. dysphagia with prior h/o aspiration 8. urinary incontinence 9. recurrent UTIs (Jani Ovalle MD) Medication Reconciliation New Medications: Nutritional Supplements (Boost Pudding) 1 Mis Mis 1 CUP PO DAILY for 30 Days, #30 DOSE Polyethylene (Miralax) 17 Gm Pow 17 GM PO DAILY PRN for Constipation for 30 Days, #30 DOSE Venlafaxine HCl (Venlafaxine HCl) 50 Mg Tab 150 MG PO QAM for 30 Days, #90 TAB Venlafaxine Hcl (Effexor) 75 Mg Tab 75 MG PO QPM for 30 Days, #30 TAB [Enteral Nutrition Formula] () 1 CAN LIQD 1 CAN PO BID for 30 Days, #60 DOSE Continued Medications: Buspirone Hcl (Buspirone Hcl) 10 Mg Tab 10 MG PO BID Divalproex Sodium (Depakote Sprinkle) 125 Mg Cap 500 MG PO QAM, CAP Divalproex Sodium (Depakote Sprinkles) 125 Mg Cap 750 MG PO HS Folic Acid (Folvite) 1 Mg Tab 1 MG PO DAILY, TAB Oxybutynin Chloride (Oxybutynin Chloride) 5 Mg Tab 5 MG PO TID Potassium Chloride (K-Tabs) 10 Meq Tab 20 MEQ PO BID Thiamine Hcl (Vitamin B-1) 100 Mg Tab 100 MG PO QAM, TAB Discontinued Medications: Venlafaxine HCl (Venlafaxine HCl) 50 Mg Tab 75 MG BID Discharge Exam The patient was seen and examined this morning. Pt provides minimal ROS. She has no pain, no fever/chills, no abd complaints, no chest pain, sob. She is sitting up being fed lunch by family friend, Shad. Her nose sounds congested although she does not admit nor deny drainage, pain, cough, sputum production. When asked orientation questions, pt is largely unable to answer. After repeating question of location several times she barely says "far away from home". Other orientation questions not answered. She appears same as yesterday. ROS: 6 point ROS reviewed as above, otherwise negative. PE: General Appearance: WD/WN, no apparent distress, + thin, + pertinent finding ( smiles occasionally, affect mostly flat, speaks minimally but clear) Eyes: PERRL, EOMI ENT: hearing grossly normal, pharynx normal, + pertinent finding (mucous membranes moist) Neck: supple, no JVD Respiratory/Chest: + faint rales at left base, no respiratory distress, no accessory muscle use Cardiovascular: regular rate, rhythm, no JVD, no murmur Abdomen: normal bowel sounds, non tender, soft Extremities: non-tender, no pedal edema, no calf tenderness 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: alert, + disoriented, + pertinent finding (flat affect , follows commands, strength is 5/5 BUE, and 3/5 in LLE and 4/5 in RLE. ) Skin: normal color, warm/dry (Arely Blilings, HEATHER) Hospital Course History of Present Illness Source: patient, spouse, clinic records, hospital records This is a 61 y/o female with a history of CVA, HTN, anemia, bipolar disorder, anxiety and GERD who presented to the ED on 03/10 with worsening weakness and confusion. Unable to obtain much meaningful/reliable ROS from patient due to mental status. History obtained largely from who is at bedside. The patient had been hospitalized in January and then discharged to [facility] for rehab. She was discharged from rehab in late January and since returning home has had progressive weakness. Over the last week the has noticed a more rapid decline in her strength and increased confusion. The notes that she has presented this way in the past when she had UTIs. He denies any fevers, chills, or sweats at home or any urinary symptoms. He does note malodorous urine recently but states that is not uncommon for her. The patient was seen by her PCP on 03/05 where a UA and urine culture were drawn. The urine culture was negative. Physical Exam Vital Signs Date Time Temp Pulse Resp B/P (MAP) Pulse Ox O2 Delivery O2 Flow Rate FiO2 03/10/17 16:52 90 03/10/17 16:28 87 18 97 Room Air 03/10/17 14:13 92 20 141/79 96 Room Air 03/10/17 12:52 83 18 152/93 96 Room Air 03/10/17 12:21 86 03/10/17 11:16 36.5 94 16 139/92 96 Room Air General appearance: +Thin, appears chronically ill. No apparent distress Head: Normocephalic, atraumatic Eyes: +Exam limited by pt condition. Normal inspection, PERRL ENT: +Dry oral mucosa. Normal ENT inspection, hearing grossly normal, pharynx normal Neck: Supple, no JVD, trachea midline Respiratory/Chest: +Decreased breath sounds throughout, poor respiratory effort. Lungs clear to auscultation, no respiratory distress Cardiovascular: Regular rate & rhythm, no gallop, no murmur Abdomen/GI: Normal bowel sounds, non-tender, soft Extremities/Musculoskeletal: Normal inspection, no calf tenderness, no pedal edema Neurological/Psych: +Exam limited by pt condition. She does not easily follow commands and does not answer orientation questions. Pt was only able to tell me her first name. Disoriented. Flat affect. 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 Weakness / dehydration / Increased confusion FTT - Received IVFs during admit - tolerating good oral intake per EMR, likely does not eat very though at baseline with FTT. - UA appears ok, UCx NGTD, BCx NGTD prelim - Pt was given vancomycin and cefepime in the ER - Ammonia wnl - B12 elevated due to supplementation, folate ok. - Depakote level adequate at 78 - PT/OT evaluate and treat - Continue boost drink BID and pudding daily Hx of Seizure disorder Bipolar disorder ? Type I vs Type II - Continue buspirone 10mg by mouth BID and venlafaxine 75 mg by mouth BID - Continue Depakote delayed 500 mg QAM and 750 mg QPM - This is reduced from her previous admission. - Checked depakote level which was therapeutic at 78. - Follows with Dr. Tate as an outpatient - no true studies showing improvement in vascular dementia with Namenda so wont start this. - EEG 03/13 was obtained showing moderated encephalopathy but no seizure activity. Hx of heavy alcohol use - Cont multivitamin, Vit B complex, thiamine 100 mg daily and folic acid 1 mg daily Silent aspiration, chronic - Speech therapy to evaluate - continue at SNF - PT/OT on board - continue at SNF - Add incentive spirometry and flutter to keep airways open. - Faint rales in LLL on exam, CXR obtained- showing LLL possible pneumonia vs atelectasis. Pt is afebrile, no WBC, 98% on RA. No antibiotic for now as this is likely atelectasis. Discussed results with LEROY Bernard supervisor finishing room of [facility] on floor pt is going to. Also faxed a copy of the report. Recurrent UTI - Recently was placed on macrobid 100 mg BID x 5 days on 03/05 by Lola Reyna , finished course per family friend. Incontinence/ Bladder spasm - continue oxybutynin chloride 5 mg by mouth TID CODE STATUS: DNR Disposition: From home, discharge today to [facility], [facility] complete. Total Time Spent: Greater than 30 minutes This includes examination of the patient, discharge planning, medication reconciliation, and communication with other providers. (Arely Billings, HEATHER) Attending Attestation: Pt seen/examined, chart reviewed, discharge care plan d/w LOUISE Billings. I agree w/ the graham components of her discharge summary. 61yo female with history of recurrent strokes including a large hemorrhagic stroke in 2016, previous ICH requiring adriana hole evacuation in the early , bipolar disorder, and question of underlying dementia who presented with questionable change in baseline mental status as well as failure to thrive. Her told the admitting physician he could no longer adequately care for her at his home. During her stay multiple causes of altered mental status were checked including labs (ammonia, b12, tsh, etc), MRI brain, and EEG all of which did not show any acute pathology. Urine culture was negative. EEG did not show seizure spikes. MRI brain showed multiple old strokes but no new stroke. A cxr on day of discharge showed a very tiny area of infiltrate in the LLL but she had no other signs/symptoms of pneumonia and thus antibiotics were deferred. My suspicion is that the patient has some element of baseline vascular dementia due to her numerous prior strokes and brain injuries. Recommend referral to neurology to further work this up. At discharge the patient is alert but only oriented to person. She is incontinent of bowel/bladder at baseline. She is being discharged to SNF at time of discharge. Discharge exam: gen - NAD, slow responses to questions face - right sided droop mouth - MMM heart - RRR, s1, s2 lungs - LLL rales otherwise cta b/l abd - soft, NT, ND, BS+, no HSM ext - no edema neuro - mild right-sided hemiparesis Jani Ovalle MD (Jani Ovalle MD) Discharge Instructions Please refer to the electronic Patient Visit Report (Discharge Instructions) for additional information. (Arely Billings, HEATHER) Follow-Up Follow up with your Primary Care Provider at [facility] within 24-48 hours of arrival there. Follow up with your psychiatrist, Dr. Ellington within 2 weeks to assess mood on increased dosage of Effexor. Follow up with neurology on an as needed basis. (Arely Billings, WILFREDC)
[2017-03-13 14:04] VITALS: BP 132/81; PULSE 70; TEMP 36.7; O2SAT 98
--- NOTE | 2017-03-13 15:40 | DIAGNOSTIC IMAGING REPORT ---
CHEST 2 VIEWS ROUTINE CLINICAL HISTORY: Shortness of breath. Rales. COMPARISON STUDY: Chest radiograph March 10, 2017. FINDINGS: Lung volumes are normal. IVC filter is incidentally noted. No pneumothorax or pleural effusion is present. There is no evidence of pulmonary edema. Minimal left basilar opacity has developed since prior exam. IMPRESSION: Interval development of mild left basilar opacity. A small focus of pneumonia is favored although atelectasis could appear similar. Electronically signed by: Erick Castillo M.D. 03/13/2017 3:39 PM Dictated Date/Time: 03/13/2017 3:37 PM
[2017-03-13] MEDS ORDERED: VENLAFAXINE HCL 37.5 MG TAB PO SCH (17:00)
[2017-03-13] MEDS ORDERED: BOOST VANILLA PO SCH ×4 (20:00)
[2017-03-14] MEDS ORDERED: VENLAFAXINE HCL 50 MG TAB PO SCH (08:00)
[2017-03-14] MEDS ORDERED: BOOST VANILLA PUDDING CUP PO SCH (08:00)
== END 2017-03-13 15:33 | DRG 884 ==
LOC: C.EDB 11:14 → C.MS4W 17:24 → ENRESERV 18:09 → OBSVTOIN 03-11 19:10
PROVIDERS: ADMIT Internal Medicine; ATTEND Internal Medicine
DX: F01.50 Vascular dementia, unspecified severity, without behavioral disturbance, psychotic disturbance, mood disturbance, and anxiety (principal); G93.40 Encephalopathy, unspecified; I69.351 Hemiplegia and hemiparesis following cerebral infarction affecting right dominant side; F31.81 Bipolar II disorder; R64 Cachexia; Z68.1 Body mass index [BMI] 19.9 or less, adult; R53.1 Weakness; E86.0 Dehydration; I69.391 Dysphagia following cerebral infarction; I69.319 Unspecified symptoms and signs involving cognitive functions following cerebral infarction; G40.909 Epilepsy, unspecified, not intractable, without status epilepticus; R32 Unspecified urinary incontinence; N32.81 Overactive bladder; I10 Essential (primary) hypertension; F41.9 Anxiety disorder, unspecified; E11.9 Type 2 diabetes mellitus without complications; F10.21 Alcohol dependence, in remission; Z51.81 Encounter for therapeutic drug level monitoring; Z79.899 Other long term (current) drug therapy; Z66 Do not resuscitate; Z87.440 Personal history of urinary (tract) infections; Z86.718 Personal history of other venous thrombosis and embolism; Z95.828 Presence of other vascular implants and grafts; Z87.891 Personal history of nicotine dependence; Z83.3 Family history of diabetes mellitus; Z82.49 Family history of ischemic heart disease and other diseases of the circulatory system; Z80.1 Family history of malignant neoplasm of trachea, bronchus and lung

== ENCOUNTER → 2017-05-31 | Outpatient (CLI) | payer OTHER ==
[~2017-05-31] MED LIST changes: +AMLO-110 PO; +ASPI81TA28 PO; +CIPR-255 PO; -EFF50; +EFF50 PO; +Enteral Nutrition Formula PO; -FOLI1TAB7 PO; +FOLI1TAB8 PO; +MRLP17X PO; +NUTRMIS PO; +SENN-61 PO; +VENL75CA73 PO
[2017-05-31 14:44] LABS: URINE APPEARANCE CLEAR (CLEAR); URINE BILIRUBIN NEG (NEG); URINE COLOR YELLOW; URINE EPITHELIAL CELL AUTO >30 /lpf (0-5); URINE NITRITE NEG (NEG); URINE PH 7.5 (4.5-7.5); URINE SPECIFIC GRAVITY 1.022 (1.000-1.030); UROBILINOGEN NEG (NEG); ZZUR CULT IF INDIC CLEAN CATCH NO
[2017-05-31 14:46] LABS: MANUAL MICROSCOPIC REQUIRED? NO; REVIEW REQ? NO
== END | disposition home or self-care (01) ==
LOC: C.LAB 14:23
PROVIDERS: ATTEND Physician Assistant
DX: R35.0 Frequency of micturition (principal)

== ENCOUNTER 2017-06-04 12:53 | Emergency (ER) | payer OTHER ==
[~2017-06-04 12:53] MED LIST changes: -AMLO-110 PO; -ASPI81TA28 PO; -SENN-61 PO; -VENL75CA73 PO
[2017-06-04] MEDS ORDERED: AMLO-110 PO (13:20)
[2017-06-04] MEDS ORDERED: SENN-61 PO (13:20)
[2017-06-04] MEDS ORDERED: VENL75CA73 PO (13:20)
[2017-06-04] MEDS ORDERED: ASPI81TA28 PO (13:20)
[2017-06-04] MEDS ORDERED: ONDANSETRON INJ 2 MG/ML 2 ML VIAL IV STA (13:33)
[2017-06-04] MEDS ORDERED: ACETAMINOPHEN 500 MG TAB PO STA (13:33)
[2017-06-04] MEDS ORDERED: SODIUM CHLORIDE 0.9% 1000ML 1,000 ML IV STA (13:33)
--- NOTE | 2017-06-04 13:33 | EMERGENCY ROOM VISIT NOTE ---
History Report prepared by Zheng: Breana Maier Under the Supervision of: Dr. Santosh Rendon M.D. First contact with patient: 13:23 Chief Complaint: WEAKNESS Stated Complaint: WEAKNESS, PREVIOUS STROKE IN 03/2016, NO APPETITE History of Present Illness The patient is a 61 year old female with a past medical history of bipolar disease, GERD, dysphagia, CVA, and hypertension who presents to the ED with a cc of worsening generalized weakness beginning 6 days ago. Positive abdominal pain and right sided deficits, noting the patient has difficulty moving her right side. Negative swallowing, appetite, and recent bowel movements. The patient's states that the patient is able to talk, but has been hard to understand for the past week. Her states she was started on Cipro for a UTI. Source of History: patient, family (patient's ) Onset: 6 days ago Position: other (global) Quality: other (generalized weakness) Timing: worsening Associated Symptoms: + abdominal pain Review of Systems See HPI for pertinent positives and negatives. A total of ten systems were reviewed and were otherwise negative. Past Medical & Surgical Medical Problems: (1) Bipolar disease, chronic (2) Bipolar disorder, now depressed (3) Chronic GERD (4) Dysphagia (5) Elevated troponin (6) Encephalopathy (7) Head trauma (8) Hemorrhagic cerebrovascular accident (CVA) (9) Hypertension (10) Weakness Family History Diabetes mellitus Hypertension Lung cancer Social History Smoking Status: Former Smoker Drug Use: none Marital Status: Housing Status: lives with family Occupation Status: disabled Current/Historical Medications Scheduled Amlodipine (Norvasc), 5 MG PO DAILY Aspirin (Aspirin Ec), 81 MG PO DAILY Buspirone Hcl (Buspirone Hcl), 10 MG PO BID Ciprofloxacin Hcl (Cipro), 500 MG PO BID Divalproex Sodium (Depakote Sprinkle), 500 MG PO QAM Divalproex Sodium (Depakote Sprinkles), 750 MG PO HS Folic Acid (Folvite), 1 MG PO DAILY Oxybutynin Chloride (Oxybutynin Chloride), 5 MG PO TID Potassium Chloride (K-Tabs), 20 MEQ PO BID Senna (Senokot), 1 TAB PO DAILY Thiamine Hcl (Vitamin B-1), 100 MG PO QAM Venlafaxine Hcl (Venlafaxine Extended Rel), 2 CAP PO DAILY Allergies Coded Allergies: POLLEN (Verified Allergy, Intermediate, PAST HX SEASONAL ALLERGIES/ASTHMA , 06/04/17) Physical Exam Vital Signs Date Time Temp Pulse Resp B/P (MAP) Pulse Ox O2 Delivery O2 Flow Rate FiO2 06/04/17 19:04 87 16 145/93 100 Room Air 06/04/17 18:19 95 16 166/95 100 Room Air 06/04/17 17:42 99 06/04/17 16:45 100 16 143/125 98 Room Air 06/04/17 14:58 72 16 154/96 98 Room Air 06/04/17 13:48 36.9 108 22 149/82 95 Room Air 06/04/17 13:24 136 06/04/17 12:57 36.9 140 22 155/112 95 Room Air Physical Exam GENERAL: A & O x2, follows commands. HENT: Normocephalic, atraumatic. EYES: Occasionally able to finger count, EOMI. Normal conjunctiva. Sclera non- icteric. NECK: Supple. No nuchal rigidity. FROM. RESPIRATORY: CTAB, no rhonchi, wheezing, crackles CARDIAC: tachycardic rate, regular rhythm, no MRG ABDOMEN: Soft, NTND, BS+ MSK: No chest wall TTP, no LE edema NEURO: GCS 15, dysarthria present, moves all 4s on command but contracted RUE and R sided weakness SKIN: No rash or jaundice noted. Medical Decision & Procedures ER Provider Diagnostic Interpretation: Radiology results as stated below per my review and radiologist interpretation: ABD/PELVIS IV CONTRAST ONLY CLINICAL HISTORY: 61 years-old Female presenting with tachy, poor historian, no BM in some time, abdominal pain, weakness, no appetite. TECHNIQUE: Multidetector CT of the abdomen and pelvis was performed after the administration of intravenous contrast. IV contrast: 93 mL of Optiray 320. A dose lowering technique was used consistent with the principles of ALARA (as low as reasonably achievable). COMPARISON: CT of the abdomen from 2005. CT DOSE (mGy.cm): The estimated cumulative dose is 257.50 mGy.cm. 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 Lung bases: Minimal basilar opacities, likely atelectasis. Normal heart size. No pericardial or pleural effusion. Liver: Normal morphology. No liver lesion. Patent hepatic vasculature. Biliary: No intrahepatic or extrahepatic biliary ductal dilatation. Normal gallbladder. Pancreas: Normal. Spleen: Normal. Adrenal glands: Normal. Kidneys and ureters: Well-defined hypodensity in the left kidney likely stable cyst. Relative hypoperfusion of the left kidney in comparison to the right, which is of uncertain etiology, possibly a vascular phenomenon related to arterial inflow stenosis at the proximal left renal artery (series 3 image 106). No hydronephrosis. No nephrolithiasis. Ureters normal. Bladder: Mild circumference of bladder wall thickening. Pelvic organs: Uterus normal. The left ovary is somewhat prominent for the patient's postmenopausal status (series 3 image 257). Bowel: Moderate stool burden throughout normal caliber colon. The appendix is not visualized though no inflammatory changes noted in the right lower quadrant. No bowel obstruction. Peritoneal cavity: No free fluid or intraperitoneal gas. Lymph nodes: No enlarged lymph nodes in the abdomen or pelvis. Vasculature: Atherosclerosis of the normal caliber abdominal aorta. 2 IVC filters are in place, one at the level of the left renal vein and one below the level of the renal veins. The IVC appears patent. Several of the tines of the more inferior IVC filter are extraluminal, unchanged since 2006. No thrombus in the pelvic veins to the level of the femoral vessels. Abdominal wall: Normal. Musculoskeletal: Osteopenia. IMPRESSION: 1. Moderate stool burden compatible with constipation. No bowel obstruction. 2. Prominent left ovary, which is somewhat unexpected for the patient's postmenopausal status. If there is clinical concern, this be better evaluated with pelvic ultrasound. 3. Stable appearance of the IVC filters. 4. Osteopenia. Electronically signed by: Kye Tidwell M.D. 06/04/2017 2:53 PM Dictated Date/Time: 06/04/2017 2:44 PM CHEST ONE VIEW PORTABLE CLINICAL HISTORY: ABDOMINAL PAIN/GI COMPARISON STUDY: 03/13/2017 FINDINGS: The bones soft tissues and hemidiaphragms are normal. The cardiomediastinal silhouette is normal. The lungs are clear. The pulmonary vasculature is normal. The left lung bases now considered clear compared to the prior exam IMPRESSION: Negative chest. The above report was generated using voice recognition software. It may contain grammatical, syntax or spelling errors. Electronically signed by: William Colmenares M.D. 06/04/2017 2:02 PM Dictated Date/Time: 06/04/2017 1:59 PM Laboratory Results 06/04/17 13:45 Red Blood Count 4.46, Mean Corpuscular Volume 90.6, Mean Corpuscular Hemoglobin 30.0, Mean Corpuscular Hemoglobin Concent 33.2, Mean Platelet Volume 11.7, Neutrophils (%) (Auto) 70.9, Lymphocytes (%) (Auto) 18.9, Monocytes (%) (Auto) 9.1, Eosinophils (%) (Auto) 0.5, Basophils (%) (Auto) 0.3, Neutrophils # (Auto) 9.31, Lymphocytes # (Auto) 2.48, Monocytes # (Auto) 1.19, Eosinophils # (Auto) 0.06, Basophils # (Auto) 0.04 06/04/17 13:45 Test 06/04/17 13:45 06/04/17 13:50 06/04/17 14:30 White Blood Count 13.12 K/uL (4.8-10.8) Red Blood Count 4.46 M/uL (4.2-5.4) Hemoglobin 13.4 g/dL (12.0-16.0) Hematocrit 40.4 % (37-47) Mean Corpuscular Volume 90.6 fL (80-100) Mean Corpuscular Hemoglobin 30.0 pg (25-34) Mean Corpuscular Hemoglobin Concent 33.2 g/dl (32-36) Platelet Count 263 K/uL (130-400) Mean Platelet Volume 11.7 fL (7.4-10.4) Neutrophils (%) (Auto) 70.9 % Lymphocytes (%) (Auto) 18.9 % Monocytes (%) (Auto) 9.1 % Eosinophils (%) (Auto) 0.5 % Basophils (%) (Auto) 0.3 % Neutrophils # (Auto) 9.31 K/uL (1.4-6.5) Lymphocytes # (Auto) 2.48 K/uL (1.2-3.4) Monocytes # (Auto) 1.19 K/uL (0.11-0.59) Eosinophils # (Auto) 0.06 K/uL (0-0.5) Basophils # (Auto) 0.04 K/uL (0-0.2) RDW Standard Deviation 46.6 fL (36.4-46.3) RDW Coefficient of Variation 14.1 % (11.5-14.5) Immature Granulocyte % (Auto) 0.3 % Immature Granulocyte # (Auto) 0.04 K/uL (0.00-0.02) Anion Gap 8.0 mmol/L (3-11) Estimated GFR () 95.2 Estimated GFR (Non- 82.2 BUN/Creatinine Ratio 34.6 (10-20) Lactic Acid Level 1.2 mmol/L (0.4-2.0) Calcium Level 9.8 mg/dl (8.5-10.1) Total Bilirubin 0.3 mg/dl (0.2-1) Direct Bilirubin < 0.1 mg/dl (0-0.2) Aspartate Amino Transf (AST/SGOT) 15 U/L (15-37) Alanine Aminotransferase (ALT/SGPT) 18 U/L (12-78) Alkaline Phosphatase 69 U/L (45-117) Troponin I < 0.015 ng/ml (0-0.045) Total Protein 8.1 gm/dl (6.4-8.2) Albumin 3.5 gm/dl (3.4-5.0) Lipase 83 U/L (73-393) Venous Blood pH 7.32 (7.36-7.41) Venous Blood Partial Pressure CO2 50 mmHg (38.0-50.0) Venous Blood Partial Pressure O2 30 mmHg Venous Blood HCO3 25 mmol/L Venous Blood Oxygen Saturation < 60.0 % Venous Blood Base Excess -1.5 mEq/L Urine Color YELLOW Urine Appearance CLEAR (CLEAR) Urine pH 7.0 (4.5-7.5) Urine Specific [place] 1.012 (1.000-1.030) Urine Protein NEG (NEG) Urine Glucose (UA) NEG (NEG) Urine Ketones TRACE (NEG) Urine Occult Blood NEG (NEG) Urine Nitrite NEG (NEG) Urine Bilirubin NEG (NEG) Urine Urobilinogen NEG (NEG) Urine Leukocyte Esterase NEG (NEG) Laboratory results reviewed by me Medications Administered Medications (Trade) Dose Ordered Sig/Froylan Route Start Time Stop Time Status Last Admin Dose Admin Sodium Chloride 1,000 ml @ 999 mls/hr Q1H1M STAT IV 06/04/17 13:33 06/04/17 14:33 DC 06/04/17 14:08 999 MLS/HR Ondansetron HCl (Zofran Inj) 4 mg NOW STAT IV 06/04/17 13:33 06/04/17 13:35 DC 06/04/17 14:08 4 MG Acetaminophen (Tylenol Tab) 1,000 mg NOW STAT PO 06/04/17 13:33 06/04/17 13:35 DC 06/04/17 14:08 1,000 MG Sodium Chloride 500 ml @ 999 mls/hr Q31M STAT IV 06/04/17 14:18 06/04/17 14:48 DC 06/04/17 14:18 999 MLS/HR ECG Indication: weakness Rate (beats per minute): 133 Rhythm: sinus tachycardia Findings: other (normal interval, mild depression in lateral lanes ) ED Course 1327: The patient was evaluated in room B12. A complete history and physical exam was performed. 1449: I reevaluated the patient, who was resting comfortably. I discussed the test findings with her and her . They verbalized complete understanding and agreement. 1648: I reevaluated the patient. Discussed results and discharge instructions: The patient and her verbalized understanding and agreement. The patient is ready for discharge. Medical Decision The patient is a 61 year old female with a past medical history of bipolar disease, GERD, dysphagia, CVA, and hypertension who presents to the ED with a cc of worsening generalized weakness beginning 6 days ago. Differential diagnosis: Etiologies such as metabolic, infection, hypo/hyperglycemia, electrolyte abnormalities, cardiac sources, intracerebral event, toxicologic, neurologic, as well as others were entertained. Patient seen and evaluated at bedside. Generalized weakness. Prior h/o of CVA. Patient w/ noted tachycardia but other VSS. Blood work completed along w/ CXR, CT, EKG. Patient EKG w/ sinus tach and trace depressions however believe it was rate related as tachycardia resolved w/ IVF. Patient trop neg. Patient UA neg. CXR neg acute for infection. BUN/creat ratio elevated consistent w/ dehydration and tachycardia resolved w/ IVF. CT w/ stool burden. There was prominent L ovary. Told to f/u as outpatient. Patient tolerated PO. Given resources for care at home. Told to increased fluid hydration at home and given tips for checking BP. Patient looking improved. Safe for outpatient f/u, trx, and d/c. Given strict f/u, d/c, and return instructions. D/c'ed to home. Medication Reconcilliation Current Medication List: was personally reviewed by me Blood Pressure Screening Patient's blood pressure: Elevated blood pressure Blood pressure disposition: Referred to PCP Impression Primary Impression: Dehydration Additional Impression: Tachycardia Scribe Attestation The scribe's documentation has been prepared under my direction and personally reviewed by me in its entirety. I confirm that the note above accurately reflects all work, treatment, procedures, and medical decision making performed by me. Departure Information Dispostion Home / Self-Care Referrals RV. Delgado MD (PCP) Forms HOME CARE DOCUMENTATION FORM, IMPORTANT VISIT INFORMATION Patient Instructions ED Dehydration, My [facility] Additional Instructions Please return to the emergency department if you have worsening or recurrent symptoms not amenable to at-home treatment. Please call for a follow-up appointment with her primary care physician. Please take your medications as prescribed. If you have other concerns and/or complaints please feel free to also call your primary care physician's office or return the ED for further evaluation, management, and treatment. Continue ample fluid hydration. Please avoid things like caffeinated beverages and alcohol. Please follow-up with your primary care physician. Our case management team will help arrange an appointment that hopefully will be sooner than your previously scheduled appointment. Take your medications as prescribed. You have been examined and treated today on an emergency basis only. This is not a substitute for, or an effort to provide, complete comprehensive medical care. It is impossible to recognize and treat all injuries or illnesses in a single emergency department visit. It is therefore important that you follow up closely with [facility], your PCP, and/or your specialist(s). Call as soon as possible for an appointment. Thank you for your time and consideration. I look forward to speaking with you again soon. Please don't hesitate to call us if you have any questions. Problem Qualifiers
[2017-06-04] MEDS ORDERED: OPTIRAY 320 IV PRN (13:45)
[2017-06-04 13:48] VITALS: TEMP 36.9
[2017-06-04 14:04] LABS: BASO % 0.3 %; BASO ABS # 0.04 K/uL (0-0.2); COMPLETE YES; EOS % 0.5 %; HEMATOCRIT 40.4 % (37-47); IG% 0.3 %; LYMPH % 18.9 %; LYMPH ABS # 2.48 K/uL (1.2-3.4); MEAN CELL VOLUME 90.6 fL (80-100); MEAN CORPUSCULAR HGB CONC 33.2 g/dl (32-36); MEAN PLATELET VOLUME 11.7 fL (7.4-10.4); MONO % 9.1 %; NEUT % 70.9 %; PLATELET COUNT 263 K/uL (130-400); RED BLOOD COUNT 4.46 M/uL (4.2-5.4); WHITE BLOOD COUNT 13.12 K/uL (4.8-10.8)
--- NOTE | 2017-06-04 14:04 | DIAGNOSTIC IMAGING REPORT ---
CHEST ONE VIEW PORTABLE CLINICAL HISTORY: ABDOMINAL PAIN/GI COMPARISON STUDY: 03/13/2017 FINDINGS: The bones soft tissues and hemidiaphragms are normal. The cardiomediastinal silhouette is normal. The lungs are clear. The pulmonary vasculature is normal. The left lung bases now considered clear compared to the prior exam IMPRESSION: Negative chest. The above report was generated using voice recognition software. It may contain grammatical, syntax or spelling errors. Electronically signed by: William Colmenares M.D. 06/04/2017 2:02 PM Dictated Date/Time: 06/04/2017 1:59 PM
[2017-06-04 14:09] LABS: ALT/SGPT 18 U/L (12-78); BLOOD UREA NITROGEN 27 mg/dl (7-18); BUN/CREATININE RATIO 34.6 (10-20); CALCIUM 9.8 mg/dl (8.5-10.1); CARBON DIOXIDE 26 mmol/L (21-32); CHLORIDE 106 mmol/L (98-107); CREATININE 0.77 mg/dl (0.60-1.20); GLUCOSE 144 mg/dl (70-99); POTASSIUM 3.6 mmol/L (3.5-5.1); SODIUM 140 mmol/L (136-145)
[2017-06-04 14:12] LABS: ALKALINE PHOSPHATASE 69 U/L (45-117); AST/SGOT 15 U/L (15-37)
[2017-06-04] MEDS ORDERED: SODIUM CHLORIDE 0.9% 500ML 500 ML IV STA (14:18)
--- NOTE | 2017-06-04 14:54 | DIAGNOSTIC IMAGING REPORT ---
ABD/PELVIS IV CONTRAST ONLY CLINICAL HISTORY: 61 years-old Female presenting with tachy, poor historian, no BM in some time, abdominal pain, weakness, no appetite. TECHNIQUE: Multidetector CT of the abdomen and pelvis was performed after the administration of intravenous contrast. IV contrast: 93 mL of Optiray 320. A dose lowering technique was used consistent with the principles of ALARA (as low as reasonably achievable). COMPARISON: CT of the abdomen from 2006. CT DOSE (mGy.cm): The estimated cumulative dose is 257.50 mGy.cm. 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 Lung bases: Minimal basilar opacities, likely atelectasis. Normal heart size. No pericardial or pleural effusion. Liver: Normal morphology. No liver lesion. Patent hepatic vasculature. Biliary: No intrahepatic or extrahepatic biliary ductal dilatation. Normal gallbladder. Pancreas: Normal. Spleen: Normal. Adrenal glands: Normal. Kidneys and ureters: Well-defined hypodensity in the left kidney likely stable cyst. Relative hypoperfusion of the left kidney in comparison to the right, which is of uncertain etiology, possibly a vascular phenomenon related to arterial inflow stenosis at the proximal left renal artery (series 3 image 106). No hydronephrosis. No nephrolithiasis. Ureters normal. Bladder: Mild circumference of bladder wall thickening. Pelvic organs: Uterus normal. The left ovary is somewhat prominent for the patient's postmenopausal status (series 3 image 257). Bowel: Moderate stool burden throughout normal caliber colon. The appendix is not visualized though no inflammatory changes noted in the right lower quadrant. No bowel obstruction. Peritoneal cavity: No free fluid or intraperitoneal gas. Lymph nodes: No enlarged lymph nodes in the abdomen or pelvis. Vasculature: Atherosclerosis of the normal caliber abdominal aorta. 2 IVC filters are in place, one at the level of the left renal vein and one below the level of the renal veins. The IVC appears patent. Several of the tines of the more inferior IVC filter are extraluminal, unchanged since 2006. No thrombus in the pelvic veins to the level of the femoral vessels. Abdominal wall: Normal. Musculoskeletal: Osteopenia. IMPRESSION: 1. Moderate stool burden compatible with constipation. No bowel obstruction. 2. Prominent left ovary, which is somewhat unexpected for the patient's postmenopausal status. If there is clinical concern, this be better evaluated with pelvic ultrasound. 3. Stable appearance of the IVC filters. 4. Osteopenia. Electronically signed by: Kye Tidwell M.D. 06/04/2017 2:53 PM Dictated Date/Time: 06/04/2017 2:44 PM
[2017-06-04 15:01] LABS: VEN BLOOD GAS BASE EXCESS -1.5 mEq/L; VENOUS BLOOD GAS PCO2 50 mmHg (38.0-50.0); VENOUS BLOOD GAS PO2 30 mmHg
[2017-06-04 15:02] LABS: VEN BLD GAS O2 SATURATION < 60.0 %
[2017-06-04 17:48] LABS: URINE APPEARANCE CLEAR (CLEAR); URINE BILIRUBIN NEG (NEG); URINE COLOR YELLOW; URINE NITRITE NEG (NEG); URINE SPECIFIC GRAVITY 1.012 (1.000-1.030); UROBILINOGEN NEG (NEG); ZZURINE CULT IF INDIC CATH NO
[2017-06-04 17:49] LABS: MANUAL MICROSCOPIC REQUIRED? NO; REVIEW REQ? NO
[2017-06-04 19:04] VITALS: BP 145/93; PULSE 87; O2SAT 100
== END 2017-06-04 19:28 | disposition home or self-care (01) ==
LOC: C.EDB 12:56
DX: E86.0 Dehydration (principal); R00.0 Tachycardia, unspecified; R10.9 Unspecified abdominal pain; I69.359 Hemiplegia and hemiparesis following cerebral infarction affecting unspecified side; I69.391 Dysphagia following cerebral infarction; F31.9 Bipolar disorder, unspecified; K21.9 Gastro-esophageal reflux disease without esophagitis; I10 Essential (primary) hypertension; G93.40 Encephalopathy, unspecified; Z79.82 Long term (current) use of aspirin; Z87.891 Personal history of nicotine dependence; Z83.3 Family history of diabetes mellitus; Z82.49 Family history of ischemic heart disease and other diseases of the circulatory system; Z80.1 Family history of malignant neoplasm of trachea, bronchus and lung

== ENCOUNTER 2017-07-07 08:51 | Inpatient (IN) | payer OTHER ==
[~2017-07-07] VITALS: Ht 157.5 cm; Wt 48.0 kg
[~2017-07-07 08:51] MED LIST changes: +AMLO-110 PO; +ASPI81TA28 PO; +DIVA125C8 PO; -EFF50 PO; -Enteral Nutrition Formula PO; -MRLP17X PO; -NUTRMIS PO; +SENN-61 PO; +VENL75CA73 PO; -[UNRECOGNIZED DRUG - CODE] PO
[2017-07-07] MEDS ORDERED: FESO8TAB PO (09:53)
[2017-07-07] MEDS ORDERED: SODIUM CHLORIDE 0.9% 1000ML 1,000 ML IV STA (09:55)
--- NOTE | 2017-07-07 10:17 | DIAGNOSTIC IMAGING REPORT ---
CHEST ONE VIEW PORTABLE CLINICAL HISTORY: 61 years-old Female presenting with EVALUATE ALTERED MENTAL STATUS/WEAKNESS. TECHNIQUE: Portable upright AP view of the chest was obtained. COMPARISON: 06/04/2017. FINDINGS: Atherosclerosis of the aortic arch. Cardiac silhouette normal in size. Surgical or biopsy clip again projects over the right hilum. Lungs and pleural spaces clear. Scoliotic curvature of the thoracic spine. Partial visualization of an IVC filter. Subtle deformities of several right lateral ribs could suggest prior fractures, which are age-indeterminate. IMPRESSION: 1. No acute cardiopulmonary disease. Electronically signed by: Kye Tidwell M.D. 07/07/2017 10:15 AM Dictated Date/Time: 07/07/2017 10:13 AM
--- NOTE | 2017-07-07 10:19 | EMERGENCY ROOM VISIT NOTE ---
History Report prepared by Zheng: So Mead Under the Supervision of: Dr. Juanjo Caraballo M.D. First contact with patient: 09:39 Chief Complaint: WEAKNESS Stated Complaint: WEAK Nursing Triage Summary: Pt arrives POV accompanied by who reports decreased appetite, generalized weakness, pt not even answering yes/no. reports pt has been like this x 1 week. Reports hx of stroke in 2016. Upon arrival to room B4B pt did state her name, but is not answering any other questions. History of Present Illness The patient is a 61 year old female who presents to the Emergency Room with complaints of worsening weakness beginning a couple weeks ago. Per , the patient has not been eating or drinking and has had increased confusion. He states the patient has not had any vomiting, fever, or diarrhea. The patient has not had a bowel movement since , 4 days ago. Per , the patient has "not been acting like herself". The patient has a history of stroke in 2016 which effected the strength on her right side. At baseline, the patient is unable to walk by herself. Per , the patient is able to go to the bathroom and stand by herself since her stroke. The patient's reports she has not been able to stand or go to the bathroom by herself over the past couple weeks. Per , the patient has not been complaining of anything. The patient was seen in the ED in May for dehydration. Per , the patient's symptoms today are similar to how she was in May. Source of History: spouse/significant other Onset: a couple weeks ago Position: other (generalized ) Quality: other (weakness) Timing: worsening Associated Symptoms: + weakness, No fevers, No vomiting, No diarrhea Review of Systems See HPI for pertinent positives & negatives. A total of 10 systems reviewed and were otherwise negative. Past Medical & Surgical Medical Problems: (1) Bipolar disease, chronic (2) Bipolar disorder, now depressed (3) Chronic GERD (4) Dysphagia (5) Elevated troponin (6) Encephalopathy (7) Head trauma (8) Hemorrhagic cerebrovascular accident (CVA) (9) Hypertension (10) Weakness Family History Diabetes mellitus Hypertension Lung cancer Social History Smoking Status: Former Smoker Drug Use: none Marital Status: Housing Status: lives with family Occupation Status: disabled Current/Historical Medications Scheduled Amlodipine (Norvasc), 5 MG PO DAILY Aspirin (Aspirin Ec), 81 MG PO DAILY Buspirone Hcl (Buspirone Hcl), 10 MG PO BID Divalproex Sodium (Depakote Sprinkle), 500 MG PO QAM Divalproex Sodium (Depakote Sprinkles), 750 MG PO HS Fesoterodine Fumarate (Toviaz), 8 MG PO DAILY Folic Acid (Folvite), 1 MG PO DAILY Potassium Chloride (K-Tabs), 20 MEQ PO BID Senna (Senokot), 1 TAB PO DAILY Thiamine Hcl (Vitamin B-1), 100 MG PO QAM Venlafaxine Hcl (Venlafaxine Extended Rel), 2 CAP PO DAILY Allergies Coded Allergies: POLLEN (Verified Allergy, Intermediate, PAST HX SEASONAL ALLERGIES/ASTHMA , 07/07/17) Physical Exam Vital Signs Date Time Temp Pulse Resp B/P (MAP) Pulse Ox O2 Delivery O2 Flow Rate FiO2 07/07/17 12:59 97 18 131/85 99 Room Air 07/07/17 12:28 99 07/07/17 12:13 103 17 148/91 97 Room Air 07/07/17 10:19 104 18 144/103 99 Room Air 07/07/17 09:09 Room Air 07/07/17 09:08 105 07/07/17 08:54 36.4 76 20 140/92 98 Room Air Physical Exam GENERAL: Patient is in no acute distress. HEENT: No acute trauma, normocephalic atraumatic, mucous membranes moist, no nasal congestion, no scleral icterus. NECK: No stridor, no adenopathy, no meningismus, trachea is midline. LUNGS: Clear to auscultation bilaterally, no wheeze, no rhonchi, breath sounds equal. HEART: Tachycardic with regular rhythm, no murmurs. ABDOMEN: Soft, nontender, bowel sounds positive, no hernias, no peritonitis. EXTREMITIES: No cyanosis or edema, full range of motion of all the joints without pain or difficulty, no signs for acute trauma. NEUROLOGIC: Awake and seems alert, basically nonverbal, doesn't seem to respond to questioning, seems to stare, no obvious focal motor deficits. SKIN: No rash, no jaundice, no diaphoresis. Medical Decision & Procedures ER Provider Diagnostic Interpretation: Radiology results as stated below per my review and radiologist interpretation: CHEST ONE VIEW PORTABLE FINDINGS: Atherosclerosis of the aortic arch. Cardiac silhouette normal in size. Surgical or biopsy clip again projects over the right hilum. Lungs and pleural spaces clear. Scoliotic curvature of the thoracic spine. Partial visualization of an IVC filter. Subtle deformities of several right lateral ribs could suggest prior fractures, which are age-indeterminate. IMPRESSION: 1. No acute cardiopulmonary disease. Electronically signed by: Kye Tidwell M.D. CT SCAN OF THE BRAIN WITHOUT IV CONTRAST FINDINGS: Brain parenchyma: There are age-related involutional changes noting mild to moderate subcortical and periventricular microangiopathic change. Foci of left frontal, left parietal, and left occipital encephalomalacia are consistent with remote infarcts. Chronic lacunar infarcts are identified within the cerebellar hemispheres and the left thalamus. Linear calcification along the course of the left external capsule is similar to previous. There is no hemorrhage, mass effect, or evidence of acute territorial ischemia by CT criteria. Molina-white matter is preserved. No extra-axial fluid collection is seen. Ventricles, sulci, cisterns: Prominent secondary to involutional change. Intracranial vasculature: There is atherosclerotic calcification of the cavernous carotid arteries. Calvarium: Unremarkable. Sinuses and mastoids: Postoperative change is noted in the maxillary antra. The visualized paranasal sinuses are clear. The mastoid air cells are well pneumatized. Orbits: The bony orbits are grossly intact. IMPRESSION: Senescent changes and chronic infarcts as above. There is no hemorrhage, mass effect, or evidence of acute territorial ischemia by CT criteria. Electronically signed by: Juanjo Torrez M.D. Laboratory Results 07/07/17 09:15 Red Blood Count 4.75, Mean Corpuscular Volume 89.5, Mean Corpuscular Hemoglobin 30.1, Mean Corpuscular Hemoglobin Concent 33.6, Mean Platelet Volume 10.5, Neutrophils (%) (Auto) 78.5, Lymphocytes (%) (Auto) 15.1, Monocytes (%) (Auto) 5.5, Eosinophils (%) (Auto) 0.3, Basophils (%) (Auto) 0.2, Neutrophils # (Auto) 9.21, Lymphocytes # (Auto) 1.78, Monocytes # (Auto) 0.65, Eosinophils # (Auto) 0.04, Basophils # (Auto) 0.02 07/07/17 09:15 Test 07/07/17 09:15 07/07/17 09:33 White Blood Count 11.75 K/uL (4.8-10.8) Red Blood Count 4.75 M/uL (4.2-5.4) Hemoglobin 14.3 g/dL (12.0-16.0) Hematocrit 42.5 % (37-47) Mean Corpuscular Volume 89.5 fL (80-100) Mean Corpuscular Hemoglobin 30.1 pg (25-34) Mean Corpuscular Hemoglobin Concent 33.6 g/dl (32-36) Platelet Count 217 K/uL (130-400) Mean Platelet Volume 10.5 fL (7.4-10.4) Neutrophils (%) (Auto) 78.5 % Lymphocytes (%) (Auto) 15.1 % Monocytes (%) (Auto) 5.5 % Eosinophils (%) (Auto) 0.3 % Basophils (%) (Auto) 0.2 % Neutrophils # (Auto) 9.21 K/uL (1.4-6.5) Lymphocytes # (Auto) 1.78 K/uL (1.2-3.4) Monocytes # (Auto) 0.65 K/uL (0.11-0.59) Eosinophils # (Auto) 0.04 K/uL (0-0.5) Basophils # (Auto) 0.02 K/uL (0-0.2) RDW Standard Deviation 47.0 fL (36.4-46.3) RDW Coefficient of Variation 14.3 % (11.5-14.5) Immature Granulocyte % (Auto) 0.4 % Immature Granulocyte # (Auto) 0.05 K/uL (0.00-0.02) Prothrombin Time 11.4 SECONDS (9.0-12.0) Prothromb Time International Ratio 1.1 (0.9-1.1) Activated Partial Thromboplast Time 28.9 SECONDS (21.0-31.0) Partial Thromboplastin Ratio 1.1 Anion Gap 10.0 mmol/L (3-11) Estimated GFR () 87.0 Estimated GFR (Non- 75.0 BUN/Creatinine Ratio 17.7 (10-20) Calcium Level 9.5 mg/dl (8.5-10.1) Magnesium Level 1.7 mg/dl (1.8-2.4) Total Bilirubin 0.2 mg/dl (0.2-1) Aspartate Amino Transf (AST/SGOT) 14 U/L (15-37) Alanine Aminotransferase (ALT/SGPT) 14 U/L (12-78) Alkaline Phosphatase 71 U/L (45-117) Troponin I < 0.015 ng/ml (0-0.045) Total Protein 8.3 gm/dl (6.4-8.2) Albumin 3.2 gm/dl (3.4-5.0) Globulin 5.1 gm/dl (2.5-4.0) Albumin/Globulin Ratio 0.6 (0.9-2) Thyroid Stimulating Hormone (TSH) 3.660 uIu/ml (0.300-4.500) Valproic Acid (Depakene) Level 117 mcg/ml (50-100) Urine Color YELLOW Urine Appearance CLEAR (CLEAR) Urine pH 7.0 (4.5-7.5) Urine Specific Elkins 1.018 (1.000-1.030) Urine Protein NEG (NEG) Urine Glucose (UA) NEG (NEG) Urine Ketones TRACE (NEG) Urine Occult Blood TRACE (NEG) Urine Nitrite NEG (NEG) Urine Bilirubin NEG (NEG) Urine Urobilinogen NEG (NEG) Urine Leukocyte Esterase NEG (NEG) Urine WBC (Auto) 1-5 /hpf (0-5) Urine RBC (Auto) 5-10 /hpf (0-4) Urine Hyaline Casts (Auto) 1-5 /lpf (0-5) Urine Epithelial Cells (Auto) >30 /lpf (0-5) Urine Bacteria (Auto) NEG (NEG) Laboratory results reviewed by me. Medications Administered Medications (Trade) Dose Ordered Sig/Froylan Route Start Time Stop Time Status Last Admin Dose Admin Sodium Chloride 1,000 ml @ 999 mls/hr Q1H1M STAT IV 07/07/17 09:55 07/07/17 10:55 DC 07/07/17 10:15 999 MLS/HR Magnesium Sulfate (Magnesium Sulfate) 2 gm NOW STAT IV 07/07/17 11:42 07/07/17 11:43 DC 07/07/17 11:52 2 GM ECG Indication: weakness Rate (beats per minute): 104 Rhythm: sinus tachycardia Findings: no acute ischemic change, no ectopy Change: EKG interpreted by me. ED Course 0953: The patient was evaluated in room B4B. A complete history and physical exam was performed. 0955: Ordered Sodium Chloride 1000 ml @ 999 mls/hr IV. 1142: Ordered Magnesium Sulfate 2 gm IV. 1330: I updated the patients on her test results. He would like us to test her strength. 1342: Talked to case management about the patient's case. They will talk to the about his options. 1359: Discussed the patient's case with Dr. Rhodes. The patient will be evaluated for further management. Medical Decision Differential diagnoses: stroke, dehydration, electrolyte imbalance, anemia, CO, UTI, viral illness. There is a mild leukocytosis, this could be consistent with infection or the stress of her situation. No worrisome anemia. The patient's magnesium is slightly low, no kidney failure, no hepatitis. The patient appears to be in a euthyroid state. Urinalysis does not show evidence for infection. Brain CT shows chronic findings, no acute bleed or mass effect. Chest film does not show pneumonia or CHF. Valproic acid level was toxic at over 100. The patient received IV saline, IV magnesium. She is still quite weak and cannot stand on her own. Her cannot care for her like this. I did have the patient seen by case management, a hospital stay was recommended as the local rehabilitation facilities were full. I spoke to the patient's , I talked with the pillowcase sewer. The on-call hospitalist was consulted. I suspect the weakness is multifactorial. I think she is dehydrated, her magnesium is low, she has a high valproic acid level. She in addition is quite debilitated. Medication Reconcilliation Current Medication List: was personally reviewed by me Blood Pressure Screening Patient's blood pressure: Elevated blood pressure Blood pressure disposition: Elevated BP felt to be situational Consults Time Called: [id number] Consulting Physician: Dr. Rhodes Returned Call: [phone] Discussed the patient's case with Dr. Rhodes. The patient will be evaluated for further management. Impression Primary Impression: Weakness Additional Impressions: Dehydration Hypomagnesemia Valproic acid toxicity Scribe Attestation The scribe's documentation has been prepared under my direction and personally reviewed by me in its entirety. I confirm that the note above accurately reflects all work, treatment, procedures, and medical decision making performed by me. Departure Information Dispostion Being Evaluated By Hospitalist Referrals RV. Delgado MD (PCP) Patient Instructions My [facility] Problem Qualifiers
--- NOTE | 2017-07-07 10:31 | DIAGNOSTIC IMAGING REPORT ---
CT SCAN OF THE BRAIN WITHOUT IV CONTRAST CLINICAL HISTORY: Change in mental status. Weakness. COMPARISON STUDY: CT of the brain dated 01/12/2017. MRI of the brain dated 03/11/2017. TECHNIQUE: Unenhanced axial CT scan of the brain is performed from the vertex to the skull base. A dose lowering technique was utilized adhering to the principles of ALARA. CT DOSE: 537.48 mGy.cm FINDINGS: Brain parenchyma: There are age-related involutional changes noting mild to moderate subcortical and periventricular microangiopathic change. Foci of left frontal, left parietal, and left occipital encephalomalacia are consistent with remote infarcts. Chronic lacunar infarcts are identified within the cerebellar hemispheres and the left thalamus. Linear calcification along the course of the left external capsule is similar to previous. There is no hemorrhage, mass effect, or evidence of acute territorial ischemia by CT criteria. Molina-white matter is preserved. No extra-axial fluid collection is seen. Ventricles, sulci, cisterns: Prominent secondary to involutional change. Intracranial vasculature: There is atherosclerotic calcification of the cavernous carotid arteries. Calvarium: Unremarkable. Sinuses and mastoids: Postoperative change is noted in the maxillary antra. The visualized paranasal sinuses are clear. The mastoid air cells are well pneumatized. Orbits: The bony orbits are grossly intact. IMPRESSION: Senescent changes and chronic infarcts as above. There is no hemorrhage, mass effect, or evidence of acute territorial ischemia by CT criteria. Electronically signed by: Juanjo Torrez M.D. 07/07/2017 10:30 AM Dictated Date/Time: 07/07/2017 10:27 AM
[2017-07-07 11:04] LABS: BASO % 0.2 %; BASO ABS # 0.02 K/uL (0-0.2); EOS % 0.3 %; EOS ABS # 0.04 K/uL (0-0.5); HEMATOCRIT 42.5 % (37-47); HEMOGLOBIN 14.3 g/dL (12.0-16.0); IG# 0.05 K/uL (0.00-0.02); LYMPH % 15.1 %; LYMPH ABS # 1.78 K/uL (1.2-3.4); MEAN CELL VOLUME 89.5 fL (80-100); MEAN CORPUSCULAR HEMOGLOBIN 30.1 pg (25-34); MEAN CORPUSCULAR HGB CONC 33.6 g/dl (32-36); MEAN PLATELET VOLUME 10.5 fL (7.4-10.4); MONO % 5.5 %; MONO ABS # 0.65 K/uL (0.11-0.59); NEUT % 78.5 %; NEUT ABS # 9.21 K/uL (1.4-6.5); PLATELET COUNT 217 K/uL (130-400); RED CELL DISTRIBUTION WIDTH CV 14.3 % (11.5-14.5); WHITE BLOOD COUNT 11.75 K/uL (4.8-10.8)
[2017-07-07 11:13] LABS: INR 1.1 (0.9-1.1); PTT PATIENT 28.9 SECONDS (21.0-31.0)
[2017-07-07 11:14] LABS: ALBUMIN 3.2 gm/dl (3.4-5.0); ALT/SGPT 14 U/L (12-78); AST/SGOT 14 U/L (15-37); BLOOD UREA NITROGEN 15 mg/dl (7-18); CALCIUM 9.5 mg/dl (8.5-10.1); CARBON DIOXIDE 27 mmol/L (21-32); CREATININE 0.83 mg/dl (0.60-1.20); GLUCOSE 154 mg/dl (70-99); POTASSIUM 4.6 mmol/L (3.5-5.1); SODIUM 135 mmol/L (136-145)
[2017-07-07 11:24] LABS: ALKALINE PHOSPHATASE 71 U/L (45-117); TOTAL PROTEIN 8.3 gm/dl (6.4-8.2)
[2017-07-07] MEDS ORDERED: MAGNESIUM SULFATE 1GM / D5W 1 GM BAG IV STA (11:42)
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
[2017-07-07] MEDS ORDERED: POLYETHYLENE (MIRALAX) 17 GM PACK PO ONE (14:59)
[2017-07-07] MEDS ORDERED: ONDANSETRON INJ 2 MG/ML 2 ML VIAL IV PRN (15:00)
[2017-07-07] MEDS ORDERED: ACETAMINOPHEN 325 MG TAB PO PRN (15:00)
[2017-07-07 15:44] VITALS: O2SAT 97
[2017-07-07 17:15] VITALS: BP 127/85; PULSE 92; TEMP 36.6; O2SAT 98
[2017-07-07 17:31] LABS: INFLUENZA B ANTIGEN Neg for Influ B (NEG)
[2017-07-07] MEDS: SODIUM CHLORIDE 0.9% 1000ML 1,000 ML IV SCH (17:44)
[2017-07-07 18:00] VITALS: O2SAT 98
[2017-07-07] MEDS: HEPARIN SOD 5000 UNIT/0.5 ML CARP SQ SCH (18:28)
[2017-07-07] MEDS: POTASSIUM CHLORIDE 20 MEQ TABCR PO SCH (20:35)
[2017-07-08] VITALS (7 sets, daily range): BP systolic 112–136; BP diastolic 74–84; PULSE 74–88; TEMP 36.4–37.2; O2SAT 92–100; Ht 157.5 cm; Wt 48.0 kg
[2017-07-08] MEDS: SODIUM CHLORIDE 0.9% 1000ML 1,000 ML IV SCH ×2 (05:35→17:43)
[2017-07-08] MEDS: HEPARIN SOD 5000 UNIT/0.5 ML CARP SQ SCH ×2 (05:54→18:17)
[2017-07-08 07:42] LABS: BLOOD UREA NITROGEN 11 mg/dl (7-18); CALCIUM 8.6 mg/dl (8.5-10.1); CARBON DIOXIDE 28 mmol/L (21-32); CREATININE 0.52 mg/dl (0.60-1.20); GLUCOSE 77 mg/dl (70-99); POTASSIUM 3.8 mmol/L (3.5-5.1); SODIUM 137 mmol/L (136-145)
[2017-07-08] MEDS: ASPIRIN 81 MG ECTAB PO SCH (08:44)
[2017-07-08] MEDS: AMLODIPINE BESYLATE 5 MG TAB PO SCH (08:45)
[2017-07-08] MEDS: THIAMINE HCL 100 MG TAB PO SCH (08:45)
[2017-07-08] MEDS: VENLAFAXINE HCL XR 150 MG CAPXR PO SCH (08:45)
[2017-07-08] MEDS: SENNA 8.6 MG TAB PO SCH (08:46)
[2017-07-08] MEDS: POTASSIUM CHLORIDE 20 MEQ TABCR PO SCH ×2 (08:46→20:24)
[2017-07-08] MEDS: POLYETHYLENE (MIRALAX) 17 GM PACK PO SCH (08:47)
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
--- NOTE | 2017-07-08 10:05 | Clinical Documentation Query ---
CLINICAL DOCUMENTATION QUERY Dr. ONOFRE, In your clinical opinion is this patient being managed for: ( x) Toxic encephalopathy due to depakote toxicity ( ) Not Agree ( ) Other explanation of clinical findings (Please Explain) ( ) Unable to determine (Please Define) ( ) Need to Discuss The medical record reflects the following clinical findings, treatment, and risk factors. Clinical Indicators: 61 yo female presenting with increasing confusion, anorexia and weakness. Found to have depakote toxicity. Depakote level > 100 but now trending down. Initially nonverbal. Subsequent progress notes indicate pt awake and alert and answering simple questions. Treatment: hold depakote, monitor depakote levels, pending neurology consult Risk Factors: depakote toxicity, vascular dementia Please clarify and document your clinical opinion in the progress notes and discharge summary. Terms such as "probable", "suspected", "likely", "questionable", "possible", or "still to be ruled out" are acceptable. IF IN AGREEMENT, YOU MUST DOCUMENT ABOVE DIAGNOSTIC STATEMENT IN DAILY PROGRESS NOTES AND DISCHARGE SUMMARY. This document is not part of the patient's record. Thank You, Suze Wall, DAVID [phone]
--- NOTE | 2017-07-08 12:44 | Neurology Consultation ---
Neurology Consultation Date of Consultation: Jul 08, 2017. Attending Physician: George Oh MD, PhD Primary Care Physician: RV. Delgado MD Reason for Consultation: Depakote toxicity History of Present Illness Source: hospital records The patient is a 61-year-old female with a history of hemorrhagic left basal ganglia stroke occurring in 2016 likely due to hypertension. Her history is also notable for bipolar disorder and alcohol abuse. She has followed with Dr. Tate for monitoring of her neurological status following her stroke and has been noted to have some persistent problems with aphasia, dysarthria, and right hemiparesis. The patient presented to the hospital yesterday with generalized weakness probably related to dehydration and poor appetite. She was noted to be less talkative than usual as well in spite of her baseline aphasia. The patient reportedly has exhibited similar symptoms that were felt to be due to dehydration last month. A CT of the head revealed chronic infarcts involving the left frontal, left parietal, and left occipital regions as well as old infarcts within the left basal ganglia and cerebellum. No evidence of hemorrhage or acute process. A valproic acid level was 117 yesterday. Her Depakote was held. Today, her valproic acid level is 66. This patient's Depakote is managed by her psychiatrist. It is prescribed for her bipolar disorder. Past Medical/Surgical History Medical Problems: (1) Altered mental status Status: Acute (2) Dehydration Status: Acute (3) Dehydration Status: Acute (4) Dehydration Status: Acute (5) Failure to thrive Status: Acute (6) Failure to thrive Status: Acute (7) Hypomagnesemia Status: Acute (8) Orthostatic hypotension Status: Acute (9) UTI (urinary tract infection) Status: Acute (10) UTI (urinary tract infection) Status: Acute (11) Valproic acid toxicity Status: Acute (12) Weakness Status: Acute Family History Noncontributory Social History Alcohol Use: previous, none now Drug Use: none Marital Status: Housing Status: lives with family Occupation Status: disabled (worked at [employer] years ago) Allergies Coded Allergies: POLLEN (Verified Allergy, Intermediate, PAST HX SEASONAL ALLERGIES/ASTHMA , 07/07/17) Current Inpatient Medications Current Inpatient Medications Medications (Trade) Dose Ordered Sig/Froylan Route Start Time Stop Time Status Last Admin Dose Admin Acetaminophen (Tylenol Tab) 650 mg Q4H PRN PO 07/07/17 15:00 08/06/17 14:59 Polyethylene (Miralax Powder Packet) 17 gm DAILY PO 07/08/17 08:00 08/07/17 08:59 07/08/17 08:47 17 GM Ondansetron HCl (Zofran Inj) 4 mg Q6H PRN IV 07/07/17 15:00 08/06/17 14:59 Heparin Sodium (Porcine) (Heparin Sq 5000 Unit/0.5ml) 5,000 unit Q12H SQ 07/07/17 18:00 08/06/17 17:59 07/08/17 05:54 5,000 UNIT Amlodipine Besylate (Norvasc Tab) 5 mg DAILY PO 07/08/17 08:00 08/07/17 08:59 07/08/17 08:45 5 MG Aspirin (Ecotrin Tab) 81 mg DAILY PO 07/08/17 08:00 08/07/17 08:59 07/08/17 08:44 81 MG Folic Acid (Folvite Tab) 1 mg DAILY PO 07/08/17 08:00 08/07/17 08:59 07/08/17 08:45 1 MG Senna (Senokot Tab) 17.2 mg DAILY PO 07/08/17 08:00 08/07/17 08:59 07/08/17 08:46 17.2 MG Thiamine HCl (Vitamin B-1 Tab) 100 mg QAM PO 07/08/17 08:00 08/07/17 08:59 07/08/17 08:45 100 MG Venlafaxine HCl (effeXOR EXTENDED REL CAP) 150 mg DAILY PO 07/08/17 08:00 08/07/17 08:59 07/08/17 08:45 150 MG Buspirone HCl (Buspar Tab) 10 mg BID PO 07/07/17 20:00 08/06/17 20:59 07/08/17 08:46 10 MG Potassium Chloride (Klor-Con Tab) 20 meq BID PO 07/07/17 20:00 08/06/17 20:59 07/08/17 08:46 20 MEQ Sodium Chloride 1,000 ml @ 80 mls/hr [id number] IV 07/07/17 15:00 08/06/17 14:59 07/08/17 05:35 80 MLS/HR Megestrol Acetate (Megace Susp) 400 mg QAM PO 07/09/17 08:00 08/08/17 07:59 Review of Systems The patient is poorly interactive and does not answer questions adequately or reliably and is unable to provide a reliable review of systems. Physical Exam Vital Signs (Past 24 Hrs): Date Time Temp Pulse Resp B/P (MAP) Pulse Ox O2 Delivery O2 Flow Rate FiO2 07/08/17 08:30 100 Room Air 07/08/17 07:50 36.5 74 17 135/83 (100) 100 Room Air 07/08/17 00:24 36.4 85 16 136/84 (101) 99 Room Air 07/08/17 00:00 Room Air 07/07/17 18:00 98 Room Air 07/07/17 17:15 36.6 92 20 127/85 (99) 98 Room Air 07/07/17 16:51 93 16 138/86 97 Room Air 07/07/17 15:49 96 16 145/100 93 Room Air 07/07/17 15:44 97 Room Air 07/07/17 12:59 97 18 131/85 99 Room Air 07/07/17 12:28 99 07/07/17 12:13 103 17 148/91 97 Room Air The patient is a thin elderly female. She is lying quietly in bed. The patient is alert. She does not answer questions pertaining to orientation. Memory cannot be assessed. Attention is impaired. Concentration impaired but cannot be reliably assessed. Fund of knowledge cannot be assessed. Patient is able to follow simple commands within the context of her limited attention span. Visual mccormick full to confrontation. Visual acuity intact. Pupils equal round reactive to light and accommodation. Eye movements intact. No nystagmus. Facial sensation intact. There is no facial droop or facial weakness. Hearing intact bilaterally. Palate elevates to midline. Shoulder shrug strength intact bilaterally. Tongue protrudes to midline. Sensation grossly intact to light touch, temperature, vibration, and proprioception for all 4 limbs within the limits of patient's impaired attention. Deep tendon reflexes are relatively increased for the right arm and leg. Plantar responses upgoing on the right, silent on the left. Patient is not cooperate for testing of coordination of the arms or legs. Ophthalmoscopic examination reveals normal-appearing optic disks and posterior segments. No papilledema or hemorrhages. Carotid pulses normal bilaterally, no bruits to auscultation. Gait and station cannot be tested. Muscle strength cannot be reliably tested due to poor patient cooperation area did she does move both upper extremities minimally and is able to grab the bed sheets with both hands. She is able to open and close the hands to command but does so quite slowly. Muscle tone seems to be normal for the arms and legs. She does not cooperate for strength testing of either lower limb. There is no atrophy. No tremors or other abnormal movements are observed. Laboratory Results Past 24 Hours: 07/08/17 06:56 Test 07/07/17 16:30 07/07/17 17:36 07/08/17 06:56 Influenza Type A Antigen Neg for Influ A (NEG) Influenza Type B Antigen Neg for Influ B (NEG) Ammonia < 10.0 umol/L (11-32) Anion Gap 6.0 mmol/L (3-11) Estimated GFR () 117.9 Estimated GFR (Non- 101.7 BUN/Creatinine Ratio 22.1 (10-20) Calcium Level 8.6 mg/dl (8.5-10.1) Magnesium Level 1.8 mg/dl (1.8-2.4) Prealbumin 20.0 mg/dl (20-40) Valproic Acid (Depakene) Level 66 mcg/ml (50-100) Impression Encephalopathy which appears to be consistent with a "quiet delirium." Contributing factors likely include her history of multiple strokes affecting primarily the dominant hemisphere and Depakote toxicity. I agree that she probably has an element of vascular dementia at baseline. Also, her valproic acid level was a bit elevated. Therefore, chronic low level Depakote toxicity is also possible. Plan Continue to hold this patient's Depakote. Observe for improvement in her encephalopathy. This patient's Depakote is prescribed for bipolar disorder and managed by her psychiatrist. It may be best to have input from psychiatry regarding either restarting a lower dose of Depakote or possibly switching to an alternative medication for mood stabilization. Please contact me if I may be of further assistance
[2017-07-08] MEDS: BOOST VANILLA PO SCH (17:00)
[2017-07-09] MEDS: SODIUM CHLORIDE 0.9% 1000ML 1,000 ML IV SCH (05:32)
[2017-07-09] MEDS: HEPARIN SOD 5000 UNIT/0.5 ML CARP SQ SCH ×3 (05:37→20:53)
[2017-07-09 07:19] VITALS: BP 129/80; PULSE 80; TEMP 36.3; O2SAT 95
[2017-07-09] MEDS: BOOST VANILLA PO SCH ×3 (08:00→18:09)
[2017-07-09] MEDS: ASPIRIN 81 MG ECTAB PO SCH (08:25)
[2017-07-09] MEDS: AMLODIPINE BESYLATE 5 MG TAB PO SCH (08:25)
[2017-07-09] MEDS: SENNA 8.6 MG TAB PO SCH (08:26)
[2017-07-09] MEDS: MEGESTROL ACETATE SUSP 400 MG/10 ML UDC PO SCH (08:26)
[2017-07-09] MEDS: POTASSIUM CHLORIDE 20 MEQ TABCR PO SCH ×2 (08:26→20:49)
[2017-07-09] MEDS: THIAMINE HCL 100 MG TAB PO SCH (08:27)
[2017-07-09] MEDS: POLYETHYLENE (MIRALAX) 17 GM PACK PO SCH (08:27)
[2017-07-09 08:34] VITALS: O2SAT 95
[2017-07-09 08:37] LABS: ALBUMIN 2.3 gm/dl (3.4-5.0); ALT/SGPT 13 U/L (12-78); BLOOD UREA NITROGEN 11 mg/dl (7-18); CALCIUM 8.6 mg/dl (8.5-10.1); CARBON DIOXIDE 27 mmol/L (21-32); CREATININE 0.46 mg/dl (0.60-1.20); GLUCOSE 78 mg/dl (70-99); POTASSIUM 3.8 mmol/L (3.5-5.1); SODIUM 135 mmol/L (136-145)
[2017-07-09 08:42] LABS: ALKALINE PHOSPHATASE 50 U/L (45-117); AST/SGOT 15 U/L (15-37); TOTAL PROTEIN 6.1 gm/dl (6.4-8.2)
[2017-07-09] MEDS: VENLAFAXINE HCL XR 150 MG CAPXR PO SCH (09:18)
[2017-07-09 15:00] VITALS: BP 116/77; PULSE 93; TEMP 36.8; O2SAT 96
[2017-07-09 16:00] VITALS: O2SAT 96
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
[2017-07-09] MEDS: DIVALPROEX SODIUM SPRINKLE 125 MG CAP PO SCH (20:49)
[2017-07-09 22:59] VITALS: BP 150/57; PULSE 80; TEMP 36.7; O2SAT 99
[2017-07-10 07:46] VITALS: BP 137/82; PULSE 75; TEMP 36.8; O2SAT 98
[2017-07-10 08:45] VITALS: O2SAT 100
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
[2017-07-10] MEDS: MEGESTROL ACETATE SUSP 400 MG/10 ML UDC PO SCH (09:17)
[2017-07-10] MEDS: BOOST VANILLA PO SCH ×2 (09:18→17:00)
[2017-07-10] MEDS: AMLODIPINE BESYLATE 5 MG TAB PO SCH (09:19)
[2017-07-10] MEDS: SENNA 8.6 MG TAB PO SCH (09:19)
[2017-07-10] MEDS: POTASSIUM CHLORIDE 20 MEQ TABCR PO SCH ×2 (09:19→20:10)
[2017-07-10] MEDS: DIVALPROEX SODIUM SPRINKLE 125 MG CAP PO SCH ×2 (09:20→20:10)
[2017-07-10] MEDS: ASPIRIN 81 MG ECTAB PO SCH (09:20)
[2017-07-10] MEDS: VENLAFAXINE HCL XR 150 MG CAPXR PO SCH (09:20)
[2017-07-10] MEDS: THIAMINE HCL 100 MG TAB PO SCH (09:20)
[2017-07-10] MEDS: POLYETHYLENE (MIRALAX) 17 GM PACK PO SCH (09:21)
[2017-07-10 16:01] VITALS: BP 117/80; PULSE 98; TEMP 36.7; O2SAT 98
[2017-07-10] MEDS: HEPARIN SOD 5000 UNIT/0.5 ML CARP SQ SCH (17:39)
[2017-07-10] MEDS ORDERED: MAGNESIUM OXIDE 400 MG TAB PO ONE (20:45)
[2017-07-10 23:35] VITALS: BP 125/78; PULSE 86; TEMP 36.5; O2SAT 97
[2017-07-11] MEDS: HEPARIN SOD 5000 UNIT/0.5 ML CARP SQ SCH ×2 (06:00→18:35)
[2017-07-11] MEDS: MAGNESIUM OXIDE 400 MG TAB PO SCH ×2 (07:26→20:05)
[2017-07-11] MEDS: POTASSIUM CHLORIDE 20 MEQ TABCR PO SCH ×2 (07:26→20:04)
[2017-07-11] MEDS: SENNA 8.6 MG TAB PO SCH (07:27)
[2017-07-11] MEDS: THIAMINE HCL 100 MG TAB PO SCH (07:27)
[2017-07-11] MEDS: DIVALPROEX SODIUM SPRINKLE 125 MG CAP PO SCH ×2 (07:27→20:05)
[2017-07-11] MEDS: MEGESTROL ACETATE SUSP 400 MG/10 ML UDC PO SCH (07:28)
[2017-07-11] MEDS: POLYETHYLENE (MIRALAX) 17 GM PACK PO SCH (07:28)
[2017-07-11] MEDS: AMLODIPINE BESYLATE 5 MG TAB PO SCH (07:28)
[2017-07-11] MEDS: ASPIRIN 81 MG ECTAB PO SCH (07:28)
[2017-07-11] MEDS: VENLAFAXINE HCL XR 150 MG CAPXR PO SCH (07:28)
[2017-07-11] MEDS: BOOST VANILLA PO SCH ×3 (07:29→17:06)
[2017-07-11 07:31] VITALS: BP 146/79; PULSE 79; TEMP 36.7; O2SAT 96
[2017-07-11] MEDS ORDERED: Enteral Nutrition Formula PO (10:58)
[2017-07-11] MEDS ORDERED: MGNO400 PO (10:58)
[2017-07-11] MEDS ORDERED: DIVA125C PO (10:58)
[2017-07-11] MEDS ORDERED: MRLP17 PO (10:58)
[2017-07-11] MEDS ORDERED: MGCUDL400 PO (10:58)
--- NOTE | 2017-07-11 11:04 | Discharge Instructions ---
Discharge Instructions Date of Service Jul 11, 2017. Admission Reason for Admission: Dehydration, Valproic Acid Toxicity Discharge Discharge Diagnosis / Problem: Dehydration, Failure to Thrive, Valproic acid toxicity Discharge Goals Goal(s): Decrease discomfort, Improve function, Increase independence, Improve disease control Activity Recommendations Activity Limitations: resume your previous activity Lifting Limitations: no more than 10 pounds, gradually increase as tolerated Exercise/Sports Limitations: as tolerated Shower/Bathe: no limitations (with assistance) Driving or Machine Use: Do Not Drive . Instructions / Follow-Up Instructions / Follow-Up You were admitted to [facility] with dehydration, failure to thrive,valproic acid toxicity and diagnosed with the same. During your stay here you were treated with supportive care, intravenous fluids , and your depakote dosing was adjusted. Imaging studies which were completed include CT of the head and were abnormal showing old stable infarcts, however there were no acute findings and no bleed. Medications: Continue taking new dosage of depakote 500 mg twice daily. Continue taking your medications as above. Appointments: Follow up with your Primary Care Provider at [facility] within 24-48 hours of arrive. Follow up with your Primary Care Provider within 1 week after discharge from rehab. Current Hospital Diet Patient's current hospital diet: Regular Diet Discharge Diet Recommended Diet: Regular Diet Pending Studies Studies pending at discharge: no Medical Emergencies . Who to Call and When: Medical Emergencies: If at any time you feel your situation is an emergency, please call 911 immediately. . Non-Emergent Contact Non-Emergency issues call your: Primary Care Provider Call Non-Emergent contact if: you have a fever, your pain is not controlled, your pain is worsening, your pain is unusual for you, your pain is concerning you, you have any medication questions other concerns with your health. Call 911 or go directly to the Emergency Department if you experience any of the following: Chest pain, chest tightness, shortness of breath, abdominal pain , lightheadedness, dizziness, gastrointestinal bleeding, or have any other concerns regarding your health. . Past History Medical & Surgical History: (1) Dehydration (2) Valproic acid toxicity (3) Weakness (4) Bipolar disorder, now depressed (5) Encephalopathy (6) Hypomagnesemia (7) Bipolar disease, chronic (8) Hemorrhagic cerebrovascular accident (CVA) (9) Hypertension (10) Elevated troponin (11) Dysphagia (12) Chronic GERD . "Provider Documentation" section prepared by Echo Billings. . VTE Core Measure Inpt VTE Proph given/why not?: Unfractionated heparin SQ
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
[2017-07-11] MEDS ORDERED: CEFTRIAXONE SOD INJ 1 GM in DEXTROSE 5% ADD-VANTAGE 50ML 50 ML IV STA (15:20)
[2017-07-11] MEDS: CEFTRIAXONE SOD INJ 1 GM in DEXTROSE 5% ADD-VANTAGE 50ML 50 ML IV SCH (16:11)
[2017-07-11 16:28] VITALS: BP 123/83; PULSE 88; TEMP 36.7; O2SAT 97
[2017-07-11 23:43] VITALS: BP 139/85; PULSE 86; TEMP 36.6; O2SAT 97
[2017-07-12] VITALS: O2SAT 97
[2017-07-12] MEDS: HEPARIN SOD 5000 UNIT/0.5 ML CARP SQ SCH ×2 (05:49→18:17)
[2017-07-12] MEDS: POLYETHYLENE (MIRALAX) 17 GM PACK PO SCH (07:36)
[2017-07-12] MEDS: POTASSIUM CHLORIDE 20 MEQ TABCR PO SCH ×2 (07:37→20:48)
[2017-07-12] MEDS: DIVALPROEX SODIUM SPRINKLE 125 MG CAP PO SCH ×2 (07:38→20:48)
[2017-07-12] MEDS: MAGNESIUM OXIDE 400 MG TAB PO SCH (07:38)
[2017-07-12] MEDS: AMLODIPINE BESYLATE 5 MG TAB PO SCH (07:38)
[2017-07-12] MEDS: MEGESTROL ACETATE SUSP 400 MG/10 ML UDC PO SCH (07:38)
[2017-07-12] MEDS: ASPIRIN 81 MG ECTAB PO SCH (07:39)
[2017-07-12] MEDS: SENNA 8.6 MG TAB PO SCH (07:39)
[2017-07-12] MEDS: BOOST VANILLA PO SCH ×3 (07:39→17:26)
[2017-07-12] MEDS: VENLAFAXINE HCL XR 150 MG CAPXR PO SCH (07:39)
[2017-07-12] MEDS: THIAMINE HCL 100 MG TAB PO SCH (07:39)
[2017-07-12 07:54] VITALS: BP 144/87; PULSE 80; TEMP 36.8; O2SAT 99
[2017-07-12 09:19] LABS: CALCIUM 9.1 mg/dl (8.5-10.1); CREATININE 0.52 mg/dl (0.60-1.20); POTASSIUM 4.1 mmol/L (3.5-5.1)
[2017-07-12] MEDS: CEFTRIAXONE SOD INJ 1 GM in DEXTROSE 5% ADD-VANTAGE 50ML 50 ML IV SCH (16:15)
[2017-07-12 16:28] VITALS: BP 110/72; PULSE 86; TEMP 37.3; O2SAT 96
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
[2017-07-13] VITALS: O2SAT 97
[2017-07-13 00:31] VITALS: BP 124/81; PULSE 81; TEMP 36.8; O2SAT 98
[2017-07-13] MEDS: HEPARIN SOD 5000 UNIT/0.5 ML CARP SQ SCH ×2 (05:41→17:39)
[2017-07-13 07:10] VITALS: BP 140/94; PULSE 76; TEMP 36.8; O2SAT 100
[2017-07-13] MEDS: POLYETHYLENE (MIRALAX) 17 GM PACK PO SCH (07:49)
[2017-07-13] MEDS: DIVALPROEX SODIUM SPRINKLE 125 MG CAP PO SCH ×2 (07:51→19:59)
[2017-07-13] MEDS: THIAMINE HCL 100 MG TAB PO SCH (07:51)
[2017-07-13] MEDS: ASPIRIN 81 MG ECTAB PO SCH (07:52)
[2017-07-13] MEDS: AMLODIPINE BESYLATE 5 MG TAB PO SCH (07:52)
[2017-07-13] MEDS: POTASSIUM CHLORIDE 20 MEQ TABCR PO SCH ×2 (07:52→20:00)
[2017-07-13] MEDS: SENNA 8.6 MG TAB PO SCH (07:52)
[2017-07-13] MEDS: MEGESTROL ACETATE SUSP 400 MG/10 ML UDC PO SCH (07:52)
[2017-07-13] MEDS: VENLAFAXINE HCL XR 150 MG CAPXR PO SCH (07:52)
[2017-07-13] MEDS: BOOST VANILLA PO SCH ×3 (07:53→17:04)
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
[2017-07-13] MEDS: CEFTRIAXONE SOD INJ 1 GM in DEXTROSE 5% ADD-VANTAGE 50ML 50 ML IV SCH (15:34)
[2017-07-13 15:41] VITALS: BP 120/72; PULSE 84; TEMP 36.9; O2SAT 93
[2017-07-13 23:40] VITALS: O2SAT 93
[2017-07-13 23:53] VITALS: BP 128/92; PULSE 83; TEMP 36.5; O2SAT 96
[2017-07-14] MEDS: HEPARIN SOD 5000 UNIT/0.5 ML CARP SQ SCH (05:55)
[2017-07-14 07:53] VITALS: BP 126/81; PULSE 80; TEMP 35.6; O2SAT 97
[2017-07-14] MEDS: VENLAFAXINE HCL XR 150 MG CAPXR PO SCH (08:07)
[2017-07-14] MEDS: SENNA 8.6 MG TAB PO SCH (08:08)
[2017-07-14] MEDS: POTASSIUM CHLORIDE 20 MEQ TABCR PO SCH (08:08)
[2017-07-14] MEDS: DIVALPROEX SODIUM SPRINKLE 125 MG CAP PO SCH (08:09)
[2017-07-14] MEDS: ASPIRIN 81 MG ECTAB PO SCH (08:10)
[2017-07-14] MEDS: AMLODIPINE BESYLATE 5 MG TAB PO SCH (08:10)
[2017-07-14] MEDS: POLYETHYLENE (MIRALAX) 17 GM PACK PO SCH (08:11)
[2017-07-14] MEDS: THIAMINE HCL 100 MG TAB PO SCH (08:11)
[2017-07-14] MEDS: MEGESTROL ACETATE SUSP 400 MG/10 ML UDC PO SCH (08:11)
[2017-07-14] MEDS: BOOST VANILLA PO SCH (08:23)
[2017-07-14 08:32] VITALS: O2SAT 97
[2017-07-14] MEDS ORDERED: CEPH-571 PO (09:25)
[2017-07-14 10:40] VITALS: BP 126/81; PULSE 80; TEMP 35.6; O2SAT 97
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
== END 2017-07-14 11:14 | DRG 640 ==
LOC: C.EDB 08:52 → C.MS4W 15:11 → ENRESERV 15:58
PROVIDERS: ADMIT Internal Medicine; ATTEND Hospitalist
DX: R62.7 Adult failure to thrive (principal); G92 Toxic encephalopathy; I69.351 Hemiplegia and hemiparesis following cerebral infarction affecting right dominant side; Z68.1 Body mass index [BMI] 19.9 or less, adult; N39.0 Urinary tract infection, site not specified; R53.1 Weakness; I69.320 Aphasia following cerebral infarction; F31.9 Bipolar disorder, unspecified; K21.9 Gastro-esophageal reflux disease without esophagitis; I10 Essential (primary) hypertension; R73.9 Hyperglycemia, unspecified; F01.50 Vascular dementia, unspecified severity, without behavioral disturbance, psychotic disturbance, mood disturbance, and anxiety; E83.42 Hypomagnesemia; Z79.82 Long term (current) use of aspirin; Z79.899 Other long term (current) drug therapy; Z87.891 Personal history of nicotine dependence; T42.6X5A Adverse effect of other antiepileptic and sedative-hypnotic drugs, initial encounter

== ENCOUNTER 2017-08-02 15:50 | Inpatient (IN) | payer OTHER ==
[~2017-08-02] VITALS: Ht 157.5 cm; Wt 51.7 kg
[~2017-08-02 15:50] MED LIST changes: -CIPR-255 PO; -DIVA125C8 PO; -DTR5 PO; +Enteral Nutrition Formula PO; +FESO8TAB PO; +MGCUDL400 PO; +MGNO400 PO; +MRLP17 PO
[2017-08-02] MEDS ORDERED: SODIUM CHLORIDE 0.9% 1000ML 1,000 ML IV ONE (16:01)
--- NOTE | 2017-08-02 16:05 | EMERGENCY ROOM VISIT NOTE ---
History Report prepared by Zheng: Yoel Spain Under the Supervision of: Dr. Paulo Reyna D.O. First contact with patient: 15:55 Chief Complaint: ALTERED MENTAL STATUS Stated Complaint: FEVER, AMS History of Present Illness The patient is a 61 year old female who presents to the Emergency Room with complaints of altered mental status that began four days ago. This HPI is limited secondary to the patient's altered mental status. Thusly, this HPI is provided by EMS and the patient's detention notes. Since this time, the patient has had a fever as high as 102 F. She did not eat breakfast this morning. She has a past medical history of a stoke that happened 3 years ago. Source of History: detention notes, EMS History Limited By: AMS Onset: four days ago Position: other (Global) Symptom Intensity: moderate Quality: other (AMS) Timing: constant Associated Symptoms: + fevers Review of Systems ROS is limited secondary to the patient's altered mental status. Past Medical & Surgical Medical Problems: (1) Bipolar disease, chronic (2) Bipolar disorder, now depressed (3) Chronic GERD (4) Dysphagia (5) Elevated troponin (6) Encephalopathy (7) Head trauma (8) Hemorrhagic cerebrovascular accident (CVA) (9) Hypertension (10) Weakness Family History Diabetes mellitus Hypertension Lung cancer Social History Smoking Status: Former Smoker Drug Use: none Marital Status: Housing Status: lives with family Occupation Status: disabled Current/Historical Medications Scheduled Amlodipine (Norvasc), 5 MG PO DAILY Aspirin (Aspirin Ec), 81 MG PO DAILY Buspirone Hcl (Buspirone Hcl), 5 MG PO BID Divalproex Sodium (Depakote Sprinkle), 500 MG PO AMPM Fesoterodine Fumarate (Toviaz), 8 MG PO QAM Folic Acid (Folvite), 1 MG PO QAM Magnesium Oxide (Mag-Ox), 400 MG PO BID Megestrol Acetate (Megestrol Acetate), 10 ML PO QAM Nitrofurantoin Monohyd Macrocr (Macrobid), 100 MG PO BID Potassium Chloride (K-Tabs), 20 MEQ PO BID Senna (Senokot), 8.6 MG PO BID Thiamine Hcl (Vitamin B-1), 100 MG PO QAM Venlafaxine Hcl (Venlafaxine Extended Rel), 75 MG PO BID [Fortified Milkshake], 8 OZ PO QAFTERNOON Scheduled PRN Acetaminophen Tab (Tylenol), 650 MG PO Q6H PRN for Pain or Fever Allergies Coded Allergies: POLLEN (Verified Allergy, Intermediate, PAST HX SEASONAL ALLERGIES/ASTHMA , 07/07/17) Physical Exam Vital Signs Date Time Temp Pulse Resp B/P (MAP) Pulse Ox O2 Delivery O2 Flow Rate FiO2 08/02/17 18:52 37.9 124 20 127/76 95 Room Air 08/02/17 18:10 121 26 08/02/17 17:40 115 25 08/02/17 17:10 119 22 08/02/17 17:05 121 22 08/02/17 17:01 156/105 08/02/17 17:00 123 28 08/02/17 16:55 118 27 08/02/17 16:50 119 26 08/02/17 16:47 123/84 08/02/17 16:45 119 25 08/02/17 16:40 119 29 08/02/17 16:35 118 25 08/02/17 16:30 117 23 08/02/17 16:28 117 08/02/17 16:05 98 Nasal Cannula 08/02/17 16:01 100/59 08/02/17 15:58 37.8 118 24 100/59 98 Nasal Cannula Physical Exam GENERAL: Patient is looking around the room, awake, follows commands slowly. EYES: The conjunctivae are clear. The pupils are round and reactive. EARS, NOSE, MOUTH AND THROAT: The nose is without any evidence of any deformity. Mucous membranes are dry tongue is midline NECK: The neck is nontender and supple. RESPIRATORY: Shallow respirations noted. No definite rales, rhonchi, or wheezing. CARDIOVASCULAR: Regular rate and rhythm noted there no murmurs rubs or gallops normal S1 normal S2 GASTROINTESTINAL: The abdomen is mildly distended, but soft. Bowel sounds are present in all quadrants. Abdomen is nontender. No guarding or rigidity. MUSCULOSKELETAL/EXTREMITIES: There is no evidence of gross deformity full range of motion is noted in the hips and shoulders SKIN: Cold and modeled. Trace pedal edema bilaterally. There is no obvious evidence of any rash. There are no petechiae, pallor or cyanosis noted. NEUROLOGIC: Patient follows commands slowly. Appears to move right upper extremity the best. Medical Decision & Procedures ER Provider Diagnostic Interpretation: Radiology results as stated below per my review and radiologist interpretation: CT HEAD WITHOUT CONTRAST (CT) CLINICAL HISTORY: Fever, altered mental status. COMPARISON STUDY: July 07, 2017 TECHNIQUE: Axial CT of the brain is performed from the vertex to the skull base. IV contrast was not administered for this examination. A dose lowering technique was utilized adhering to the principles of ALARA. CT DOSE: 537.48 mGy.cm FINDINGS: No intra or extra-axial mass lesions are visualized. There is no CT evidence of acute cortical infarction. There is no evidence of midline shift. There is no acute hemorrhage. No calvarial fractures are visualized. There are patchy white matter hypodensities likely on a small vessel basis. There is an old left frontal infarct. There is calcification the region of the left external capsule. There are bilateral cerebellar infarcts. There is an old left occipital lobe infarct. There is no evidence of pathologic ventricular dilatation. There is no evidence of acute sinusitis IMPRESSION: Chronic infarcts similar to the preceding study. No acute intracranial findings. Electronically signed by: William Hui M.D. 08/02/2017 5:39 PM Dictated Date/Time: 08/02/2017 5:32 PM CHEST ONE VIEW PORTABLE CLINICAL HISTORY: Sepsis, fever, altered mental status COMPARISON STUDY: 07/07/2017 FINDINGS: The heart is normal in size. There is no focal pulmonary consolidation. There is mild interstitial thickening. There are no pleural effusions.[ IMPRESSION: Very subtle interstitial thickening/edema. No evidence of focal pulmonary consolidation Electronically signed by: William Hui M.D. 08/02/2017 4:10 PM Dictated Date/Time: 08/02/2017 4:[address] SCAN OF THE ABDOMEN AND PELVIS WITHOUT CONTRAST CLINICAL HISTORY: Weakness, abdominal pain, fever. SEPSIS COMPARISON STUDY: June 04, 2017 TECHNIQUE: CT scan of the abdomen and pelvis was performed from the lung bases to the proximal femurs. Images are reviewed in the axial, sagittal, and coronal planes. IV contrast was not administered for this examination. A dose lowering technique was utilized adhering to the principles of ALARA. CT DOSE: 269.90 mGy.cm FINDINGS: Lower chest: There are bibasal atelectatic changes Liver: The unenhanced liver is normal in size, contour, and attenuation. There is no intrahepatic biliary ductal dilatation. Gallbladder: Unremarkable. Spleen: Normal in size and attenuation. Pancreas: Unremarkable. Adrenal glands: There is mild bilateral adrenal gland thickening Kidneys: No renal, ureteral, or bladder calculi are visualized. Bowel: There are no transition zones indicate bowel obstruction. There is fecal retention. There is no acute diverticulitis. The appendix is not visualized with certainty. Peritoneum: There is no intraperitoneal free air or abdominal ascites. Vasculature: The abdominal aorta is normal in course and caliber. There is an indwelling IVC filter. The struts protrude beyond the IVC lumen. This finding was present on the prior study Adenopathy: None. Pelvic viscera: There is a droplet of air within the bladder, likely iatrogenic Skeletal structures: No destructive osseous lesions are seen. IMPRESSION: 1. Study limited by the lack of intravenous and oral contrast 2. No renal, ureteral, or bladder calculi identified 3. No evidence of bowel obstruction. No evidence of free air 4. Moderate fecal retention 5. Droplet of air within the bladder, possibly iatrogenic Electronically signed by: William Hui M.D. 08/02/2017 5:43 PM Dictated Date/Time: 08/02/2017 5:34 PM Laboratory Results Test 08/02/17 16:00 08/02/17 16:37 08/02/17 17:10 08/02/17 18:20 Erythrocyte Sedimentation Rate 23 mm/hr (0-21) Prothrombin Time 11.1 SECONDS (9.0-12.0) Prothromb Time International Ratio 1.1 (0.9-1.1) Activated Partial Thromboplast Time 28.8 SECONDS (21.0-31.0) Partial Thromboplastin Ratio 1.1 Phosphorus Level 3.0 mg/dl (2.5-4.9) Total Creatine Kinase 15 U/L (26-192) Creatine Kinase MB < 0.5 ng/ml (0.5-3.6) Creatine Kinase MB Ratio (0-3.0) Troponin I < 0.015 ng/ml (0-0.045) C-Reactive Protein 8.00 mg/dl (0-0.29) Pro-B-Type Natriuretic Peptide 1353 pg/ml (0-900) Globulin 4.1 gm/dl (2.5-4.0) Albumin/Globulin Ratio 0.8 (0.9-2) Lipase 77 U/L (73-393) Hepatitis C Antibody Screen NEG (NEG) Bedside Lactic Acid Venous 4.32 mmol/L (0.90-1.70) Urine Color DK YELLOW Urine Appearance CLEAR (CLEAR) Urine pH 7.0 (4.5-7.5) Urine Specific [place] 1.016 (1.000-1.030) Urine Protein NEG (NEG) Urine Glucose (UA) NEG (NEG) Urine Ketones NEG (NEG) Urine Occult Blood 2+ (NEG) Urine Nitrite POS (NEG) Urine Bilirubin NEG (NEG) Urine Urobilinogen NEG (NEG) Urine Leukocyte Esterase MODERATE (NEG) Urine WBC (Auto) 10-30 /hpf (0-5) Urine RBC (Auto) 10-30 /hpf (0-4) Urine Hyaline Casts (Auto) 1-5 /lpf (0-5) Urine Epithelial Cells (Auto) >30 /lpf (0-5) Urine Bacteria (Auto) NEG (NEG) Urine Renal Epithelial Cells 5-10 /lpf (0-5) Venous Blood pH 7.49 (7.36-7.41) Venous Blood Partial Pressure CO2 29 mmHg (38.0-50.0) Venous Blood Partial Pressure O2 86 mmHg Venous Blood HCO3 22 mmol/L Venous Blood Oxygen Saturation 96.9 % Venous Blood Base Excess -0.6 mEq/L Laboratory results per my review. Medications Administered Medications (Trade) Dose Ordered Sig/Froylan Route Start Time Stop Time Status Last Admin Dose Admin Sodium Chloride 1,000 ml @ 999 mls/hr Q1H1M ONCE IV 08/02/17 16:01 08/02/17 17:01 DC 08/02/17 16:00 999 MLS/HR Sodium Chloride 1,000 ml @ 250 mls/hr Q4H STAT IV 08/02/17 17:16 08/02/17 20:06 DC 08/02/17 17:22 250 MLS/HR Cefepime HCl 1000 mg/Dextrose 111 ml @ 200 mls/hr NOW STAT IV 08/02/17 17:51 08/02/17 18:24 DC 08/02/17 18:48 200 MLS/HR ECG Per My Interpretation Indication: altered mental status Rate (beats per minute): 120 Rhythm: sinus tachycardia Findings: other (No PVC, no acute ST segments) Comparison ECG Date: 07/07/17 Change: no significant change (increased rate without any other change) ED Course 1555: The patient was evaluated in room C7. A complete history and physical examination were performed. 1601: Ordered NSS 1,000 ml @ 999 mls/hr IV 1716: Ordered NSS 1,000 ml @ 250 mls/hr IV Medical Decision Differential diagnosis: Etiologies such as viral syndrome, otitis, pharyngitis, pneumonia, influenza, meningitis, urinary tract infection, sepsis, bacteremia, as well as others were entertained. Nursing notes reviewed. The patient is a 61-year-old female who presented to the emergency department for an evaluation of fever. The patient has had multiple urinary tract infections in the past. She was started on antibiotic recently but continues to have symptoms. I discussed the patient's laboratory and radiographic studies with her family. I discussed this case with the on-call the hospitalist group. They have agreed to evaluate the patient in the emergency department for further management and disposition. The patient was treated with IV fluids and IV antibiotics. Medication Reconcilliation Current Medication List: was personally reviewed by me Blood Pressure Screening Patient's blood pressure: Normal blood pressure Blood pressure disposition: Did not require urgent referral Consults Time Called: 1750 Consulting Physician: Dr Das[facility] Returned Call: [phone] She has agreed to evaluate the patient in the emergency department for further management and disposition. Impression Primary Impression: Fever Additional Impressions: Altered mental status Urinary tract infection Scribe Attestation The scribe's documentation has been prepared under my direction and personally reviewed by me in its entirety. I confirm that the note above accurately reflects all work, treatment, procedures, and medical decision making performed by me. Departure Information Dispostion Being Evaluated By Hospitalist Referrals RV. Delgado MD (PCP) Patient Instructions My [facility] Problem Qualifiers Primary Impression: Fever Fever type: unspecified Qualified Codes: R50.9 - Fever, unspecified Additional Impressions: Altered mental status Altered mental status type: unspecified Qualified Codes: R41.82 - Altered mental status, unspecified Urinary tract infection Urinary tract infection type: site unspecified Hematuria presence: with hematuria Qualified Codes: N39.0 - Urinary tract infection, site not specified ; R31.9 - Hematuria, unspecified
--- NOTE | 2017-08-02 16:12 | DIAGNOSTIC IMAGING REPORT ---
CHEST ONE VIEW PORTABLE CLINICAL HISTORY: Sepsis, fever, altered mental status COMPARISON STUDY: 07/07/2017 FINDINGS: The heart is normal in size. There is no focal pulmonary consolidation. There is mild interstitial thickening. There are no pleural effusions.[ IMPRESSION: Very subtle interstitial thickening/edema. No evidence of focal pulmonary consolidation Electronically signed by: William Hui M.D. 08/02/2017 4:10 PM Dictated Date/Time: 08/02/2017 4:09 PM
[2017-08-02 16:17] LABS: BASO % 0.1 %; BASO ABS # 0.01 K/uL (0-0.2); EOS % 0.8 %; EOS ABS # 0.07 K/uL (0-0.5); HEMATOCRIT 36.2 % (37-47); HEMOGLOBIN 12.2 g/dL (12.0-16.0); IG# 0.03 K/uL (0.00-0.02); LYMPH % 1.2 %; MEAN CORPUSCULAR HEMOGLOBIN 30.7 pg (25-34); MEAN CORPUSCULAR HGB CONC 33.7 g/dl (32-36); MEAN PLATELET VOLUME 10.4 fL (7.4-10.4); MONO % 1.6 %; MONO ABS # 0.13 K/uL (0.11-0.59); NEUT % 95.9 %; NEUT ABS # 8.01 K/uL (1.4-6.5); PLATELET COUNT 281 K/uL (130-400); RED CELL DISTRIBUTION WIDTH CV 15.2 % (11.5-14.5); RED CELL DISTRIBUTION WIDTH SD 50.6 fL (36.4-46.3); WHITE BLOOD COUNT 8.35 K/uL (4.8-10.8)
[2017-08-02 16:28] LABS: INR 1.1 (0.9-1.1); PTT PATIENT 28.8 SECONDS (21.0-31.0)
[2017-08-02] MEDS ORDERED: [UNRECOGNIZED DRUG - OTHER] PO (16:32)
[2017-08-02] MEDS ORDERED: DIVA125C PO (16:35)
[2017-08-02 16:37] LABS: ALBUMIN 3.1 gm/dl (3.4-5.0); ALT/SGPT 20 U/L (12-78); BLOOD UREA NITROGEN 19 mg/dl (7-18); CALCIUM 9.2 mg/dl (8.5-10.1); CARBON DIOXIDE 24 mmol/L (21-32); CREATININE 0.78 mg/dl (0.60-1.20); GLUCOSE 94 mg/dl (70-99); LIPASE 77 U/L (73-393); POTASSIUM 3.4 mmol/L (3.5-5.1); SODIUM 135 mmol/L (136-145)
[2017-08-02] MEDS ORDERED: NITR-5 PO (16:38)
[2017-08-02 16:40] LABS: ALKALINE PHOSPHATASE 57 U/L (45-117); AST/SGOT 15 U/L (15-37); CKMB < 0.5 ng/ml (0.5-3.6); TOTAL PROTEIN 7.2 gm/dl (6.4-8.2)
[2017-08-02] MEDS ORDERED: MAGN400T6 PO (16:40)
[2017-08-02] MEDS ORDERED: MGCUDL400 PO (16:42)
[2017-08-02] MEDS ORDERED: ACET-1693 PO (16:48)
[2017-08-02] MEDS ORDERED: SODIUM CHLORIDE 0.9% 1000ML 1,000 ML IV STA (17:16)
--- NOTE | 2017-08-02 17:40 | DIAGNOSTIC IMAGING REPORT ---
CT HEAD WITHOUT CONTRAST (CT) CLINICAL HISTORY: Fever, altered mental status. COMPARISON STUDY: July 07, 2017 TECHNIQUE: Axial CT of the brain is performed from the vertex to the skull base. IV contrast was not administered for this examination. A dose lowering technique was utilized adhering to the principles of ALARA. CT DOSE: 537.48 mGy.cm FINDINGS: No intra or extra-axial mass lesions are visualized. There is no CT evidence of acute cortical infarction. There is no evidence of midline shift. There is no acute hemorrhage. No calvarial fractures are visualized. There are patchy white matter hypodensities likely on a small vessel basis. There is an old left frontal infarct. There is calcification the region of the left external capsule. There are bilateral cerebellar infarcts. There is an old left occipital lobe infarct. There is no evidence of pathologic ventricular dilatation. There is no evidence of acute sinusitis IMPRESSION: Chronic infarcts similar to the preceding study. No acute intracranial findings. Electronically signed by: William Hui M.D. 08/02/2017 5:39 PM Dictated Date/Time: 08/02/2017 5:32 PM
--- NOTE | 2017-08-02 17:44 | DIAGNOSTIC IMAGING REPORT ---
CT SCAN OF THE ABDOMEN AND PELVIS WITHOUT CONTRAST CLINICAL HISTORY: Weakness, abdominal pain, fever. SEPSIS COMPARISON STUDY: June 04, 2017 TECHNIQUE: CT scan of the abdomen and pelvis was performed from the lung bases to the proximal femurs. Images are reviewed in the axial, sagittal, and coronal planes. IV contrast was not administered for this examination. A dose lowering technique was utilized adhering to the principles of ALARA. CT DOSE: 269.90 mGy.cm FINDINGS: Lower chest: There are bibasal atelectatic changes Liver: The unenhanced liver is normal in size, contour, and attenuation. There is no intrahepatic biliary ductal dilatation. Gallbladder: Unremarkable. Spleen: Normal in size and attenuation. Pancreas: Unremarkable. Adrenal glands: There is mild bilateral adrenal gland thickening Kidneys: No renal, ureteral, or bladder calculi are visualized. Bowel: There are no transition zones indicate bowel obstruction. There is fecal retention. There is no acute diverticulitis. The appendix is not visualized with certainty. Peritoneum: There is no intraperitoneal free air or abdominal ascites. Vasculature: The abdominal aorta is normal in course and caliber. There is an indwelling IVC filter. The struts protrude beyond the IVC lumen. This finding was present on the prior study Adenopathy: None. Pelvic viscera: There is a droplet of air within the bladder, likely iatrogenic Skeletal structures: No destructive osseous lesions are seen. IMPRESSION: 1. Study limited by the lack of intravenous and oral contrast 2. No renal, ureteral, or bladder calculi identified 3. No evidence of bowel obstruction. No evidence of free air 4. Moderate fecal retention 5. Droplet of air within the bladder, possibly iatrogenic Electronically signed by: William Hui M.D. 08/02/2017 5:43 PM Dictated Date/Time: 08/02/2017 5:34 PM
[2017-08-02] MEDS ORDERED: CEFEPIME IV 1,000 MG in DEXTROSE 5% 100ML 100 ML IV STA (17:51)
[2017-08-02] MEDS ORDERED: ONDANSETRON INJ 2 MG/ML 2 ML VIAL IV PRN (19:00)
[2017-08-02] MEDS ORDERED: MAGNESIUM HYDROXIDE SUSP 30 ML UDC PO PRN (19:00)
[2017-08-02] MEDS ORDERED: ACETAMINOPHEN 325 MG TAB PO PRN ×2 (19:00→19:15)
--- NOTE | 2017-08-02 19:13 | History and Physical ---
History & Physical Date & Time of Service: Aug 02, 2017 at 19:02 Chief Complaint: Fever, Ams Primary Care Physician: Phillip Pittman at History of Present Illness Source: spouse 61 y/o F who was brought here from [facility] for AMS. is present and states that pt was "finally starting to seem like she was recovering" last week. He states that until she had been talkative, interactive, eating well, etc. "She looked beautiful!" Yesterday, he noted that she was a bit less so "like when she gets a UTI". They checked a urine at and it was + for UTI. She was started on macrobid yesterday but today he notes that she would not talk or eat "or do anything". This happens when her depakote levels are too high as well. He states pt had no other concerns yesterday. No c/o fever, SOB, chest pain, abd pain, n/v/c/d, LE pain or swelling. Past Medical/Surgical History d/c 2/2 with elevated depakote levels and UTI, d/c'd on keflex HTN CVA 3 yrs ago Bipolar Hx of MDR UTI Family History Family history was reviewed; no changes noted. Social History Smoking Status: Former Smoker (quit after CVA) Alcohol Use: hx of use, not current Drug Use: none Marital Status: Housing status: lives with significant other, other Occupational Status: disabled Immunizations History of Influenza Vaccine: No History of Tetanus Vaccine?: Yes History of Pneumococcal: No History of Hepatitis B Vaccine: No Multi-Drug Resistant Organisms History of MDRO: No Allergies Coded Allergies: POLLEN (Verified Allergy, Intermediate, PAST HX SEASONAL ALLERGIES/ASTHMA , 07/07/17) Home Medications Scheduled Amlodipine (Norvasc), 5 MG PO DAILY Aspirin (Aspirin Ec), 81 MG PO DAILY Buspirone Hcl (Buspirone Hcl), 5 MG PO BID Divalproex Sodium (Depakote Sprinkle), 500 MG PO AMPM Fesoterodine Fumarate (Toviaz), 8 MG PO QAM Folic Acid (Folvite), 1 MG PO QAM Magnesium Oxide (Mag-Ox), 400 MG PO BID Megestrol Acetate (Megestrol Acetate), 10 ML PO QAM Nitrofurantoin Monohyd Macrocr (Macrobid), 100 MG PO BID Potassium Chloride (K-Tabs), 20 MEQ PO BID Senna (Senokot), 8.6 MG PO BID Thiamine Hcl (Vitamin B-1), 100 MG PO QAM Venlafaxine Hcl (Venlafaxine Extended Rel), 75 MG PO BID [Fortified Milkshake], 8 OZ PO QAFTERNOON Scheduled PRN Acetaminophen Tab (Tylenol), 650 MG PO Q6H PRN for Pain or Fever Review of Systems Pertinent positives and negatives reviewed in HPI--all others negative Physical Exam Vital Signs Date Time Temp Pulse Resp B/P (MAP) Pulse Ox O2 Delivery O2 Flow Rate FiO2 08/02/17 18:52 37.9 124 20 127/76 95 Room Air 08/02/17 18:10 121 26 08/02/17 17:40 115 25 08/02/17 17:10 119 22 08/02/17 17:05 121 22 08/02/17 17:01 156/105 08/02/17 17:00 123 28 08/02/17 16:55 118 27 08/02/17 16:50 119 26 08/02/17 16:47 123/84 08/02/17 16:45 119 25 08/02/17 16:40 119 29 08/02/17 16:35 118 25 08/02/17 16:30 117 23 08/02/17 16:28 117 08/02/17 16:05 98 Nasal Cannula 08/02/17 16:01 100/59 08/02/17 15:58 37.8 118 24 100/59 98 Nasal Cannula General Appearance: no apparent distress, + thin Head: normocephalic, atraumatic Eyes: normal inspection, sclerae normal Respiratory/Chest: normal breath sounds, no respiratory distress Cardiovascular: regular rate, rhythm, no edema Abdomen/GI: non tender, soft Extremities/Musculoskelatal: no calf tenderness, no pedal edema Neurologic/Psych: + pertinent finding (opens eyes at times, but does not interact otherwise) Skin: normal color, warm/dry Diagnostics Laboratory Results Results Past 24 Hours Test 08/02/17 16:00 08/02/17 16:37 08/02/17 17:10 08/02/17 18:20 Range/Units White Blood Count 8.35 4.8-10.8 K/uL Red Blood Count 3.98 4.2-5.4 M/uL Hemoglobin 12.2 12.0-16.0 g/dL Hematocrit 36.2 37-47 % Mean Corpuscular Volume 91.0 80-100 fL Mean Corpuscular Hemoglobin 30.7 25-34 pg Mean Corpuscular Hemoglobin Concent 33.7 32-36 g/dl Platelet Count 281 130-400 K/uL Mean Platelet Volume 10.4 7.4-10.4 fL Neutrophils (%) (Auto) 95.9 % Lymphocytes (%) (Auto) 1.2 % Monocytes (%) (Auto) 1.6 % Eosinophils (%) (Auto) 0.8 % Basophils (%) (Auto) 0.1 % Neutrophils # (Auto) 8.01 1.4-6.5 K/uL Lymphocytes # (Auto) 0.10 1.2-3.4 K/uL Monocytes # (Auto) 0.13 0.11-0.59 K/uL Eosinophils # (Auto) 0.07 0-0.5 K/uL Basophils # (Auto) 0.01 0-0.2 K/uL RDW Standard Deviation 50.6 36.4-46.3 fL RDW Coefficient of Variation 15.2 11.5-14.5 % Immature Granulocyte % (Auto) 0.4 % Immature Granulocyte # (Auto) 0.03 0.00-0.02 K/uL Erythrocyte Sedimentation Rate 23 0-21 mm/hr Prothrombin Time 11.1 9.0-12.0 SECONDS Prothromb Time International Ratio 1.1 0.9-1.1 Activated Partial Thromboplast Time 28.8 21.0-31.0 SECONDS Partial Thromboplastin Ratio 1.1 Sodium Level 135 136-145 mmol/L Potassium Level 3.4 3.5-5.1 mmol/L Chloride Level 102 98-107 mmol/L Carbon Dioxide Level 24 21-32 mmol/L Anion Gap 10.0 3-11 mmol/L Blood Urea Nitrogen 19 7-18 mg/dl Creatinine 0.78 0.60-1.20 mg/dl Est Creatinine Clear Calc Drug Dose 50.7 ml/min Estimated GFR () 93.8 Estimated GFR (Non- 80.9 BUN/Creatinine Ratio 24.3 10-20 Random Glucose 94 70-99 mg/dl Calcium Level 9.2 8.5-10.1 mg/dl Phosphorus Level 3.0 2.5-4.9 mg/dl Magnesium Level 1.9 1.8-2.4 mg/dl Total Bilirubin 0.5 0.2-1 mg/dl Aspartate Amino Transf (AST/SGOT) 15 15-37 U/L Alanine Aminotransferase (ALT/SGPT) 20 12-78 U/L Alkaline Phosphatase 57 45-117 U/L Total Creatine Kinase 15 26-192 U/L Creatine Kinase MB < 0.5 0.5-3.6 ng/ml Creatine Kinase MB Ratio 0-3.0 Troponin I < 0.015 0-0.045 ng/ml C-Reactive Protein 8.00 0-0.29 mg/dl Pro-B-Type Natriuretic Peptide 1353 0-900 pg/ml Total Protein 7.2 6.4-8.2 gm/dl Albumin 3.1 3.4-5.0 gm/dl Globulin 4.1 2.5-4.0 gm/dl Albumin/Globulin Ratio 0.8 0.9-2 Lipase 77 73-393 U/L Bedside Lactic Acid Venous 4.32 0.90-1.70 mmol/L Urine Color DK YELLOW Urine Appearance CLEAR CLEAR Urine pH 7.0 4.5-7.5 Urine Specific [place] 1.016 1.000-1.030 Urine Protein NEG NEG Urine Glucose (UA) NEG NEG Urine Ketones NEG NEG Urine Occult Blood 2+ NEG Urine Nitrite POS NEG Urine Bilirubin NEG NEG Urine Urobilinogen NEG NEG Urine Leukocyte Esterase MODERATE NEG Urine WBC (Auto) 10-30 0-5 /hpf Urine RBC (Auto) 10-30 0-4 /hpf Urine Hyaline Casts (Auto) 1-5 0-5 /lpf Urine Epithelial Cells (Auto) >30 0-5 /lpf Urine Bacteria (Auto) NEG NEG Urine Renal Epithelial Cells 5-10 0-5 /lpf Venous Blood pH 7.49 7.36-7.41 Venous Blood Partial Pressure CO2 29 38.0-50.0 mmHg Venous Blood Partial Pressure O2 86 mmHg Venous Blood HCO3 22 mmol/L Venous Blood Oxygen Saturation 96.9 % Venous Blood Base Excess -0.6 mEq/L Test 08/02/17 18:44 Range/Units Microbiology Results 08/02/17 Blood Culture, Received Pending 08/02/17 Blood Culture, Received Pending 08/02/17 Urine Culture, Received Pending Diagnostic Radiology CT head neg for acute CXR neg for acute Impression Assessment and Plan 61 y/o F who was admitted on 08/02 for AMS AMS: metabolic encephalopathy likely related to either UTI vs depakote toxicity UA noted, cx pending Started on macrobid as outpt, cefepime in the ED Last + cx was 01/2017 and noted with MDR including cephalosporins, will change to imipenim as this was noted sensitive and monitor Bactrim also sensitive at that time however pt unable to take pills at present, cx pending WBC WNL, febrile, lactic acid elevated Blood cx pending CT head neg for acute Depakote level pending HypoK: monitor HTN: stable, continue home meds Bipolar: holding depakote for now and can resume if levels WNL Other: states he is not certain about code status but that he believes he filled out a form that listed pt as DNR/DNI "don't go by that form now" and requests full code This will need clarified with pt and once pt is at baseline mentation Pureed diet if able to take PO Lovenox for DVT proph Pt from [facility], notified Level of Care Telemetry Resuscitation Status FULL RESUSCITATION VTE Prophylaxis VTE Risk Assessment Done? Y/N: Yes Risk Level: Low
[2017-08-02] MEDS ORDERED: [UNRECOGNIZED DRUG - OTHER] PO SCH (19:15)
[2017-08-02 20:00] VITALS: BP 112/71; PULSE 109; TEMP 36.4; O2SAT 99; BMI 20.0
[2017-08-02] MEDS: VENLAFAXINE HCL XR 75 MG CAPXR PO SCH (20:33)
[2017-08-02] MEDS: SODIUM CHLORIDE 0.9% 1000ML 1,000 ML IV SCH (20:33)
[2017-08-02] MEDS: IMIPENEM-CILASTATIN 250 MG in DEXTROSE 5% 100ML 100 ML IV SCH (20:33)
[2017-08-02] MEDS: MAGNESIUM OXIDE 400 MG TAB PO SCH (20:34)
[2017-08-02] MEDS: SENNA 8.6 MG TAB PO SCH (20:35)
[2017-08-02] MEDS: ENOXAPARIN 40 MG/0.4 ML SYR SC SCH (20:36)
[2017-08-02] MEDS: POTASSIUM CHLORIDE 20 MEQ TABCR PO SCH (20:50)
[2017-08-02] MEDS: TOVIAZ~ORDER AWAITING ACTION SCH (23:07)
[2017-08-02 23:59] VITALS: BP 111/70; PULSE 106; TEMP 37; O2SAT 98
[2017-08-03] VITALS (7 sets, daily range): BP systolic 100–127; BP diastolic 63–76; PULSE 91–100; TEMP 36.4–37.1; O2SAT 95–98; Ht 157.5 cm; Wt 51.7 kg
[2017-08-03] MEDS: IMIPENEM-CILASTATIN 250 MG in DEXTROSE 5% 100ML 100 ML IV SCH ×4 (01:54→20:59)
[2017-08-03] MEDS: TOVIAZ~ORDER AWAITING ACTION SCH ×3 (07:14→23:53)
[2017-08-03] MEDS: POTASSIUM CHLORIDE 20 MEQ TABCR PO SCH ×2 (07:42→21:56)
[2017-08-03] MEDS: SENNA 8.6 MG TAB PO SCH ×2 (07:42→21:57)
[2017-08-03] MEDS: VENLAFAXINE HCL XR 75 MG CAPXR PO SCH ×2 (07:43→21:56)
[2017-08-03] MEDS: ASPIRIN 81 MG ECTAB PO SCH (07:43)
[2017-08-03] MEDS: MEGESTROL ACETATE SUSP 400 MG/10 ML UDC PO SCH (07:43)
[2017-08-03] MEDS: MAGNESIUM OXIDE 400 MG TAB PO SCH ×2 (07:43→21:55)
[2017-08-03] MEDS: THIAMINE HCL 100 MG TAB PO SCH (07:43)
[2017-08-03] MEDS: AMLODIPINE BESYLATE 5 MG TAB PO SCH (07:43)
[2017-08-03 09:29] LABS: BASO % 0.2 %; BASO ABS # 0.01 K/uL (0-0.2); EOS % 2.3 %; EOS ABS # 0.15 K/uL (0-0.5); HEMATOCRIT 31.3 % (37-47); HEMOGLOBIN 10.3 g/dL (12.0-16.0); IG# 0.01 K/uL (0.00-0.02); LYMPH % 3.9 %; LYMPH ABS # 0.26 K/uL (1.2-3.4); MEAN CELL VOLUME 91.5 fL (80-100); MEAN CORPUSCULAR HEMOGLOBIN 30.1 pg (25-34); MEAN CORPUSCULAR HGB CONC 32.9 g/dl (32-36); MEAN PLATELET VOLUME 9.7 fL (7.4-10.4); MONO % 3.3 %; MONO ABS # 0.22 K/uL (0.11-0.59); NEUT % 90.1 %; NEUT ABS # 5.95 K/uL (1.4-6.5); PLATELET COUNT 228 K/uL (130-400); RED CELL DISTRIBUTION WIDTH CV 15.6 % (11.5-14.5); RED CELL DISTRIBUTION WIDTH SD 52.1 fL (36.4-46.3)
[2017-08-03] MEDS: SODIUM CHLORIDE 0.9% 1000ML 1,000 ML IV SCH ×2 (09:35→23:53)
[2017-08-03] MEDS: DIVALPROEX SODIUM SPRINKLE 125 MG CAP PO SCH ×2 (09:36→21:57)
[2017-08-03 09:57] LABS: CALCIUM 8.3 mg/dl (8.5-10.1); CREATININE 0.64 mg/dl (0.60-1.20); POTASSIUM 3.8 mmol/L (3.5-5.1)
--- NOTE | 2017-08-03 12:48 | Progress Note ---
Subjective Date of Service: Aug 03, 2017. Subjective Pt evaluation today including: conversation w/ patient, physical exam, lab review, review of inpatient medication list Pain: denies pain PO Intake: eating 50% meals Voiding: no voiding problems patient more alert today, answering questions eating better reviewed labs, depakote level low so certainly not toxic UA with signs of UTI, no growth on urine culture at this point updated family member at the bedside Problem List Medical Problems: (1) Altered mental status Status: Acute (2) Altered mental status Status: Acute (3) Dehydration Status: Acute (4) Dehydration Status: Acute (5) Dehydration Status: Acute (6) Failure to thrive Status: Acute (7) Failure to thrive Status: Acute (8) Fever Status: Acute (9) Orthostatic hypotension Status: Acute (10) Urinary tract infection Status: Acute (11) UTI (urinary tract infection) Status: Acute (12) UTI (urinary tract infection) Status: Acute (13) Valproic acid toxicity Status: Acute (14) Weakness Status: Acute Review of Systems Constitutional: + weakness, + fatigue Neurologic: + weakness, + balance problems All Other Systems: Reviewed and Negative Medications Current Inpatient Medications Medications (Trade) Dose Ordered Sig/Froylan Route Start Time Stop Time Status Last Admin Dose Admin Enoxaparin Sodium (Lovenox Inj) 40 mg HS SC 08/02/17 21:00 09/01/17 20:59 08/02/17 20:36 40 MG Sodium Chloride 1,000 ml @ 75 mls/hr [id number] IV 08/02/17 20:15 09/01/17 20:14 08/02/17 20:33 75 MLS/HR Magnesium Hydroxide (Milk Of Magnesia Susp) 30 ml Q12H PRN PO 08/02/17 19:00 09/01/17 18:59 Ondansetron HCl (Zofran Inj) 4 mg Q6H PRN IV 08/02/17 19:00 09/01/17 18:59 Imipenem/ Cilastatin Sodium 250 mg/Dextrose 110 ml @ 100 mls/hr Q6H IV 08/02/17 20:00 08/12/17 19:59 08/03/17 07:45 100 MLS/HR Acetaminophen (Tylenol Tab) 650 mg Q6H PRN PO 08/02/17 19:15 09/01/17 19:14 Amlodipine Besylate (Norvasc Tab) 5 mg DAILY PO 08/03/17 09:00 09/02/17 08:59 08/03/17 07:43 5 MG Aspirin (Ecotrin Tab) 81 mg DAILY PO 08/03/17 09:00 09/02/17 08:59 08/03/17 07:43 81 MG Folic Acid (Folvite Tab) 1 mg QAM PO 08/03/17 09:00 09/02/17 08:59 08/03/17 07:43 1 MG Magnesium Oxide (Mag-Ox Tab) 400 mg BID PO 08/02/17 21:00 09/01/17 20:59 08/03/17 07:43 400 MG Megestrol Acetate (Megace Susp) 400 mg QAM PO 08/03/17 09:00 09/02/17 08:59 08/03/17 07:43 400 MG Senna (Senokot Tab) 8.6 mg BID PO 08/02/17 21:00 09/01/17 20:59 08/03/17 07:42 8.6 MG Thiamine HCl (Vitamin B-1 Tab) 100 mg QAM PO 08/03/17 09:00 09/02/17 08:59 08/03/17 07:43 100 MG Venlafaxine HCl (effeXOR EXTENDED REL CAP) 75 mg BID PO 08/02/17 21:00 09/01/17 20:59 08/03/17 07:43 75 MG Buspirone HCl (Buspar Tab) 5 mg BID PO 08/02/17 21:00 09/01/17 20:59 08/03/17 07:43 5 MG Miscellaneous Information (Order Awaiting Action) 1 ea QS N/A 08/03/17 00:00 09/02/17 00:00 Potassium Chloride (Klor-Con Tab) 20 meq BID PO 08/02/17 21:00 09/01/17 20:59 08/03/17 07:42 20 MEQ Divalproex Sodium (Depakote Sprinkle Cap) 500 mg BID PO 08/03/17 09:00 09/02/17 08:59 08/03/17 09:36 500 MG Objective Vital Signs Date Time Temp Pulse Resp B/P (MAP) Pulse Ox O2 Delivery O2 Flow Rate FiO2 08/03/17 12:02 98 Room Air 08/03/17 11:57 36.7 100 18 103/68 (80) 98 Room Air 08/03/17 08:02 96 Room Air 08/03/17 07:53 36.4 91 19 127/72 (90) 98 Nasal Cannula 2.0 08/03/17 04:49 37.1 100 16 100/63 (75) 97 Nasal Cannula 2.0 08/03/17 04:00 Nasal Cannula 08/02/17 23:59 37.0 106 18 111/70 (84) 98 Nasal Cannula 2.0 08/02/17 23:59 Nasal Cannula 08/02/17 23:59 Nasal Cannula 2.0 08/02/17 20:00 36.4 109 18 112/71 99 Nasal Cannula 3.0 08/02/17 19:45 113 20 117/68 96 08/02/17 19:39 36.7 113 20 117/68 96 Room Air 08/02/17 18:52 37.9 124 20 127/76 95 Room Air 08/02/17 18:10 121 26 08/02/17 17:40 115 25 08/02/17 17:10 119 22 08/02/17 17:05 121 22 08/02/17 17:01 156/105 08/02/17 17:00 123 28 08/02/17 16:55 118 27 08/02/17 16:50 119 26 08/02/17 16:47 123/84 08/02/17 16:45 119 25 08/02/17 16:40 119 29 08/02/17 16:35 118 25 08/02/17 16:30 117 23 08/02/17 16:28 117 08/02/17 16:05 98 Nasal Cannula 08/02/17 16:01 100/59 08/02/17 15:58 37.8 118 24 100/59 98 Nasal Cannula Physical Exam General Appearance: no apparent distress, + thin Eyes: normal inspection, EOMI, sclerae normal ENT: normal ENT inspection, hearing grossly normal, pharynx normal Neck: supple, no adenopathy, no JVD, trachea midline Respiratory/Chest: chest non-tender, lungs clear, no respiratory distress, no accessory muscle use, + decreased breath sounds (bases) Cardiovascular: regular rate, rhythm, no edema, no gallop, no JVD, no murmur Abdomen: normal bowel sounds, non tender, soft, no organomegaly Extremities: normal range of motion, non-tender, normal inspection, no pedal edema, no calf tenderness, normal capillary refill, pelvis stable 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, oriented x 3, + motor weakness (generalized), + depressed affect Skin: normal color, warm/dry, no rash Laboratory Results Last 24 Hours Test 08/02/17 16:00 08/02/17 16:37 08/02/17 17:10 08/02/17 18:20 White Blood Count 8.35 K/uL Red Blood Count 3.98 M/uL Hemoglobin 12.2 g/dL Hematocrit 36.2 % Mean Corpuscular Volume 91.0 fL Mean Corpuscular Hemoglobin 30.7 pg Mean Corpuscular Hemoglobin Concent 33.7 g/dl Platelet Count 281 K/uL Mean Platelet Volume 10.4 fL Neutrophils (%) (Auto) 95.9 % Lymphocytes (%) (Auto) 1.2 % Monocytes (%) (Auto) 1.6 % Eosinophils (%) (Auto) 0.8 % Basophils (%) (Auto) 0.1 % Neutrophils # (Auto) 8.01 K/uL Lymphocytes # (Auto) 0.10 K/uL Monocytes # (Auto) 0.13 K/uL Eosinophils # (Auto) 0.07 K/uL Basophils # (Auto) 0.01 K/uL RDW Standard Deviation 50.6 fL RDW Coefficient of Variation 15.2 % Immature Granulocyte % (Auto) 0.4 % Immature Granulocyte # (Auto) 0.03 K/uL Erythrocyte Sedimentation Rate 23 mm/hr Prothrombin Time 11.1 SECONDS Prothromb Time International Ratio 1.1 Activated Partial Thromboplast Time 28.8 SECONDS Partial Thromboplastin Ratio 1.1 Sodium Level 135 mmol/L Potassium Level 3.4 mmol/L Chloride Level 102 mmol/L Carbon Dioxide Level 24 mmol/L Anion Gap 10.0 mmol/L Blood Urea Nitrogen 19 mg/dl Creatinine 0.78 mg/dl Est Creatinine Clear Calc Drug Dose 50.7 ml/min Estimated GFR () 93.8 Estimated GFR (Non- 80.9 BUN/Creatinine Ratio 24.3 Random Glucose 94 mg/dl Calcium Level 9.2 mg/dl Phosphorus Level 3.0 mg/dl Magnesium Level 1.9 mg/dl Total Bilirubin 0.5 mg/dl Aspartate Amino Transf (AST/SGOT) 15 U/L Alanine Aminotransferase (ALT/SGPT) 20 U/L Alkaline Phosphatase 57 U/L Total Creatine Kinase 15 U/L Creatine Kinase MB < 0.5 ng/ml Creatine Kinase MB Ratio Troponin I < 0.015 ng/ml C-Reactive Protein 8.00 mg/dl Pro-B-Type Natriuretic Peptide 1353 pg/ml Total Protein 7.2 gm/dl Albumin 3.1 gm/dl Globulin 4.1 gm/dl Albumin/Globulin Ratio 0.8 Lipase 77 U/L Hepatitis C Antibody Screen NEG Bedside Lactic Acid Venous 4.32 mmol/L Urine Color DK YELLOW Urine Appearance CLEAR Urine pH 7.0 Urine Specific Palms 1.016 Urine Protein NEG Urine Glucose (UA) NEG Urine Ketones NEG Urine Occult Blood 2+ Urine Nitrite POS Urine Bilirubin NEG Urine Urobilinogen NEG Urine Leukocyte Esterase MODERATE Urine WBC (Auto) 10-30 /hpf Urine RBC (Auto) 10-30 /hpf Urine Hyaline Casts (Auto) 1-5 /lpf Urine Epithelial Cells (Auto) >30 /lpf Urine Bacteria (Auto) NEG Urine Renal Epithelial Cells 5-10 /lpf Venous Blood pH 7.49 Venous Blood Partial Pressure CO2 29 mmHg Venous Blood Partial Pressure O2 86 mmHg Venous Blood HCO3 22 mmol/L Venous Blood Oxygen Saturation 96.9 % Venous Blood Base Excess -0.6 mEq/L Test 08/02/17 20:32 08/03/17 09:22 Valproic Acid (Depakene) Level 48 mcg/ml White Blood Count 6.60 K/uL Red Blood Count 3.42 M/uL Hemoglobin 10.3 g/dL Hematocrit 31.3 % Mean Corpuscular Volume 91.5 fL Mean Corpuscular Hemoglobin 30.1 pg Mean Corpuscular Hemoglobin Concent 32.9 g/dl Platelet Count 228 K/uL Mean Platelet Volume 9.7 fL Neutrophils (%) (Auto) 90.1 % Lymphocytes (%) (Auto) 3.9 % Monocytes (%) (Auto) 3.3 % Eosinophils (%) (Auto) 2.3 % Basophils (%) (Auto) 0.2 % Neutrophils # (Auto) 5.95 K/uL Lymphocytes # (Auto) 0.26 K/uL Monocytes # (Auto) 0.22 K/uL Eosinophils # (Auto) 0.15 K/uL Basophils # (Auto) 0.01 K/uL RDW Standard Deviation 52.1 fL RDW Coefficient of Variation 15.6 % Immature Granulocyte % (Auto) 0.2 % Immature Granulocyte # (Auto) 0.01 K/uL Sodium Level 134 mmol/L Potassium Level 3.8 mmol/L Chloride Level 103 mmol/L Carbon Dioxide Level 24 mmol/L Anion Gap 7.0 mmol/L Blood Urea Nitrogen 19 mg/dl Creatinine 0.64 mg/dl Est Creatinine Clear Calc Drug Dose 71.2 ml/min Estimated GFR () 110.1 Estimated GFR (Non- 95.0 BUN/Creatinine Ratio 30.5 Random Glucose 114 mg/dl Lactic Acid Level 1.8 mmol/L Calcium Level 8.3 mg/dl Assessment and Plan 61 y/o F who was admitted on 08/02 for AMS. Was previously discharged on 07/11 for altered mental status secondary to elevated Depakote levels and UTI, d/c on Keflex at that time. Per , she was doing well until 07/31 and then started to eat less, less energy AMS: metabolic encephalopathy, most likely due to UTI UA with >30 WBC, Urine culture with only pinpoint growth, blood cultures negative of note, already on Macrobid prior to admission so if bacteria was sensitive that would alter urine culture Last + cx was 01/2017 and noted with MDR including cephalosporins until final results back for culture, will continue imipenem IV CT head neg for acute Depakote level is actually low so no signs of toxicity HypoK: resolved with replacement, K is 3.8 continue on KCl 20 BID, takes this dose as outpatient HTN: stable, continue home meds Bipolar: resume Depakote since level was low h/o CVA, dysphagia: supportive care, pureed diet, thickened liquids Other: full code Pureed diet if able to take PO Lovenox for DVT proph Pt from [facility], notified anticipate returning to [facility] in two days
[2017-08-03] MEDS: ENOXAPARIN 40 MG/0.4 ML SYR SC SCH (21:55)
[2017-08-04] VITALS (8 sets, daily range): BP systolic 116–130; BP diastolic 71–80; PULSE 87–92; TEMP 36.3–37.1; O2SAT 95–97
[2017-08-04] MEDS: IMIPENEM-CILASTATIN 250 MG in DEXTROSE 5% 100ML 100 ML IV SCH ×4 (01:47→21:33)
[2017-08-04 07:49] LABS: BASO % 0.6 %; BASO ABS # 0.03 K/uL (0-0.2); EOS % 5.1 %; EOS ABS # 0.27 K/uL (0-0.5); HEMOGLOBIN 10.4 g/dL (12.0-16.0); IG# 0.01 K/uL (0.00-0.02); LYMPH % 13.7 %; LYMPH ABS # 0.72 K/uL (1.2-3.4); MEAN CELL VOLUME 90.1 fL (80-100); MEAN CORPUSCULAR HEMOGLOBIN 30.2 pg (25-34); MEAN CORPUSCULAR HGB CONC 33.5 g/dl (32-36); MONO % 7.4 %; MONO ABS # 0.39 K/uL (0.11-0.59); NEUT ABS # 3.85 K/uL (1.4-6.5); PLATELET COUNT 214 K/uL (130-400); RED CELL DISTRIBUTION WIDTH SD 49.5 fL (36.4-46.3); WHITE BLOOD COUNT 5.27 K/uL (4.8-10.8)
[2017-08-04] MEDS: VENLAFAXINE HCL XR 75 MG CAPXR PO SCH (07:54)
[2017-08-04] MEDS: THIAMINE HCL 100 MG TAB PO SCH (07:54)
[2017-08-04] MEDS: SENNA 8.6 MG TAB PO SCH (07:55)
[2017-08-04] MEDS: DIVALPROEX SODIUM SPRINKLE 125 MG CAP PO SCH (07:55)
[2017-08-04] MEDS: AMLODIPINE BESYLATE 5 MG TAB PO SCH (07:55)
[2017-08-04] MEDS: ASPIRIN 81 MG ECTAB PO SCH (07:55)
[2017-08-04] MEDS: MEGESTROL ACETATE SUSP 400 MG/10 ML UDC PO SCH (07:56)
[2017-08-04] MEDS: MAGNESIUM OXIDE 400 MG TAB PO SCH (07:56)
[2017-08-04] MEDS: POTASSIUM CHLORIDE 20 MEQ TABCR PO SCH (07:57)
[2017-08-04] MEDS: TOVIAZ~ORDER AWAITING ACTION SCH ×2 (08:00→16:00)
[2017-08-04 08:15] LABS: ALBUMIN 2.5 gm/dl (3.4-5.0); ALT/SGPT 75 U/L (12-78); BLOOD UREA NITROGEN 13 mg/dl (7-18); CALCIUM 8.5 mg/dl (8.5-10.1); CARBON DIOXIDE 24 mmol/L (21-32); CREATININE 0.44 mg/dl (0.60-1.20); GLUCOSE 81 mg/dl (70-99); POTASSIUM 3.8 mmol/L (3.5-5.1); SODIUM 135 mmol/L (136-145)
[2017-08-04 08:18] LABS: ALKALINE PHOSPHATASE 100 U/L (45-117); AST/SGOT 41 U/L (15-37); TOTAL PROTEIN 6.4 gm/dl (6.4-8.2)
[2017-08-04] MEDS: SODIUM CHLORIDE 0.9% 1000ML 1,000 ML IV SCH (17:15)
--- NOTE | 2017-08-04 19:01 | Progress Note ---
Subjective Date of Service: Aug 04, 2017. Subjective Patient appears to be less confused today. was at bedside when I examined patient. reports that patient is more verbal, and that she is almost back to her normal self. Unable to obtain ROS. Problem List Medical Problems: (1) Altered mental status Status: Acute (2) Altered mental status Status: Acute (3) Dehydration Status: Acute (4) Dehydration Status: Acute (5) Dehydration Status: Acute (6) Failure to thrive Status: Acute (7) Failure to thrive Status: Acute (8) Fever Status: Acute (9) Orthostatic hypotension Status: Acute (10) Urinary tract infection Status: Acute (11) UTI (urinary tract infection) Status: Acute (12) UTI (urinary tract infection) Status: Acute (13) Valproic acid toxicity Status: Acute (14) Weakness Status: Acute Review of Systems All Other Systems: Reviewed and Negative Medications Current Inpatient Medications Medications (Trade) Dose Ordered Sig/Froylan Route Start Time Stop Time Status Last Admin Dose Admin Enoxaparin Sodium (Lovenox Inj) 40 mg HS SC 08/02/17 21:00 09/01/17 20:59 08/04/17 21:35 40 MG Sodium Chloride 1,000 ml @ 75 mls/hr [id number] IV 08/02/17 20:15 09/01/17 20:14 08/04/17 10:27 75 MLS/HR Magnesium Hydroxide (Milk Of Magnesia Susp) 30 ml Q12H PRN PO 08/02/17 19:00 09/01/17 18:59 Ondansetron HCl (Zofran Inj) 4 mg Q6H PRN IV 08/02/17 19:00 09/01/17 18:59 Acetaminophen (Tylenol Tab) 650 mg Q6H PRN PO 08/02/17 19:15 09/01/17 19:14 Amlodipine Besylate (Norvasc Tab) 5 mg DAILY PO 08/03/17 09:00 09/02/17 08:59 08/04/17 10:11 5 MG Aspirin (Ecotrin Tab) 81 mg DAILY PO 08/03/17 09:00 09/02/17 08:59 08/04/17 10:09 81 MG Folic Acid (Folvite Tab) 1 mg QAM PO 08/03/17 09:00 09/02/17 08:59 08/04/17 10:09 1 MG Magnesium Oxide (Mag-Ox Tab) 400 mg BID PO 08/02/17 21:00 09/01/17 20:59 08/04/17 10:11 400 MG Megestrol Acetate (Megace Susp) 400 mg QAM PO 08/03/17 09:00 09/02/17 08:59 08/04/17 10:12 400 MG Senna (Senokot Tab) 8.6 mg BID PO 08/02/17 21:00 09/01/17 20:59 08/04/17 10:12 8.6 MG Thiamine HCl (Vitamin B-1 Tab) 100 mg QAM PO 08/03/17 09:00 09/02/17 08:59 08/04/17 10:10 100 MG Venlafaxine HCl (effeXOR EXTENDED REL CAP) 75 mg BID PO 08/02/17 21:00 09/01/17 20:59 08/04/17 10:10 75 MG Buspirone HCl (Buspar Tab) 5 mg BID PO 08/02/17 21:00 09/01/17 20:59 08/04/17 10:10 5 MG Potassium Chloride (Klor-Con Tab) 20 meq BID PO 08/02/17 21:00 09/01/17 20:59 08/04/17 10:10 20 MEQ Divalproex Sodium (Depakote Sprinkle Cap) 500 mg BID PO 08/03/17 09:00 09/02/17 08:59 08/04/17 10:12 500 MG Objective Vital Signs Date Time Temp Pulse Resp B/P (MAP) Pulse Ox O2 Delivery O2 Flow Rate FiO2 08/04/17 16:00 Room Air 08/04/17 15:28 36.3 92 18 120/71 (87) 96 08/04/17 12:00 Room Air 08/04/17 11:47 36.6 90 18 123/78 (93) 97 Room Air 08/04/17 08:00 Room Air 08/04/17 07:31 36.9 91 18 119/79 (92) 97 Room Air 08/04/17 04:00 Room Air 08/04/17 00:09 37.1 88 18 116/77 (90) 95 Room Air 08/04/17 00:02 37.0 89 18 122/79 (93) 97 Room Air 08/04/17 00:01 Room Air 08/03/17 20:00 Room Air Physical Exam Comments: General Appearance: no apparent distress, + thin Eyes: normal inspection, EOMI, sclerae normal ENT: normal ENT inspection, hearing grossly normal, pharynx normal Neck: supple, no adenopathy, no JVD, trachea midline Respiratory/Chest: chest non-tender, lungs clear, no respiratory distress, no accessory muscle use, + decreased breath sounds (bases) Cardiovascular: regular rate, rhythm, no edema, no gallop, no JVD, no murmur Abdomen: normal bowel sounds, non tender, soft, no organomegaly Extremities: normal range of motion, non-tender, normal inspection, no pedal edema, no calf tenderness, normal capillary refill, pelvis stable 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: 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, oriented x 3, + motor weakness (generalized), + depressed affect Skin: normal color, warm/dry, no rash Laboratory Results Last 24 Hours Test 08/04/17 07:34 White Blood Count 5.27 K/uL Red Blood Count 3.44 M/uL Hemoglobin 10.4 g/dL Hematocrit 31.0 % Mean Corpuscular Volume 90.1 fL Mean Corpuscular Hemoglobin 30.2 pg Mean Corpuscular Hemoglobin Concent 33.5 g/dl Platelet Count 214 K/uL Mean Platelet Volume 10.0 fL Neutrophils (%) (Auto) 73.0 % Lymphocytes (%) (Auto) 13.7 % Monocytes (%) (Auto) 7.4 % Eosinophils (%) (Auto) 5.1 % Basophils (%) (Auto) 0.6 % Neutrophils # (Auto) 3.85 K/uL Lymphocytes # (Auto) 0.72 K/uL Monocytes # (Auto) 0.39 K/uL Eosinophils # (Auto) 0.27 K/uL Basophils # (Auto) 0.03 K/uL RDW Standard Deviation 49.5 fL RDW Coefficient of Variation 15.0 % Immature Granulocyte % (Auto) 0.2 % Immature Granulocyte # (Auto) 0.01 K/uL Sodium Level 135 mmol/L Potassium Level 3.8 mmol/L Chloride Level 103 mmol/L Carbon Dioxide Level 24 mmol/L Anion Gap 8.0 mmol/L Blood Urea Nitrogen 13 mg/dl Creatinine 0.44 mg/dl Est Creatinine Clear Calc Drug Dose 103.5 ml/min Estimated GFR () 124.5 Estimated GFR (Non- 107.4 BUN/Creatinine Ratio 30.0 Random Glucose 81 mg/dl Calcium Level 8.5 mg/dl Magnesium Level 1.9 mg/dl Total Bilirubin 0.2 mg/dl Direct Bilirubin < 0.1 mg/dl Aspartate Amino Transf (AST/SGOT) 41 U/L Alanine Aminotransferase (ALT/SGPT) 75 U/L Alkaline Phosphatase 100 U/L Total Protein 6.4 gm/dl Albumin 2.5 gm/dl Assessment and Plan 61 y/o F who was admitted on 08/02 for AMS. Was previously discharged on 07/11 for altered mental status secondary to elevated Depakote levels and UTI, d/c on Keflex at that time. Per , she was doing well until 07/31 and then started to eat less, less energy AMS: metabolic encephalopathy, most likely due to UTI Patient is waxing and waning, but she apears to be improving as per her . Patient has continued to be afebrile. will continue same antibiotics UA with >30 WBC, Urine culture with only pinpoint growth, blood cultures negative of note, already on Macrobid prior to admission so if bacteria was sensitive that would alter urine culture Last + cx was 01/2017 and noted with MDR including cephalosporins until final results back for culture, will continue imipenem IV CT head neg for acute Depakote level is actually low so no signs of toxicity HypoK: resolved with replacement, K is 3.7 continue on KCl 20 BID, takes this dose as outpatient HTN: stable, continue home meds Bipolar: resume Depakote since level was low h/o CVA, dysphagia: supportive care, pureed diet, thickened liquids Other: full code Pureed diet if able to take PO Lovenox for DVT proph Pt from [facility], CM notified anticipate returning to [facility]; still monitoring her mental status Continued [facility] stay due to: multiple IV medications needed Discharge planning: uncertain
[2017-08-04] MEDS: ENOXAPARIN 40 MG/0.4 ML SYR SC SCH (21:35)
[2017-08-05 01:11] VITALS: BP 126/80; PULSE 84; TEMP 36.5; O2SAT 95
[2017-08-05] MEDS: SODIUM CHLORIDE 0.9% 1000ML 1,000 ML IV SCH ×2 (01:58→10:27)
[2017-08-05] MEDS: IMIPENEM-CILASTATIN 250 MG in DEXTROSE 5% 100ML 100 ML IV SCH ×2 (01:59→10:09)
[2017-08-05 07:58] LABS: HEMATOCRIT 30.7 % (37-47); HEMOGLOBIN 10.3 g/dL (12.0-16.0); MEAN CORPUSCULAR HEMOGLOBIN 29.9 pg (25-34); MEAN CORPUSCULAR HGB CONC 33.6 g/dl (32-36); MEAN PLATELET VOLUME 10.2 fL (7.4-10.4); PLATELET COUNT 236 K/uL (130-400); RED CELL DISTRIBUTION WIDTH CV 14.9 % (11.5-14.5); RED CELL DISTRIBUTION WIDTH SD 48.7 fL (36.4-46.3); WHITE BLOOD COUNT 5.41 K/uL (4.8-10.8)
[2017-08-05 08:28] VITALS: BP 144/89; PULSE 78; TEMP 36.8; O2SAT 96
[2017-08-05 08:29] LABS: CALCIUM 8.7 mg/dl (8.5-10.1); CREATININE 0.51 mg/dl (0.60-1.20); POTASSIUM 3.7 mmol/L (3.5-5.1)
[2017-08-05 08:30] VITALS: O2SAT 96
[2017-08-05] MEDS: ASPIRIN 81 MG ECTAB PO SCH (10:09)
[2017-08-05] MEDS: THIAMINE HCL 100 MG TAB PO SCH (10:10)
[2017-08-05] MEDS: VENLAFAXINE HCL XR 75 MG CAPXR PO SCH ×2 (10:10→21:28)
[2017-08-05] MEDS: POTASSIUM CHLORIDE 20 MEQ TABCR PO SCH ×2 (10:10→21:28)
[2017-08-05] MEDS: AMLODIPINE BESYLATE 5 MG TAB PO SCH (10:11)
[2017-08-05] MEDS: MAGNESIUM OXIDE 400 MG TAB PO SCH ×2 (10:11→21:28)
[2017-08-05] MEDS: SENNA 8.6 MG TAB PO SCH ×2 (10:12→21:28)
[2017-08-05] MEDS: MEGESTROL ACETATE SUSP 400 MG/10 ML UDC PO SCH (10:12)
[2017-08-05] MEDS: DIVALPROEX SODIUM SPRINKLE 125 MG CAP PO SCH ×2 (10:12→21:28)
[2017-08-05] MEDS: TOVIAZ 8 MG PO SCH (10:13)
[2017-08-05] MEDS ORDERED: CEFEPIME CONSULT ACTIVE PRN (14:30)
[2017-08-05] MEDS ORDERED: CEFAZOLIN IV 2,000 MG in SYRINGE 0 ML IV SCH (15:00)
[2017-08-05 15:45] VITALS: BP 127/78; PULSE 94; TEMP 36.7; O2SAT 98
[2017-08-05] MEDS: CEFEPIME IV 2,000 MG in SYRINGE 7.5 ML IV SCH (17:41)
[2017-08-05] MEDS: ENOXAPARIN 40 MG/0.4 ML SYR SC SCH (21:29)
--- NOTE | 2017-08-05 22:38 | Progress Note ---
Subjective Date of Service: Aug 05, 2017. Subjective Pt evaluation today including: conversation w/ patient, physical exam Patient reports feeling well. She does not speak in complete sentences but does answer yes and no. states that she is almost back to her baseline. Problem List Medical Problems: (1) Altered mental status Status: Acute (2) Altered mental status Status: Acute (3) Dehydration Status: Acute (4) Dehydration Status: Acute (5) Dehydration Status: Acute (6) Failure to thrive Status: Acute (7) Failure to thrive Status: Acute (8) Fever Status: Acute (9) Orthostatic hypotension Status: Acute (10) Urinary tract infection Status: Acute (11) UTI (urinary tract infection) Status: Acute (12) UTI (urinary tract infection) Status: Acute (13) Valproic acid toxicity Status: Acute (14) Weakness Status: Acute Review of Systems All Other Systems: Reviewed and Negative Medications Current Inpatient Medications Medications (Trade) Dose Ordered Sig/Froylan Route Start Time Stop Time Status Last Admin Dose Admin Enoxaparin Sodium (Lovenox Inj) 40 mg HS SC 08/02/17 21:00 09/01/17 20:59 08/06/17 20:57 40 MG Sodium Chloride 1,000 ml @ 75 mls/hr [id number] IV 08/02/17 20:15 09/01/17 20:14 08/07/17 04:17 75 MLS/HR Magnesium Hydroxide (Milk Of Magnesia Susp) 30 ml Q12H PRN PO 08/02/17 19:00 09/01/17 18:59 Ondansetron HCl (Zofran Inj) 4 mg Q6H PRN IV 08/02/17 19:00 09/01/17 18:59 Acetaminophen (Tylenol Tab) 650 mg Q6H PRN PO 08/02/17 19:15 09/01/17 19:14 Amlodipine Besylate (Norvasc Tab) 5 mg DAILY PO 08/03/17 09:00 09/02/17 08:59 08/07/17 08:32 5 MG Aspirin (Ecotrin Tab) 81 mg DAILY PO 08/03/17 09:00 09/02/17 08:59 08/07/17 08:32 81 MG Folic Acid (Folvite Tab) 1 mg QAM PO 08/03/17 09:00 09/02/17 08:59 08/07/17 08:32 1 MG Magnesium Oxide (Mag-Ox Tab) 400 mg BID PO 08/02/17 21:00 09/01/17 20:59 08/07/17 08:30 400 MG Megestrol Acetate (Megace Susp) 400 mg QAM PO 08/03/17 09:00 09/02/17 08:59 08/07/17 08:30 400 MG Senna (Senokot Tab) 8.6 mg BID PO 08/02/17 21:00 09/01/17 20:59 08/07/17 08:32 8.6 MG Thiamine HCl (Vitamin B-1 Tab) 100 mg QAM PO 08/03/17 09:00 09/02/17 08:59 08/07/17 08:32 100 MG Venlafaxine HCl (effeXOR EXTENDED REL CAP) 75 mg BID PO 08/02/17 21:00 09/01/17 20:59 08/07/17 08:32 75 MG Buspirone HCl (Buspar Tab) 5 mg BID PO 08/02/17 21:00 09/01/17 20:59 08/07/17 08:33 5 MG Potassium Chloride (Klor-Con Tab) 20 meq BID PO 08/02/17 21:00 09/01/17 20:59 08/07/17 08:32 20 MEQ Divalproex Sodium (Depakote Sprinkle Cap) 500 mg BID PO 08/03/17 09:00 09/02/17 08:59 08/07/17 08:32 500 MG Fesoterodine Fumarate (Toviaz) 8 mg DAILY PO 08/05/17 08:00 09/04/17 08:59 08/07/17 08:30 8 MG Cefepime HCl (Consult) 1 ea UD PRN N/A 08/05/17 14:30 09/04/17 14:29 Cefepime HCl 2000 mg/Syringe 20 ml @ 5 mls/min Q12H IV 08/05/17 17:00 08/15/17 16:59 08/07/17 05:12 5 MLS/MIN Oseltamivir Phosphate (Tamiflu Cap) 75 mg DAILY PO 08/06/17 18:00 08/16/17 17:59 08/07/17 08:30 75 MG Objective Vital Signs Date Time Temp Pulse Resp B/P (MAP) Pulse Ox O2 Delivery O2 Flow Rate FiO2 08/05/17 15:45 36.7 94 18 127/78 (94) 98 Room Air 08/05/17 08:30 96 Room Air 08/05/17 08:28 36.8 78 20 144/89 (107) 96 Room Air 08/05/17 01:11 36.5 84 18 126/80 (95) 95 Room Air 08/05/17 00:05 Room Air Physical Exam Comments: General Appearance: no apparent distress, + thin Eyes: normal inspection, EOMI, sclerae normal ENT: normal ENT inspection, hearing grossly normal, pharynx normal Neck: supple, no adenopathy, no JVD, trachea midline Respiratory/Chest: chest non-tender, lungs clear, no respiratory distress, no accessory muscle use, + decreased breath sounds (bases) Cardiovascular: regular rate, rhythm, no edema, no gallop, no JVD, no murmur Abdomen: normal bowel sounds, non tender, soft, no organomegaly Extremities: normal range of motion, non-tender, normal inspection, no pedal edema, no calf tenderness, normal capillary refill, pelvis stable 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, oriented x 3, + motor weakness (generalized), + depressed affect Skin: normal color, warm/dry, no rash Laboratory Results Last 24 Hours Test 08/05/17 07:17 White Blood Count 5.41 K/uL Red Blood Count 3.45 M/uL Hemoglobin 10.3 g/dL Hematocrit 30.7 % Mean Corpuscular Volume 89.0 fL Mean Corpuscular Hemoglobin 29.9 pg Mean Corpuscular Hemoglobin Concent 33.6 g/dl RDW Standard Deviation 48.7 fL RDW Coefficient of Variation 14.9 % Platelet Count 236 K/uL Mean Platelet Volume 10.2 fL Sodium Level 135 mmol/L Potassium Level 3.7 mmol/L Chloride Level 103 mmol/L Carbon Dioxide Level 25 mmol/L Anion Gap 7.0 mmol/L Blood Urea Nitrogen 14 mg/dl Creatinine 0.51 mg/dl Est Creatinine Clear Calc Drug Dose 89.3 ml/min Estimated GFR () 118.6 Estimated GFR (Non- 102.3 BUN/Creatinine Ratio 28.2 Random Glucose 86 mg/dl Calcium Level 8.7 mg/dl Assessment and Plan 61 y/o F who was admitted on 08/02 for AMS. Was previously discharged on 07/11 for altered mental status secondary to elevated Depakote levels and UTI, d/c on Keflex at that time. Per , she was doing well until 07/31 and then started to eat less, less energy AMS: metabolic encephalopathy, most likely due to UTI Patient is waxing and waning, but she appears to be improving as per her . Patient has continued to be afebrile. states that she is looking better today Concern about pyeloneprhitis as UA showed renal cells UA with >30 WBC, Urine culture with only pinpoint growth, blood cultures negative of note, already on Macrobid prior to admission so if bacteria was sensitive that would alter urine culture Last + cx was 01/2017 and noted with MDR including cephalosporins until final results back for culture, will switch to cefepime due to previous culture was resistant to imipenem. will consult ID in regards to what medicine would be good for preventative antibiotics. CT head neg for acute Depakote level is actually low so no signs of toxicity HypoK: resolved with replacement, K is 3.7 continue on KCl 20 BID, takes this dose as outpatient HTN: stable, continue home meds Bipolar: resume Depakote since level was low h/o CVA, dysphagia: supportive care, pureed diet, thickened liquids Other: full code Pureed diet if able to take PO Lovenox for DVT proph Pt from [facility], CM notified anticipate returning to [facility]; still monitoring her mental status Continued [facility] stay due to: multiple IV medications needed Discharge planning: uncertain
[2017-08-05 23:55] VITALS: O2SAT 98
[2017-08-06] VITALS: BP 125/80; PULSE 87; TEMP 36.7; O2SAT 95
[2017-08-06] MEDS: SODIUM CHLORIDE 0.9% 1000ML 1,000 ML IV SCH ×2 (00:03→13:54)
[2017-08-06] MEDS: CEFEPIME IV 2,000 MG in SYRINGE 7.5 ML IV SCH ×2 (06:27→19:29)
[2017-08-06 07:49] VITALS: BP 136/88; PULSE 174; TEMP 36.3; O2SAT 94
[2017-08-06 08:25] VITALS: O2SAT 96
[2017-08-06] MEDS: THIAMINE HCL 100 MG TAB PO SCH (09:25)
[2017-08-06] MEDS: MEGESTROL ACETATE SUSP 400 MG/10 ML UDC PO SCH (09:25)
[2017-08-06] MEDS: ASPIRIN 81 MG ECTAB PO SCH (09:25)
[2017-08-06] MEDS: VENLAFAXINE HCL XR 75 MG CAPXR PO SCH ×2 (09:25→20:59)
[2017-08-06] MEDS: MAGNESIUM OXIDE 400 MG TAB PO SCH ×2 (09:26→20:57)
[2017-08-06] MEDS: SENNA 8.6 MG TAB PO SCH ×2 (09:26→20:58)
[2017-08-06] MEDS: POTASSIUM CHLORIDE 20 MEQ TABCR PO SCH ×2 (09:26→20:58)
[2017-08-06] MEDS: DIVALPROEX SODIUM SPRINKLE 125 MG CAP PO SCH ×2 (09:26→20:58)
[2017-08-06] MEDS: TOVIAZ 8 MG PO SCH (09:28)
[2017-08-06 09:59] VITALS: BP 134/81; PULSE 82; O2SAT 97
[2017-08-06] MEDS: AMLODIPINE BESYLATE 5 MG TAB PO SCH (10:01)
--- NOTE | 2017-08-06 11:15 | Progress Note ---
Progress Note Date of Service Aug 06, 2017. 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
--- NOTE | 2017-08-06 11:53 | INFECT. DISEASE CONSULTATION ---
DATE OF CONSULTATION: 08/06/2017 HISTORY OF PRESENT ILLNESS: This is a 61-year-old female who was admitted from [facility] secondary to a change in mental status. Her is at the bedside and provides the majority of her history. Per the H&P, she was previously diagnosed with a urinary tract infection at her longterm facility and had began Macrobid for treatment. Her is not clear how many days of Macrobid she received but states that her mental status was not improving and she was subsequently sent to the hospital. In the Emergency Room, she had a UA that had 10-30 wbc's, no bacteria were identified, but she did have greater than 30 epithelial cells. Blood and urine cultures were obtained in the ER, both of which are negative. She did have a CAT scan of the abdomen and pelvis in the ER as well which was unremarkable. She has been afebrile with the exception of a mildly elevated fever of 37.9 in the Emergency Room. Her white blood cell count has been normal and today is 5.4. She did initially receive a course of imipenem from the -. Yesterday, she was narrowed to cefepime to complete a course for urinary tract infection. Infectious diseases was consulted for ongoing preventative antibiotics. Her states that she has seen urology in the past and has been placed on multiple medications to assist with contractility and bladder emptying, but has not had a significant response and remains incontinent. She is awake on my exam and she is able to answer yes or no questions. She denies any fevers or chills. She denies any chest pain, cough or shortness of breath. She denies any abdominal pain or any urinary symptoms. She denies hematuria, dysuria or any abdominal tenderness. Her remaining review of systems is unremarkable. PAST MEDICAL HISTORY: Significant for hypertension, history of CVA, bipolar disorder and a recent urinary tract infection. FAMILY HISTORY: Noncontributory. SOCIAL HISTORY: Significant for history of tobacco use. She also has a history of alcohol use but not currently. She is a resident at [facility]. There is no history of drug use. ALLERGIES: She has no known drug allergies. MEDICATIONS: Include cefepime, Norvasc, Ecotrin, folic acid, Megace, vitamin D, Depakote, Lovenox, magnesium, Senokot, Effexor, BuSpar, potassium, Tylenol, milk of magnesia and Zofran. PHYSICAL EXAMINATION: VITAL SIGNS: She is afebrile, pulse 82, respiratory rate is 16, blood pressure is 134/81 and oxygen saturation is 97-98% on room air. GENERAL: She is awake, alert and oriented. HEENT: Mucous membranes are moist. Extraocular muscles are intact. HEART: Regular. LUNGS: Clear bilaterally. ABDOMEN: Soft, nontender and nondistended. EXTREMITIES: There is no lower extremity edema bilaterally. LABORATORY STUDIES: On the , white blood cell count was 5.4, hemoglobin 10.3 and platelets are 236. Chemistry panel yesterday reveals a sodium of 135, potassium 3.7, chloride 103, bicarbonate 25, BUN 14, creatinine 0.5, glucose 86. UA is as above. Blood and urine cultures are negative. IMAGING: As above. ASSESSMENT AND PLAN: Urinary tract infection diagnosed prior to admission. She has completed a course of antibiotics and from an ID perspective can be followed off additional antibiotics. I did discuss suppressive antibiotics with the patient and and at this time they are not interested in moving forward with suppressive antibiotics and will continue to follow up with urology. Thank you for this consultation.
[2017-08-06 16:22] VITALS: O2SAT 96
[2017-08-06 16:23] VITALS: BP 124/71; PULSE 95; TEMP 36.8; O2SAT 95
[2017-08-06] MEDS: OSELTAMIVIR PHOSPHATE 75 MG CAP PO SCH (19:30)
[2017-08-06] MEDS: ENOXAPARIN 40 MG/0.4 ML SYR SC SCH (20:57)
--- NOTE | 2017-08-06 22:32 | Progress Note ---
Subjective Date of Service: Aug 06, 2017. Subjective Pt evaluation today including: conversation w/ patient, physical exam Patient is answering yes and no questions. Patient appears to be more interactive today. Nurse informed me however that her roommate had flu. Roommate was moved to different room. and patient were informed today Problem List Medical Problems: (1) Altered mental status Status: Acute (2) Altered mental status Status: Acute (3) Dehydration Status: Acute (4) Dehydration Status: Acute (5) Dehydration Status: Acute (6) Failure to thrive Status: Acute (7) Failure to thrive Status: Acute (8) Fever Status: Acute (9) Orthostatic hypotension Status: Acute (10) Urinary tract infection Status: Acute (11) UTI (urinary tract infection) Status: Acute (12) UTI (urinary tract infection) Status: Acute (13) Valproic acid toxicity Status: Acute (14) Weakness Status: Acute Review of Systems All Other Systems: Reviewed and Negative Medications Current Inpatient Medications Medications (Trade) Dose Ordered Sig/Froylan Route Start Time Stop Time Status Last Admin Dose Admin Enoxaparin Sodium (Lovenox Inj) 40 mg HS SC 08/02/17 21:00 09/01/17 20:59 08/06/17 20:57 40 MG Sodium Chloride 1,000 ml @ 75 mls/hr [id number] IV 08/02/17 20:15 09/01/17 20:14 08/07/17 04:17 75 MLS/HR Magnesium Hydroxide (Milk Of Magnesia Susp) 30 ml Q12H PRN PO 08/02/17 19:00 09/01/17 18:59 Ondansetron HCl (Zofran Inj) 4 mg Q6H PRN IV 08/02/17 19:00 09/01/17 18:59 Acetaminophen (Tylenol Tab) 650 mg Q6H PRN PO 08/02/17 19:15 09/01/17 19:14 Amlodipine Besylate (Norvasc Tab) 5 mg DAILY PO 08/03/17 09:00 09/02/17 08:59 08/07/17 08:32 5 MG Aspirin (Ecotrin Tab) 81 mg DAILY PO 08/03/17 09:00 09/02/17 08:59 08/07/17 08:32 81 MG Folic Acid (Folvite Tab) 1 mg QAM PO 08/03/17 09:00 09/02/17 08:59 08/07/17 08:32 1 MG Magnesium Oxide (Mag-Ox Tab) 400 mg BID PO 08/02/17 21:00 09/01/17 20:59 08/07/17 08:30 400 MG Megestrol Acetate (Megace Susp) 400 mg QAM PO 08/03/17 09:00 09/02/17 08:59 08/07/17 08:30 400 MG Senna (Senokot Tab) 8.6 mg BID PO 08/02/17 21:00 09/01/17 20:59 08/07/17 08:32 8.6 MG Thiamine HCl (Vitamin B-1 Tab) 100 mg QAM PO 08/03/17 09:00 09/02/17 08:59 08/07/17 08:32 100 MG Venlafaxine HCl (effeXOR EXTENDED REL CAP) 75 mg BID PO 08/02/17 21:00 09/01/17 20:59 08/07/17 08:32 75 MG Buspirone HCl (Buspar Tab) 5 mg BID PO 08/02/17 21:00 09/01/17 20:59 08/07/17 08:33 5 MG Potassium Chloride (Klor-Con Tab) 20 meq BID PO 08/02/17 21:00 09/01/17 20:59 08/07/17 08:32 20 MEQ Divalproex Sodium (Depakote Sprinkle Cap) 500 mg BID PO 08/03/17 09:00 09/02/17 08:59 08/07/17 08:32 500 MG Fesoterodine Fumarate (Toviaz) 8 mg DAILY PO 08/05/17 08:00 09/04/17 08:59 08/07/17 08:30 8 MG Cefepime HCl (Consult) 1 ea UD PRN N/A 08/05/17 14:30 09/04/17 14:29 Cefepime HCl 2000 mg/Syringe 20 ml @ 5 mls/min Q12H IV 08/05/17 17:00 08/15/17 16:59 08/07/17 05:12 5 MLS/MIN Oseltamivir Phosphate (Tamiflu Cap) 75 mg DAILY PO 08/06/17 18:00 08/16/17 17:59 08/07/17 08:30 75 MG Objective Vital Signs Date Time Temp Pulse Resp B/P (MAP) Pulse Ox O2 Delivery O2 Flow Rate FiO2 08/06/17 16:23 36.8 95 18 124/71 (88) 95 Room Air 08/06/17 16:22 96 Room Air 08/06/17 09:59 82 16 134/81 (98) 97 Room Air 08/06/17 08:25 96 Room Air 08/06/17 07:49 36.3 174 16 136/88 (104) 94 08/06/17 00:00 Room Air 08/06/17 00:00 36.7 87 20 125/80 (95) 95 Room Air 08/05/17 23:55 98 Room Air Physical Exam Comments: General Appearance: no apparent distress, + thin Eyes: normal inspection, EOMI, sclerae normal ENT: normal ENT inspection, hearing grossly normal, pharynx normal Neck: supple, no adenopathy, no JVD, trachea midline Respiratory/Chest: chest non-tender, lungs clear, no respiratory distress, no accessory muscle use, + decreased breath sounds (bases) Cardiovascular: regular rate, rhythm, no edema, no gallop, no JVD, no murmur Abdomen: normal bowel sounds, non tender, soft, no organomegaly Extremities: normal range of motion, non-tender, normal inspection, no pedal edema, no calf tenderness, normal capillary refill, pelvis stable 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: intelligence officer II-XII nml as tested, oriented x 3, + motor weakness (generalized), + depressed affect Skin: normal color, warm/dry, no rash Laboratory Results Last 24 Hours Test 08/06/17 20:10 Urine Color YELLOW Urine Appearance CLEAR Urine pH 6.0 Urine Specific [place] 1.014 Urine Protein NEG Urine Glucose (UA) NEG Urine Ketones NEG Urine Occult Blood NEG Urine Nitrite NEG Urine Bilirubin NEG Urine Urobilinogen NEG Urine Leukocyte Esterase SMALL Urine WBC (Auto) 5-10 /hpf Urine RBC (Auto) 0-4 /hpf Urine Hyaline Casts (Auto) 1-5 /lpf Urine Epithelial Cells (Auto) >30 /lpf Urine Bacteria (Auto) NEG Assessment and Plan 61 y/o F who was admitted on 08/02 for AMS. Was previously discharged on 07/11 for altered mental status secondary to elevated Depakote levels and UTI, d/c on Keflex at that time. Per , she was doing well until 07/31 and then started to eat less, less energy AMS: metabolic encephalopathy, most likely due to UTI Patient's mental status has improved. Patient has continued to be afebrile UA with >30 WBC, Urine culture with only pinpoint growth, blood cultures negative of note, already on Macrobid prior to admission so if bacteria was sensitive that would alter urine culture Last + cx was 01/2017 and noted with MDR including cephalosporins until final results back for culture, will switch to cefepime due to previous culture was resistant to imipenem. ID recommends stopping antibiotics. will stop after today Family and patient decided on holding macrobid for now. CT head neg for acute Depakote level is actually low so no signs of toxicity HypoK: resolved with replacement, K is 3.7 continue on KCl 20 BID, takes this dose as outpatient HTN: stable, continue home meds Bipolar: resume Depakote since level was low h/o CVA, dysphagia: supportive care, pureed diet, thickened liquids Other: full code Pureed diet if able to take PO Lovenox for DVT proph Pt from [facility], CM notified anticipate returning to [facility]; still monitoring her mental status Continued [facility] stay due to: multiple IV medications needed Discharge planning: uncertain
[2017-08-07] VITALS: O2SAT 96
[2017-08-07 00:35] VITALS: BP 148/90; PULSE 87; TEMP 36.8; O2SAT 97
[2017-08-07] MEDS: SODIUM CHLORIDE 0.9% 1000ML 1,000 ML IV SCH (04:17)
[2017-08-07] MEDS: CEFEPIME IV 2,000 MG in SYRINGE 7.5 ML IV SCH (05:12)
[2017-08-07 07:25] VITALS: BP 147/82; PULSE 88; TEMP 36.4; O2SAT 93
[2017-08-07] MEDS: TOVIAZ 8 MG PO SCH (08:30)
[2017-08-07] MEDS: OSELTAMIVIR PHOSPHATE 75 MG CAP PO SCH (08:30)
[2017-08-07] MEDS: MAGNESIUM OXIDE 400 MG TAB PO SCH (08:30)
[2017-08-07] MEDS: MEGESTROL ACETATE SUSP 400 MG/10 ML UDC PO SCH (08:30)
[2017-08-07] MEDS: AMLODIPINE BESYLATE 5 MG TAB PO SCH (08:32)
[2017-08-07] MEDS: SENNA 8.6 MG TAB PO SCH (08:32)
[2017-08-07] MEDS: DIVALPROEX SODIUM SPRINKLE 125 MG CAP PO SCH (08:32)
[2017-08-07] MEDS: THIAMINE HCL 100 MG TAB PO SCH (08:32)
[2017-08-07] MEDS: POTASSIUM CHLORIDE 20 MEQ TABCR PO SCH (08:32)
[2017-08-07] MEDS: ASPIRIN 81 MG ECTAB PO SCH (08:32)
[2017-08-07] MEDS: VENLAFAXINE HCL XR 75 MG CAPXR PO SCH (08:32)
[2017-08-07] MEDS ORDERED: TMF75 PO (12:12)
--- NOTE | 2017-08-07 12:15 | Discharge Instructions ---
Discharge Instructions Date of Service Aug 07, 2017. Admission Reason for Admission: Altered Mental Status Discharge Discharge Diagnosis / Problem: Altered mental status Discharge Goals Goal(s): Decrease discomfort, Improve function Activity Recommendations Activity Limitations: resume your previous activity . Instructions / Follow-Up Instructions / Follow-Up Follow up with PCP in 1-2 weeks Followup with Urology in 2-4 weeks Will hold off suppressive medicine for now as this may lead to resistant bacteria. Current Hospital Diet Patient's current hospital diet: Regular Diet Discharge Diet Recommended Diet: Regular Diet Pending Studies Studies pending at discharge: no Medical Emergencies . Who to Call and When: Medical Emergencies: If at any time you feel your situation is an emergency, please call 911 immediately. . Non-Emergent Contact Non-Emergency issues call your: Primary Care Provider Call Non-Emergent contact if: you have any medication questions . . "Provider Documentation" section prepared by Keagan Dewitt. .
--- NOTE | 2017-08-07 12:15 | Discharge Summary ---
Discharge Summary Date of Service Aug 07, 2017. Discharge Summary Admission Date: Aug 02, 2017 at 18:59 Discharge Date: Aug 07, 2017 Immunizations: Have You Had Influenza Vaccine: No History of Tetanus Vaccine?: Yes History of Pneumococcal: No History of Hepatitis B Vaccine: No Hospital Course 61 y/o F who was admitted on 08/02 for AMS. Was previously discharged on 07/11 for altered mental status secondary to elevated Depakote levels and UTI, d/c on Keflex at that time. Per , she was doing well until 07/31 and then started to eat less, less energy AMS: metabolic encephalopathy, most likely due to UTI Patient's mental status has improved. Patient has continued to be afebrile UA with >30 WBC, Urine culture with only pinpoint growth, blood cultures negative of note, already on Macrobid prior to admission so if bacteria was sensitive that would alter urine culture Last + cx was 01/2017 and noted with MDR including cephalosporins until final results back for culture, will switch to cefepime due to previous culture was resistant to imipenem. ID recommends stopping antibiotics. will stop after today Family and patient decided on holding macrobid for now. CT head neg for acute Depakote level is actually low so no signs of toxicity HypoK: resolved with replacement, K is 3.7 continue on KCl 20 BID, takes this dose as outpatient HTN: stable, continue home meds Bipolar: resume Depakote since level was low h/o CVA, dysphagia: supportive care, pureed diet, thickened liquids Other: full code Pureed diet if able to take PO Lovenox for DVT proph Pt from [facility], notified anticipate returning to [facility]; still monitoring her mental status This includes examination of the patient, discharge planning, medication reconciliation, and communication with other providers. Discharge Instructions Please refer to the electronic Patient Visit Report (Discharge Instructions) for additional information.
[2017-08-07] MEDS ORDERED: NITR1CAP33 PO (12:20)
[2017-08-07 12:22] VITALS: BP 147/82; PULSE 88; TEMP 36.4; O2SAT 93
[2017-08-07 15:24] VITALS: BP 128/85; PULSE 94; TEMP 37; O2SAT 97
== END 2017-08-07 18:27 | DRG 689 ==
LOC: EDBD 15:50 → C.EDC 15:51 → C.2T 18:59 → ENRESERV 19:17 → C.MS4W 08-04 20:00
PROVIDERS: ADMIT Family Medicine; ATTEND Internal Medicine Sports Medicine
DX: N39.0 Urinary tract infection, site not specified (principal); G93.41 Metabolic encephalopathy; E87.6 Hypokalemia; F31.9 Bipolar disorder, unspecified; K21.9 Gastro-esophageal reflux disease without esophagitis; I10 Essential (primary) hypertension; Z86.73 Personal history of transient ischemic attack (TIA), and cerebral infarction without residual deficits; Z83.3 Family history of diabetes mellitus; Z82.49 Family history of ischemic heart disease and other diseases of the circulatory system; Z80.1 Family history of malignant neoplasm of trachea, bronchus and lung; Z87.891 Personal history of nicotine dependence; Z79.82 Long term (current) use of aspirin

== ENCOUNTER → 2018-01-01 | Outpatient (CLI) | payer OTHER ==
[~2018-01-01] MED LIST changes: +ACET-1693 PO; -AMLO-110 PO; +AMLO5TAB3 PO; +CRAN1TAB4 PO; -DIVA125C PO; +DIVA1CAP5 PO; +EFF75 PO; -Enteral Nutrition Formula PO; -FESO8TAB PO; +MAGN400T6 PO; -MGCUDL400 PO; -MGNO400 PO; -MRLP17 PO; +NITR1CAP33 PO; +THIA100T10 PO; -THIA100T11 PO; -VENL75CA73 PO; +[UNRECOGNIZED DRUG - CODE] PO
[2018-01-01 12:52] LABS: ALBUMIN 3.5 gm/dl (3.4-5.0); ALKALINE PHOSPHATASE 69 U/L (45-117); ALT/SGPT 27 U/L (12-78); AST/SGOT 18 U/L (15-37); TOTAL PROTEIN 8.3 gm/dl (6.4-8.2)
== END | disposition home or self-care (01) ==
LOC: C.LABBC 11:04
PROVIDERS: ATTEND Psychiatry & Neurology Psychiatry
DX: Z79.899 Other long term (current) drug therapy (principal)

== ENCOUNTER 2018-01-17 09:18 | Emergency (ER) | payer OTHER ==
[2018-01-17 09:26] VITALS: Ht 157.5 cm
--- NOTE | 2018-01-17 09:53 | EMERGENCY ROOM VISIT NOTE ---
History Report prepared by Zheng: Fatmata Crum Under the Supervision of: Dr. Elbert Klein M.D. First contact with patient: 09:34 Chief Complaint: ABDOMINAL PAIN Stated Complaint: BELLY PAIN AND FEVER Nursing Triage Summary: Pt reports lower abdominal pain for approx 2 days. No nausea or vomitting. Reports last BM approx 2 days ago. at bedside also reports "her skin is red" and "her eye is draining." History of Present Illness The patient is a 62 year old female who presents to the Emergency Room with complaints of abdominal pain beginning 4-5 days ago. Per , the patient's temperate was 99.9 this morning and he states that she is usually at 96-97. Per , the patient did not have vomiting, diarrhea, or blood in her stools or urine. The patient reports having pain with urination. Per , the patient has a history of a stroke and UTIs. Her states that the patient had her stroke in March 2016. Per , the patient has also had right-sided deficits from the stroke. Per , the patient has had watery and puffy eyes over the last week. Her states that the patient is incontinent at night. Per , the patient has a history of an appendectomy and an ovary removal but no other abdominal surgeries. Source of History: roommate, spouse/significant other Onset: 4-5 days ago Position: abdomen Quality: other (pain) Associated Symptoms: + urinary symptoms, No vomiting, No diarrhea Review of Systems See HPI for pertinent positives and negatives. A total of ten systems were reviewed and were otherwise negative. Past Medical & Surgical Medical Problems: (1) Altered mental status (2) Bipolar disease, chronic (3) Bipolar disorder, now depressed (4) Chronic GERD (5) Dysphagia (6) Elevated troponin (7) Encephalopathy (8) Head trauma (9) Hemorrhagic cerebrovascular accident (CVA) (10) Hx: UTI (urinary tract infection) (11) Hypertension (12) Weakness Surgical Problems: (1) Hx of appendectomy Family History Diabetes mellitus Hypertension Lung cancer Social History Smoking Status: Former Smoker Drug Use: none Marital Status: Housing Status: lives with family Occupation Status: disabled Current/Historical Medications Scheduled Amlodipine (Norvasc), 5 MG PO DAILY Aspirin (Aspirin Ec), 81 MG PO DAILY Buspirone Hcl (Buspirone Hcl), 5 MG PO BID Ciprofloxacin Hcl (Cipro), 500 MG PO BID Cranberry (Vaccinium Macrocarp (Cranberry), 800 MG PO BID Divalproex Sodium (Divalproex Sodium), 375 MG PO BID Folic Acid (Folvite), 1 MG PO QAM Magnesium Oxide (Mag-Ox), 400 MG PO BID Nitrofurantoin Macrocrystals (Macrodantin), 1 CAP PO DAILY Oxybutynin Chloride (Oxybutynin Chloride), 5 ML PO Q8 Potassium Chloride (K-Tabs), 20 MEQ PO BID Senna (Senokot), 8.6 MG PO BID Thiamine Hcl (Vitamin B-1), 100 MG PO QAM Venlafaxine Hcl (Effexor), 75 MG PO BID Scheduled PRN Acetaminophen Tab (Tylenol), 650 MG PO Q6H PRN for Pain or Fever Allergies Coded Allergies: POLLEN (Verified Allergy, Intermediate, PAST HX SEASONAL ALLERGIES/ASTHMA , 01/17/18) Physical Exam Vital Signs Date Time Temp Pulse Resp B/P (MAP) Pulse Ox O2 Delivery O2 Flow Rate FiO2 01/17/18 15:01 80 15 137/78 100 Room Air 01/17/18 13:30 82 18 140/78 95 Room Air 01/17/18 13:14 81 01/17/18 11:24 80 18 144/84 99 Room Air 01/17/18 09:43 87 01/17/18 09:26 36.8 95 18 150/80 98 Room Air Physical Exam Physical Exam GENERAL: She is oriented to person, place, and time. She appears well- developed and well-nourished. She does not appear distressed. HENT: Exam performed. Head: Normocephalic and atraumatic. Right Ear: External ear normal. No mastoid tenderness. Left Ear: External ear normal. No mastoid tenderness. Mouth/Throat: The oropharynx is clear and moist. No trismus in the jaw. No dental abscesses or uvula swelling. No oropharyngeal exudate or tonsillar abscesses. EYES: EOM are normal. Yellow conjunctival discharge bilaterally. Pupils are equal, round, and reactive to light. Right eye exhibits no discharge. Left eye exhibits no discharge. No scleral icterus. NECK: Normal range of motion. Neck supple. No JVD present. No spinous process tenderness present. No carotid bruit present. No rigidity. No tracheal deviation and normal range of motion present. No Brudzinski's sign and no Kernig 's sign noted. CV: Normal rate, regular rhythm, normal heart sounds and intact distal pulses. There is no peripheral edema. Palpable radial pulses bue. PULM/CHEST: Effort normal and breath sounds normal. No respiratory distress. No stridor. She has no wheezes. She has no rales. Chest Wall: She exhibits no tenderness. ABD: The abdomen is soft. Bowel sounds are normal. She has no distension. No mass is present. Diffuse pain with palpation over the abdomen. There is no rebound, no guarding, no Harvey's sign and no tenderness at McBurney's point. Rovsig negative MUSC/SKEL: Normal range of motion. There is no peripheral edema, tenderness or deformity. LYMPH: No cervical adenopathy. NEURO: She is alert and oriented to person, place, and time. No cranial nerve deficit or sensory deficit. GCS eye subscore is 4. GCS verbal subscore is 5. GCS motor subscore is 6. Cerebellar tests wnl. GCS 15. Right-sided strength weakness, baseline per at bedside. SKIN: Skin is warm and dry. She is not diaphoretic. PSYCH: She has a normal mood and affect. Behavior is normal. Judgment and thought content normal. Medical Decision & Procedures ER Provider Diagnostic Interpretation: Radiology results as stated below per my review and radiologist interpretation: TWO VIEW CHEST CLINICAL HISTORY: Fever. FINDINGS: AP and lateral chest radiographs are compared to study dated 12/12/2017. The AP view is degraded by patient rotation. The heart is top normal for projection and there is atherosclerotic calcification of the thoracic aorta. Chronic interstitial thickening is similar to previous. No airspace consolidation or pleural effusion is identified. There is mild chronic elevation of the left hemidiaphragm. There is no pneumothorax. The skeletal structures are osteopenic. Degenerative changes noted in the thoracic spine. A mild compression deformity is again seen in the upper lumbar region. An IVC filter is noted in the upper abdomen. IMPRESSION: No acute cardiopulmonary abnormality. Electronically signed by: Juanjo Torrez M.D. 01/17/2018 12:03 PM Dictated Date/Time: 01/17/2018 12:[address] SCAN OF THE ABDOMEN AND PELVIS WITH IV CONTRAST CLINICAL HISTORY: Lower abdominal pain. COMPARISON STUDY: Abdominal CT dated 08/02/2017. TECHNIQUE: Following the IV administration of 92 cc of Optiray 320, CT scan of the abdomen and pelvis is performed from the lung bases to the proximal femora. Images are reviewed in the axial, sagittal, and coronal planes. IV contrast was administered without complication. A dose lowering technique was utilized adhering to the principles of ALARA. CT DOSE: 260.89 mGy.cm FINDINGS: Lung bases: The heart is normal in size and without pericardial effusion. The lung bases are clear noting dependent atelectasis. Liver: The contrast-enhanced liver is normal in size, contour, and attenuation. There is no intrahepatic biliary ductal dilatation. The hepatic veins and portal veins are patent. Gallbladder: Unremarkable. Spleen: Normal in size and attenuation. Pancreas: Moderately atrophic and grossly unremarkable. Adrenal glands: Unremarkable. Kidneys: The contrast enhanced kidneys demonstrate cortical atrophy, slightly greater on the left. There is no hydronephrosis. There is slightly diminished enhancement of the left kidney as compared to the right. There is high-grade stenosis at the origin of the left renal artery. A 1.1 cm cyst is noted in the left upper pole. Abdominal vasculature: The abdominal aorta is normal in course and caliber noting moderate to advanced atherosclerotic calcification. The iliac arteries are diminutive. There is high-grade stenosis of the right external iliac artery seen on image #[id number]. Suprarenal and infrarenal IVC filters are in place. Bowel: There is moderate constipation. No bowel obstruction is identified. The appendix is not identified. Peritoneum: There is no intraperitoneal free air or abdominal ascites. Lymphadenopathy: None. Pelvic viscera: The bladder is distended and grossly unremarkable. Findings suggest pelvic floor prolapse. The uterus and adnexa are normal as visualized. Skeletal structures: The skeletal structures are osteopenic. There are mild superior endplate compression deformities of L1 and L5. The L5 compression deformity is age indeterminant but new from 08/02/2017. Mild lumbosacral spondylosis is seen. No lytic or blastic lesions are seen. IMPRESSION: 1. There are no acute infectious or inflammatory findings in the abdomen or pelvis. 2. Moderate constipation. No bowel obstruction is seen. 3. There is a mild superior endplate compression deformity of L5. This is age indeterminant but new from 08/02/2017. Correlate for point tenderness at this level. 4. There is high-grade stenosis at the origin of the left renal artery with slightly diminished enhancement of the left kidney as compared to the right. Nonemergent vascular surgical follow-up is recommended. 5. The iliac arteries are diminutive and there is high-grade stenosis seen in the right external iliac artery. 6. Additional findings as above. Electronically signed by: Juanjo Torrez M.D. 01/17/2018 4:18 PM Dictated Date/Time: 01/17/2018 4:09 PM Laboratory Results 01/17/18 10:20 Red Blood Count 4.01, Mean Corpuscular Volume 89.3, Mean Corpuscular Hemoglobin 29.7, Mean Corpuscular Hemoglobin Concent 33.2, Mean Platelet Volume 11.1, Neutrophils (%) (Auto) 62.9, Lymphocytes (%) (Auto) 24.5, Monocytes (%) (Auto) 10.6, Eosinophils (%) (Auto) 1.5, Basophils (%) (Auto) 0.3, Neutrophils # (Auto ) 5.62, Lymphocytes # (Auto) 2.19, Monocytes # (Auto) 0.95, Eosinophils # (Auto ) 0.13, Basophils # (Auto) 0.03 01/17/18 10:20 Test 01/17/18 10:20 01/17/18 13:45 White Blood Count 8.94 K/uL (4.8-10.8) Red Blood Count 4.01 M/uL (4.2-5.4) Hemoglobin 11.9 g/dL (12.0-16.0) Hematocrit 35.8 % (37-47) Mean Corpuscular Volume 89.3 fL (80-100) Mean Corpuscular Hemoglobin 29.7 pg (25-34) Mean Corpuscular Hemoglobin Concent 33.2 g/dl (32-36) Platelet Count 317 K/uL (130-400) Mean Platelet Volume 11.1 fL (7.4-10.4) Neutrophils (%) (Auto) 62.9 % Lymphocytes (%) (Auto) 24.5 % Monocytes (%) (Auto) 10.6 % Eosinophils (%) (Auto) 1.5 % Basophils (%) (Auto) 0.3 % Neutrophils # (Auto) 5.62 K/uL (1.4-6.5) Lymphocytes # (Auto) 2.19 K/uL (1.2-3.4) Monocytes # (Auto) 0.95 K/uL (0.11-0.59) Eosinophils # (Auto) 0.13 K/uL (0-0.5) Basophils # (Auto) 0.03 K/uL (0-0.2) RDW Standard Deviation 47.6 fL (36.4-46.3) RDW Coefficient of Variation 14.5 % (11.5-14.5) Immature Granulocyte % (Auto) 0.2 % Immature Granulocyte # (Auto) 0.02 K/uL (0.00-0.02) Anion Gap 6.0 mmol/L (3-11) Estimated GFR () 106.1 Estimated GFR (Non- 91.6 BUN/Creatinine Ratio 44.8 (10-20) Lactic Acid Level 0.9 mmol/L (0.4-2.0) Calcium Level 8.9 mg/dl (8.5-10.1) Total Bilirubin 0.2 mg/dl (0.2-1) Direct Bilirubin < 0.1 mg/dl (0-0.2) Aspartate Amino Transf (AST/SGOT) 24 U/L (15-37) Alanine Aminotransferase (ALT/SGPT) 33 U/L (12-78) Alkaline Phosphatase 83 U/L (45-117) Total Protein 8.0 gm/dl (6.4-8.2) Albumin 3.2 gm/dl (3.4-5.0) Lipase 72 U/L (73-393) Urine Color YELLOW Urine Appearance CLOUDY (CLEAR) Urine pH 7.0 (4.5-7.5) Urine Specific [place] 1.016 (1.000-1.030) Urine Protein NEG (NEG) Urine Glucose (UA) NEG (NEG) Urine Ketones NEG (NEG) Urine Occult Blood 1+ (NEG) Urine Nitrite NEG (NEG) Urine Bilirubin NEG (NEG) Urine Urobilinogen NEG (NEG) Urine Leukocyte Esterase MODERATE (NEG) Urine WBC (Auto) 10-30 /hpf (0-5) Urine RBC (Auto) 5-10 /hpf (0-4) Urine Hyaline Casts (Auto) 1-5 /lpf (0-5) Urine Epithelial Cells (Auto) >30 /lpf (0-5) Urine Bacteria (Auto) 1+ (NEG) Urine Renal Epithelial Cells /lpf (0-5) Urine Pathogenic Casts /lpf (0) Laboratory results reviewed by me Medications Administered Medications (Trade) Dose Ordered Sig/Froylan Route Start Time Stop Time Status Last Admin Dose Admin Sodium Chloride 1,000 ml @ 999 mls/hr Q1H1M STAT IV 01/17/18 12:01 01/17/18 13:01 DC 01/17/18 12:08 999 MLS/HR Ceftriaxone Sodium (Rocephin Inj) 1 gm NOW STAT IV 01/17/18 14:30 01/17/18 14:32 DC 01/17/18 14:59 1 GM ECG Per My Interpretation Indication: abdominal pain Rate (beats per minute): 79 Rhythm: sinus rhythm Findings: other (MN, QRS, QTC within normal limits, no ST elevation or depression) ED Course 0946: The patient was evaluated in room A4. A complete history and physical exam was performed. 1201: Ordered Sodium Chloride 1000 ml @ 999 mls/hr IV. 1430: Ordered Rocephin Inj 1 gm IV. 1628: Vital signs were stable. Her CT shows no acute processes and labs were within normal limits. The patient will follow up with her PCP and was discharged with antibiotics for a UTI. DISCHARGE - Plan of care discussed with patient and questions answered. The patient was given both verbal and printed discharge instructions. The patient verbalized understanding and ability to comply. The patient is to seek outpatient follow up as noted in the discharge instructions. The patient verbalized understanding and ability to comply. The patient is discharged in stable condition. The patient was instructed to return for worsening symptoms. Medical Decision : Vital signs were stable. Her CT shows no acute processes and labs were within normal limits. The patient will follow up with her PCP and was discharged with antibiotics for a UTI. DISCHARGE - Plan of care discussed with patient and questions answered. The patient was given both verbal and printed discharge instructions. The patient verbalized understanding and ability to comply. The patient is to seek outpatient follow up as noted in the discharge instructions. The patient verbalized understanding and ability to comply. The patient is discharged in stable condition. The patient was instructed to return for worsening symptoms. Medication Reconcilliation Current Medication List: was personally reviewed by me Blood Pressure Screening Patient's blood pressure: Elevated blood pressure Blood pressure disposition: Elevated BP felt to be situational Impression Primary Impression: UTI (urinary tract infection) Additional Impression: Weakness Scribe Attestation The scribe's documentation has been prepared under my direction and personally reviewed by me in its entirety. I confirm that the note above accurately reflects all work, treatment, procedures, and medical decision making performed by me. The chart was completed utilizing [employer] voice recognition software. Grammatical errors, random word insertions, pronoun errors, and incomplete sentences are an occasional consequence of this system due to software limitations, ambient noise, and hardware issues. Any formal questions or concerns about the content, text, or information contained within the body of this dictation should be directly addressed to the physician for clarification. Departure Information Dispostion Home / Self-Care Prescriptions Ciprofloxacin Hcl (CIPRO) 500 Mg Tab 500 MG PO BID for 7 Days, #14 TAB Prov: Elbert Klein M.D. 01/17/18 Referrals RV. Delgado MD (PCP) Forms Call Back Authorization, HOME CARE DOCUMENTATION FORM, IMPORTANT VISIT INFORMATION Patient Instructions My [facility] Additional Instructions Return to the emergency department if you develop fever greater 100.4, increased abdominal pain, blood in urine, blood in your stool, dark black tarry stools. Problem Qualifiers Primary Impression: UTI (urinary tract infection) Urinary tract infection type: site unspecified Hematuria presence: with hematuria Qualified Codes: N39.0 - Urinary tract infection, site not specified ; R31.9 - Hematuria, unspecified
[2018-01-17 10:38] LABS: BASO % 0.3 %; BASO ABS # 0.03 K/uL (0-0.2); EOS % 1.5 %; EOS ABS # 0.13 K/uL (0-0.5); HEMATOCRIT 35.8 % (37-47); HEMOGLOBIN 11.9 g/dL (12.0-16.0); IG# 0.02 K/uL (0.00-0.02); LYMPH % 24.5 %; LYMPH ABS # 2.19 K/uL (1.2-3.4); MEAN CELL VOLUME 89.3 fL (80-100); MEAN CORPUSCULAR HEMOGLOBIN 29.7 pg (25-34); MEAN CORPUSCULAR HGB CONC 33.2 g/dl (32-36); MEAN PLATELET VOLUME 11.1 fL (7.4-10.4); MONO % 10.6 %; MONO ABS # 0.95 K/uL (0.11-0.59); NEUT % 62.9 %; NEUT ABS # 5.62 K/uL (1.4-6.5); PLATELET COUNT 317 K/uL (130-400); RED CELL DISTRIBUTION WIDTH CV 14.5 % (11.5-14.5); RED CELL DISTRIBUTION WIDTH SD 47.6 fL (36.4-46.3); WHITE BLOOD COUNT 8.94 K/uL (4.8-10.8)
[2018-01-17 10:57] LABS: ALBUMIN 3.2 gm/dl (3.4-5.0); ALKALINE PHOSPHATASE 83 U/L (45-117); ALT/SGPT 33 U/L (12-78); AST/SGOT 24 U/L (15-37); BLOOD UREA NITROGEN 31 mg/dl (7-18); CALCIUM 8.9 mg/dl (8.5-10.1); CARBON DIOXIDE 28 mmol/L (21-32); GLUCOSE 100 mg/dl (70-99); LIPASE 72 U/L (73-393); POTASSIUM 4.1 mmol/L (3.5-5.1); SODIUM 137 mmol/L (136-145)
[2018-01-17] MEDS ORDERED: SODIUM CHLORIDE 0.9% 1000ML 1,000 ML IV STA (12:01)
--- NOTE | 2018-01-17 12:05 | DIAGNOSTIC IMAGING REPORT ---
TWO VIEW CHEST CLINICAL HISTORY: Fever. FINDINGS: AP and lateral chest radiographs are compared to study dated 12/12/2017. The AP view is degraded by patient rotation. The heart is top normal for projection and there is atherosclerotic calcification of the thoracic aorta. Chronic interstitial thickening is similar to previous. No airspace consolidation or pleural effusion is identified. There is mild chronic elevation of the left hemidiaphragm. There is no pneumothorax. The skeletal structures are osteopenic. Degenerative changes noted in the thoracic spine. A mild compression deformity is again seen in the upper lumbar region. An IVC filter is noted in the upper abdomen. IMPRESSION: No acute cardiopulmonary abnormality. Electronically signed by: Juanjo Torrez M.D. 01/17/2018 12:03 PM Dictated Date/Time: 01/17/2018 12:01 PM
[2018-01-17] MEDS ORDERED: CEFTRIAXONE SOD INJ 1 GM ADDVIAL IV STA (14:30)
[2018-01-17] MEDS ORDERED: OPTIRAY 320 IV PRN (14:45)
--- NOTE | 2018-01-17 16:19 | DIAGNOSTIC IMAGING REPORT ---
CT SCAN OF THE ABDOMEN AND PELVIS WITH IV CONTRAST CLINICAL HISTORY: Lower abdominal pain. COMPARISON STUDY: Abdominal CT dated 08/02/2017. TECHNIQUE: Following the IV administration of 92 cc of Optiray 320, CT scan of the abdomen and pelvis is performed from the lung bases to the proximal femora. Images are reviewed in the axial, sagittal, and coronal planes. IV contrast was administered without complication. A dose lowering technique was utilized adhering to the principles of ALARA. CT DOSE: 260.89 mGy.cm FINDINGS: Lung bases: The heart is normal in size and without pericardial effusion. The lung bases are clear noting dependent atelectasis. Liver: The contrast-enhanced liver is normal in size, contour, and attenuation. There is no intrahepatic biliary ductal dilatation. The hepatic veins and portal veins are patent. Gallbladder: Unremarkable. Spleen: Normal in size and attenuation. Pancreas: Moderately atrophic and grossly unremarkable. Adrenal glands: Unremarkable. Kidneys: The contrast enhanced kidneys demonstrate cortical atrophy, slightly greater on the left. There is no hydronephrosis. There is slightly diminished enhancement of the left kidney as compared to the right. There is high-grade stenosis at the origin of the left renal artery. A 1.1 cm cyst is noted in the left upper pole. Abdominal vasculature: The abdominal aorta is normal in course and caliber noting moderate to advanced atherosclerotic calcification. The iliac arteries are diminutive. There is high-grade stenosis of the right external iliac artery seen on image #[id number]. Suprarenal and infrarenal IVC filters are in place. Bowel: There is moderate constipation. No bowel obstruction is identified. The appendix is not identified. Peritoneum: There is no intraperitoneal free air or abdominal ascites. Lymphadenopathy: None. Pelvic viscera: The bladder is distended and grossly unremarkable. Findings suggest pelvic floor prolapse. The uterus and adnexa are normal as visualized. Skeletal structures: The skeletal structures are osteopenic. There are mild superior endplate compression deformities of L1 and L5. The L5 compression deformity is age indeterminant but new from 08/02/2017. Mild lumbosacral spondylosis is seen. No lytic or blastic lesions are seen. IMPRESSION: 1. There are no acute infectious or inflammatory findings in the abdomen or pelvis. 2. Moderate constipation. No bowel obstruction is seen. 3. There is a mild superior endplate compression deformity of L5. This is age indeterminant but new from 08/02/2017. Correlate for point tenderness at this level. 4. There is high-grade stenosis at the origin of the left renal artery with slightly diminished enhancement of the left kidney as compared to the right. Nonemergent vascular surgical follow-up is recommended. 5. The iliac arteries are diminutive and there is high-grade stenosis seen in the right external iliac artery. 6. Additional findings as above. Electronically signed by: Juanjo Torrez M.D. 01/17/2018 4:18 PM Dictated Date/Time: 01/17/2018 4:09 PM
[2018-01-17] MEDS ORDERED: CIPR-255 PO (16:29)
[2018-01-17 16:56] VITALS: BP 141/86; PULSE 81; TEMP 36.8; O2SAT 100
== END 2018-01-17 16:57 | disposition home or self-care (01) ==
LOC: C.EDB 09:19 → C.EDA 16:57
DX: N39.0 Urinary tract infection, site not specified (principal); R53.1 Weakness; R31.9 Hematuria, unspecified; F31.9 Bipolar disorder, unspecified; K21.9 Gastro-esophageal reflux disease without esophagitis; I10 Essential (primary) hypertension; Z79.899 Other long term (current) drug therapy; Z79.82 Long term (current) use of aspirin; Z91.048 Other nonmedicinal substance allergy status; Z87.891 Personal history of nicotine dependence; Z86.73 Personal history of transient ischemic attack (TIA), and cerebral infarction without residual deficits

== ENCOUNTER 2018-07-06 07:19 | Inpatient (IN) ==
[2018-07-06] MEDS ORDERED: ONDANSETRON INJ 2 MG/ML 2 ML VIAL IV STA (07:33)
[2018-07-06] MEDS ORDERED: SODIUM CHLORIDE 0.9% 1000ML 250 ML IV ONE (07:33)
[2018-07-06] MEDS ORDERED: MoRPHine SULFATE 4 MG/ML 1 ML CARP\\VIAL IV STA (07:33)
[2018-07-06] MEDS ORDERED: AMLODIPINE BESYLATE 5 MG TAB PO ONE (07:36)
[2018-07-06] MEDS: SODIUM CHLORIDE 0.9% 1000ML 1,000 ML IV SCH ×3 (08:21→21:23)
[2018-07-06 08:23] LABS: Basophils # (auto) 0.03 K/uL (0-0.2); Basophils % (auto) 0.3 %; Eosinophils # (auto) 0.15 K/uL (0-0.5); Eosinophils % (auto) 1.3 %; Hematocrit (blood only) 36.6 % (37-47); Hemoglobin 12.3 g/dL (12.0-16.0); Immature Granulocytes # (auto) 0.03 K/uL (0.00-0.02); Immature Granulocytes % (auto) 0.3 %; Lymphocytes # (auto) 1.45 K/uL (1.2-3.4); Lymphocytes % (auto) 12.2 %; Mean Corpuscular Hgb Conc 33.6 g/dL (32-36); Mean Corpuscular Volume 87.6 fL (80-100); Monocytes # (auto) 0.61 K/uL (0.11-0.59); Monocytes % (auto) 5.1 %; Neutrophils # (auto) 9.62 K/uL (1.4-6.5); Neutrophils % (auto) 80.8 %; Platelet Count 239 K/uL (130-400); RDW Coefficient of Variation 14.3 % (11.5-14.5); RDW Standard Deviation 46.1 fL (36.4-46.3); Red Blood Count 4.18 M/uL (4.2-5.4); White Blood Count 11.89 K/uL (4.8-10.8)
[2018-07-06 08:38] LABS: Albumin Level 3.2 gm/dl (3.4-5.0); BUN Creatinine Ratio 19.8 (10-20); Calcium 9.2 mg/dl (8.5-10.1); Est GFR (African American) 108.2; Est GFR (Non-African American) 93.4; Potassium 3.7 mmol/L (3.5-5.1)
--- NOTE | 2018-07-06 08:38 | XRay Report ---
XR hip RT 2-3V w pelvis HISTORY: 62 years-old Female fall acute right hip pain status post fall COMPARISON: CT abdomen and pelvis 04/10/2018 TECHNIQUE: AP view of the pelvis with 2 views of the right hip FINDINGS: Demineralized appearance of the bones. Mild to moderate osteoarthritis about the bilateral femoral ac etabular joints. Bony pelvis appears intact. There is an acute fracture of the right femoral neck whi ch appears to be subcapital with approximately 1.0 cm impaction. No significant displacement, angulat ion or dislocation. Mild adjacent soft tissue swelling. IMPRESSION: Acute mildly impacted subcapital fracture of the right femur. The above report was generated using voice recognition software. It may contain grammatical, syntax o r spelling errors. Electronically signed by: Dean Seymour M.D. 07/06/2018 8:37 AM
--- NOTE | 2018-07-06 08:40 | XRay Report ---
XR chest 1V portable CLINICAL HISTORY: trauma COMPARISON STUDY: 08/02/2017 FINDINGS: Lungs are clear. Diaphragms are smooth. No evidence pneumothorax. Potential expansile lesions of the right fourth fifth and sixth ribs versus sequela of old trauma. Ri ght rib detail films is suggested if possible. IMPRESSION: 1. Lungs are clear with no evidence pneumothorax. 2. Potential expansile lesions right fourth fifth and sixth ribs versus sequela of old trauma right m idaxillary line. Right rib detail films are suggested when able. The above report was generated using voice recognition software. It may contain grammatical, syntax or spelling errors. Electronically signed by: William Colmenares M.D. 07/06/2018 8:38 AM
[2018-07-06 08:41] LABS: Albumin Globulin Ratio 0.7 (0.9-2); Bilirubin,Total 0.5 mg/dl (0.2-1); Globulin 4.6 gm/dl (2.5-4.0); Total Protein 7.9 gm/dl (6.4-8.2)
--- NOTE | 2018-07-06 08:43 | CT Scan Report ---
CT head/brain wo con CLINICAL HISTORY: 62 years-old Female with trauma. Acute posttraumatic head injury TECHNIQUE: Multiple axial CT images of the head were obtained without contrast. A dose lowering tech nique was utilized adhering to the principles of ALARA. COMPARISON: CT head 12/12/2017. FINDINGS: No acute intracranial hemorrhage, midline shift, intracranial mass, hydrocephalus, territorial ischem ia or abnormal extra-axial collection. Age-related involutional changes with ex vacuo ventriculomegal y. Chronic hyperdensity/calcification noted about the left harvey radiata and external capsule. Patch y white matter hypodensities redemonstrated suggestive of chronic microvascular ischemic changes. Enc ephalomalacia from remote infarction noted about the left frontal and left occipital lobes and bilate ral cerebellar hemispheres. The calvarium is intact. ORIF changes about the bilateral anterior maxilla. Trace right mastoid effus ion. Left mastoid air cells and paranasal sinuses are generally clear. The soft tissues and orbits ap pear unremarkable. IMPRESSION: 1. No acute intracranial abnormality or calvarial fracture. 2. Chronic findings as above. The above report was generated using voice recognition software. It may contain grammatical, syntax o r spelling errors. Electronically signed by: Dean Seymour M.D. 07/06/2018 8:42 AM
--- NOTE | 2018-07-06 08:44 | CT Scan Report ---
CT OF THE CERVICAL SPINE CLINICAL HISTORY: Neck pain status post trauma COMPARISON STUDY: No previous studies for comparison. CT DOSE: 993.33 mGy.cm TECHNIQUE: CT scan of the cervical spine was performed from the skull base to the thoracic inlet. Lupe ges are reviewed in the axial, sagittal, and coronal planes. IV contrast was not administered for thi s examination. A dose lowering technique was utilized adhering to the principles of ALARA. FINDINGS: The visualized portions of the lung apices reveal no evidence of pneumothorax. The prevertebral soft tissues are normal. No fractures or traumatic subluxations are visualized. There are multilevel degenerative changes. Minimal anterolisthesis of C3 on C4 and minimal retrolisth esis of C5 on C6 is felt to be degenerative. IMPRESSION: No evidence of acute fracture or traumatic subluxation. Electronically signed by: William Hui M.D. 07/06/2018 8:42 AM
[2018-07-06 09:46] LABS: Appearance Urine Turbid (Clear); Bacteria Urine Automated Negative (Negative); Bilirubin Urine Negative (Negative); Color Urine Yellow; Epithelial Cell Urine Auto >30 /lpf (0-5); Glucose Urine UA Negative (Negative); Ketones Urine 1+ (Negative); Leukocyte Esterase Urine 3+ (Negative); Nitrite Urine Positive (Negative); Specific Gravity Urine 1.018 (1.000-1.030); Urobilinogen Urine Negative (Negative); WBC Urine Automated >30 /hpf (0-5); pH Urine 8.5 (4.5-7.5)
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
[2018-07-06] MEDS ORDERED: ACETAMINOPHEN 325 MG TAB PO PRN (10:07)
[2018-07-06 10:12] LABS: Protein Urine Trace (Negative)
[2018-07-06 10:13] LABS: Cast Urine Automated 0 /lpf (0-5)
[2018-07-06] MEDS: DIVALPROEX SODIUM SPRINKLE 125 MG CAP PO SCH ×2 (13:51→20:44)
--- NOTE | 2018-07-06 13:57 | Consultation Report ---
DATE OF CONSULTATION: 07/06/2018 REASON FOR CONSULTATION: Consultation for right femoral neck fracture, displaced. HISTORY OF PRESENT ILLNESS: Anabella is delightful. She is cachectic. She is 62. I have known her from the office over the last several months. She had a mechanical fall at home. Her stated she was on toilet, got up, walked 8-10 feet, and then suffered the injury. The is the caregiver. She is physically minimally active. MEDICATIONS: Listed. PAST MEDICAL HISTORY: Dysphagia, bipolar mental disease, hypertension, encephalopathy, GERD. SOCIAL HISTORY: She lives at home with spouse. No alcohol or tobacco currently. PHYSICAL EXAMINATION: GENERAL: I do not know how oriented she is, but she is alert. VITAL SIGNS: Temperature 37.1, pulse 108, blood pressure 150/90. EYES: Pupils reactive to light. SKIN: Intact. Vascular structures intact. ABDOMEN: Soft, nontender. EXTREMITIES: The right lower extremity was slightly shortened but not externally rotated. IMAGING: Images reviewed demonstrating a displaced right femoral neck fracture, subcapital. ASSESSMENT: Includes that of a delightful patient with subcapital hip fracture on the right. PLAN: Includes medical management/medical admission which we are thankful for. We will keep her n.p.o. after midnight tonight, 07/06/2018, optimistically get to her surgery tomorrow with Dr. Ramirez, which would be 07/07/2018.
--- NOTE | 2018-07-06 15:11 | Anesthesiology Consultation ---
Date of Service July 06, 2018 Assessment & Plan Chart Review Chart Review: Acceptable Risk for Surgery and Patient NOT seen in Pre Admission Testing Consults Requested none ASA ASA4 Proposed Anesthesia Anesthesia Type: General Anesthesia Line Insertion: Arterial line History Surgery Operation Date: 07/07/18 07:00 Proposed Procedures p Right Total Hip Replacement Versus - Carlos Ramirez MD s Left Hip Cannulated Screws Open Reduction Internal Fixation - Carlos Ramirez MD Height/Weight Height: 5 ft 1 in Weight: 50.1 kg Allergies Allergy/AdvReac Type Severity Reaction Status Date / Time pollen extracts Allergy Intermediate PAST HX Verified 07/06/18 07:56 SEASONAL ALLERGIES/ASTHMA Medications Home Medications Medication Instructions Recorded Confirmed Last Taken acetaminophen [Tylenol] 325 mg PO Q6H PRN 04/10/18 07/06/18 07/06/18 amlodipine [Norvasc] 5 mg PO DAILY 04/10/18 07/06/18 07/06/18 aspirin [Aspir-Low] 81 mg PO DAILY 04/10/18 07/06/18 07/06/18 buspirone 5 mg PO BID 04/10/18 07/06/18 07/06/18 cranberry 400 mg PO DAILY 04/10/18 07/06/18 07/06/18 divalproex [Depakote Sprinkles] 375 mg PO TID 04/10/18 07/06/18 07/06/18 folic acid 1 mg PO DAILY 04/10/18 07/06/18 07/06/18 magnesium oxide [MagOx] 400 mg PO BID 04/10/18 07/06/18 07/06/18 mirabegron [Myrbetriq] 50 mg PO DAILY 04/10/18 07/06/18 07/06/18 mupirocin 1 applic TOPICAL TID PRN 04/10/18 07/06/18 07/06/18 oxybutynin chloride 5 ml PO Q12 04/10/18 07/06/18 07/06/18 sennosides [senna] 8.6 mg PO BID 04/10/18 07/06/18 07/06/18 thiamine HCl (vitamin B1) [Vitamin 0 mg PO DAILY 04/10/18 07/06/18 07/06/18 B-1] venlafaxine 75 mg PO BID 04/10/18 07/06/18 07/06/18 potassium chloride 10 meq PO BID 07/06/18 07/06/18 07/06/18 trimethoprim 100 mg PO HS 07/06/18 07/06/18 07/05/18 Active Medications Generic Name Dose Route Start Last Admin Trade Name Carmen PRN Reason Stop Dose Admin Divalproex Sodium 375 mg 07/06/18 14:00 07/06/18 13:51 Depakote Sprinkle PO 08/05/18 13:59 375 mg TID JOSE Administration Sodium Chloride 1,000 mls @ 125 mls/hr 07/06/18 07:45 07/06/18 12:37 Nss 1000ml IV 08/05/18 07:44 125 mls/hr .Q8H JOSE Administration Past Medical History Medical History Hx: UTI (urinary tract infection) Bipolar disease, chronic (Chronic) Dysphagia Encephalopathy Hypertension Hemorrhagic cerebrovascular accident (CVA) (Resolved) Chronic GERD HOCM (hypertrophic obstructive cardiomyopathy) Right hemiparesis CVA (cerebral vascular accident) Hypertension Past Surgical History Surgical History History of esophagogastroduodenoscopy (EGD) Past Anesthesia History No Hx of Anesthesia Complications and No Family Hx of Anesthesia Complications History of PONV No Motion Sickness Screening History of Motion Sickness: No Social History Smoking Status: Former smoker Do You Dip or Chew Tobacco: No Hx Alcohol Use: No Hx Substance Use: No Exercise / Class Metabolic Activity III < 4 Walking/Shop/Light housework Physical Exam Vital Signs Last Vital Signs Temp 36.7 C 07/06/18 12:40 Pulse 107 H 07/06/18 12:40 Resp 20 07/06/18 11:43 BP 155/89 H 07/06/18 12:40 Pulse Ox 91 07/06/18 12:40 Testing Electrocardiogram Date: 07/06/18 Findings: + ST @ (@ 104;w/short MI;NS ST T wave abnormality) Chest X-Ray Date: 07/06/18 Findings: + NAD Echocardiogram Date: 10/15/16 EF: > 70% LV Function: normal RWMA: + none Other Findings: + LVH Valvular Disease: + MR (mild - moderate) moderate pulmonary HTN MV- (+) HARDEEP w/dynamic LVOT obstruction Laboratory Results 07/06/18 08:10 07/06/18 08:10 Urine Color Yellow 07/06/18 09:31 Urine Appearance Turbid (Clear) H 07/06/18 09:31 Urine pH 8.5 (4.5-7.5) H 07/06/18 09:31 Ur Specific [place] 1.018 (1.000-1.030) 07/06/18 09:31 Urine Protein Trace (Negative) H 07/06/18 09:31 Urine Glucose (UA) Negative (Negative) 07/06/18 09:31 Urine Ketones 1+ (Negative) H 07/06/18 09:31 Urine Nitrite Positive (Negative) H 07/06/18 09:31 Ur Leukocyte Esterase 3+ (Negative) H 07/06/18 09:31 Urine WBC (Auto) >30 /hpf (0-5) H 07/06/18 09:31 Urine RBC (Auto) 5-10 /hpf (0-4) H 07/06/18 09:31 U Hyaline Cast (Auto) 0 /lpf (0-5) 07/06/18 09:31 U Epithel Cells (Auto) >30 /lpf (0-5) H 07/06/18 09:31 Urine Bacteria (Auto) Negative (Negative) 07/06/18 09:31 07/06/18 07:52 POC Glucose 160 H
--- NOTE | 2018-07-06 15:50 | Emergency Department Note ---
Entered by Dania Hurley acting as a scribe for Jessica Cueva MD History of Present Illness General Chief complaint: Leg Injury/Pain Source: patient Mode of arrival: EMS History of Present Illness Provider complaint: fall Onset (ago): day(s) (yesterday) 2 Location: left and right Pain Consistency: + other (episode) Quality: + other (fall) Associated symptoms: + other (Associated symptoms: right hip pain, headache) The patient is a 63 year old female who presents to the Emergency Room with complaints of an episode of a fall beginning 2 days ago. Her brother reports the patient fell onto the tile floor in the kitchen after getting up from the bathroom. The patient notes pain in her right hip with leg movement. She states she has not been moving around since her fall. The patient reports a headache, and states she hit her head in her fall. She denies loss of consciousness during the fall. The patient states she has not been eating or drinking much recently. She did not take her usual medications this morning. The patient sees Dr. Downs from orthopedics. Home Medications Home Medications Medication Instructions Recorded Confirmed Type acetaminophen [Tylenol] 325 mg PO Q6H PRN 04/10/18 07/06/18 History amlodipine [Norvasc] 5 mg PO DAILY 04/10/18 07/06/18 History aspirin [Aspir-Low] 81 mg PO DAILY 04/10/18 07/06/18 History buspirone 5 mg PO BID 04/10/18 07/06/18 History cranberry 400 mg PO DAILY 04/10/18 07/06/18 History divalproex [Depakote Sprinkles] 375 mg PO TID 04/10/18 07/06/18 History folic acid 1 mg PO DAILY 04/10/18 07/06/18 History magnesium oxide [MagOx] 400 mg PO BID 04/10/18 07/06/18 History mirabegron [Myrbetriq] 50 mg PO DAILY 04/10/18 07/06/18 History mupirocin 1 applic TOPICAL TID PRN 04/10/18 07/06/18 History oxybutynin chloride 5 ml PO Q12 04/10/18 07/06/18 History sennosides [senna] 8.6 mg PO BID 04/10/18 07/06/18 History thiamine HCl (vitamin B1) [Vitamin 0 mg PO DAILY 04/10/18 07/06/18 History B-1] venlafaxine 75 mg PO BID 04/10/18 07/06/18 History potassium chloride 10 meq PO BID 07/06/18 07/06/18 History trimethoprim 100 mg PO HS 07/06/18 07/06/18 History Allergies Allergy/AdvReac Type Severity Reaction Status Date / Time pollen extracts Allergy Intermediate PAST HX Verified 07/06/18 07:56 SEASONAL ALLERGIES/ASTHMA Past Med/Surg History Medical History Hx: UTI (urinary tract infection) Bipolar disease, chronic (Chronic) Dysphagia Encephalopathy Hypertension Hemorrhagic cerebrovascular accident (CVA) (Resolved) Chronic GERD HOCM (hypertrophic obstructive cardiomyopathy) Right hemiparesis CVA (cerebral vascular accident) Hypertension Surgical History History of esophagogastroduodenoscopy (EGD) Social History marital status: Current Living Situation: Spouse Current Living Situation Comment: lives with brother Other Information That Helps Us Care for You: No Feels Safe at Home: Yes Safety Concerns: Feels Safe At This Time Smoking Status: Former smoker Do You Dip or Chew Tobacco: No Hx Alcohol Use: No Hx Substance Use: No Beliefs That Will Affect Care: None Communication Ability: Effective Review of Systems See HPI for pertinent positives & negatives. and A total of 10 systems reviewed and were otherwise negative Physical Exam Vital Signs Vital Signs - 24 hr 07/08/18 15:20 07/08/18 23:15 07/09/18 00:45 Temperature 36.7 C 36.8 C Temperature Source Oral Oral Pulse Rate [Right Finger] 107 H 106 H Pulse Rate [Right Radial] Respiratory Rate 18 18 Respiratory Effort / Characteristics Non-Labored Spontaneous Respiratory Depth Normal Normal Respiratory Pattern Regular Blood Pressure [Right Arm] 132/81 144/81 H Blood Pressure Mean [Right Arm] 98 102 Blood Pressure Position [Right Arm] Lying Lying Pulse Oximetry 95 95 Oxygen Delivery Method Room Air Nasal Cannula Nasal Cannula Oxygen Flow Rate 1 1 07/09/18 07:01 07/09/18 08:00 07/09/18 11:44 Temperature 36.5 C 36.6 C Temperature Source Oral Oral Pulse Rate [Right Finger] 97 H Pulse Rate [Right Radial] 95 H Respiratory Rate 15 17 Respiratory Effort / Characteristics Non-Labored Spontaneous Respiratory Depth Normal Respiratory Pattern Regular Blood Pressure [Right Arm] 153/77 H 131/77 Blood Pressure Mean [Right Arm] 102 95 Blood Pressure Position [Right Arm] Lying Lying Pulse Oximetry 97 99 Oxygen Delivery Method Nasal Cannula Nasal Cannula Nasal Cannula Oxygen Flow Rate 1 1 2 Vital signs reviewed. General: Chronically ill-appearing middle-aged woman, thin and frail. Answering questions appropriately but needs prompting. HEENT: No scleral icterus, PERRLA, neck supple. Atraumatic. Cardiovascular: Regular rate and rhythm, no extra sounds. Pulmonary: Clear to auscultation bilaterally, normal work of breathing. Abdomen: Soft, nontender, nondistended, positive bowel sounds. Musculoskeletal: Has significant pain with range of motion of right hip with no deformity, swelling, or ecchymosis appreciated. Neurologic: Patient awake alert and oriented x 3 Skin: Warm, dry, no rash. Course 0731: Past medical records reviewed. The patient was evaluated in room A10, and a complete history and physical examination were performed. 0833: Upon reevaluation, the patient is resting. I discussed test results with her and her family They verbalized agreement with the treatment plan. 0906: I reviewed the patient's case with Dr. Anthony, [facility] hospitalist. She will evaluate the patient for further management. 1007: I discussed the patient's fracture with [facility]. Consultations Consultation #1: I reviewed the patient's case with Dr. Anthony, [facility] hospitalist. She will evaluate the patient for further management. Time: 09:06 Consultation #2: I discussed the patient's fracture with [facility]. Time: 10:07 Administered Medications Acetaminophen (Tylenol) 325 mg PO Q6H PRN PRN Reason: Pain Stop: 08/06/18 19:08 Last Admin: 07/08/18 07:50 Dose: 325 mg Amlodipine Besylate (Norvasc) 5 mg PO DAILY JOSE Stop: 08/06/18 08:59 Last Admin: 07/09/18 08:37 Dose: 5 mg Admin: 07/08/18 08:59 Dose: 5 mg Admin: 07/07/18 07:08 Dose: 5 mg Aspirin (Ecotrin Ectab) 81 mg PO BID JOSE Stop: 08/06/18 20:59 Last Admin: 07/09/18 08:38 Dose: 81 mg Admin: 07/08/18 20:28 Dose: 81 mg Admin: 07/08/18 09:09 Dose: 81 mg Admin: 07/07/18 22:52 Dose: 81 mg Admin: 07/07/18 22:49 Dose: Not Given Buspirone HCl (Buspar) 5 mg PO BID [facility] Stop: 08/05/18 20:59 Last Admin: 07/09/18 08:39 Dose: 5 mg Admin: 07/08/18 20:27 Dose: 5 mg Admin: 07/08/18 08:59 Dose: 5 mg Admin: 07/07/18 22:52 Dose: 5 mg Admin: 07/07/18 11:00 Dose: Not Given Admin: 07/06/18 20:44 Dose: 5 mg Divalproex Sodium (Depakote Sprinkle) 375 mg PO TID [facility] Stop: 08/05/18 13:59 Last Admin: 07/09/18 13:42 Dose: 375 mg Admin: 07/09/18 08:39 Dose: 375 mg Admin: 07/08/18 20:27 Dose: 375 mg Admin: 07/08/18 13:37 Dose: 375 mg Admin: 07/08/18 09:00 Dose: 375 mg Admin: 07/07/18 22:47 Dose: 375 mg Admin: 07/07/18 12:51 Dose: Not Given Admin: 07/07/18 11:00 Dose: Not Given Admin: 07/06/18 20:44 Dose: 375 mg Admin: 07/06/18 13:51 Dose: 375 mg Docusate Sodium (Colace) 100 mg PO BID [facility] Stop: 08/06/18 20:59 Last Admin: 07/09/18 08:38 Dose: Not Given Admin: 07/08/18 20:28 Dose: Not Given Admin: 07/08/18 09:00 Dose: 100 mg Admin: 07/07/18 22:55 Dose: Not Given Ferrous Gluconate (Ferrous Gluconate) 324 mg PO BIDM [facility] Stop: 08/06/18 19:08 Last Admin: 07/09/18 08:37 Dose: 324 mg Admin: 07/08/18 17:49 Dose: 324 mg Admin: 07/08/18 09:00 Dose: 324 mg Admin: 07/07/18 20:18 Dose: Not Given Folic Acid (Folvite) 1 mg PO DAILY [facility] Stop: 08/06/18 08:59 Last Admin: 07/09/18 08:39 Dose: 1 mg Admin: 07/08/18 09:01 Dose: 1 mg Admin: 07/07/18 11:00 Dose: Not Given Hydromorphone HCl (Dilaudid) 0.5 mg IV Q4H PRN PRN Reason: Pain Stop: 07/21/18 19:08 Last Admin: 07/09/18 08:33 Dose: 0.5 mg Admin: 07/08/18 03:16 Dose: 0.5 mg Magnesium Oxide (Mag-Ox) 400 mg PO BID [facility] Stop: 08/05/18 20:59 Last Admin: 07/09/18 08:39 Dose: 400 mg Admin: 07/08/18 20:26 Dose: 400 mg Admin: 07/08/18 09:01 Dose: 400 mg Admin: 07/07/18 22:49 Dose: Not Given Admin: 07/07/18 11:01 Dose: Not Given Admin: 07/06/18 20:44 Dose: 400 mg Mirabegron (Myrbetriq Er) 50 mg PO DAILY [facility] Stop: 08/06/18 08:59 Last Admin: 07/09/18 08:38 Dose: 50 mg Admin: 07/08/18 09:00 Dose: 50 mg Admin: 07/07/18 11:01 Dose: Not Given Miscellaneous (Order Awaiting Action) 1 ea N/A QS [facility] Stop: 08/07/18 00:00 Last Admin: 07/09/18 08:37 Dose: Not Given Admin: 07/09/18 00:46 Dose: Not Given Admin: 07/08/18 16:09 Dose: Not Given Admin: 07/08/18 09:02 Dose: Not Given Admin: 07/07/18 23:47 Dose: Not Given Multivitamins (Multivitamin Tab) 1 tab PO QAM JOSE Stop: 08/07/18 08:59 Last Admin: 07/09/18 08:37 Dose: 1 tab Admin: 07/08/18 09:01 Dose: 1 tab Oxybutynin Chloride (Ditropan) 5 mg PO Q12 JOSE Stop: 08/05/18 20:59 Last Admin: 07/09/18 08:37 Dose: 5 mg Admin: 07/08/18 20:24 Dose: 5 mg Admin: 07/08/18 08:59 Dose: 5 mg Admin: 07/07/18 22:54 Dose: Not Given Admin: 07/07/18 11:00 Dose: Not Given Admin: 07/06/18 20:44 Dose: 5 mg Potassium Chloride (Klor-Con M10) 10 meq PO BID [facility] Stop: 08/05/18 20:59 Last Admin: 07/09/18 08:38 Dose: 10 meq Admin: 07/08/18 20:28 Dose: 10 meq Admin: 07/08/18 09:01 Dose: 10 meq Admin: 07/07/18 22:49 Dose: Not Given Admin: 07/07/18 11:01 Dose: Not Given Admin: 07/06/18 20:44 Dose: 10 meq Sennosides (Senokot) 17.2 mg PO HS [facility] Stop: 08/06/18 20:59 Last Admin: 07/08/18 20:26 Dose: 17.2 mg Admin: 07/07/18 22:49 Dose: Not Given Thiamine HCl (Vitamin B-1) 100 mg PO QAM [facility] Stop: 08/06/18 08:59 Last Admin: 07/09/18 08:38 Dose: 100 mg Admin: 07/08/18 09:01 Dose: 100 mg Admin: 07/07/18 11:01 Dose: Not Given Venlafaxine HCl (Effexor) 75 mg PO BID [facility] Stop: 08/05/18 20:59 Last Admin: 07/09/18 08:39 Dose: 75 mg Admin: 07/08/18 20:25 Dose: 75 mg Admin: 07/08/18 09:54 Dose: 75 mg Admin: 07/07/18 22:49 Dose: Not Given Admin: 07/07/18 11:00 Dose: Not Given Admin: 07/06/18 21:19 Dose: 75 mg Discontinued Medications Amlodipine Besylate (Norvasc) 5 mg PO NOW ONE Stop: 07/06/18 07:37 Last Admin: 07/06/18 08:02 Dose: 5 mg Aspirin (Ecotrin Ectab) 81 mg PO DAILY [facility] Stop: 08/06/18 08:59 Last Admin: 07/07/18 11:00 Dose: Not Given Bacitracin (Bacitracin) Confirm Administered Dose 50,000 units .ROUTE .[facility] ONE Stop: 07/07/18 13:37 Last Admin: 07/07/18 16:02 Dose: 50,000 units Bupivacaine HCl/Epinephrine Bitart (Sensorcaine/Epinephrine 0.5% Mpf 1:200,000) Confirm Administered Dose 60 ml .ROUTE .[facility] ONE Stop: 07/07/18 13:37 Last Admin: 07/07/18 16:04 Dose: 60 ml Cefazolin Sodium (Ancef 1000mg) Confirm Administered Dose 1,000 mg IV .[facility] ONE Stop: 07/07/18 14:55 Last Admin: 07/07/18 14:58 Dose: 1,000 mg Gentamicin Sulfate (Garamycin) Confirm Administered Dose [address] .[facility] ONE Stop: 07/07/18 15:19 Last Admin: 07/07/18 15:23 Dose: 40 mg Sodium Chloride (Nss 1000ml) 250 mls @ 999 mls/hr IV .Q16M ONE Stop: 07/06/18 07:48 Last Infusion: 07/06/18 09:04 Dose: Admin: 07/06/18 08:20 Dose: 999 mls/hr Sodium Chloride (Nss 1000ml) 1,000 mls @ 125 mls/hr IV .Q8H JOSE Stop: 08/05/18 07:44 Last Infusion: 07/07/18 11:00 Dose: Admin: 07/07/18 06:25 Dose: 125 mls/hr Infusion: 07/07/18 06:24 Dose: 0 mls/hr Admin: 07/06/18 21:23 Dose: 125 mls/hr Infusion: 07/06/18 21:23 Dose: 0 mls/hr Admin: 07/06/18 12:37 Dose: 125 mls/hr Infusion: 07/06/18 12:37 Dose: 125 mls/hr Admin: 07/06/18 08:21 Dose: 125 mls/hr Cefazolin Sodium (Ancef 1000mg) 1,000 mg in 7.5 mls @ 2.5 mls/min IV PREOP JOSE ; Protocol Stop: 07/07/18 15:02 Last Admin: 07/07/18 19:17 Dose: Not Given Sodium Chloride (Nss 1000ml) 1,000 mls @ 100 mls/hr IV .Q10H JOSE Stop: 07/08/18 06:00 Last Admin: 07/08/18 06:23 Dose: Not Given Infusion: 07/08/18 06:23 Dose: 0 mls/hr Admin: 07/07/18 22:31 Dose: 100 mls/hr Cefazolin Sodium (Ancef 1000mg) 1,000 mg in 7.5 mls @ 2.5 mls/min IV Q8H JOSE; Protocol Stop: 07/08/18 07:02 Last Admin: 07/08/18 06:24 Dose: 2.5 mls/min Admin: 07/07/18 22:31 Dose: 2.5 mls/min Lactated Ringer's (Lr) 1,000 mls @ 125 mls/hr IV .Q8H JOSE Stop: 07/09/18 07:44 Last Infusion: 07/09/18 08:25 Dose: 0 mls/hr Infusion: 07/09/18 07:12 Dose: 125 mls/hr Admin: 07/09/18 00:30 Dose: 125 mls/hr Infusion: 07/09/18 00:09 Dose: 125 mls/hr Infusion: 07/08/18 22:27 Dose: 125 mls/hr Admin: 07/08/18 16:08 Dose: 125 mls/hr Morphine Sulfate (Morphine Sulfate) 2 mg IV NOW STA Stop: 07/06/18 07:34 Last Admin: 07/06/18 08:20 Dose: 2 mg Morphine Sulfate (Morphine Sulfate) 2 mg IV NOW STA Stop: 07/07/18 09:28 Last Admin: 07/07/18 09:43 Dose: 2 mg Ondansetron HCl (Zofran) 4 mg IV NOW STA Stop: 07/06/18 07:34 Last Admin: 07/06/18 08:20 Dose: 4 mg Sennosides (Senokot) 8.6 mg PO BID JOSE Stop: 08/05/18 20:59 Last Admin: 07/07/18 11:01 Dose: Not Given Admin: 07/06/18 20:44 Dose: 8.6 mg Medical Decision Making Differential Diagnosis Etiologies such as fracture, dislocation, neurovascular compromise, compartment syndrome, soft tissue injury, as well as others were entertained. Medical Records Attestation: I reviewed the patient's medical records. Home Medications Current Medication List: was personally reviewed by me Laboratory Data Attestation: I reviewed the patient's lab results. Result diagrams: 07/09/18 06:26 07/08/18 08:04 Lab Results 07/06/18 07/06/18 07/06/18 Range/Units 07:52 08:10 08:10 WBC 11.89 H (4.8-10.8) K/uL RBC 4.18 L (4.2-5.4) M/uL Hgb 12.3 (12.0-16.0) g/dL Hct 36.6 L (37-47) % MCV 87.6 (80-100) fL MCH 29.4 (25-34) pg MCHC 33.6 (32-36) g/dL RDW Std Deviation 46.1 (36.4-46.3) fL RDW Coeff of Cassandra 14.3 (11.5-14.5) % Plt Count 239 (130-400) K/uL MPV 11.0 H (7.4-10.4) fL Immature Gran % (Auto) 0.3 % Neut % (Auto) 80.8 % Lymph % (Auto) 12.2 % [place] % (Auto) 5.1 % Eos % (Auto) 1.3 % Baso % (Auto) 0.3 % Immature Gran # (Auto) 0.03 H (0.00-0.02) K/uL Neut # (Auto) 9.62 H (1.4-6.5) K/uL Lymph # (Auto) 1.45 (1.2-3.4) K/uL [place] # (Auto) 0.61 H (0.11-0.59) K/uL Eos # (Auto) 0.15 (0-0.5) K/uL Baso # (Auto) 0.03 (0-0.2) K/uL RBC Morphology Sodium 135 L (136-145) mmol/L Potassium 3.7 (3.5-5.1) mmol/L Chloride 101 (98-107) mmol/L Carbon Dioxide 25 (21-32) mmol/L Anion Gap 9.0 (3-11) BUN 13 (7-18) mg/dl Creatinine 0.66 (0.6-1.2) mg/dl Est Cr Clr Drug Dosing 65.0 ml/min Est GFR ( Amer) 108.2 Est GFR (Non-Af Amer) 93.4 BUN/Creatinine Ratio 19.8 (10-20) Glucose 132 H (70-99) mg/dl POC Glucose 160 H (70-99) Calcium 9.2 (8.5-10.1) mg/dl Total Bilirubin 0.5 (0.2-1) mg/dl AST 16 (15-37) U/L ALT 25 (12-78) U/L Alkaline Phosphatase 78 (45-117) U/L Total Protein 7.9 (6.4-8.2) gm/dl Albumin 3.2 L (3.4-5.0) gm/dl Globulin 4.6 H (2.5-4.0) gm/dl Albumin/Globulin Ratio 0.7 L (0.9-2) Urine Color Urine Appearance (Clear) Urine pH (4.5-7.5) Ur Specific [place] (1.000-1.030) Urine Protein (Negative) Urine Glucose (UA) (Negative) Urine Ketones (Negative) Urine Blood (Negative) Urine Nitrite (Negative) Urine Bilirubin (Negative) Urine Urobilinogen (Negative) Ur Leukocyte Esterase (Negative) Urine WBC (Auto) (0-5) /hpf Urine RBC (Auto) (0-4) /hpf U Hyaline Cast (Auto) (0-5) /lpf U Epithel Cells (Auto) (0-5) /lpf Urine Bacteria (Auto) (Negative) Ur Renal Epithelial Cell (0-5) /lpf Urine Yeast Blood Type Antibody Screen 07/06/18 07/06/18 07/07/18 Range/Units 09:31 15:58 09:53 WBC (4.8-10.8) K/uL RBC (4.2-5.4) M/uL Hgb (12.0-16.0) g/dL Hct (37-47) % MCV (80-100) fL MCH (25-34) pg MCHC (32-36) g/dL RDW Std Deviation (36.4-46.3) fL RDW Coeff of Cassandra (11.5-14.5) % Plt Count (130-400) K/uL MPV (7.4-10.4) fL Immature Gran % (Auto) % Neut % (Auto) % Lymph % (Auto) % [place] % (Auto) % Eos % (Auto) % Baso % (Auto) % Immature Gran # (Auto) (0.00-0.02) K/uL Neut # (Auto) (1.4-6.5) K/uL Lymph # (Auto) (1.2-3.4) K/uL [place] # (Auto) (0.11-0.59) K/uL Eos # (Auto) (0-0.5) K/uL Baso # (Auto) (0-0.2) K/uL RBC Morphology Sodium 136 (136-145) mmol/L Potassium 3.5 (3.5-5.1) mmol/L Chloride 104 (98-107) mmol/L Carbon Dioxide 28 (21-32) mmol/L Anion Gap 4.0 (3-11) BUN 8 D (7-18) mg/dl Creatinine 0.40 L (0.6-1.2) mg/dl Est Cr Clr Drug Dosing 107.2 ml/min Est GFR ( Amer) 127.6 Est GFR (Non-Af Amer) 110.1 BUN/Creatinine Ratio 20.8 H (10-20) Glucose 93 (70-99) mg/dl POC Glucose (70-99) Calcium 8.5 (8.5-10.1) mg/dl Total Bilirubin (0.2-1) mg/dl AST (15-37) U/L ALT (12-78) U/L Alkaline Phosphatase (45-117) U/L Total Protein (6.4-8.2) gm/dl Albumin (3.4-5.0) gm/dl Globulin (2.5-4.0) gm/dl Albumin/Globulin Ratio (0.9-2) Urine Color Yellow Urine Appearance Turbid H (Clear) Urine pH 8.5 H (4.5-7.5) Ur Specific [place] 1.018 (1.000-1.030) Urine Protein Trace H (Negative) Urine Glucose (UA) Negative (Negative) Urine Ketones 1+ H (Negative) Urine Blood 1+ H (Negative) Urine Nitrite Positive H (Negative) Urine Bilirubin Negative (Negative) Urine Urobilinogen Negative (Negative) Ur Leukocyte Esterase 3+ H (Negative) Urine WBC (Auto) >30 H (0-5) /hpf Urine RBC (Auto) 5-10 H (0-4) /hpf U Hyaline Cast (Auto) 0 (0-5) /lpf U Epithel Cells (Auto) >30 H (0-5) /lpf Urine Bacteria (Auto) Negative (Negative) Ur Renal Epithelial Cell 5-10 H (0-5) /lpf Urine Yeast Not Reportable Blood Type O Positive Antibody Screen NEGATIVE 07/07/18 07/08/18 07/08/18 Range/Units 09:53 08:04 08:04 WBC 11.09 H 8.08 (4.8-10.8) K/uL RBC 3.89 L 3.14 L (4.2-5.4) M/uL Hgb 11.3 L 9.3 L (12.0-16.0) g/dL Hct 34.9 L 28.3 L (37-47) % MCV 89.7 90.1 (80-100) fL MCH 29.0 29.6 (25-34) pg MCHC 32.4 32.9 (32-36) g/dL RDW Std Deviation 47.1 H 46.8 H (36.4-46.3) fL RDW Coeff of Cassandra 14.3 14.3 (11.5-14.5) % Plt Count 193 227 (130-400) K/uL MPV 11.4 H 11.1 H (7.4-10.4) fL Immature Gran % (Auto) 0.2 0.2 % Neut % (Auto) 77.7 71.0 % Lymph % (Auto) 11.5 17.3 % [place] % (Auto) 5.6 11.3 % Eos % (Auto) 4.6 0.0 % Baso % (Auto) 0.4 0.2 % Immature Gran # (Auto) 0.02 0.02 (0.00-0.02) K/uL Neut # (Auto) 8.63 H 5.73 (1.4-6.5) K/uL Lymph # (Auto) 1.27 1.40 (1.2-3.4) K/uL [place] # (Auto) 0.62 H 0.91 H (0.11-0.59) K/uL Eos # (Auto) 0.51 H 0.00 (0-0.5) K/uL Baso # (Auto) 0.04 0.02 (0-0.2) K/uL RBC Morphology Sodium 138 (136-145) mmol/L Potassium 3.9 (3.5-5.1) mmol/L Chloride 102 (98-107) mmol/L Carbon Dioxide 28 (21-32) mmol/L Anion Gap 8.0 (3-11) BUN 15 D (7-18) mg/dl Creatinine 0.62 (0.6-1.2) mg/dl Est Cr Clr Drug Dosing 69.2 ml/min Est GFR ( Amer) 110.4 Est GFR (Non-Af Amer) 95.3 BUN/Creatinine Ratio 23.6 H (10-20) Glucose 105 H (70-99) mg/dl POC Glucose (70-99) Calcium 8.6 (8.5-10.1) mg/dl Total Bilirubin (0.2-1) mg/dl AST (15-37) U/L ALT (12-78) U/L Alkaline Phosphatase (45-117) U/L Total Protein (6.4-8.2) gm/dl Albumin (3.4-5.0) gm/dl Globulin (2.5-4.0) gm/dl Albumin/Globulin Ratio (0.9-2) Urine Color Urine Appearance (Clear) Urine pH (4.5-7.5) Ur Specific [place] (1.000-1.030) Urine Protein (Negative) Urine Glucose (UA) (Negative) Urine Ketones (Negative) Urine Blood (Negative) Urine Nitrite (Negative) Urine Bilirubin (Negative) Urine Urobilinogen (Negative) Ur Leukocyte Esterase (Negative) Urine WBC (Auto) (0-5) /hpf Urine RBC (Auto) (0-4) /hpf U Hyaline Cast (Auto) (0-5) /lpf U Epithel Cells (Auto) (0-5) /lpf Urine Bacteria (Auto) (Negative) Ur Renal Epithelial Cell (0-5) /lpf Urine Yeast Blood Type Antibody Screen 07/09/18 Range/Units 06:26 WBC 6.36 (4.8-10.8) K/uL RBC 2.53 L (4.2-5.4) M/uL Hgb 7.4 L (12.0-16.0) g/dL Hct 22.7 L (37-47) % MCV 89.7 (80-100) fL MCH 29.2 (25-34) pg MCHC 32.6 (32-36) g/dL RDW Std Deviation 47.3 H (36.4-46.3) fL RDW Coeff of Cassandra 14.2 (11.5-14.5) % Plt Count 148 (130-400) K/uL MPV 10.2 (7.4-10.4) fL Immature Gran % (Auto) 0.2 % Neut % (Auto) 52.4 % Lymph % (Auto) 29.4 % [place] % (Auto) 13.7 % Eos % (Auto) 3.8 % Baso % (Auto) 0.5 % Immature Gran # (Auto) 0.01 (0.00-0.02) K/uL Neut # (Auto) 3.34 (1.4-6.5) K/uL Lymph # (Auto) 1.87 (1.2-3.4) K/uL [place] # (Auto) 0.87 H (0.11-0.59) K/uL Eos # (Auto) 0.24 (0-0.5) K/uL Baso # (Auto) 0.03 (0-0.2) K/uL RBC Morphology Unremarkable Sodium (136-145) mmol/L Potassium (3.5-5.1) mmol/L Chloride (98-107) mmol/L Carbon Dioxide (21-32) mmol/L Anion Gap (3-11) BUN (7-18) mg/dl Creatinine (0.6-1.2) mg/dl Est Cr Clr Drug Dosing ml/min Est GFR ( Amer) Est GFR (Non-Af Amer) BUN/Creatinine Ratio (10-20) Glucose (70-99) mg/dl POC Glucose (70-99) Calcium (8.5-10.1) mg/dl Total Bilirubin (0.2-1) mg/dl AST (15-37) U/L ALT (12-78) U/L Alkaline Phosphatase (45-117) U/L Total Protein (6.4-8.2) gm/dl Albumin (3.4-5.0) gm/dl Globulin (2.5-4.0) gm/dl Albumin/Globulin Ratio (0.9-2) Urine Color Urine Appearance (Clear) Urine pH (4.5-7.5) Ur Specific [place] (1.000-1.030) Urine Protein (Negative) Urine Glucose (UA) (Negative) Urine Ketones (Negative) Urine Blood (Negative) Urine Nitrite (Negative) Urine Bilirubin (Negative) Urine Urobilinogen (Negative) Ur Leukocyte Esterase (Negative) Urine WBC (Auto) (0-5) /hpf Urine RBC (Auto) (0-4) /hpf U Hyaline Cast (Auto) (0-5) /lpf U Epithel Cells (Auto) (0-5) /lpf Urine Bacteria (Auto) (Negative) Ur Renal Epithelial Cell (0-5) /lpf Urine Yeast Blood Type Antibody Screen Imaging Data Radiologist's Impression: Radiology results as stated below per my review and the radiologist's interpretation: XR hip RT 2-3V w pelvis HISTORY: 62 years-old Female fall acute right hip pain status post fall COMPARISON: CT abdomen and pelvis 04/10/2018 TECHNIQUE: AP view of the pelvis with 2 views of the right hip FINDINGS: Demineralized appearance of the bones. 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 Bony pelvis appears intact. There is an acute fracture of the right femoral neck which appears to be subcapital with approximately 1.0 cm impaction. No significant displacement, angulation or dislocation. Mild adjacent soft tissue swelling. IMPRESSION: Acute mildly impacted subcapital fracture of the right femur. The above report was generated using voice recognition software. It may contain grammatical, syntax or spelling errors. Electronically signed by: Dean Seymour M.D. 07/06/2018 8:[address] head/brain wo con CLINICAL HISTORY: 62 years-old Female with trauma. Acute posttraumatic head injury TECHNIQUE: Multiple axial CT images of the head were obtained without contrast. A dose lowering technique was utilized adhering to the principles of ALARA. COMPARISON: CT head 12/12/2017. FINDINGS: No acute intracranial hemorrhage, midline shift, intracranial mass, hydrocephalus, territorial ischemia or abnormal extra-axial collection. Age- related involutional changes with ex vacuo ventriculomegaly. Chronic hyperdensity/calcification noted about the left harvey radiata and external capsule. Patchy white matter hypodensities redemonstrated suggestive of chronic microvascular ischemic changes. 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 The calvarium is intact. ORIF changes about the bilateral anterior maxilla. Trace right mastoid effusion. Left mastoid air cells and paranasal sinuses are generally clear. The soft tissues and orbits appear unremarkable. IMPRESSION: 1. No acute intracranial abnormality or calvarial fracture. 2. Chronic findings as above. The above report was generated using voice recognition software. It may contain grammatical, syntax or spelling errors. Electronically signed by: Dean Seymour M.D. 07/06/2018 8:42 AM XR chest 1V portable CLINICAL HISTORY: trauma COMPARISON STUDY: 08/02/2017 FINDINGS: Lungs are clear. Diaphragms are smooth. No evidence pneumothorax. Potential expansile lesions of the right fourth fifth and sixth ribs versus sequela of old trauma. Right rib detail films is suggested if possible. IMPRESSION: 1. Lungs are clear with no evidence pneumothorax. 2. Potential expansile lesions right fourth fifth and sixth ribs versus sequela of old trauma right midaxillary line. Right rib detail films are suggested when able. The above report was generated using voice recognition software. It may contain grammatical, syntax or spelling errors. Electronically signed by: William Colmenares M.D. 07/06/2018 8:[address] OF THE CERVICAL SPINE CLINICAL HISTORY: Neck pain status post trauma COMPARISON STUDY: No previous studies for comparison. CT DOSE: 993.33 mGy.cm TECHNIQUE: CT scan of the cervical spine was performed from the skull base to the thoracic inlet. Images are reviewed in the axial, sagittal, and coronal planes. IV contrast was not administered for this examination. A dose lowering technique was utilized adhering to the principles of ALARA. FINDINGS: The visualized portions of the lung apices reveal no evidence of pneumothorax. The prevertebral soft tissues are normal. No fractures or traumatic subluxations are visualized. There are multilevel degenerative changes. Minimal anterolisthesis of C3 on C4 and minimal retrolisthesis of C5 on C6 is felt to be degenerative. IMPRESSION: No evidence of acute fracture or traumatic subluxation. Electronically signed by: William Hui M.D. 07/06/2018 8:42 AM ECG Data Attestation: I personally reviewed and interpreted this ECG as follows: Indication: weakness Rate (beats per minute): 104 Rhythm: sinus tachycardia Findings: + other (Poor quality baseline for interpretation. Short KS interval. QTC 512) and + nonspecific-ST abn Blood Pressure Blood Pressure Findings: Elevated blood pressure Blood Pressure Disposition: Referred to patients primary care provider MDM Narrative This patient was evaluated and appeared to be in no significant distress. IV access was obtained and laboratory work was drawn. Patient was placed on the cardiac monitor technician. X-rays were obtained and reveal a subcapital right hip fracture. Head CT was obtained and reveals chronic calcification, but no evidence of acute hemorrhage. Patient did receive IV fluids and IV fentanyl for her discomfort. Case was discussed with Dr. Anthony of the [facility] physician group and Dr. Bates of orthopedic surgery who will evaluate the patient for further management. Patient and her brother are aware of the plan and agree. Impression & Plan Hip fracture Discharge Plan Visit Data *Final* Discharge Date/Time: 07/06/18 11:44 Chief Complaint: Leg Injury/Pain ED Provider: Jessica Cueva Discharge Problem: Hip fracture Patient Disposition: Admitted As Inpatient Discharge Instructions Interventions: ED Discharge Assessment Last Done: 07/06/18 11:44 The scribe's documentation has been prepared under my direction and personally reviewed by me in its entirety. I confirm that the note above accurately reflects all work, treatment, procedures, and medical decision making performed by me.
[2018-07-06] MEDS: SENNA 8.6 MG TAB PO SCH (20:44)
[2018-07-06] MEDS: OXYBUTYNIN CHLORIDE 5 MG TAB PO SCH (20:44)
[2018-07-06] MEDS: MAGNESIUM OXIDE 400 MG TAB PO SCH (20:44)
[2018-07-06] MEDS: POTASSIUM CHLORIDE 10 MEQ TABCR PO SCH (20:44)
[2018-07-06] MEDS ORDERED: VENLAFAXINE HCL 75 MG TAB PO SCH (21:00)
[2018-07-06] MEDS: VENLAFAXINE HCL 50 MG TAB PO SCH (21:19)
[2018-07-07] MEDS: SODIUM CHLORIDE 0.9% 1000ML 1,000 ML IV SCH ×2 (06:25→22:31)
[2018-07-07] MEDS: AMLODIPINE BESYLATE 5 MG TAB PO SCH (07:08)
[2018-07-07] MEDS ORDERED: BUPIVACAINE 0.5 % 5 MG/1 ML PF 10ML VIAL ONE (07:33)
[2018-07-07] MEDS ORDERED: ASPIRIN 81 MG ECTAB PO SCH (09:00)
[2018-07-07] MEDS ORDERED: NON-FORMULARY MEDICATION (Cranberry [Cranberry] 400 MG) PO SCH (09:00)
[2018-07-07] MEDS ORDERED: MoRPHine SULFATE 4 MG/ML 1 ML CARP\\VIAL IV STA (09:27)
[2018-07-07 10:05] LABS: Basophils # (auto) 0.04 K/uL (0-0.2); Basophils % (auto) 0.4 %; Eosinophils # (auto) 0.51 K/uL (0-0.5); Eosinophils % (auto) 4.6 %; Hematocrit (blood only) 34.9 % (37-47); Hemoglobin 11.3 g/dL (12.0-16.0); Immature Granulocytes # (auto) 0.02 K/uL (0.00-0.02); Immature Granulocytes % (auto) 0.2 %; Lymphocytes # (auto) 1.27 K/uL (1.2-3.4); Lymphocytes % (auto) 11.5 %; Mean Corpuscular Hgb Conc 32.4 g/dL (32-36); Mean Corpuscular Volume 89.7 fL (80-100); Mean Platelet Volume 11.4 fL (7.4-10.4); Monocytes # (auto) 0.62 K/uL (0.11-0.59); Monocytes % (auto) 5.6 %; Neutrophils # (auto) 8.63 K/uL (1.4-6.5); Neutrophils % (auto) 77.7 %; Platelet Count 193 K/uL (130-400); RDW Coefficient of Variation 14.3 % (11.5-14.5); RDW Standard Deviation 47.1 fL (36.4-46.3); Red Blood Count 3.89 M/uL (4.2-5.4); White Blood Count 11.09 K/uL (4.8-10.8)
[2018-07-07 10:39] LABS: BUN Creatinine Ratio 20.8 (10-20); Calcium 8.5 mg/dl (8.5-10.1); Creatinine Clr Calc Pharmacy 107.2 ml/min; Est GFR (African American) 127.6; Est GFR (Non-African American) 110.1; Potassium 3.5 mmol/L (3.5-5.1)
[2018-07-07] MEDS: FOLIC ACID 1 MG TAB PO SCH (11:00)
[2018-07-07] MEDS: VENLAFAXINE HCL 50 MG TAB PO SCH ×2 (11:00→22:49)
[2018-07-07] MEDS: OXYBUTYNIN CHLORIDE 5 MG TAB PO SCH ×2 (11:00→22:54)
[2018-07-07] MEDS: DIVALPROEX SODIUM SPRINKLE 125 MG CAP PO SCH ×3 (11:00→22:47)
[2018-07-07] MEDS: MAGNESIUM OXIDE 400 MG TAB PO SCH ×2 (11:01→22:49)
[2018-07-07] MEDS: MIRABEGRON ER 25 MG TAB PO SCH (11:01)
[2018-07-07] MEDS: SENNA 8.6 MG TAB PO SCH ×2 (11:01→22:49)
[2018-07-07] MEDS: POTASSIUM CHLORIDE 10 MEQ TABCR PO SCH ×2 (11:01→22:49)
[2018-07-07] MEDS: THIAMINE HCL 100 MG TAB PO SCH (11:01)
--- NOTE | 2018-07-07 13:13 | Orthopedic Progress Note ---
Date of Service July 07, 2018 Assessment & Plan (1) Hip fracture: She's NPO. We plan on cemented hemiarthroplasty with Dr. Ramirez today. Subjective Quite a bit of hip pain earlier but controlled at this time. No new complaints. Physical Exam 2 Vital Signs (Past 24 Hours): Last Vital Signs Temp 36.8 C 07/07/18 11:39 Pulse 98 H 07/07/18 11:39 Resp 18 07/07/18 11:39 BP 145/83 H 07/07/18 11:39 Pulse Ox 95 07/07/18 11:39 Musculoskeletal: She's alert. NAD. Family is with her. Her right leg is internally rotated some. NVI _ (1) Hip fracture Encounter type: initial encounter Fracture healing: Fracture type: closed Laterality: right Open fracture type: Qualified Code(s): S72.001A - Fracture of unspecified part of neck of right femur, initial encounter for closed fracture
[2018-07-07] MEDS ORDERED: BUPIVACAINE/EPINEPHRINE 0.5% MPF 1:200,000 30 ML VIAL ONE (13:36)
[2018-07-07] MEDS ORDERED: BACITRACIN INJ 50,000 UNIT VIAL ONE (13:36)
[2018-07-07] MEDS ORDERED: PROPOFOL IV EMULSION 10 MG/ML 20 ML VIAL IV ONE (14:30)
[2018-07-07] MEDS ORDERED: MIDAZOLAM HCL 1 MG/ML 2ML VIAL ONE (14:30)
[2018-07-07] MEDS ORDERED: LIDOCAINE HCL 2% 2 ML VIAL/AMP(20MG/ML) INFIL ONE (14:30)
[2018-07-07] MEDS ORDERED: fentaNYL citrate 100 MCG/2 ML VIAL ONE ×2 (14:31→15:37)
[2018-07-07] MEDS ORDERED: ePHEDrine sulfate 50 MG/ML SYR ONE (14:35)
[2018-07-07] MEDS ORDERED: PHENYLEPHRINE 100MCG/ML 5ML SYR ONE (14:35)
[2018-07-07] MEDS ORDERED: ATROPINE SULFATE 0.1 MG/ML 10ML SYR IV PRN (14:48)
[2018-07-07] MEDS ORDERED: ePHEDrine sulfate 50 MG/ML AMP IV PRN (14:48)
[2018-07-07] MEDS ORDERED: fentaNYL citrate 100 MCG/2 ML VIAL IV PRN (14:48)
[2018-07-07] MEDS ORDERED: CEFAZOLIN 1,000 MG/7.5 ML IV PUSH IV ONE (14:54)
--- NOTE | 2018-07-07 14:55 | History & Physical Bridge Note ---
Date of Service July 07, 2018 History & Physical Bridge Note I have examined the patient, reviewed the History & Physical and in the interval since the performance of the History & Physical I have noted the following changes of clinical significance: no changes noted. Will proceed with RIght Hip Hemiarthroplasty for RIGHT hip Fracture.
[2018-07-07] MEDS ORDERED: CEFAZOLIN 1000MG 1,000 MG/7.5 ML SYR IV SCH (15:00)
[2018-07-07] MEDS ORDERED: GENTAMICIN SULFATE 40 MG/ML 2 ML VIAL ONE (15:18)
[2018-07-07] MEDS ORDERED: ROCURONIUM BROMIDE 10 MG/ML 5 ML VIAL ONE (15:31)
[2018-07-07] MEDS ORDERED: GLYCOPYRROLATE 0.2 MG/ML VIAL ONE (15:31)
[2018-07-07] MEDS ORDERED: ONDANSETRON INJ 2 MG/ML 2 ML VIAL ONE (15:31)
[2018-07-07] MEDS ORDERED: NEOSTIGMINE METHYLSULFATE 5 MG/5 ML SYR ONE (15:31)
[2018-07-07] MEDS ORDERED: DEXAMETHASONE SOD INJ 4 MG/ML VIAL ONE (15:31)
[2018-07-07] MEDS ORDERED: LARYING-O-JET KIT (LTA) ONE (15:42)
--- NOTE | 2018-07-07 16:48 | Post Operative Brief Note ---
Immediate Post Op Note v1 Date of Surgery July 07, 2018 Pre & Post Diagnosis Operation Date: 07/07/18 07:00 Pre-Op Diagnosis: Right hip fracture Post-Op Diagnosis: Right hip fracture Procedure Operation Date: 07/07/18 07:00 Actual Procedures p Right Hip Hemiarthroplasty, Cemented(Right) - Carlos Ramirez MD Surgeon Carlos Ramirez MD Switch Maker Norma, PAC Estimated Blood Loss 200 Findings Consistent with Post-Op Diagnosis Fluids 700 cc Specimens Right Femoral Head Drains Walters Catheter (walters in place prior to admission to OR room, clear yellow urine noted) Anesthesia Type General Complications none Disposition Accompanied Patient To Recovery: Yes Disposition: Recovery Room
--- NOTE | 2018-07-07 17:19 | XRay Report ---
AP PELVIS, CROSSTABLE LATERAL RIGHT HIP History: Right hip arthroplasty. Degenerative arthritis. Postop. FINDINGS: The patient is status post a right total hip hemiarthroplasty. The hardware is intact. No f racture or dislocation. Skin kaila and surgical drains are in place. IMPRESSION: Right total hip hemiarthroplasty. No evidence for hardware complication Electronically signed by: Sudhir Menjivar M.D. 07/07/2018 5:18 PM
--- NOTE | 2018-07-07 18:00 | Anesthesiology Progress Note ---
Date of Service July 07, 2018 Anesthesia Post Procedure Vital Signs Vital Signs: Temp Pulse Pulse Pulse Resp BP BP 07/07/18 17:50 98 H 13 133/89 07/07/18 17:40 95 H 15 151/92 H 07/07/18 17:30 97 H 14 145/85 H 07/07/18 17:20 96 H 12 151/90 H 07/07/18 17:10 90 12 173/101 H 07/07/18 17:00 86 12 165/92 H 07/07/18 16:51 36.3 C L 86 12 169/101 H 07/07/18 14:15 36 C L 105 H 20 152/91 H 07/07/18 11:39 36.8 C 98 H 18 145/83 H 07/07/18 08:00 92 H 07/07/18 04:39 36.4 C L 95 H 16 150/88 H 07/07/18 00:57 100 H 07/06/18 23:58 36.8 C 95 H 18 138/81 07/06/18 19:42 36.6 C 106 H 26 H 119/72 Pulse Ox 07/07/18 17:50 96 07/07/18 17:40 96 07/07/18 17:30 90 07/07/18 17:20 95 07/07/18 17:10 99 07/07/18 17:00 99 07/07/18 16:51 99 07/07/18 14:15 87 L 07/07/18 11:39 95 07/07/18 08:00 07/07/18 04:39 99 07/07/18 00:57 07/06/18 23:58 99 07/06/18 19:42 95 Pain Intensity Right Leg: Pain Intensity: 5 Notes Mental Status: alert / awake / arousable Patient Amnestic to Procedure: Yes Nausea / Vomiting: adequately controlled Pain: adequately controlled Airway Patency, RR, SpO2: stable & adequate BP & HR: stable & adequate Hydration State: stable & adequate Anesthetic Complications: no major complications apparent
[2018-07-07] MEDS ORDERED: METOCLOPRAMIDE HCL INJ 5 MG/ML 2 ML VIAL IV PRN (19:09)
[2018-07-07] MEDS ORDERED: NALOXONE HCL 0.4 MG/1 ML VIAL/CARP IV PRN (19:09)
[2018-07-07] MEDS ORDERED: ONDANSETRON INJ 2 MG/ML 2 ML VIAL IV PRN (19:09)
[2018-07-07] MEDS ORDERED: MAGNESIUM HYDROXIDE SUSP 30 ML UDC PO PRN (19:09)
[2018-07-07] MEDS ORDERED: BISACODYL 10 MG SUPP PR PRN (19:09)
[2018-07-07] MEDS ORDERED: MUPIROCIN 2% OINT 22 GM TUBE TOP PRN ×2 (19:38→19:45)
[2018-07-07] MEDS: FERROUS GLUCONATE 324 MG TAB PO SCH (20:18)
[2018-07-07] MEDS: CEFAZOLIN 1000MG 1,000 MG/7.5 ML SYR IV SCH (22:31)
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
[2018-07-07] MEDS: ASPIRIN 81 MG ECTAB PO SCH ×2 (22:49→22:52)
[2018-07-07] MEDS: DOCUSATE SODIUM 100 MG CAP PO SCH (22:55)
[2018-07-08] MEDS: HYDROmorphone INJ 0.5 MG/0.5 ML SYR IV PRN (03:16)
[2018-07-08] MEDS: SODIUM CHLORIDE 0.9% 1000ML 1,000 ML IV SCH (06:23)
[2018-07-08] MEDS: CEFAZOLIN 1000MG 1,000 MG/7.5 ML SYR IV SCH (06:24)
[2018-07-08] MEDS: ACETAMINOPHEN 325 MG TAB PO PRN (07:50)
[2018-07-08 08:26] LABS: Basophils # (auto) 0.02 K/uL (0-0.2); Basophils % (auto) 0.2 %; Hematocrit (blood only) 28.3 % (37-47); Hemoglobin 9.3 g/dL (12.0-16.0); Immature Granulocytes # (auto) 0.02 K/uL (0.00-0.02); Immature Granulocytes % (auto) 0.2 %; Lymphocytes % (auto) 17.3 %; Mean Corpuscular Hgb Conc 32.9 g/dL (32-36); Mean Corpuscular Volume 90.1 fL (80-100); Mean Platelet Volume 11.1 fL (7.4-10.4); Monocytes # (auto) 0.91 K/uL (0.11-0.59); Monocytes % (auto) 11.3 %; Neutrophils # (auto) 5.73 K/uL (1.4-6.5); Platelet Count 227 K/uL (130-400); RDW Coefficient of Variation 14.3 % (11.5-14.5); RDW Standard Deviation 46.8 fL (36.4-46.3); Red Blood Count 3.14 M/uL (4.2-5.4); White Blood Count 8.08 K/uL (4.8-10.8)
[2018-07-08 08:59] LABS: BUN Creatinine Ratio 23.6 (10-20); Calcium 8.6 mg/dl (8.5-10.1); Creatinine Clr Calc Pharmacy 69.2 ml/min; Est GFR (African American) 110.4; Est GFR (Non-African American) 95.3; Potassium 3.9 mmol/L (3.5-5.1)
[2018-07-08] MEDS: OXYBUTYNIN CHLORIDE 5 MG TAB PO SCH ×2 (08:59→20:24)
[2018-07-08] MEDS: AMLODIPINE BESYLATE 5 MG TAB PO SCH (08:59)
[2018-07-08] MEDS ORDERED: THIAMINE HCL 50 MG TABLET PO SCH (09:00)
[2018-07-08] MEDS: MIRABEGRON ER 25 MG TAB PO SCH (09:00)
[2018-07-08] MEDS: FERROUS GLUCONATE 324 MG TAB PO SCH ×2 (09:00→17:49)
[2018-07-08] MEDS: DOCUSATE SODIUM 100 MG CAP PO SCH ×2 (09:00→20:28)
[2018-07-08] MEDS: DIVALPROEX SODIUM SPRINKLE 125 MG CAP PO SCH ×3 (09:00→20:27)
[2018-07-08] MEDS: POTASSIUM CHLORIDE 10 MEQ TABCR PO SCH ×2 (09:01→20:28)
[2018-07-08] MEDS: THIAMINE HCL 100 MG TAB PO SCH (09:01)
[2018-07-08] MEDS: MAGNESIUM OXIDE 400 MG TAB PO SCH ×2 (09:01→20:26)
[2018-07-08] MEDS: FOLIC ACID 1 MG TAB PO SCH (09:01)
[2018-07-08] MEDS: MULTIVITAMIN TAB PO SCH (09:01)
[2018-07-08] MEDS: ASPIRIN 81 MG ECTAB PO SCH ×2 (09:09→20:28)
--- NOTE | 2018-07-08 09:37 | Operative Report ---
DATE OF OPERATION: 07/07/2018 SURGEON: Carlos Ramirez MD FLUOROSCOPE OPERATOR: LOUISE Rojas PREOPERATIVE DIAGNOSIS: Right displaced femoral neck fracture. POSTOPERATIVE DIAGNOSIS: Right displaced femoral neck fracture. PROCEDURE PERFORMED: Right cemented bipolar hip arthroplasty. COMPLICATIONS: None. ESTIMATED BLOOD LOSS: 200 mL. FLUID REPLACEMENT: 700 mL crystalloid fluid replacement. ANESTHESIA: General. SPECIMENS: Right femoral head sent for pathology. OPERATIVE INDICATIONS: Patient is a 62-year-old female with multiple medical comorbidities including bipolar disorder, severe osteoporosis, and a history of stroke with right hemiparesis, who sustained a fall several days ago. Her finally convinced her to come to the ER where x-rays revealed a markedly valgus impacted femoral neck fracture. Patient was admitted to the medicine service. She is medically optimized and indicated for surgical treatment. In this patient with multiple comorbidities, with limited ambulation ability independently, severe osteoporosis, and a markedly impacted fracture, I thought hemiarthroplasty was the most appropriate treatment for her. OPERATIVE IMPLANTS: Consisted of: 1. Biomet Generation 4 size 9 high offset polished femoral stem. 2. A -3/28 mm articular ball. 3. A 42 mm bipolar shell/liner. 4. A size 10 centralizer. OPERATIVE PROCEDURE: Patient was taken to the operating room, identified and placed on operative room table in supine position. All contact areas were appropriately padded. IV antibiotics provided by anesthesia team. We did give her both Ancef as well as some gentamicin as she had some apparent contamination and some signs of apparent urinary tract infection. A general anesthetic was implemented. The patient was then placed in the left lateral decubitus position. An axillary roll was placed. Stlberg hip positioner was used for positioning. The right hip was then scrubbed with Hibiclens, then prepped with ChloraPrep, and draped in the usual sterile fashion. A posterolateral approach to the right hip was then performed through a curvilinear incision centered over the greater trochanter. Sharp dissection was carried down through the subcutaneous tissue down to the level of the IT band and gluteal fascia. The IT band and gluteal fascia were incised longitudinally in line with the skin incision. The underlying greater trochanteric bursa was excised. Of note, her soft tissues were quite edematous. The piriformis and external rotators were then tagged and taken off the posterior aspect of the hip joint capsule taking great care to protect the sciatic nerve at all times. A posterior capsulotomy was then performed leaving flap for later repair. The hip was internally rotated. A femoral neck osteotomy cut was made below the fracture site. The femur was retracted anteriorly. The femoral head was removed from the acetabulum. I then trialed the acetabulum, and a 42 mm shell fit most appropriately. Attention was then drawn to the femur. The proximal femur was entered with a cookie cutter followed by canal finder and lateralizing reamer. I then broached beginning with a size 7 up to a 9. Her bones were fairly small. The cancellous bone was quite poor quality. We then trialed the hip, and the -2 high offset stem seemed to create appropriate leg lengths, and her hip was fully stable in full extension and external rotation, flexion to 90 degrees, internal rotation over 70 degrees. I did want to maximize her stability, and therefore, we used this high offset stem. Attention was then drawn toward placement of these components. All trial components were removed. A bone plug was placed in the distal femur. The canal was then irrigated extensively. A double batch of Pal[place]os G cement was mixed and injected into the canal. A Biomet Generation 4 size 9 polished femoral stem with high offset was then placed in maximum anteversion. Once the cement hardened, a -3/28 mm articular ball was placed followed by a 42 mm bipolar shell and liner. Hip was located and once again found to be stable. Attention was then drawn toward closing. I irrigated extensively. I did inject locally with 60 mL of 0.5% Marcaine with epinephrine. The posterior capsule was then repaired with #2 Ti-Cron suture in a [id number] fashion. The external rotators were repaired through posterior hip abductor tendons with #2 Ti-Cron suture. The IT band and gluteal fascia were then closed with #1 PDS suture in running fashion. The subcutaneous tissue was then closed with 2 layers, the deep layer with #1 Vicryl suture, subcutaneous tissue with 2-0 Dexon suture in a buried interrupted fashion. Skin was closed with skin kaila. Leg was then cleaned and dried, and a sterile dressing of Xeroform, 4x4, sterile ABD pad, and Medipore tape applied. The patient was then brought out of general anesthesia. Crane catheter was not working, so the nursing staff did place a new Crane catheter, which worked appropriately. The patient was then transferred to the recovery room in stable condition. The patient tolerated the procedure well with no complication. All needle and sponge counts were correct at the end of the operation. I attest to the content of the Intraoperative Record and any orders documented therein. Any exception s are noted below.
[2018-07-08] MEDS: VENLAFAXINE HCL 50 MG TAB PO SCH ×2 (09:54→20:25)
--- NOTE | 2018-07-08 13:47 | Progress Note ---
DATE: 07/08/2018 SUBJECTIVE: A 62-year-old female postop day 1 from right cemented bipolar hip arthroplasty for a fracture. She is doing pretty well. She does not really have any pain while lying in bed. They did mobilize her some with therapy and had some moderate discomfort. No chest pain, no shortness of breath. No new symptoms. OBJECTIVE: VITAL SIGNS: Temperature 36.9. Stable. GENERAL: Examination shows a pleasant middle-aged female. She is sitting up in bed, and her son is helping her eat lunch. EXTREMITIES: Examination of the right leg reveals the leg lengths to be equal. Hip is located. Thigh is soft and supple. She can dorsiflex and plantarflex her foot appropriately similar to what she could before surgery. ASSESSMENT: A 62-year-old female with multiple medical comorbidities postop day 1 from a cemented bipolar hip arthroplasty for a fracture. She is doing reasonably well. She is neurologically stable. PLAN: 1. DVT prophylaxis including thigh-high TEDs, SCDs, and recommended just a baby aspirin twice a day. 2. PT/OT. She can weightbear as tolerated. Right total hip protocol. She needs to obey hip precautions. 3. Medical management as per the medicine service. 4. Disposition: She is orthopedically acceptable for discharge at any time medically stable. I believe the family wants her to go to rehab. I need to see her back 2 weeks out from surgery. Any orthopedic questions can be directed to me at [phone].
[2018-07-08] MEDS: LACTATED RINGER'S 1,000 ML IV SCH (16:08)
[2018-07-08] MEDS: SENNA 8.6 MG TAB PO SCH (20:26)
[2018-07-09] MEDS: LACTATED RINGER'S 1,000 ML IV SCH (00:30)
[2018-07-09 06:38] LABS: Basophils # (auto) 0.03 K/uL (0-0.2); Basophils % (auto) 0.5 %; Eosinophils # (auto) 0.24 K/uL (0-0.5); Eosinophils % (auto) 3.8 %; Hematocrit (blood only) 22.7 % (37-47); Hemoglobin 7.4 g/dL (12.0-16.0); Immature Granulocytes # (auto) 0.01 K/uL (0.00-0.02); Immature Granulocytes % (auto) 0.2 %; Lymphocytes # (auto) 1.87 K/uL (1.2-3.4); Lymphocytes % (auto) 29.4 %; Mean Corpuscular Hgb Conc 32.6 g/dL (32-36); Mean Corpuscular Volume 89.7 fL (80-100); Mean Platelet Volume 10.2 fL (7.4-10.4); Monocytes # (auto) 0.87 K/uL (0.11-0.59); Monocytes % (auto) 13.7 %; Neutrophils # (auto) 3.34 K/uL (1.4-6.5); Neutrophils % (auto) 52.4 %; Platelet Count 148 K/uL (130-400); RDW Coefficient of Variation 14.2 % (11.5-14.5); RDW Standard Deviation 47.3 fL (36.4-46.3); Red Blood Count 2.53 M/uL (4.2-5.4); White Blood Count 6.36 K/uL (4.8-10.8)
[2018-07-09 07:15] LABS: RBC Morphology Unremarkable
--- NOTE | 2018-07-09 07:56 | Progress Note ---
DATE: 07/09/2018 SUBJECTIVE: A 62-year-old white female postop day 2 from a right cemented bipolar hip arthroplasty for fracture. She seems to be doing pretty well. She appears comfortable in bed. No new complaints. Some moderate pain with mobilization. OBJECTIVE: VITAL SIGNS: Temperature 36.5. Vital signs stable. GENERAL: Physical examination reveals a pleasant, middle-aged female. She is lying in bed, looks pretty comfortable. EXTREMITIES: Examination of the right leg reveals the leg to be well aligned. Leg lengths were equal. She can slightly dorsiflex and plantarflex her foot appropriately, which is her baseline. Her dressing is clean, dry and intact. She is neurologically intact. LABORATORY DATA: Hemoglobin is 7.4. Hematocrit is 22.7. ASSESSMENT: A 62-year-old white female postop day 2 from right cemented bipolar hip arthroplasty for fracture. Seems to be doing pretty well. She is anemic, but currently without symptoms. No other sources of bleeding. Hemoglobin has dropped pretty significantly, it might be worth checking another before considering transfusion. PLAN: 1. DVT prophylaxis including thigh-high TEDs, SCDs, and we would recommend aspirin twice a day. 2. PT/OT. She can weightbear as tolerated. Right total hip protocol. 3. Pain control. Seems to be doing reasonably well with current pain regimen. 4. Anemia. Will continue iron supplementation. Will need transfusions of the medicine service unless she is symptomatic. She is currently not symptomatic and might be worth rechecking her H and H before transfusion due to the significant drop. 5. Disposition: She is orthopedically stable and acceptable for discharge any time medically stable. I need to see her back 2 weeks out from surgery. Any orthopedic questions can be directed at [phone].
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
[2018-07-09] MEDS: HYDROmorphone INJ 0.5 MG/0.5 ML SYR IV PRN ×2 (08:33→20:39)
[2018-07-09] MEDS: MULTIVITAMIN TAB PO SCH (08:37)
[2018-07-09] MEDS: AMLODIPINE BESYLATE 5 MG TAB PO SCH (08:37)
[2018-07-09] MEDS: FERROUS GLUCONATE 324 MG TAB PO SCH ×2 (08:37→16:46)
[2018-07-09] MEDS: OXYBUTYNIN CHLORIDE 5 MG TAB PO SCH ×2 (08:37→20:20)
[2018-07-09] MEDS: ASPIRIN 81 MG ECTAB PO SCH ×2 (08:38→20:21)
[2018-07-09] MEDS: POTASSIUM CHLORIDE 10 MEQ TABCR PO SCH ×2 (08:38→20:22)
[2018-07-09] MEDS: MIRABEGRON ER 25 MG TAB PO SCH (08:38)
[2018-07-09] MEDS: THIAMINE HCL 100 MG TAB PO SCH (08:38)
[2018-07-09] MEDS: DOCUSATE SODIUM 100 MG CAP PO SCH ×2 (08:38→20:21)
[2018-07-09] MEDS: MAGNESIUM OXIDE 400 MG TAB PO SCH ×2 (08:39→20:20)
[2018-07-09] MEDS: FOLIC ACID 1 MG TAB PO SCH (08:39)
[2018-07-09] MEDS: VENLAFAXINE HCL 50 MG TAB PO SCH ×2 (08:39→20:22)
[2018-07-09] MEDS: DIVALPROEX SODIUM SPRINKLE 125 MG CAP PO SCH ×3 (08:39→20:20)
[2018-07-09 15:45] LABS: Hematocrit (blood only) 23.9 % (37-47); Hemoglobin 7.7 g/dL (12.0-16.0)
[2018-07-09 16:01] LABS: Calcium 8.7 mg/dl (8.5-10.1); Creatinine Clr Calc Pharmacy 72.7 ml/min; Est GFR (African American) 112.3; Est GFR (Non-African American) 96.9; Potassium 3.5 mmol/L (3.5-5.1)
[2018-07-09 16:06] LABS: Ferritin 115.9 ng/ml (8-388)
[2018-07-09] MEDS: SENNA 8.6 MG TAB PO SCH (20:19)
[2018-07-10 06:06] LABS: Basophils # (auto) 0.03 K/uL (0-0.2); Basophils % (auto) 0.4 %; Eosinophils # (auto) 0.21 K/uL (0-0.5); Hematocrit (blood only) 22.1 % (37-47); Hemoglobin 7.2 g/dL (12.0-16.0); Immature Granulocytes # (auto) 0.03 K/uL (0.00-0.02); Immature Granulocytes % (auto) 0.4 %; Lymphocytes # (auto) 1.72 K/uL (1.2-3.4); Mean Corpuscular Hgb Conc 32.6 g/dL (32-36); Mean Corpuscular Volume 90.9 fL (80-100); Mean Platelet Volume 10.6 fL (7.4-10.4); Monocytes # (auto) 1.06 K/uL (0.11-0.59); Monocytes % (auto) 15.4 %; Neutrophils # (auto) 3.84 K/uL (1.4-6.5); Neutrophils % (auto) 55.8 %; Platelet Count 183 K/uL (130-400); RDW Standard Deviation 46.9 fL (36.4-46.3); Red Blood Count 2.43 M/uL (4.2-5.4); White Blood Count 6.89 K/uL (4.8-10.8)
[2018-07-10 06:32] LABS: RBC Morphology Unremarkable
[2018-07-10] MEDS: FOLIC ACID 1 MG TAB PO SCH (08:45)
[2018-07-10] MEDS: MIRABEGRON ER 25 MG TAB PO SCH (08:45)
[2018-07-10] MEDS: VENLAFAXINE HCL 50 MG TAB PO SCH ×2 (08:45→22:01)
[2018-07-10] MEDS: THIAMINE HCL 100 MG TAB PO SCH (08:46)
[2018-07-10] MEDS: ASPIRIN 81 MG ECTAB PO SCH ×2 (08:46→22:01)
[2018-07-10] MEDS: POTASSIUM CHLORIDE 10 MEQ TABCR PO SCH ×2 (08:46→22:01)
[2018-07-10] MEDS: MAGNESIUM OXIDE 400 MG TAB PO SCH ×2 (08:46→22:02)
[2018-07-10] MEDS: DIVALPROEX SODIUM SPRINKLE 125 MG CAP PO SCH ×3 (08:47→22:01)
[2018-07-10] MEDS: OXYBUTYNIN CHLORIDE 5 MG TAB PO SCH ×2 (08:47→22:01)
[2018-07-10] MEDS: AMLODIPINE BESYLATE 5 MG TAB PO SCH (08:47)
[2018-07-10] MEDS: MULTIVITAMIN TAB PO SCH (08:47)
[2018-07-10] MEDS: DOCUSATE SODIUM 100 MG CAP PO SCH ×2 (08:47→21:59)
[2018-07-10] MEDS: FERROUS GLUCONATE 324 MG TAB PO SCH ×2 (08:47→17:52)
[2018-07-10] MEDS: ACETAMINOPHEN 325 MG TAB PO PRN (09:30)
[2018-07-10] MEDS: SENNA 8.6 MG TAB PO SCH (22:02)
[2018-07-11 05:57] LABS: Basophils # (auto) 0.02 K/uL (0-0.2); Basophils % (auto) 0.3 %; Eosinophils # (auto) 0.18 K/uL (0-0.5); Eosinophils % (auto) 2.3 %; Hematocrit (blood only) 23.3 % (37-47); Hemoglobin 7.6 g/dL (12.0-16.0); Immature Granulocytes # (auto) 0.05 K/uL (0.00-0.02); Immature Granulocytes % (auto) 0.6 %; Lymphocytes # (auto) 1.88 K/uL (1.2-3.4); Lymphocytes % (auto) 23.9 %; Mean Corpuscular Hgb Conc 32.6 g/dL (32-36); Mean Platelet Volume 10.4 fL (7.4-10.4); Monocytes # (auto) 1.03 K/uL (0.11-0.59); Monocytes % (auto) 13.1 %; Neutrophils # (auto) 4.72 K/uL (1.4-6.5); Neutrophils % (auto) 59.8 %; Platelet Count 241 K/uL (130-400); RDW Standard Deviation 46.4 fL (36.4-46.3); Red Blood Count 2.59 M/uL (4.2-5.4); White Blood Count 7.88 K/uL (4.8-10.8)
[2018-07-11] MEDS: ACETAMINOPHEN 325 MG TAB PO PRN (08:10)
--- NOTE | 2018-07-11 08:25 | Progress Note ---
DATE: 07/11/2018 SUBJECTIVE: A 62-year-old female postop day 4 from right cemented hip arthroplasty for fracture. She seems to be doing okay. No new complaints today. Seems a little bit sedated. OBJECTIVE: VITAL SIGNS: Temperature 37.6. Vital signs stable. Some mild tachycardia. GENERAL: Physical examination reveals a pleasant, debilitated elderly female. She is lying in bed. She looks comfortable. EXTREMITIES: Examination of the right hip reveals incision to be clean, dry and intact. She can slightly dorsiflex and plantarflex her foot similar to baseline. LABORATORY DATA: Hemoglobin 7.6. Hematocrit 23.3. Electrolytes are stable. ASSESSMENT: A 62-year-old white female with multiple comorbidities postop day 4 from a right cemented bipolar hip arthroplasty for fracture. She is orthopedically stable. She is anemic, but no clear symptoms. PLAN: 1. DVT prophylaxis including thigh-high TEDs, SCDs, and we just recommend an aspirin twice a day. 2. PT/OT. She can weightbear as tolerated. Should obey hip precautions. 3. Medical management as per the medicine service. 4. Anemia. Continue supplementation. As far as blood transfusions, we will leave that up to the medicine service. 5. Disposition: She is orthopedically stable and acceptable for discharge at any time medically stable.
[2018-07-11] MEDS: POTASSIUM CHLORIDE 10 MEQ TABCR PO SCH ×2 (08:42→20:45)
[2018-07-11] MEDS: VENLAFAXINE HCL 50 MG TAB PO SCH ×2 (08:43→20:45)
[2018-07-11] MEDS: MIRABEGRON ER 25 MG TAB PO SCH (08:43)
[2018-07-11] MEDS: FOLIC ACID 1 MG TAB PO SCH (08:43)
[2018-07-11] MEDS: THIAMINE HCL 100 MG TAB PO SCH (08:43)
[2018-07-11] MEDS: DIVALPROEX SODIUM SPRINKLE 125 MG CAP PO SCH ×3 (08:43→20:55)
[2018-07-11] MEDS: MAGNESIUM OXIDE 400 MG TAB PO SCH ×2 (08:44→20:43)
[2018-07-11] MEDS: MULTIVITAMIN TAB PO SCH (08:44)
[2018-07-11] MEDS: OXYBUTYNIN CHLORIDE 5 MG TAB PO SCH ×2 (08:44→20:41)
[2018-07-11] MEDS: AMLODIPINE BESYLATE 5 MG TAB PO SCH (08:44)
[2018-07-11] MEDS: DOCUSATE SODIUM 100 MG CAP PO SCH ×2 (08:44→20:41)
[2018-07-11] MEDS: ASPIRIN 81 MG ECTAB PO SCH ×2 (08:44→20:42)
[2018-07-11] MEDS: FERROUS GLUCONATE 324 MG TAB PO SCH ×2 (08:44→17:19)
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
[2018-07-11 15:11] LABS: Appearance Urine Clear (Clear); Bilirubin Urine Negative (Negative); Color Urine Yellow; Glucose Urine UA Negative (Negative); Ketones Urine Negative (Negative); Leukocyte Esterase Urine Negative (Negative); Nitrite Urine Negative (Negative); Protein Urine Negative (Negative); Specific Gravity Urine 1.015 (1.000-1.030); Urobilinogen Urine Negative (Negative); pH Urine 8.5 (4.5-7.5)
[2018-07-11] MEDS: SENNA 8.6 MG TAB PO SCH (20:42)
[2018-07-11] MEDS: OXYCODONE HCL IR 5 MG TAB (IMMEDIATE RELEASE) PO PRN (20:52)
--- NOTE | 2018-07-11 22:19 | Ultrasound Report ---
US venous doppler UE LT CLINICAL HISTORY: 62 years-old Female presenting with swelling left hand. TECHNIQUE: Real-time grayscale and color and spectral Doppler ultrasound imaging of the veins of the left upper extremity was performed. Compression and augmentation were also utilized. COMPARISON: None. FINDINGS: LEFT: Internal jugular vein: Patent. Subclavian vein: Patent. Axillary vein: Patent. Brachial vein: Patent. Basilic vein (superficial): Patent. Cephalic vein (superficial): Patent. Radial vein: Patent. Ulnar vein: Not visualized. Other: None. IMPRESSION: No evidence of deep venous thrombosis. Electronically signed by: Kye Tidwell M.D. 07/11/2018 10:18 PM
--- NOTE | 2018-07-12 08:27 | Progress Note ---
DATE: 07/12/2018 SUBJECTIVE: A 62-year-old female postop day 5 from a right cemented bipolar hip arthroplasty for fracture. She seems to be doing okay. No new complaints today. Pain seems to be controlled. OBJECTIVE: VITAL SIGNS: Temperature 36.9. Vital signs are stable. PHYSICAL EXAMINATION: GENERAL: Reveals a pleasant elderly female. She is lying in bed, looks reasonably comfortable. EXTREMITIES: Examination of the right hip reveals the incision to be clean, dry and intact. No drainage. Hip is located. She is neurologically stable. ASSESSMENT: A 62-year-old female with multiple medical comorbidities, postoperative day 5 from a right cemented bipolar hip arthroplasty for fracture. She is orthopedically stable. PLAN: Continue DVT prophylaxis including TEDs, SCDs and would recommend aspirin twice a day for the next 6 weeks. She can fully weight bear on this right leg. She needs to obey hip precautions. She is orthopedically acceptable for discharge at any time. I need to see her back 2 weeks out from surgery. Any orthopedic questions can be directed to me at [phone].
[2018-07-12] MEDS: THIAMINE HCL 100 MG TAB PO SCH (09:12)
[2018-07-12] MEDS: DIVALPROEX SODIUM SPRINKLE 125 MG CAP PO SCH ×3 (09:12→20:24)
[2018-07-12] MEDS: VENLAFAXINE HCL 50 MG TAB PO SCH ×2 (09:12→20:22)
[2018-07-12] MEDS: DOCUSATE SODIUM 100 MG CAP PO SCH ×2 (09:13→20:20)
[2018-07-12] MEDS: ASPIRIN 81 MG ECTAB PO SCH ×2 (09:13→20:24)
[2018-07-12] MEDS: FOLIC ACID 1 MG TAB PO SCH (09:13)
[2018-07-12] MEDS: POTASSIUM CHLORIDE 10 MEQ TABCR PO SCH ×2 (09:13→20:21)
[2018-07-12] MEDS: MAGNESIUM OXIDE 400 MG TAB PO SCH ×2 (09:13→20:22)
[2018-07-12] MEDS: MULTIVITAMIN TAB PO SCH (09:14)
[2018-07-12] MEDS: FERROUS GLUCONATE 324 MG TAB PO SCH ×2 (09:14→16:53)
[2018-07-12] MEDS: MIRABEGRON ER 25 MG TAB PO SCH (09:14)
[2018-07-12] MEDS: OXYBUTYNIN CHLORIDE 5 MG TAB PO SCH ×2 (09:14→20:20)
[2018-07-12] MEDS: AMLODIPINE BESYLATE 5 MG TAB PO SCH (09:14)
[2018-07-12 11:14] LABS: Basophils # (auto) 0.03 K/uL (0-0.2); Basophils % (auto) 0.4 %; Eosinophils # (auto) 0.28 K/uL (0-0.5); Eosinophils % (auto) 3.4 %; Hematocrit (blood only) 30.4 % (37-47); Hemoglobin 9.9 g/dL (12.0-16.0); Immature Granulocytes # (auto) 0.07 K/uL (0.00-0.02); Immature Granulocytes % (auto) 0.8 %; Lymphocytes # (auto) 1.64 K/uL (1.2-3.4); Lymphocytes % (auto) 19.7 %; Mean Corpuscular Hgb Conc 32.6 g/dL (32-36); Mean Corpuscular Volume 89.9 fL (80-100); Mean Platelet Volume 10.3 fL (7.4-10.4); Monocytes # (auto) 0.85 K/uL (0.11-0.59); Monocytes % (auto) 10.2 %; Neutrophils # (auto) 5.46 K/uL (1.4-6.5); Neutrophils % (auto) 65.5 %; Platelet Count 341 K/uL (130-400); RDW Coefficient of Variation 14.2 % (11.5-14.5); RDW Standard Deviation 46.5 fL (36.4-46.3); Red Blood Count 3.38 M/uL (4.2-5.4); White Blood Count 8.33 K/uL (4.8-10.8)
[2018-07-12 11:46] LABS: Calcium 9.2 mg/dl (8.5-10.1); Creatinine Clr Calc Pharmacy 108.8 ml/min; Est GFR (African American) 124.6; Est GFR (Non-African American) 107.5
[2018-07-12] MEDS: OXYCODONE HCL IR 5 MG TAB (IMMEDIATE RELEASE) PO PRN (16:47)
[2018-07-12] MEDS: SENNA 8.6 MG TAB PO SCH (20:21)
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
[2018-07-12 23:55] VITALS: O2SAT 92
[2018-07-13] MEDS: OXYCODONE HCL IR 5 MG TAB (IMMEDIATE RELEASE) PO PRN ×2 (01:00→14:55)
[2018-07-13 08:34] VITALS: BP 138/68; PULSE 96; TEMP 97.5
[2018-07-13] MEDS: THIAMINE HCL 100 MG TAB PO SCH (09:03)
[2018-07-13] MEDS: AMLODIPINE BESYLATE 5 MG TAB PO SCH (09:04)
[2018-07-13] MEDS: VENLAFAXINE HCL 50 MG TAB PO SCH (09:04)
[2018-07-13] MEDS: MAGNESIUM OXIDE 400 MG TAB PO SCH (09:05)
[2018-07-13] MEDS: POTASSIUM CHLORIDE 10 MEQ TABCR PO SCH (09:05)
[2018-07-13] MEDS: FOLIC ACID 1 MG TAB PO SCH (09:05)
[2018-07-13] MEDS: ASPIRIN 81 MG ECTAB PO SCH (09:05)
[2018-07-13] MEDS: MIRABEGRON ER 25 MG TAB PO SCH (09:06)
[2018-07-13] MEDS: MULTIVITAMIN TAB PO SCH (09:06)
[2018-07-13] MEDS: OXYBUTYNIN CHLORIDE 5 MG TAB PO SCH (09:06)
[2018-07-13] MEDS: FERROUS GLUCONATE 324 MG TAB PO SCH (09:06)
[2018-07-13] MEDS: DOCUSATE SODIUM 100 MG CAP PO SCH (09:09)
[2018-07-13] MEDS: DIVALPROEX SODIUM SPRINKLE 125 MG CAP PO SCH ×2 (09:12→15:28)
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
[2018-07-13] MEDS ORDERED: DIVALPROEX SODIUM SPRINKLE 125 MG CAP PO SCH (21:00)
== END 2018-07-13 16:42 | DRG 470 ==
LOC: ED 07:19 → SUATTDRO 10:06 → 2N 10:06 → 3E 07-07 18:38 → 3W 07-12 12:34